=== PATIENT | female | born 1940 | race Caucasian/White ===

== ENCOUNTER 2024-10-14 11:33 | Inpatient (IN) | payer MEDICARE, SELFPAY ==
--- OUTSIDE RECORDS SUMMARY | 2024-10-09 23:01 | XMS_ITS | Encounter Summary ---
Author Organization [facility] ([place], [place], [place], [place]) Address [address] [place] [address] Care Team Providers Care Dynamometer Tuner Name Role Phone Hermes Clark MD Primary Care Provider [phone] Karlo Curtis MD Primary Care Provider [phone] Reason for Visit * Auth/Cert (Routine) Specialty Diagnoses / Procedures Referred By Contac t Referred To Contact Diagnoses GIB (gastrointestinal bleeding) Gastrointestinal bleeding GI BLEED [address] [place] [address] Phone: tel: fax: [address] [place] [address] Phone: tel: fax: Referral ID Status Reason Start Date Expiration Date Visits Re quested Visits Authorized [id number] 1 1 Encounter Details Date Type Department Care Team (Late st Contact Info) Description 10/09/2024 11:01 PM EDT - 10/12/2024 2:25 PM EDT Hospital Encounter [address] [place] [address] Enoc Olivia MD [address] [facility] [address] [place] [address] Kayden Quintero PA-C [address] [facility] [address] [place], [place] [id number] Tanner Srinivasan DO [address] [address] Aneudy Ospina, DO [address] [address] Discharge Disposition: Home or Self Care Social History Tobacco Use Types Packs/Day Years Used Date Smoking Tobacco: Never Assessed Food Insecurity Answer Date Recorded Food run out past 12 months Not on file 12/16 Food did not last past 12 months Not on file 01/08/2024 Employment Answer Date Recorded Help finding and keeping a job Not on file 0 01/08/2024 Family and Community Support Answer Kody e Recorded Help with Day to Day Activities Not on file 01/08/2024 Feeling Lonely or Isolated Not on file 01/07 Educational Attainment Answer Date Awais rded Speak language other than Niuean at home Not on file 01/08/2024 Want help with school or training Not on file 01/08/2024 Substance Use Answer Date Recorded Used prescription meds for non-medical reasons N ot on file 01/08/2024 Used illegal drugs past 12 months Not on file 01/08/2024 Comments Unknown Sex and Gender Information Value Date Recorded Sex Assigned at Not on file Legal Sex Female 5:40 PM CDT Gender Identity Not on file Sexual Orientation Not on file documented as of this encounter Last Filed Vital Signs Vital Sign Reading Time Taken Comments Blood Pressure 138/66 10/12/2024 10:20 AM EDT Pulse 79 10/12/2024 10:20 AM EDT Temperature 36.4 C (97.5 F) 10/12/2024 10:15 AM EDT Respiratory Rate 18 10/12/2024 3:50 AM EDT Oxygen Saturation 97% 10/12/2024 10:15 AM EDT Inhaled Oxygen Concentration - - Weight - - Height - - Body Mass Index - - documented in this encounter Discharge Summaries * Tanner Hernandezdiqi, - 10/12/2024 10:56 AM EDT [facility] Discharge Summary Patient Name: Ana Maria Lowery : 1940 Date of Admission: 10/09/2024 Date of Discharge: 10/12/2024 Primary Care Physician: Karlo Curtis MD Hospital Course Internet Systems Administrator(s): GI Discharge Diagnosis: #Acute GI bleeding: #Hematemesis #Hypertension: #Hyponatremia: #Dementia: #RA Reason for Hospitalization: GIB (gastrointestinal bleeding) [K92.2];Gastrointestinal bleeding [K92.2] Hospital Course Ana Maria Lowery is a 84 y.o. female with a history of A-fib, rheumatoid arthritis, hypertension, hyperlipidemia, dementia, and rheumatic fever who presents to [facility] in [place], [place] for further evaluation and management of vomiting and hematemesis. She was started on IV PPI BID. CT head without contrast was obtained showing no acute intracranial hemorrhage or territorial infarction. CT abdomen/pelvis without contrast showed patient motion and streak artificial artifact limitsevaluation. Small hiatal hernia noted. Atelectasis and tiny bilateral pulmonary nodules measuring no more than 5 mm. She was evaluated by GI and started on IV PPI BID. She had monitoring of her H&H and it remained stable with no further bleeding after arriving to the hospital. Will plan to d/c home today with PO PPI BID per GI recs. PCP follow up list: Hospital follow up visit: Day of Discharge Vital Signs: Temp: [97.3 ??F (36.3 ??C)-98.1 ??F (36.7 ??C)] 97.5 ??F (36.4 ??C) Pulse: [72-82] 79 Resp: [17-18] 18 BP: (95-149)/(42-66) 138/66 SpO2 for the past 72 hrs (Last 3 readings): SpO2 10/12/24 1015 97 % 10/12/24 0350 96 % 10/11/24 2310 95 % There is no height or weight on file to calculate BMI. Focused Physical Exam: Patient seen and evaluated on day of discharge Physical exam: Gen: Elderly female resting comfortably, NAD HEENT: Normocephalic, atraumatic, EOMI, very hard of hearing CVS: RRR, no edema Lung: CTA b/l, no rales, rhonchi, wheezes Abd: Soft non-distended Skin: No rashes Discharge Details Allergies:Not on File Medications on Discharge: Your medication list START taking these medications Instructions Comments Quantity Refills pantoprazole 40 MG tablet Commonly known as: PROTONIX Take 1 tablet (40 mg total) by mouth 2 (two) times daily before meals for 60 days Then take 1 tab oral daily.. Please fill Protonix daily Rx in 2 months. Patient needs to start with Protonix 40 mg BID x 2 months then Protonix 40 mg daily. 120 tablet 0 CONTINUE taking these medications Instructions Comments Quantity Refills benzonatate 100 MG capsule Commonly known as: TESSALON Take 1 capsule (100 mg total) by mouth every 8 (eight) hours as needed for cough. 0 losartan 25 MG tablet Commonly known as: COZAAR Take 1 tablet (25 mg total) by mouth daily. 0 metoprolol succinate 25 MG 24 hr tablet Commonly known as: TOPROL-XL Take 1 tablet (25 mg total) by mouth daily. 0 QUEtiapine 25 MG tablet Commonly known as: SEROquel Take 1 tablet (25 mg total) by mouth nightly. 0 Where to Get Your Medications These medications were sent to [facility] [address] [place] [address] pantoprazole 40 MG tablet Discharge condition: Improved and stable Discharge Disposition: Home Discharge Instructions: Please take your medications as prescribed. Please follow up with your PCP in 3-5 days. Please ensure you follow with all subspecialties as discussed on the day of discharge. Discharge Diet: Cardiac Discharge Activity: As tolerated Discharge Follow Up Appointments: Contact information for follow-up [address] [place] [address] [facility] Next Steps: Call in 3 day(s) Instructions: As needed Please call by 10/15/2024, or 72 hours AFTER discharge date if a home health nurse has not reached out to confirm a home visit. Time Spent on Discharge: I spent 15 minutes in [id number] time with the patient and nursing staffconcerning the discharge process. We discussed the admitting diagnoses and the hospital course. We discussed identified improvement and the patient's desire to be discharged. We reviewed inpatient studies and imaging. The patient voiced understanding on the importance of follow-up with his primary care provider and specialist(s). The patient plans to be compliant with the medication regimen prescribed and follow up appointments. Patient understands that they can return to the emergency department with any sudden changes or concerns. Electronically signed by: Tanner Srinivasan DO 10/12/2024, 10:56 AM [facility] documented in this encounter Discharge Instructions * Attachments The following attachments cannot be sent through Care Everywhere. * Gastrointestinal Bleeding [id number] (Niuean) documented in this encounter Medications at Time of Discharge benzonatate (TESSALON) 100 MG capsule Take 1 capsule (100 mg total) by mouth every 8 (eight) hours as needed for cough. losartan (COZAAR) 25 MG tablet Take 1 tablet (25 mg total) by mouth daily. metoprolol succinate (TOPROL-XL) 25 MG 24 hr tablet Take 1 tablet (25 mg total) by mouth daily. pantoprazole (PROTONIX) 40 MG tablet Take 1 tablet (40 mg total) by mouth 2 (two) times daily before meals for 60 days Then take 1 tab oral daily.. 120 tablet 10/12/2024 12/11/2024 QUEtiapine (SEROquel) 25 MG tablet Take 1 tablet (25 mg total) by mouth nightly. documented as of this encounter Progress Notes * PAUL Sin - 10/12/2024 1:45 PM EDTSummary: WEEKEND CM - Final DC Summary Care Coordination Final Discharge Plan Patient will discharge home w/daughter. Home health arranged by previous child support case officer. Weekend CM sent DCS to [facility] via [facility] fax. [facility] Final Discharge Plan PCP referral provided? (P) No Community Referral Discussed with patient: (P) No Patient Appealing Discharge: (P) No Does the patient have ability to fill and recive their discharge medications? (P) Yes Patient returning to prior living situation: (P) Yes Support Systems: (P) Family members, Children Discharge Disposition: (P) Home Services Arranged for Discharge: Home Health Contact information for follow-up [facility] [address] [place] [address] [facility] Next Steps: Call in 3 day(s) Instructions: As needed Please call by 10/15/2024, or 72 hours AFTER discharge date if a home health nurse has not reached out to confirm a home visit. Transporation Provider: (P) Family/Children Transporation Contact Name: (P) Ernestine Jefferson Transportation Provider Phone: (X) [phone] Date of plating and point assembly supervisor: (P) 10/12/24 Time of plating and point assembly supervisor: - 10/12/24 1344 Final Discharge Plan PCP referral provided? No Community Referral Discussed with Patient? No Patient appealing discharge? No Does the patient have the ability to fill and receive their discharge medications? Yes Patient returning to prior living situation? Yes Support Systems Family members;Children Discharge Disposition Home Agency Type Home Health Home Health Name and Number [facility], Transportation Provider Family/Children Transportation Contact Name Ernestine Jefferson Transportation Provider Date of plating and point assembly supervisor 10/12/24 PAUL Sin * PAUL Sin - 10/12/2024 1:42 PM EDTSummary: WEEKEND CM - Home with Family - Home Health [facility] Discharge Plan Progress Note Weekend CM sent Discharge Summary via [facility] to [facility]. Home Health Agency will follow up with patient and/or family. PAUL Sin * Tanner Srinivasan DO - 10/11/2024 9:13 AM EDT [facility] Progress Note Patient: Ana Maria Lowery Subjective Chief Complaint / Reason for Follow-Up Ana Maria Lowery is a 84 y.o. female on hospital day 2. The principal reason for today's follow up visit is GIB (gastrointestinal bleeding). Interval History Patient seen and evaluated this morning No acute events overnight Hemodynamics and labs for past 24 hours reviewed No further episodes of bleeding overnight Review of Systems denies Objective Vitals: Temp: [97.5 ??F (36.4 ??C)-99 ??F (37.2 ??C)] 97.5 ??F (36.4 ??C) Pulse: [78-91] 85 Resp: [16] 16 BP: (93-152)/(40-75) 112/74 Intake/Output: No intake or output data in the 24 hours ending 10/11/24 0913 Physical exam: Gen: Elderly female resting comfortably, NAD HEENT: Normocephalic, atraumatic, EOMI, very hard of hearing CVS: RRR, no edema Lung: CTA b/l, no rales, rhonchi, wheezes Abd: Soft non-distended Skin: No rashes Medications: Scheduled Meds: metoprolol tartrate 25 mg oral BID 25 mg at 10/11/24 0858 pantoprazole 40 mg intravenous BID 40 mg at 10/10/242041 QUEtiapine 50 mg oral BID 50 mg at 10/11/24 0858 valsartan 40 mg oral Daily Continuous Infusions: Current Facility-Administered Medications Medication Dose Route Frequency Provider Last Rate Last Admin acetaminophen (TYLENOL) tablet 1,000 mg 1,000 mg oral Q6H PRN Kayden Quintero PA-C bisacodyL (DULCOLAX) EC tablet 10 mg 10 mg oral Daily PRN Kayden Quintero PA-C Or bisacodyL (DULCOLAX) suppository 10 mg 10 mg rectal Daily PRN Kayden Quintero PA-C hydrALAZINE (APRESOLINE) injection 10 mg 10 mg intravenous Q6H PRN Kayden Quintero PA-C HYDROcodone-acetaminophen (NORCO) 5-325 mg per tablet 1 tablet 1 tablet oral Q6H PRN Kayden Quintero PA-C magnesium sulfate IVPB 2 g in sterile water 50 mL (premix) 2 g intravenous Daily PRN Kayden Quintero PA-C magnesium sulfate IVPB 2 g in sterile water 50 mL (premix) 2 g intravenous BID PRN Kayden Quintero PA-C melatonin tablet 3 mg 3 mg oral Every Night PRN Kayden Quintero PA-C metoprolol tartrate (LOPRESSOR) tablet 25 mg 25 mg oral BID Kayden Quintero PA-C 25 mg at 10/11/24 0858 morphine injection 2 mg 2 mg intravenous Q6H PRN Kayden Quintero PA-C naloxone (NARCAN) injection 0.2 mg 0.2 mg intravenous Q2 Min PRN Kayden Quintero PA-C ondansetron (ZOFRAN-ODT) disintegrating tablet 4 mg 4 mg oral Q8H PRN Kayden Quintero PA-C Or ondansetron (ZOFRAN) injection 4 mg 4 mg intravenous Q8H PRN Kayden Quintero PA-C pantoprazole (PROTONIX) injection 40 mg 40 mg intravenous BID Aneudy Ospina DO 40 mg at 10/10/242041 polyethylene glycol (GLYCOLAX) packet 17 g 17 g oral Daily PRN Kayden Quintero PA-C potassium chloride (KLOR-CON) ER tablet 40 mEq 40 mEq oral 4x Daily PRN Kayden Quintero PA-C potassium chloride IVPB 10 mEq in 100 mL sterile water (premix) 10 mEq intravenous Q1H PRN Kayden Quintero PA-C QUEtiapine (SEROquel) tablet 50 mg 50 mg oral BID Kayden Quintero PA-C 50 mg at 10/11/24 0858 sodium chloride flush 10 mL 10 mL intravenous PRN Kayden Quintero PA-C valsartan (DIOVAN) tablet 40 mg 40 mg oral Daily Kayden Quintero PA-C Radiology: Assessment and Plan Primary Diagnosis: GI bleed Secondary Diagnosis: Principal Problem: GIB (gastrointestinal bleeding) Active Problems: Gastrointestinal bleeding #Acute GI bleeding: #Hematemesis - Patient had 1 episode of coffee-ground emesis prior to presentation - Continue IV PPI twice daily - Continue IV zofran as needed - Labs personally reviewed: Hgb down to 11.8 - D/c IVF - Continue CLD - Repeat AM CBC ordered #Dementia - Delirium precautions: blinds open and lights on during day, sleep aids at night PRN in order to maintain circadian rhythm, frequent re-orientation, encourage family at bedside, limit sedating and anticholinergic medications #Hypertension: -Continue home valsartan #Hyponatremia: - Stop IVF - Check AM BMP Diet: Orders Placed This Encounter Procedures Clear Liquid diet DVT ppx: SCD Code Status: Full Code Discharge Planning: Barriers to discharge: Pending medical improvement Expected (tentative) discharge in 1-2 days Expected discharge disposition (home, SNF/Rehab, etc): TBD Signed: Tanner Srinivasan DO [facility] Hospitalist * Jessica Falcon RN - 10/10/2024 3:56 PM EDTSummary: Discharge Planning 10/10/24 1554 Home Environment Type of Residence Private residence Living Arrangements Children Support Systems Children Accessibilty Issues None Patient returning to prior living situation? Yes Affect Behavior Appropriate Prior/Regular Transportation Family Needs Assistance with Transportation No ADL Assessment Current Sensory Deficits None Current Home Care Services Other (Comment) (Day Care) Assistive Devices Walker;Other (Comment) (Shower chair) Transition Needs Home or Post Acute Services In home services Type of Home Care Services Home Health Agency (Comment);Physical Therapy Does the patient have the ability to fill and receive their discharge medications? Yes Discharge Plan Discussed The discharge plan was discussed with patient or patient treasury representative. Discharge Plan Outcome Patient/family treasury representative agrees with the discharge plan Discharge Barriers None Type of Assistive Devices Needed for Discharge None Patient Discharge Goal Home;Home Health Care Pt has readmission risk score of 9 %. This CM met with the Pt at bedside introduced self and role, however Pt was A&Ox2. CM then called Daughter Ernestine [phone]. The Pt lives with her Daughterin a house. Pt at baseline needs assistance with showering and washing her hair. Pt uses a RW for Mobility. During the day the pt attends a Daycare. DC plan is home w/ family. PT/OT recs services, Daughter in agreement, referral sent to [facility]. Per Daughter [facility] has serviced the pt at home in the past. CM was pendingthe orders to be signed by Dr. Srinivasan. Daughter will be able to transport her home. CM to follow. * Tanner Srinivasan, DO - 10/10/2024 12:43 PM EDT [facility] Progress Note Patient: Ana Maria Lowery Subjective Chief Complaint / Reason for Follow-Up Ana Maria Lowery is a 84 y.o. female on hospital day 1. The principal reason for today's follow up visit is GIB (gastrointestinal bleeding). Interval History Patient seen and evaluated this morning No acute events overnight Hemodynamics and labs for past 24 hours reviewed No further episodes of bleeding Hemodynamically stable Review of Systems denies Objective Vitals: Temp: [97.3 ??F (36.3 ??C)] 97.3 ??F (36.3 ??C) Pulse: [104] 104 Resp: [18] 18 BP: (158)/(82) 158/82 Intake/Output: Intake/Output Summary (Last 24 hours) at 10/10/2024 1243 Last data filed at 10/10/2024 0300 Gross per 24 hour Intake -- Output 1200 ml Net -1200 ml Physical exam: Gen: Elderly female resting comfortably, NAD HEENT: Normocephalic, atraumatic, EOMI, very hard of hearing CVS: RRR, no edema Lung: CTA b/l, no rales, rhonchi, wheezes Abd: Soft non-distended Skin: No rashes Medications: Scheduled Meds: metoprolol tartrate 25 mg oral BID pantoprazole 40 mg intravenous BID 40 mg at 10/10/24 1152 QUEtiapine 50 mg oral BID valsartan 40 mg oral Daily Continuous Infusions: Current Facility-Administered Medications Medication Dose Route Frequency Provider Last Rate Last Admin acetaminophen (TYLENOL) tablet 1,000 mg 1,000 mg oral Q6H PRN Kayden Quintero PA-C bisacodyL (DULCOLAX) EC tablet 10 mg 10 mg oral Daily PRN Kayden Quintero PA-C Or bisacodyL (DULCOLAX) suppository 10 mg 10 mg rectal Daily PRN Kayden Quintero PA-C hydrALAZINE (APRESOLINE) injection 10 mg 10 mg intravenous Q6H PRN Kayden Quintero PA-C HYDROcodone-acetaminophen (NORCO) 5-325 mg per tablet 1 tablet 1 tablet oral Q6H PRN Kayden Quintero PA-C magnesium sulfate IVPB 2 g in sterile water 50 mL (premix) 2 g intravenous Daily PRN Kayden Quintero PA-C magnesium sulfate IVPB 2 g in sterile water 50 mL (premix) 2 g intravenous BID PRN Kayden Quintero PA-C melatonin tablet 3 mg 3 mg oral Every Night PRN Kayden Quintero PA-C metoprolol tartrate (LOPRESSOR) tablet 25 mg 25 mg oral BID Kayden Quintero PA-C morphine injection 2 mg 2 mg intravenous Q6H PRN Kayden Quintero PA-C naloxone (NARCAN) injection 0.2 mg 0.2 mg intravenous Q2 Min PRN Kayden Quintero PA-C ondansetron (ZOFRAN-ODT) disintegrating tablet 4 mg 4 mg oral Q8H PRN Kayden Quintero PA-C Or ondansetron (ZOFRAN) injection 4 mg 4 mg intravenous Q8H PRN Kayden Quintero PA-C pantoprazole (PROTONIX) injection 40 mg 40 mg intravenous BID Aneudy Ospina DO 40 mg at 10/10/24 1152 polyethylene glycol (GLYCOLAX) packet 17 g 17 g oral Daily PRN Kayden Quintero PA-C potassium chloride (KLOR-CON) ER tablet 40 mEq 40 mEq oral 4x Daily PRN Kayden Quintero PA-C potassium chloride IVPB 10 mEq in 100 mL sterile water (premix) 10 mEq intravenous Q1H PRN Kayden Quintero PA-C QUEtiapine (SEROquel) tablet 50 mg 50 mg oral BID Kayden Quintero PA-C sodium chloride 0.9 % infusion 125 mL/hr intravenous Continuous Kayden Quintero PA-C 125 mL/hr at 10/10/24 0300 125 mL/hr at 10/10/24 0300 sodium chloride flush 10 mL 10 mL intravenous PRN Kayden Quintero PA-C valsartan (DIOVAN) tablet 40 mg 40 mg oral Daily Kayden Quintero PA-C Radiology: Assessment and Plan Primary Diagnosis: GI bleed Secondary Diagnosis: Principal Problem: GIB (gastrointestinal bleeding) Active Problems: Gastrointestinal bleeding #Acute GI bleeding: #Hematemesis - Patient had 1 episode of coffee-ground emesis prior to presentation -Continue IV PPI twice daily -Labs personally reviewed: Lactic acid 1.2, hemoglobin 13.4 -GI following: Plan of care discussed with Mihaela, after discussion with family, will opt for conservative therapy and monitoring of H&H given lack of symptoms at this time - Start clear liquid diet - AM CBC ordered #Dementia - Delirium precautions: blinds open and lights on during day, sleep aids at night PRN in order to maintain circadian rhythm, frequent re-orientation, encourage family at bedside, limit sedating and anticholinergic medications #Hypertension: -Continue home valsartan #Hyponatremia: -Sodium 133 - Decrease to NS at 30 cc/h Diet: Orders Placed This Encounter Procedures Clear Liquid diet DVT ppx: SCD Code Status: Full Code Discharge Planning: Barriers to discharge: Pending medical improvement Expected (tentative) discharge in 1-2 days Expected discharge disposition (home, SNF/Rehab, etc): TBD Signed: Tanner Srinivasan DO [facility] Hospitalist * EVA Griggs/Vinayak - 10/10/2024 10:39 AM EDT Images from the original note were not included. Inpatient Occupational Therapy Initial Evaluation Patient Name: Ana Maria Lowery Date of : 1940 Date of Evaluation: 10/10/24 Start Time: 955 Stop Time: 1038 Session Duration: 43 minutes Total time: 53 minutes spent, including 10 minutes for nursing collaboration, thorough chart and systems review, and clinical reasoning. This patient is a 84 y.o. female admitted on 10/09/2024 with GIB (gastrointestinal bleeding) [K92.2] Gastrointestinal bleeding [K92.2]. No past medical history on file. No past surgical history on file. General Visit type: Initial Evaluation Approved by: Nurse Cha Patient disposition upon entry: Patient verified by name, Patient verified by date of , Supinein bed Co-treated by: PT Precautions Weightbearing status: No restrictions Precautions: Fall risk Isolation precautions: Standard Subjective Subjective: Pt agreeable Patient's stated goal: Return home Pain No-patient has no complaints of pain Cognition Cognition: Arousal/alertness: Appropriate response to stimuli Orientation level: Oriented to situation, Oriented to person, Disoriented to time, oriented to cityand type of building Following commands: Follows one step commands with increased time Follows one step commands with repetition Vision/Hearing History Visual/Hearing History: Current Hearing: Hard of hearing in both ears Home Living Lives with: Adult children Receives help from: Family Type of home: House Home layout: One level, Steps to enter Bathroom layout: Walk in shower Home equipment available: hospital bed, shower chair, walker, rolling Functional Mobility PLOF: Patient reports being modified independent with all functional mobility with the use of Rolling walker Activities of Daily Living PLOF: Patient reports requiring assistance with dressing, bathing, cleaning and preparing food prior to onset. Does the patient have a recent history of falls?: Yes; patient has had 0 fall(s) in the past 6 months, but reports she has 3 falls outside of that window Objective Range of Motion Assessment Normal: Patient is able to use bilateral upper extremities for reaching/grasping/holding objects inall planes, including above shoulder level Except LUE scaption to 90 degrees B/l hands present with zig zag deformity Strength Assessment Fair: Patient is able to use arms to pull, push, and hold minimal resistance at elbow and wrist, but shows increased weakness at shoulders and is unable to take resistance Coordination/Sensation Coordination: The patient's gross motor coordination is intact. The patient's fine motor coordination is intact. Bed Mobility Supine to sit: Moderate assistance, 2 person assist Transfers Sit to stand:Minimal assistance, 2 person assist, Gait belt used, Rolling walker used Stand to sit:Minimal assistance, 2 person assist, Gait belt used, Rolling walker used Functional mobility:Minimal assistance, 2 person assist, Gait belt used, Rolling walker used ADLs Feeding:Independent Grooming:Standby Assist, Seated in chair Bathing:Moderate Assistance Upper body dressing:Independent Lower body dressing:Moderate Assistance Toileting:Moderate Assistance Outcome Measures [facility] Daily Living Functional Assessment How much help from another person does the patient currently need: Putting on and taking off regular lower body clothing? 2 Bathing, including washing, rinsing, and drying? 2 Toileting, including using toilet, bedpan or urinal? 2 Putting on and taking off regular upper body clothing? 4 Taking care of personal grooming such as brushing teeth? 3 Eating meals? 4 1=Total/Unable (Total assist/Dependent) 2=A lot (Maximal/Moderate assist) 3=A little (Minimal/Contact guard/Supervision/Setup) 4=None (Modified independent/Independent) The patient's [facility] raw score is 17. The patient currently has 50.11% functional impairment. Clinicians are most likely to recommend inpatient/SNF/snf care for patients with scores between 6-17, home health for scores between 18-22, and routine discharge for scores above 22. Balance Static sitting balance:Good: Patient able to maintain balance without handheld support; limited postural sway Dynamic sitting balance:Good: Patient accepts moderate challenge; able to maintain balance while picking object off the floor Static standing balance:Fair: Patient able to maintain balance with handheld support, may require occasional minimal assistance Dynamic standing balance:Poor: Patient unable to accept challenge or move without loss of balance Activity Tolerance Patient tolerated activity/intervention well with no complaints or adverse events. Treatment Upon entering room, pt was supine in bed. Pt was able to transfer to seated at EOB with mod A x2. From EOB, pt was able to stand and pivot to bedside chair with min A x2. Pt then demonstrated she hasthe ROM and dexterity to complete self care tasks (brush hair) from a seated position independently. Pt was able to stand a second time to marcia briefluis miguel. Pt was able to maintain standing balance with CGA for ~1 min whilst this took place. Pt returned to bedside chair where therapy session concluded. Assessment Assessment Prior to admission, patient was independent with ADLs, was independent with functional mobility using assistive devices, required assistance with ADLs , required assistance with home management tasks. Currently the patient presents with decreased balance , decreased safety awareness , difficulty with ADLs, fall risk, impaired cognition, impaired endurance, impaired functional mobility, impaired IADLs, impaired strength . These deficits currently impact the patient's ability to perform ADLs and functional mobility, putting them at an increased risk for increased falls, decreased quality of life, further functional decline, further decreased strength, increased caregiver burden. The patient has good rehab potential and would benefit from OT services to address the aforementioned functional deficits in order to return to prior level of function. 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 Plan Recommendations Discharge recommendations: Discharge recommendations pending progression of acute hospital stay secondary to the patient's medical status DME recommendations: Unable to make adaptive/DME recommendations at this time. Treatment Plan: Continue OT POC, Adaptive equipment training, ADL training, Functional mobility/transfer training, IADL training, Safety training, Strengthening OT Frequency/Duration: 3x/week for 14 days Goals Toileting: toileting , manipulation of clothing, perineal care with modified independence. Bed mobility: sit to supine, supine to sit with standby assist. Functional transfers: stand pivot transfer, ambulatory transfer with standby assist. Target Date: 10/24/2024 Goals were discussed with patient Education Patient educated on safety, role of occupational therapy, patient's plan of care, ADLs, functional mobility, adaptive equipment and following, they were able to return demonstration. Patient Disposition Upon Leaving Patient disposition upon leaving: Sitting in bedside chair, All needs met and within reach, Call light/pull cord in reach, Chair alarm applied If this patient discharges prior to next therapy session, this note serves as the patient's discharge summary. Electronically signed by EVA Griggs/Vinayak - 10/10/2024 - 12:53 PM EDT OT Evaluation Completed * Yvette Fernandez, PT - 10/10/2024 10:00 AM EDT Images from the original note were not included. Inpatient Physical Therapy Initial Evaluation Patient Name: Ana Maria Lowery Date of : 1940 Date of Evaluation: 10/10/24 In Time 1000 Out Time 1039 Session Duration 39 minutes Time spent for nursing collaboration, chart and systems review, and clinical reasoning. 8 minutes Total Time 47 minutes Pt is a 84 y.o. female admitted on 10/09/2024 with GIB (gastrointestinal bleeding) [K92.2] Gastrointestinal bleeding [K92.2]. No past medical history on file. No past surgical history on file. General Visit type: Initial Evaluation Approved by: Nurse Cha Patient Disposition Upon Entry: Supine in bed, Call Light/Pull Cord in reach, All needs met and within reach, Nursing aware/notified, HOB >30 degrees, Side rails up Patient Verified By: Name and Date of Co-treated by: OT Precautions Weight-Bearing Status: No Restrictions Precautions: Fall risk , [place] Isolation Precautions: Standard Lines, tubes, drains, airway: peripheral IV, telemetry Subjective Subjective: Patient agreeable to physical therapy evaluation and treatment. Patient goal: Return home. Pain No - Patient not reporting pain at this time Cognition Overall cognitive status: Impaired Arousal/Alertness: Appropriate response to stimuli Orientation Level: Oriented to situation, Oriented to person, Disoriented to place, Disoriented to time Following commands: Able to follow commands appropriately with verbal cueing Home Living Lives with: Daughter Home Type: House Home Layout: One level Stairs to enter: 4 step(s), handrail on right ascending Stairs inside home: none Home Equipment: Rolling walker, Hospital bed, Shower chair Functional Mobility PLOF: Patient reports being modified independent with all functional mobility with the use of Rolling walker Activities of Daily Living PLOF: Patient reports requiring assistance with bathing/dressing prior to onset. Fall History: No, patient denies any falls over the last 6 months. Objective Basic Strength Assessment Bilateral Lower Extremity Strength: LLE RLE Hip Flexion 3+/5 3+/5 Knee Flexion 4-/5 4-/5 Knee Extension 4-/5 4-/5 Ankle Dorsiflexion 4-/5 4-/5 Ankle Plantar Flexion 4-/5 4-/5 Range of Motion Assessment WFL LLE WFL RLE Sensation Sensation is intact and equal bilaterally. Coordination Tapping (foot): LLE (4) Normal performance, RLE (4) Normal performance Functional Mobility Bed Mobility Supine to Sit: moderate assistance, 2-person assist, HOB elevated, use of bed features Transfers Sit to Stand: minimal assistance, 2-person assist, gait belt used, rolling walker used Stand to Sit: minimal assistance, 2-person assist, gait belt used, rolling walker used Stand Pivot: minimal assistance, 2-person assist, gait belt used, rolling walker used Gait Unable to assess due to deconditioning, fatigue, and weakness Stair Management Unable to assess due to deconditioning, fatigue, and weakness Wheelchair Mobility Unable to assess due to deconditioning, fatigue, and weakness Outcome Measures AM-PAC Basic Mobility Inpatient Short Form How much difficulty does the patient currently have: Turning over in bed (including adjusting bedclothes, sheets, and blankets)? (1) Total/Unable (not able to do the activity or can only perform the activity using assistive devices or requires assistance from another person, including supervision or cueing for safety) Sitting down on and standing up from a chair with arms (e.g., wheelchair, bedside commode, etc.)? (1) Total/Unable (not able to do the activity or can only perform the activity using assistive devices or requires assistance from another person, including supervision or cueing for safety) Moving from lying on back to sitting on side of bed? (1) Total/Unable (not able to do the activity or can only perform the activity using assistive devices or requires assistance from another person,including supervision or cueing for safety) How much help from another person does the patient currently need: Moving to and from a bed to a chair (including a wheelchair)? (2) A lot (Maximal/Moderate assist) Need to walk in hospital room? (1) Total/Unable (Total assist/dependent) Climbing 3-5 steps with a railing? (1) Total/Unable (Total assist/dependent) Score Raw score=7 t-scale score=26.42 Standard error=4.33 CMS 0-100%=92.36% MDC=4.72 A raw score of >= 16 is significantly associated with increased odds of discharge to home in addition to consideration made for the patient's cognition and social determinants of health. Balance Static/dynamic sitting and static/dynamic standing balance grades Balance Grade Sitting Static Good - patient able to maintain balance without handhold support, limited postural sway Sitting Dynamic Good - patient accepts moderate challenge; able to maintain balance while picking object off floor Standing Static Fair - patient able to maintain balance with handhold support; may require occasional minimal assistance Standing Dynamic Poor - patient unable to accept challenge or move without loss of balance Activity Tolerance Patient limited with activity/intervention due to fatigue, deconditioning, weakness, and cognitive impairment Treatment Bed mobility training for supine>sit with mod A x 2 for assistance at trunk and BLE off of bed; cues provided for technique/sequencing. Transfer training sit<>stand and stand-pivot with rolling walker and min A x 2 for balance, safety, and cues to facilitate safe technique/hand placement. Patient stood for management of brief and placement of chair alarm with fair static stand balance. Pt was positioned in chair with LE elevated and alarm at end of session. Assessment At baseline, patient was independent with ADLs using adaptive equipment, required assistance with ADLs . Patient presenting with decreased activity tolerance, generalized weakness with functional activities, impaired dynamic balance with ambulation, and fatigue with physical exertion. Because of this, patient would have difficulty with independently performing toileting, bed mobility, transferring, ambulating on level surfaces, ambulating household distances, and negotiating stairs. These functional limitations put the patient at an increased risk for loss of independence with functional mobility and activities of daily living, falling, caregiver burden, skin breakdown, complications due toimmobilization, deconditioning, and decreased quality of life. AM-PAC score indicates need for inpatient rehab; patient could discharge to inpatient rehab or home with 24 hour care and continued therapy and use of rolling walker for safe mobility. Patient would benefit from skilled physical therapyservices during length of stay for strengthening, balance training to decrease risk of falling, endurance training to improve activity tolerance, stair training, gait training, transfer training, progression of mobility, and assistive device training. Problems: Decreased core stability, Decreased functional mobility, Decreased gait tolerance, Decreased strength, Decreased activity tolerance, Impaired standing balance, Impaired dynamic balance, Gait impairment Rehab potential: Good for stated goals Plan Treatment Plan: Therapeutic Exercise, Therapeutic Activity, Gait Training, Transfer Training, Balance Training, Stair Training, Strengthening, Home Exercise Program, Patient/Family/Caregiver Education, DME Recommendations PT Frequency/Duration: 5x/week for 14 days Recommendations Discharge recommendations: Discharge home/prior living situation. Patient would benefit from continued therapy services., Patient would benefit from 1-2 hours of multidisciplinary therapy per day upon discharge from acute care setting to assist with returning to prior level of functioning. DME recommendations: Patient would benefit from the use of a Rolling walker upon discharge. Per thepatient, the patient does have access to the recommended DME/adaptive equipment. Goals [id number]: By the target date, patient will perform [id number] with supervision, utilizing bed railing, to improve independence with bed mobility. [id number]: By the target date, patient will perform sit to stand with supervision and rolling walker to improve independence with functional mobility and decrease risk of falling. Transfer: By the target date, patient will perform stand-pivot transfer to a bedside commode, recliner chair, or wheelchair with supervision and utilizing rolling walker, demonstrating ability to safely transfer while in hospital setting to improve independence with functional mobility and decreaserisk of falling. Gait: Patient will ambulate 50' with supervision and utilizing rolling walker in order to improve balance with ambulation and decrease risk of falling Stairs: By the target date, patient will negotiate 4 step(s), with a step-to pattern, utilizing right railing and minimal assistance, to demonstrate ability to safely negotiate stairs at home. Target Date: 10/24/2024 Goals were discussed with patient Education Patient educated on safety, use of call button, role of physical therapy, plan of care, transfers, bed mobility, adaptive equipment, proper positioning and balance required for functional mobility tasks, need for assistance, and risk for falls and following, they were able to verbalize understanding. No further questions or concerns stated. Interdisciplinary Communication Following treatment, therapist communicated with nursing and child support case officer by completing communication whiteboard in room and recommendation for home health PT . Patient Disposition Upon Leaving Patient in bedside chair, Call Light/Pull Cord in reach, All needs met and within reach, Nursing aware/notified, Feet elevated, Chair Alarm applied If this patient discharges prior to next therapy session, this note serves as the patient's discharge summary. Electronically signed by Yvette Fernandez PT - 10/10/24 - 1:28 PM EDT PT Evaluation Completed documented in this encounter H&P Notes * Kayden Quintero PA-C - 10/09/2024 11:49 PM EDT [facility] Patient Name: Ana Maria Lowery : 1940 Date: 10/10/2024 PCP: Hermes Clark MD Date of Admission: 10/09/2024 Chief Complaint: hematemesis History of Present Illness Ana Maria Lowery is a 84 y.o. female with a history of A-fib, rheumatoid arthritis, hypertension, hyperlipidemia, dementia, and rheumatic fever who presents to [facility] in [place], [place] for further evaluation and management of vomiting. Patient presented from outlying facility brought in from daughter. Patient lives with daughter started states that she was fine she went to adult daycare and then patient got home and was found to be vomiting coffee- ground emesis in the bathroom. Patient has A-fib and artificial heart valve but is no longer on blood thinners. Patient home meds include losartan, metoprolol, Seroquel, benzonatate. Vital signs in the ER stable, afebrile, 94% saturation on room air. Apparently patient sees lost and found clerk here at [facility] and daughter was acceptable for patient to be sent here. Patient is weak per daughter, slightly confused from baseline. Patient denies any nausea/vomiting since onset of symptoms beginning earlier today. Patient is not currently on anticoagulation. ER findings and show white count 11.7, sodium 132, chloride 95, glucose 111, BUN 19, creatinine 1.1. Hemoglobin 13.8. Lactic acid initial 3.1. Coag studies within normal limits. Troponin negative. Lipase 80. UA was obtained and was negative with no nitrites or leukoesterase or bacteria. CT head without contrast was obtained showing no acute intracranial hemorrhage or territorial infarction. CT abdomen/pelvis without contrast showed patient motion and streak artificial artifact limits evaluation. Small hiatal hernia noted. Atelectasis and tiny bilateral pulmonary nodules measuring no more than 5 mm. No acute findings. EKG shows atrial fibrillation with a rate of 75. Patient received famotidine IV 20 mg, normal saline bolus, Protonix 40 mg IV in the ER. Past Medical History: No past medical history on file. Past Surgical History: No past surgical history on file. Social History: Family History: No family history on file. Documented Allergies: Not on File Documented [employer] Medications: No medications prior to admission. Review of Systems A 14 point review of systems was obtained and is negative unless otherwise stated in the HPI. Available past medical, social and family history reviewed. Objective Vitals: Intake/Output: No intake or output data in the 24 hours ending 10/10/24 0054 Physical Exam Vitals reviewed. Constitutional: Appearance: Normal appearance. HENT: Head: Normocephalic and atraumatic. Eyes: Extraocular Movements: Extraocular movements intact. Conjunctiva/sclera: Conjunctivae normal. Pupils: Pupils are equal, round, and reactive to light. Cardiovascular: Rate and Rhythm: Normal rate. Rhythm irregular. Pulmonary: Breath sounds: Normal breath sounds. Abdominal: General: Bowel sounds are normal. Musculoskeletal: Cervical back: Normal range of motion. Neurological: Mental Status: She is alert. She is disoriented. Psychiatric: Mood and Affect: Mood normal. Behavior: Behavior normal. Thought Content: Thought content normal. Recent Labs: No results found for this visit on 10/09/24 (from the past 24 hours). Microbiology Results (last 7 days) No results found for the last 168 hours. Radiology: Radiology Results (last 3 days) No results found for the last 72 hours. All Documented Medications: Scheduled Meds: QUEtiapine 50 mg oral BID valsartan 40 mg oral Daily Continuous Infusions: Current Facility-Administered Medications Medication Dose Route Frequency Provider Last Rate Last Admin acetaminophen (TYLENOL) tablet 1,000 mg 1,000 mg oral Q6H PRN Kayden Quintero PA-C bisacodyL (DULCOLAX) EC tablet 10 mg 10 mg oral Daily PRN Kayden Quintero PA-C Or bisacodyL (DULCOLAX) suppository 10 mg 10 mg rectal Daily PRN Kayden Quintero PA-C hydrALAZINE (APRESOLINE) injection 10 mg 10 mg intravenous Q6H PRN Kayden Quintero PA-C HYDROcodone-acetaminophen (NORCO) 5-325 mg per tablet 1 tablet 1 tablet oral Q6H PRN Kayden Quintero PA-C magnesium sulfate IVPB 2 g in sterile water 50 mL (premix) 2 g intravenous Daily PRN Kayden Quintero PA-C magnesium sulfate IVPB 2 g in sterile water 50 mL (premix) 2 g intravenous BID PRN Kayden Quintero PA-C melatonin tablet 3 mg 3 mg oral Every Night PRN Kayden Quintero PA-C morphine injection 2 mg 2 mg intravenous Q6H PRN Kayden Quintero PA-C naloxone (NARCAN) injection 0.2 mg 0.2 mg intravenous Q2 Min PRN Kayden Quintero PA-C ondansetron (ZOFRAN-ODT) disintegrating tablet 4 mg 4 mg oral Q8H PRN Kayden Quintero PA-C Or ondansetron (ZOFRAN) injection 4 mg 4 mg intravenous Q8H PRN Kayden Quintero PA-C polyethylene glycol (GLYCOLAX) packet 17 g 17 g oral Daily PRN Kayden Quintero PA-C potassium chloride (KLOR-CON) ER tablet 40 mEq 40 mEq oral 4x Daily PRN Kayden Quintero PA-C potassium chloride IVPB 10 mEq in 100 mL sterile water (premix) 10 mEq intravenous Q1H PRN Kayden Quintero PA-C QUEtiapine (SEROquel) tablet 50 mg 50 mg oral BID Kayden Quintero PA-C sodium chloride flush 10 mL 10 mL intravenous PRN Kayden Quintero PA-C valsartan (DIOVAN) tablet 40 mg 40 mg oral Daily Kayden Quintero PA-C Assessment and Plan #Hematemesis #GI bleed #Nausea and vomiting #Atrial fibrillation, not on anticoagulation -Per daughter, coffee-ground emesis 1 episode in bathroom. -CT abdomen/pelvis without contrast showed no acute findings, small had a wall hernia. - EKG shows A-fib with a rate of 75. - Patient received Pepcid IV 20 mg, normal saline bolus, Protonix 40 mg IV in the ER. - Consult GI, appreciate assistance - Continue rate control with metoprolol - Nausea meds as needed - Trend H/H for acute blood loss. #Leukocytosis #Dementia #Altered mental status from baseline - CT head without contrast showed no acute intracranial hemorrhage or territorial infarction. - UA negative - Will obtain chest x-ray - Monitor for worsening signs and symptoms - Seroquel 50 mg twice daily as prescribed at home. - PT/OT eval - Case management consult ordered. #Hyponatremia - Sodium 132 - IV fluids with sodium chloride - Monitor electrolytes and replace as needed. #Hypertension - Continue valsartan 40 mg - IV hydralazine as needed for SBP greater than 160/100. General orders as follows: -As needed antihypertensives with parenteral hydralazine 10 mg every 6 hrs for BP> 160/100. -As needed antiemetic with parenteral Zofran 4 mg every 8hrs for nausea. -Oral acetaminophen 650 mg every 6hrs for mild pain, [place] 5 mg every 6hrs for moderate/severe pain. -Parenteral morphine 2 mg every 6hrs for severe pain. -Laboratory work and pertinent imaging results independently reviewed as noted in HPI. -Continue to monitor electrolytes with AM metabolic panel and replete as appropriate. -Monitor WBC count to assess for developing / worsening infection and hemoglobin with AM CBC. -Intermittent BP and pulse oximetry monitoring per unit parameters. -Continue appropriate home medications for chronic problems as ordered below. -After reviewing this patient's presentation, labs, imaging, and medical record and discussion withsupervising physician, we have to decided to admit them. They will require inpatient admission requiring >48hrs for work up and stabilization of their condition. - High complexity of medical decision. -Evaluated 10/09/2024, 12:02 AM I, Kayden Quintero, have personally reviewed pertinent laboratory, EKG, and imaging results, as wellas documentation in the patient's EMR and discussed with supervising physician as necessary. Laboratory and imaging orders per the above plan have been reviewed and addressed, please see orders below. Home medications have been reviewed and restarted if appropriate. Patient's case, assessment, and plan have been discussed on this date with ED provider. Glycemic control: Goal BS between 110-180 Nutrition: Orders Placed This Encounter Procedures NPO Except: Sips with meds GI prophylaxis: Protonix VTE prophylaxis: SCDs AM orders including labs/radiology/procedures placed. Code Status: Current Code Status Full code Disposition: Admit Prognosis: TBD Signed: Kayden Quintero PA-C 10/09/2024, 12:02 AM Voice carpet layer technology (ARDACO) is used for dictation of this note and sound-alike words might be erroneously placed despite reviewing the note for accuracy. Errors in dictation mayreflect use of voice recognition software and not all errors in carpet layer may have been detected prior to signing. Active Orders Lab Magnesium Frequency: PRN Number of Occurrences: Until Specified Order Comments: If Mg less than or equal to 1.7 mg/dL previous day Potassium Frequency: PRN Number of Occurrences: Until Specified Order Comments: If Potassium Level Less than 3.5 mmol/L. Draw 1 hour after replacement and in the AM Diet NPO Except: Sips with meds Frequency: Effective Now Number of Occurrences: Until Specified Nursing Ambulate TID Frequency: Until Discontinued Number of Occurrences: Until Specified Apply sequential compression device Frequency: Until Discontinued Number of Occurrences: Until Specified Continuous Pulse Oximetry Frequency: Until Discontinued Number of Occurrences: Until Specified Intake and Output Frequency: Q Shift Number of Occurrences: Until Specified Notify provider of change in patient condition Frequency: Until Discontinued Number of Occurrences: Until Specified Notify provider per standard parameters Frequency: Until Discontinued Number of Occurrences: Until Specified Telemetry monitoring for Other Indication Frequency: Until Discontinued Number of Occurrences: 48 Hours Vital Signs Frequency: Q4H Number of Occurrences: Until Specified Code Status Full code Frequency: Continuous Number of Occurrences: Until Specified Respiratory Care Oxygen Therapy -Nasal Cannula Frequency: Continuous Number of Occurrences: Until Specified ECG Electrocardiogram, 12 Lead Frequency: Once Number of Occurrences: 1 Occurrences IV Insert Peripheral IV Linked Order: And Frequency: Once Number of Occurrences: 1 Occurrences Saline Lock IV Linked Order: And Frequency: Once Number of Occurrences: 1 Occurrences Medications acetaminophen (TYLENOL) tablet 1,000 mg Frequency: Q6H PRN Dose: 1,000 mg Route: oral bisacodyL (DULCOLAX) EC tablet 10 mg Linked Order: Or Frequency: Daily PRN Dose: 10 mg Route: oral bisacodyL (DULCOLAX) suppository 10 mg Linked Order: Or Frequency: Daily PRN Dose: 10 mg Route: rectal hydrALAZINE (APRESOLINE) injection 10 mg Frequency: Q6H PRN Dose: 10 mg Route: intravenous HYDROcodone-acetaminophen (NORCO) 5-325 mg per tablet 1 tablet Frequency: Q6H PRN Dose: 1 tablet Route: oral magnesium sulfate IVPB 2 g in sterile water 50 mL (premix) Frequency: Daily PRN Dose: 2 g Route: intravenous magnesium sulfate IVPB 2 g in sterile water 50 mL (premix) Frequency: BID PRN Dose: 2 g Route: intravenous melatonin tablet 3 mg Frequency: Every Night PRN Dose: 3 mg Route: oral morphine injection 2 mg Frequency: Q6H PRN Dose: 2 mg Route: intravenous naloxone (NARCAN) injection 0.2 mg Frequency: Q2 Min PRN Dose: 0.2 mg Route: intravenous ondansetron (ZOFRAN) injection 4 mg Linked Order: Or Frequency: Q8H PRN Dose: 4 mg Route: intravenous ondansetron (ZOFRAN-ODT) disintegrating tablet 4 mg Linked Order: Or Frequency: Q8H PRN Dose: 4 mg Route: oral polyethylene glycol (GLYCOLAX) packet 17 g Frequency: Daily PRN Dose: 17 g Route: oral potassium chloride (KLOR-CON) ER tablet 40 mEq Frequency: 4x Daily PRN Dose: 40 mEq Route: oral potassium chloride IVPB 10 mEq in 100 mL sterile water (premix) Frequency: Q1H PRN Dose: 10 mEq Route: intravenous QUEtiapine (SEROquel) tablet 50 mg Frequency: BID Dose: 50 mg Route: oral sodium chloride flush 10 mL Linked Order: And Frequency: PRN Dose: 10 mL Route: intravenous valsartan (DIOVAN) tablet 40 mg Frequency: Daily Dose: 40 mg Route: oral Cosigned by Aneudy Ospina DO at 10/10/2024 4:32 AM EDT Associated attestation - Aneudy Ospina DO - 10/10/2024 3:32 AM CDT Patient admitted with hematemesis for GI evaluation for EGD. Patient on IV PPI twice daily. Patientalso having some acute metabolic encephalopathy from baseline dementia. Patient with mild hyponatremia placed on IV fluids. Agree with rest plan as documented. Aneudy Ospina D.O. 10/10/2024 4:32 documented in this encounter Consult Notes * Mihaela Nix PA-C - 10/10/2024 9:54 AM EDTAssociated Order(s): Inpatient consult to Gastroenterology INPATIENT GASTROENTEROLOGY CONSULT NOTE Inpatient consult to Gastroenterology Consult performed by: Mihaela Nix PA-C Consult ordered by: Kayden Quintero PA-C Reason for consult: UGIB History of Present Illness: Ana Maria Lowery is a 84 y.o. female we were asked to see for UGIB. Baseline dementia, lives with daughter but attends adult daycare as well. Reports of recent vomiting with coffee ground emesis, AMS. Presented to [facility]. Hx of A.fib but not on bloodthinners anymore. Hgb stable and normal at 13. CT AP with no acute process. Infectious w/u with CT head, CXR and UA negative. Transferred here for GI evaluation. Recent use of Prednisone. Aspirin occasionally, no additional nsaids. No hx of EGD. NO melena or brbpr. Recent diarrhea. Past Medical History She has no past medical history on file. Past Surgical History She has no past surgical history on file. Family History: Her family history is not on file. Social History: Social History Socioeconomic History Marital status: Social Drivers of Health Financial Resource Strain: Medium Risk (01/18/2024) Received from [facility] Overall Financial Resource Strain (CARDIA) Difficulty of Paying Living Expenses: Somewhat hard Food Insecurity: No Food Insecurity (07/04/2024) Received from [facility] Hunger Vital Sign Worried About Running Out of Food in the Last Year: Never true Ran Out of Food in the Last Year: Never true Transportation Needs: No Transportation Needs (07/04/2024) Received from [facility] PRAPARE - Transportation Lack of Transportation (Medical): No Lack of Transportation (Non-Medical): No Physical Activity: Inactive (01/18/2024) Received from [facility] Exercise Vital Sign Days of Exercise per Week: 0 days Minutes of Exercise per Session: 0 min Family and Community Support Intimate Partner Violence: Not At Risk (07/04/2024) Received from [facility] Humiliation, Afraid, Rape, and Kick questionnaire Fear of Current or Ex-Partner: No Emotionally Abused: No Physically Abused: No Sexually Abused: No Housing Stability: Unknown (07/04/2024) Received from [facility] Housing Stability Vital Sign Unable to Pay for Housing in the Last Year: No Homeless in the Last Year: No Allergies: Patient has no allergy information on record. Inpatient Medications: Current Facility-Administered Medications: acetaminophen (TYLENOL) tablet 1,000 mg, 1,000 mg, oral, Q6H PRN, Kayden Quintero PA-C bisacodyL (DULCOLAX) EC tablet 10 mg, 10 mg, oral, Daily PRN OR bisacodyL (DULCOLAX) suppository 10 mg, 10 mg, rectal, Daily PRN, Kayden Quintero PA-C hydrALAZINE (APRESOLINE) injection 10 mg, 10 mg, intravenous, Q6H PRN, Kayden Quintero PA-C HYDROcodone-acetaminophen (NORCO) 5-325 mg per tablet 1 tablet, 1 tablet, oral, Q6H PRN, Kayden Quintero PA-C magnesium sulfate IVPB 2 g in sterile water 50 mL (premix), 2 g, intravenous, Daily PRN, Kayden Quintero PA-C magnesium sulfate IVPB 2 g in sterile water 50 mL (premix), 2 g, intravenous, BID PRN, Kayden Quintero PA-C melatonin tablet 3 mg, 3 mg, oral, Every Night PRN, Kayden Quintero PA-C metoprolol tartrate (LOPRESSOR) tablet 25 mg, 25 mg, oral, BID, Kayden Quintero PA-C morphine injection 2 mg, 2 mg, intravenous, Q6H PRN, Kayden Quintero PA-C naloxone (NARCAN) injection 0.2 mg, 0.2 mg, intravenous, Q2 Min PRN, Kayden Quintero PA-C ondansetron (ZOFRAN-ODT) disintegrating tablet 4 mg, 4 mg, oral, Q8H PRN OR ondansetron (ZOFRAN) injection 4 mg, 4 mg, intravenous, Q8H PRN, Kayden Quintero PA-C pantoprazole (PROTONIX) injection 40 mg, 40 mg, intravenous, BID, Aneudy Ospina DO polyethylene glycol (GLYCOLAX) packet 17 g, 17 g, oral, Daily PRN, Kayden Quintero PA-C potassium chloride (KLOR-CON) ER tablet 40 mEq, 40 mEq, oral, 4x Daily PRN, Kayden Quintero PA-C potassium chloride IVPB 10 mEq in 100 mL sterile water (premix), 10 mEq, intravenous, Q1H PRN, Kayden Quintero PA-C QUEtiapine (SEROquel) tablet 50 mg, 50 mg, oral, BID, Kayden Qiuntero PA-C sodium chloride 0.9 % infusion, 125 mL/hr, intravenous, Continuous, Kayden Quintero PA-C, Last Rate: 125 mL/hr at 10/10/24 0300, 125 mL/hr at 10/10/24 0300 Insert Peripheral IV, , , Once AND Saline Lock IV, , , Once AND sodium chloride flush 10 mL, 10 mL, intravenous, PRN, Kayden Quintero PA-C valsartan (DIOVAN) tablet 40 mg, 40 mg, oral, Daily, Kayden Quintero PA-C Home Medications: Medications Prior to Admission Medication Sig Dispense Refill Last Dose/Taking benzonatate (TESSALON) 100 MG capsule Take 1 capsule (100 mg total) by mouth every 8 (eight) hours as needed for cough. losartan (COZAAR) 25 MG tablet Take 1 tablet (25 mg total) by mouth daily. metoprolol succinate (TOPROL-XL) 25 MG 24 hr tablet Take 1 tablet (25 mg total) by mouth daily. QUEtiapine (SEROquel) 25 MG tablet Take 1 tablet (25 mg total) by mouth nightly. ROS: Review of Systems Unable to perform ROS: Dementia Vitals Blood pressure (!) 158/82, pulse 104, temperature 97.3 ??F (36.3 ??C), resp. rate 18, SpO2 98%. Physical Exam Constitutional: General: She is not in acute distress. Appearance: She is not toxic-appearing. Comments: Working with PT, in bedside chair. No family present HENT: Head: Normocephalic and atraumatic. Mouth/Throat: Mouth: Mucous membranes are moist. Eyes: Extraocular Movements: Extraocular movements intact. Conjunctiva/sclera: Conjunctivae normal. Pupils: Pupils are equal, round, and reactive to light. Cardiovascular: Rate and Rhythm: Normal rate and regular rhythm. Pulmonary: Effort: Pulmonary effort is normal. Breath sounds: Normal breath sounds. Comments: Room air Abdominal: General: Bowel sounds are normal. There is no distension. Palpations: Abdomen is soft. Tenderness: There is no abdominal tenderness. Musculoskeletal: General: No swelling or deformity. Cervical back: Normal range of motion and neck supple. Skin: General: Skin is warm and dry. Neurological: General: No focal deficit present. Mental Status: She is alert. She is disoriented. Psychiatric: Mood and Affect: Mood normal. Behavior: Behavior normal. Relevant Results: Results for orders placed or performed during the hospital encounter of 10/09/24 (from the past 24 hours) CBC with automated diff Status: Abnormal Collection Time: 10/10/24 6:55 AM Result Value Ref Range WBC 13.1 (H) 4.0 - 10.0 K/??L RBC 4.35 3.93 - 5.22 M/??L Hemoglobin 13.4 11.2 - 15.7 GM/DL Hematocrit 40.3 34.1 - 44.9 % MCV 93 79 - 95 fL MCH 30.8 25.6 - 32.2 pg MCHC 33.3 32.2 - 35.5 GM/DL RDW 12.2 11.7 - 14.4 % Platelets 350 140 - 375 K/CU MM MPV 9.0 (L) 9.4 - 12.3 fL % Neutros 78 (H) 34 - 71 % % Lymphs 16 (L) 19 - 52 % % Monos 6 5 - 13 % % Eos 0 (L) 1 - 6 % % Baso 1 0 - 1 % NRBC Absolute <0.01 0 - 0.012 K/ul # Neutros 10.17 (H) 1.56 - 6.13 K/??L # Lymphs 2.06 1.18 - 3.74 K/??L # Monos 0.72 0.24 - 0.86 K/??L # Eos <0.03 (L) 0.04 - 0.36 K/ L # Baso 0.08 0.01 - 0.08 K/??L Immature Granulocytes-Relative 0.30 0.01 - 0.43 % # IG 0.04 (H) 0.00 - 0.03 K/uL Comprehensive metabolic panel Status: Abnormal Collection Time: 10/10/24 6:55 AM Result Value Ref Range Sodium 133 (L) 136 - 145 meq/L Potassium 3.5 3.4 - 5.1 meq/L Chloride 103 98 - 112 meq/L CO2 18 (L) 22 - 29 meq/L Calcium 8.7 8.4 - 10.2 mg/dL Glucose 91 82 - 115 mg/dL BUN 10.9 9.8 - 20.1 mg/dL Creatinine 0.78 0.57 - 1.11 mg/dL BUN/Creatinine 14 8 - 20 eGFR (mL/min/1.73m2) 75 >=60 mL/min/1.73m2 Albumin 3.1 (L) 3.5 - 5.0 g/dL Alkaline Phosphatase 55 40 - 150 U/L ALT <7 <=34 U/L AST 24 11 - 34 U/L Total Bilirubin 0.7 0.2 - 1.2 mg/dL Protein, Total 7.5 6.4 - 8.3 g/dL Globulin 4.4 (H) 2.5 - 4.1 g/dL Anion Gap 16 (H) 4 - 12 A/G Ratio 0.7 0.7 - 1.9 Osmolality Calc 265.3 mOsm/kg C-Reactive Protein Status: Abnormal Collection Time: 10/10/24 6:55 AM Result Value Ref Range CRP 28.4 (H) 0.0 - 5.0 mg/L Lactic acid (SJ) Status: Abnormal Collection Time: 10/10/24 6:55 AM Result Value Ref Range Lactic Acid Level (mmol/L) 2.6 (H) 0.5 - 2.2 mmol/L Magnesium Status: Normal Collection Time: 10/10/24 6:55 AM Result Value Ref Range Magnesium 1.8 1.6 - 2.6 mg/dL Electrocardiogram, 12 Lead Status: None (In process) Collection Time: 10/10/24 9:14 AM Result Value Ref Range VENTRICULAR RATE EKG/MIN 98 BPM ATRIAL RATE (MCT) 98 BPM DE Interval 202 ms QRS-INTERVAL (MSEC) 82 ms QT Interval 352 ms QTC Interval 449 ms P [place] 89 degrees R AXIS (MCT) 35 degrees T Wave [place] 70 degrees [place] Diagnosis Sinus rhythm with premature atrial complexes Septal infarct , age undetermined T wave abnormality, consider inferior ischemia Abnormal ECG No previous ECGs available Radiology Results (last 3 days) Procedure Component Value Units Date/Time XR chest AP portable [[id number]] Collected: 10/10/24853 Order Status: Completed Updated: 10/10/24900 Narrative: PORTABLE CHEST 10/10/2024 1:12 AM HISTORY: Leukocytosis COMPARISON: None. FINDINGS: The heart is proper size. The mediastinum is unremarkable. Diffuse interstitial changes are probably chronic. The lungs are otherwise clear. There is no pneumothorax. The osseous structures are unremarkable. The patient is status post median sternotomy. Impression: No acute cardiopulmonary process. Continued follow-up is recommended. Images reviewed, interpreted, and dictated by Dr. Nyla Brady. Transcribed by Lori Munoz(R). Assessment & Plan Principal Problem: GIB (gastrointestinal bleeding) Active Problems: Gastrointestinal bleeding Assessment: 84 year old with dementia with AMS, some recent N/V/non-bloody diarrhea. Reports of coffee ground emesis while in ER. Hgb is normal and remains stable with no further episodes. Possible gastroenteritis with subclinical GIB related to gastritis, esophagitis. Occasional aspirin but no additional nsaids or use of blood thinners. Daughter reports some recent prednisone use. No hx of GIB. Long discussion with daughter via telephone regarding proceeding with EGD, risks vs benefits or monitoring with her age, dementia and stable H/H. She has opted to medically manage for now and monitor. Recommendations: Clear liquids. Advance diet as tolerated if no further bleeding PPI IV BID for now. Switch to PO at discharge x 8 weeks then daily Monitor hgb/stools. Blood transfusion as needed to maintain hgb >7 IVFs until adequate PO intake restored GI PCR ordered if any further diarrhea Avoid NSAIDs Supportive FDC tomorrow if no further bleeding and tolerating diet GI Consult above was discussed with Dr. Curtis. Electronically signed by Mihaela Nix PA-C 10/10/2024 at 9:55 AM Cosigned by Karlo Curtis MD at 10/11/2024 10:56 AM EDT documented in this encounter Miscellaneous Notes * Plan of Care - Nicole Jackson RN - 10/12/2024 5:46 AM EDT Problem: Knowledge Deficit Goal: Patient/family/caregiver demonstrates understanding of disease process, treatment plan, medications, and discharge instructions Description: Complete learning assessment and assess knowledge base. Outcome: Progressing Problem: Potential for Falls Goal: Patient will remain free of falls Description: Assess and monitor vitals signs, neurological status including level of consciousness and orientation. Reassess fall risk per hospital policy.Ensure arm band on, uncluttered walking paths in room, adequate room lighting, call light and overbed table within reach, bed in low position, wheels locked, side rails up per policy, and non-skid footwear provided. Outcome: Progressing Problem: Compromised Skin Integrity Goal: LTG - Patient will be free from infection Outcome: Progressing Goal: LTG - Patient will maintain/improve skin integrity through proper skin care techniques Outcome: Progressing Goal: LTG - Patient will demonstrate appropriate pressure relief techniques Outcome: Progressing Goal: LTG - Patient will demonstrate appropriate skin care techniques Outcome: Progressing Goal: LTG - Patient will be free from infection Outcome: Progressing Goal: STG - Patient demonstrates skin care/treatment/dressing change Outcome: Progressing Goal: STG - Patient will maintain good skin integrity Outcome: Progressing Goal: STG - Patient exhibits signs of wound healing. Outcome: Progressing Goal: STG - Patient demonstrates pressure reduction techniques Outcome: Progressing Goal: STG - Patient demonstrates preventative skin care measures Outcome: Progressing * Plan of Care - Mihaela Nix PA-C - 10/11/2024 10:19 AM EDT Chart checked and discussed with Dr. Srinivasan. Hgb 11 from 13 but no further bleeding, likely dilutional. GI PCR not collected. Plan to keep her one additional day for monitoring. No plans for EGD. Continue previous recommendations. Cosigned by Karlo Curtis MD at 10/11/2024 10:57 AM EDT * Plan of Care - Nicole Jackson RN - 10/11/2024 6:37 AM EDT Problem: Knowledge Deficit Goal: Patient/family/caregiver demonstrates understanding of disease process, treatment plan, medications, and discharge instructions Description: Complete learning assessment and assess knowledge base. Outcome: Progressing Problem: Potential for Falls Goal: Patient will remain free of falls Description: Assess and monitor vitals signs, neurological status including level of consciousness and orientation. Reassess fall risk per hospital policy.Ensure arm band on, uncluttered walking paths in room, adequate room lighting, call light and overbed table within reach, bed in low position, wheels locked, side rails up per policy, and non-skid footwear provided. Outcome: Progressing documented in this encounter Plan of Treatment Scheduled Orders Name Type Priority Associated Diagnoses Order Schedule Gastrointestinal PCR Panel (stool) Microbiology Routine Once for 1 Occurrences starting 10/10/2024 until 10/10/2024 documented as of this encounter Procedures Procedure Name Priority Date/Time Associated Diagnosis Comments CBC W/ AUTO DIFF Routine 10/12/2024 6:25 AM EDT BASIC METABOLIC PANEL Routine 10/12/2024 6:25 AM EDT CBC W/ AUTO DIFF Routine 10/11/2024 5:53 AM EDT LACTIC ACID (SJ - BKR) Routine 10:58 AM EDT FS_MODEL_IP_ECG 12-LEAD Routine 10/10/2024 9:14 AM EDT LACTIC ACID (SJ - BKR) Routine 6:55 AM EDT CBC W/ AUTO DIFF Routine 10/10/2024 6:55 AM EDT C-REACTIVE PROTEIN Routine 10/10/2024 6: 55 AM EDT MAGNESIUM Routine 10/10/2024 6:55 AM EDT COMPREHENSIVE METABOLIC PANEL Routine 10/10/2024 6:55 AM EDT XR CHEST AP PORTABLE ISIAH 10/10/2024 1:16 AM EDT documented in this encounter Results * (ABNORMAL) CBC with automated diff (10/12/2024 6:25 AM EDT) WBC 8.5 4.0 - 10.0 K/ L 10/12/2024 7:[address] [facility] RBC 3.97 3.93 - 5.22 M/ L 10/12/2024 7:[address] [facility] Hemoglobin 12.1 11.2 - 15.7 GM/DL 10/12/2024 7:[address] [facility] Hematocrit 35.0 34.1 - 44.9 % 10/12/2024 7:[address] [facility] MCV 88 79 - 95 fL 10/12/2024 7:[address] [facility] MCH 30.5 25.6 - 32.2 pg 10/12/2024 7:[address] [facility] MCHC 34.6 32.2 - 35.5 GM/DL 10/12/2024 7:[address] [facility] RDW 12.3 11.7 - 14.4 % 10/12/2024 7:[address] [facility] Platelets 381(H) 140 - 375 K/CU MM 10/12/2024 7:[address] [facility] MPV 9.3(L) 9.4 - 12.3 fL 10/12/2024 7:[address] [facility] % Neutros 58 34 - 71 % 10/12/2024 7:[address] [facility] % Lymphs 32 19 - 52 % 10/12/2024 7:[address] [facility] % Monos 9 5 - 13 % 10/12/2024 7:[address] [facility] % Eos 1 1 - 6 % 10/12/2024 7:[address] [facility] % Baso 1 0 - 1 % 10/12/2024 7:[address] [facility] NRBC Absolute <0.01 0 - 0.012 K/ul 10/12/2024 7:[address] [facility] # Neutros 4.86 1.56 - 6.13 K/ L 10/12/2024 7:[address] [facility] # Lymphs 2.69 1.18 - 3.74 K/ L 10/12/2024 7:[address] [facility] # Monos 0.73 0.24 - 0.86 K/ L 10/12/2024 7:[address] [facility] # Eos 0.08 0.04 - 0.36 K/ L 10/12/2024 7:[address] [facility] # Baso 0.06 0.01 - 0.08 K/ L 10/12/2024 7:[address] [facility] Immature Granulocytes-Re lative 0.40 0.01 - 0.43 % 10/12/2024 7:[address] [facility] # IG 0.03 0.00 - 0.03 K/uL 10/12/2024 7:[address] [facility] Blood Venipuncture / Unknown 10/12/2024 6:25 AM EDT 10/12/2024 7:[address] [facility] - 10/12/2024 7:16 AM EDT When CBC w/ Auto Diff is ordered the lab will add a Manual Differential as a quality check at no additional charge if: Lymphocytes greater than seventy five percent with normal or increased WBC Monocytes greater than Fifteen percent Basophil greater than four percent Bands >10% or several immature myeloids are seen on scan Blast? Flag noted Atypical Lymph flag noted us Ismaeel Craig DO LAB BLOOD ORDERABLES Final Re sult [facility] [address] [phone] * (ABNORMAL) Basic Metabolic Panel (10/12/2024 6:25 AM EDT) Sodium 135(L) 136 - 145 meq/L 10/12/2024 7:[address] [facility] Potassium 3.1(L) 3.4 - 5.1 meq/L 10/12/2024 7:[address] [facility] CO2 18(L) 22 - 29 meq/L 10/12/2024 7:[address] [facility] Chloride 107 98 - 112 meq/L 10/12/2024 7:[address] [facility] Glucose 92 82 - 115 mg/dL 10/12/2024 7:[address] [facility] BUN 8.0(L) 9.8 - 20.1 mg/dL 10/12/2024 7:[address] [facility] Creatinine 0.74 0.57 - 1.11 mg/dL 10/12/2024 7:[address] [facility] BUN/Creatinine 11 8 - 20 10/12/2024 7:[address] [facility] Calcium 8.3(L) 8.4 - 10.2 mg/dL 10/12/2024 7:[address] [facility] Anion Gap 13(H) 4 - 12 10/12/2024 7:[address] [facility] eGFR (mL/min/1.73m2) 80 >=60 mL/min/1.7 3m2 10/12/2024 7:[address] [facility] Osmolality Calc 268.1 mOsm/kg 7:[address] [facility] Blood Venipuncture / Unknown 10/12/2024 6:25 AM EDT 10/12/2024 7:12 AM EDT us Ismaeel Craig DO LAB BLOOD ORDERABLES Final Re sult [facility] [address] [phone] * (ABNORMAL) CBC with automated diff (10/11/2024 5:53 AM EDT) WBC 9.9 4.0 - 10.0 K/ L 10/11/2024 6:[address] [facility] RBC 3.80(L) 3.93 - 5.22 M/ L 10/11/2024 6:[address] [facility] Hemoglobin 11.8 11.2 - 15.7 GM/DL 10/11/2024 6:[address] [facility] Hematocrit 34.1 34.1 - 44.9 % 10/11/2024 6:[address] [facility] MCV 90 79 - 95 fL 10/11/2024 6:[address] [facility] MCH 31.1 25.6 - 32.2 pg 10/11/2024 6:[address] [facility] MCHC 34.6 32.2 - 35.5 GM/DL 10/11/2024 6:[address] [facility] RDW 12.3 11.7 - 14.4 % 10/11/2024 6:[address] [facility] Platelets 344 140 - 375 K/CU MM 10/11/2024 6:[address] [facility] MPV 9.4 9.4 - 12.3 fL 10/11/2024 6:[address] [facility] % Neutros 57 34 - 71 % 10/11/2024 6:[address] [facility] % Lymphs 33 19 - 52 % 10/11/2024 6:[address] [facility] % Monos 8 5 - 13 % 10/11/2024 6:[address] [facility] % Eos 1 1 - 6 % 10/11/2024 6:[address] [facility] % Baso 1 0 - 1 % 10/11/2024 6:[address] [facility] NRBC Absolute <0.01 0 - 0.012 K/ul 10/11/2024 6:[address] [facility] # Neutros 5.61 1.56 - 6.13 K/ L 10/11/2024 6:[address] [facility] # Lymphs 3.29 1.18 - 3.74 K/ L 10/11/2024 6:[address] [facility] # Monos 0.81 0.24 - 0.86 K/ L 10/11/2024 6:[address] [facility] # Eos 0.10 0.04 - 0.36 K/ L 10/11/2024 6:[address] [facility] # Baso 0.09(H) 0.01 - 0.08 K/ L 10/11/2024 6:[address] [facility] Immature Granulocytes-Re lative 0.20 0.01 - 0.43 % 10/11/2024 6:[address] [facility] # IG <0.03 0.00 - 0.03 K/uL 10/11/2024 6:[address] [facility] Blood Venipuncture / Unknown 10/11/2024 5:53 AM EDT 10/11/2024 6:[address] [facility] - 10/11/2024 6:26 AM EDT When CBC w/ Auto Diff is ordered the lab will add a Manual Differential as a quality check at no additional charge if: Lymphocytes greater than seventy five percent with normal or increased WBC Monocytes greater than Fifteen percent Basophil greater than four percent Bands >10% or several immature myeloids are seen on scan Blast? Flag noted Atypical Lymph flag noted us [employer] Craig DO LAB BLOOD ORDERABLES Final Re sult [facility] [address] [phone] * Lactic Acid (10/10/2024 10:58 AM EDT) Lactic Acid Level (mmol/L) 1.2 0.5 - 2.2 mmol/L 10/10/2024 11:[address] [facility] Blood Venipuncture / Unknown 10/10/2024 10:58 AM EDT 10/10/2024 11:[address] [facility] - 10/10/2024 11:32 AM EDT Specimen slightly hemolyzed us [employer] Craig DO LAB BLOOD ORDERABLES Final Re sult [facility] [address] [phone] * Electrocardiogram, 12 Lead (10/10/2024 9:14 AM EDT) VENTRICULAR RATE EKG/MIN 98 BPM GE MUSE ATRIAL RATE (MCT) 98 BPM GE MUSE DE Interval 202 ms GE MUSE QRS-INTERVAL (MSEC) 82 ms GE MUSE QT Interval 352 ms GE MUSE QTC Interval 449 ms GE MUSE P [place] 89 degrees GE MUSE R AXIS (MCT) 35 degrees GE MUSE T Wave [place] 70 degrees GE MUSE [place] Diagnosis Sinus rhythm with premature atrial complexes Septal infarct , age undetermined T wave abnormality, consider lateral ischemia Abnormal ECG No previous ECGs available Confirmed by Max French ([id number]) on 10/11/2024 7:36:53 PM GE MUSE 10/10/2024 9:14 AM EDT 10/11/2024 7:36 PM EDT Kayden Quintero PA-C ECG ORDERABLES Final Result Performing Organization Address City/[facility]/ZIP Co de Phone Number GE MUSE * Magnesium (10/10/2024 6:55 AM EDT) Magnesium 1.8 1.6 - 2.6 mg/dL 10/10/2024 7:[address] [facility] Blood Venipuncture / Unknown 10/10/2024 6:55 AM EDT 10/10/2024 7:02 AM EDT Kayden Quintero PA-C LAB BLOOD ORDERABLES Final R esult [facility] [address] [phone] * (ABNORMAL) Lactic acid (SJ) (10/10/2024 6:55 AM EDT) Lactic Acid Level (mmol/L) 2.6(H) 0.5 - 2.2 mmol/L 10/10/2024 7:[address] [facility] Blood Venipuncture / Unknown 10/10/2024 6:55 AM EDT 10/10/2024 7:02 AM EDT Kayden Quintero PA-C LAB BLOOD ORDERABLES Final R esult Performing Organization Address City/[facility] Co de Phone Number [facility] [address] [phone] * (ABNORMAL) C-Reactive Protein (10/10/2024 6:55 AM EDT) Pathologist [facility] CRP 28.4(H) 0.0 - 5.0 mg/L 10/10/2024 7:[address] [facility] Blood Venipuncture / Unknown 10/10/2024 6:55 AM EDT 10/10/2024 7:02 AM EDT Kayden ONTIVEROS-Mandy LAB BLOOD ORDERABLES Final R esult Performing Organization Address [facility] de Phone Number [facility] [address] [phone] * (ABNORMAL) Comprehensive metabolic panel (10/10/2024 6:55 AM EDT) Pathologist [facility] Sodium 133(L) 136 - 145 meq/L 10/10/2024 7:[address] [facility] Potassium 3.5 3.4 - 5.1 meq/L 10/10/2024 7:[address] [facility] Chloride 103 98 - 112 meq/L 10/10/2024 7:[address] [facility] CO2 18(L) 22 - 29 meq/L 10/10/2024 7:[address] [facility] Calcium 8.7 8.4 - 10.2 mg/dL 10/10/2024 7:[address] [facility] Glucose 91 82 - 115 mg/dL 10/10/2024 7:[address] [facility] BUN 10.9 9.8 - 20.1 mg/dL 10/10/2024 7:[address] [facility] Creatinine 0.78 0.57 - 1.11 mg/dL 10/10/2024 7:42 AM [facility] BUN/Creatinine 14 8 - 20 10/10/2024 7:42 AM [facility] eGFR (mL/min/1.73m2) 75 >=60 mL/min/1. 73m2 10/10/2024 7:42 AM [facility] Albumin 3.1(L) 3.5 - 5.0 g/dL 10/10/2024 7:42 AM [facility] Alkaline Phosphatase 55 40 - 150 U/L 10/10/2024 7:42 AM [facility] ALT <7 <=34 U/L 10/10/2024 7:42 AM [facility] Comment: ALT2 reagent used for testing does not contain P5P supplementation and therefore may miss ALT elevations in patients with B6 deficiency. This population may be as high as 10% in the [place], with risk factors including malabsorption, drug interactions, and alcoholic hepatitis. AST 24 11 - 34 U/L 10/10/2024 7:42 AM [facility] Comment: AST2 reagent used for testing does not contain P5P supplementation and therefore may miss AST elevations in patients with B6 deficiency. This population may be as high as 10% in the [place], with risk factors including malabsorption, drug interactions, and alcoholic hepatitis. Total Bilirubin 0.7 0.2 - 1.2 mg/dL 10/10/2024 7:42 AM [facility] Protein, Total 7.5 6.4 - 8.3 g/dL 10/10/2024 7:42 AM [facility] Globulin 4.4(H) 2.5 - 4.1 g/dL 10/10/2024 7:42 AM [facility] Anion Gap 16(H) 4 - 12 10/10/2024 7:42 AM [facility] A/G Ratio 0.7 0.7 - 1.9 10/10/2024 7:42 AM [facility] Osmolality Calc 265.3 mOsm/kg 7:42 AM [facility] Blood Venipuncture / Unknown 10/10/2024 6:55 AM EDT 10/10/2024 7:02 AM EDT us Kayden Quintero PA-C LAB BLOOD ORDERABLES Final R esult [facility] [address] [phone] * (ABNORMAL) CBC with automated diff (10/10/2024 6:55 AM EDT) WBC 13.1(H) 4.0 - 10.0 K/ L 10/10/2024 7:[address] [facility] RBC 4.35 3.93 - 5.22 M/ L 10/10/2024 7:[address] [facility] Hemoglobin 13.4 11.2 - 15.7 GM/DL 10/10/2024 7:[address] [facility] Hematocrit 40.3 34.1 - 44.9 % 10/10/2024 7:[address] [facility] MCV 93 79 - 95 fL 10/10/2024 7:[address] [facility] MCH 30.8 25.6 - 32.2 pg 10/10/2024 7:[address] [facility] MCHC 33.3 32.2 - 35.5 GM/DL 10/10/2024 7:[address] [facility] RDW 12.2 11.7 - 14.4 % 10/10/2024 7:[address] [facility] Platelets 350 140 - 375 K/CU MM 10/10/2024 7:[address] [facility] MPV 9.0(L) 9.4 - 12.3 fL 10/10/2024 7:[address] [facility] % Neutros 78(H) 34 - 71 % 10/10/2024 7:[address] [facility] % Lymphs 16(L) 19 - 52 % 10/10/2024 7:[address] [facility] % Monos 6 5 - 13 % 10/10/2024 7:[address] [facility] % Eos 0(L) 1 - 6 % 10/10/2024 7:[address] [facility] % Baso 1 0 - 1 % 10/10/2024 7:[address] [facility] NRBC Absolute <0.01 0 - 0.012 K/ul 10/10/2024 7:[address] [facility] # Neutros 10.17(H) 1.56 - 6.13 K/ L 10/10/2024 7:[address] [facility] # Lymphs 2.06 1.18 - 3.74 K/ L 10/10/2024 7:[address] [facility] # Monos 0.72 0.24 - 0.86 K/ L 10/10/2024 7:[address] [facility] # Eos <0.03(L) 0.04 - 0.36 K/ L 10/10/2024 7:[address] [facility] # Baso 0.08 0.01 - 0.08 K/ L 10/10/2024 7:[address] [facility] Immature Granulocytes-Re lative 0.30 0.01 - 0.43 % 10/10/2024 7:[address] [facility] # IG 0.04(H) 0.00 - 0.03 K/uL 10/10/2024 7:[address] [facility] Blood Venipuncture / Unknown 10/10/2024 6:55 AM EDT 10/10/2024 7:[address] [facility] - 10/10/2024 7:06 AM EDT When CBC w/ Auto Diff is ordered the lab will add a Manual Differential as a quality check at no additional charge if: Lymphocytes greater than seventy five percent with normal or increased WBC Monocytes greater than Fifteen percent Basophil greater than four percent Bands >10% or several immature myeloids are seen on scan Blast? Flag noted Atypical Lymph flag noted us Kayden Quintero PA-C LAB BLOOD ORDERABLES Final R esult [facility] [address] [phone] * XR chest AP portable (10/10/2024 1:16 AM EDT) Anatomical Region Laterality Modality Chest X-Ray 10/10/2024 8:54 AM EDT Impressions 10/10/2024 8:59 AM EDT No acute cardiopulmonary process. Continued follow-up is recommended. Images reviewed, interpreted, and dictated by Dr. Nyla Brady. Transcribed by Lori Munoz(R). Narrative 10/10/2024 8:59 AM EDT PORTABLE CHEST 10/10/2024 1:12 AM HISTORY: Leukocytosis COMPARISON: None. FINDINGS: The heart is proper size. The mediastinum is unremarkable. Diffuse interstitial changes are probably chronic. The lungs are otherwise clear. There is no pneumothorax. The osseous structures are unremarkable. The patient is status post median sternotomy. Procedure Note Ranjan Brayd MD - 10/10/2024 PORTABLE CHEST 10/10/2024 1:12 AM HISTORY: Leukocytosis COMPARISON: None. FINDINGS: The heart is proper size. The mediastinum is unremarkable. Diffuse interstitial changes are probably chronic. The lungs are otherwise clear. There is no pneumothorax. The osseous structures are unremarkable. The patient is status post median sternotomy. IMPRESSION: No acute cardiopulmonary process. Continued follow-up is recommended. Images reviewed, interpreted, and dictated by Dr. Nyla Brady. Transcribed by Lori Munoz(R). Kayden [facility] ORDER NAOMI Final Result documented in this encounter Visit Diagnoses Diagnosis GIB (gastrointestinal bleeding)- Primary Unspecified, hemorrhage of gastrointestinal tract Gastrointestinal bleeding Unspecified, hemorrhage of gastrointestinal tract documented in this encounter Admitting Diagnoses Diagnosis GIB (gastrointestinal bleeding) Unspecified, hemorrhage of gastrointestinal tract Gastrointestinal bleeding Unspecified, hemorrhage of gastrointestinal tract documented in this encounter Administered Medications Inactive Administered Medications - up to 3 most recent administrations Medication Order MAR Action Action Date Dose Rate Site acetaminophen (TYLENOL) tablet 1,000 mg 1,000 mg Every 6 hours PRN, oral, mild pain (1-3), headache, fever greater than or equal to 38C, Starting on Ivanna 10/09/24 at 2331, 1st line analgesic bisacodyL (DULCOLAX) EC tablet 10 mg 10 mg Daily as needed, oral, constipation, Starting on Ivanna 10/09/24 at 2331, 1st line for treatment of constipation - give scheduled if no bowel movement in past 24 hours. See suppository order and give rectally if not able to take PO. bisacodyL (DULCOLAX) suppository 10 mg 10 mg Daily as needed, rectal, constipation, Starting on Ivanna 10/09/24 at 2331, 1st line for treatment of constipation - give scheduled if no bowel movement in past 24 hours. Give suppository rectally if unable to take PO. hydrALAZINE (APRESOLINE) injection 10 mg 10 mg Every 6 hours PRN, intravenous, hypertension (sbp greater than 160), Starting on Ivanna 10/09/24 at 2331, Hold if SBP < 100 mmHg, DBP < 50 mmHg, or patient is on pressor. Look-alike/Sound-alike medication HYDROcodone-acetaminophen (NORCO) 5-325 mg per tablet 1 tablet 1 tablet Every 6 hours PRN, oral, moderate pain (4-6), Starting on Ivanna 10/09/24 at 233, 1st line analgesic Given 10/12/2024 11:04 AM EDT 1 tablet magnesium sulfate IVPB 2 g in sterile water 50 mL (premix) at 25 mL/hr, Administer over 120 Minutes, intravenous, Daily as needed, for magnesium level 1.3 to 1.7 mg/dL, Starting on Ivanna 10/09/24 at 233, If magnesium is replaced per protocol order, recheck 1 hour after replacement and the next morning. magnesium sulfate IVPB 2 g in sterile water 50 mL (premix) at 25 mL/hr, Administer over 120 Minutes, intravenous, 2 times daily PRN, for magnesium level less than 1.3 mg/dL, Starting on Ivanna 10/09/24 at 233, Total dose of 4 g for each low magnesium result. If magnesium is replaced per protocol order, recheck 1 hour after replacement and the next morning. melatonin tablet 3 mg 3 mg Every Night PRN, oral, insomnia, Starting on [facility] 10/09/24 at 2331 Given 10/11/2024 8:33 PM EDT 3 mg metoprolol tartrate (LOPRESSOR) tablet 25 mg 25 mg 2 times daily, oral, First dose on Sun10/10/24 at 0900, Hold for systolic BP < 90 mmHg or for HR < 50 BPM Given 10/12/2024 11:05 AM EDT 25 mg Given 10/11/2024 8:33 PM EDT 25 mg Given 10/11/2024 8:58 AM EDT 25 mg morphine injection 2 mg 2 mg Every 6 hours PRN, intravenous, severe pain (7-10), Starting on Ivanna 10/09/24 at 2331, 3rd line analgesic. Give only if inadequate response (less than 50% reduction in pain score) 60 minutes after administration of 2nd line agent. May give in addition to 1st + 2nd line analgesics (+ adjuvants if ordered) naloxone (NARCAN) injection 0.2 mg 0.2 mg Every 2 min PRN, intravenous, opioid reversal, respiratory depression,, Starting on [place] 10/09/24 at 2331, Give for respiratory rate less than 10 breaths/min or if patient is difficult to arouse. Max dose = 10mg. Call provider. ondansetron (ZOFRAN) injection 4 mg 4 mg Every 8 hours PRN, intravenous, nausea, vomiting, Starting on [facility] 10/09/24 at 2331, Give IV if patient is unable to take orally. 1st line If inadequate response within 60 minutes, proceed to next-line agent for same PRN reason or contact provider if no further options ordered. For IV push, give over 2 - 5 minutes. ondansetron (ZOFRAN-ODT) disintegrating tablet 4 mg 4 mg Every 8 hours PRN, oral, nausea, vomiting, Starting on Ivanna 10/09/24 at 2331, 1st line. If inadequate response within 60 minutes, proceed to next-line agent for same PRN reason or contact provider if no further options ordered. pantoprazole (PROTONIX) injection 40 mg 40 mg 2 times daily, intravenous, First dose on Sun10/10/24 at 0900, * DILUTE IN 10 ML NS AND GIVE IV SLOWLY OVER 3 MINUTES * Given 10/12/2024 11:04 AM EDT 40 mg Given 10/11/2024 8:34 PM EDT 40 mg Given 10/10/2024 8:42 PM EDT 40 mg polyethylene glycol (GLYCOLAX) packet 17 g 17 g Daily as needed, oral, constipation, Starting on [facility] 10/09/24 at 2331, Bowel Regimen - for prevention of constipation. potassium bicarbonate (EFFER-K) disintegrating tablet 40 mEq 40 mEq Once, oral, On Sun10/10/24 at 1330, For 1 dose, Do NOT crush or chew the effervescent tablet. Preparation: Dissolve 1 effervescent tablet in 3-4 ounces of cold water or juice and drink slowly. If giving through tube feeding, please flush feeding tube before and after this medication administration. Given 10/10/2024 6:31 PM EDT 40 mEq potassium chloride (KLOR-CON) ER tablet 40 mEq 40 mEq 4 times daily PRN, oral, for potassium less than or EQUAL to 3.4 mmol/L, Starting on Ivanna 10/09/24 at 2331, Do not crush KCl tablets. If potassium is replaced per protocol order, recheck potassium 2 hour after replacement and the next morning. potassium chloride IVPB 10 mEq in 100 mL sterile water (premix) 10 mEq Every hour PRN, intravenous, Administer over 60 Minutes, for potassium less than or equal to 3.4 mmol/L, Starting on Ivanna 10/09/24 at 2331, Total Dose 40 mEq, use only if unable to administer PO. Max Rate 10mEq/hr. If potassium is replaced per protocol order, recheck 1 hour after replacement and the next morning. QUEtiapine (SEROquel) tablet 50 mg 50 mg 2 times daily, oral, First dose on Sun10/10/24 at 0100 Given 10/12/2024 11:05 AM EDT 50 mg Given 10/11/2024 8:34 PM EDT 50 mg Given 10/11/2024 8:58 AM EDT 50 mg sodium chloride 0.9 % infusion 30 mL/hr Continuous, intravenous, Starting on Sun10/10/24 at 0130 Rate/Dose Change 10/10/2024 1:52 PM EDT 30 mL/hr 30 mL/hr New Bag 10/10/2024 3:00 AM EDT 125 mL/hr 125 mL/hr sodium chloride 0.9% (NS) bolus 1,000 mL Once, intravenous, Administer over 60 Minutes, On Sun10/10/24 at 0130, For 1 dose New Bag 10/10/2024 1:40 AM EDT 1,000 mLs 1000 mL/hr sodium chloride flush 10 mL 10 mL As needed, intravenous, line care, Starting on Ivanna 10/09/24 at 2331, Every 8 hours and PRN to flush valsartan (DIOVAN) tablet 40 mg 40 mg Daily, oral, First dose on Sun10/10/24 at 0900, Therapeutic Interchange for Angiotensin Receptor Blockers. Given 10/12/2024 11:06 AM EDT 40 mg documented in this encounter Active and Recently Administered Medications Times are shown in EDT. Scheduled Medication Order 10/10/2024 10/11/2024 10/12/2024 metoprolol tartrate (LOPRESSOR) tablet 25 mg 25 mg 2 times daily, oral, First dose on Sun10/10/24 at 0900, Hold for systolic BP < 90 mmHg or for HR < 50 BPM 1231 (Not Given - Provider: Starla Dumont RN - Reason: Order parameters not met)2041 (Given - Provider: Nicole Jackson RN) 0858 (Given - Provider: Starla Dumont RN)2032 (Given - Provider: Nicole Jackson RN) 1105 (Given - Provider: Starla Dumont RN) pantoprazole (PROTONIX) injection 40 mg 40 mg 2 times daily, intravenous, First dose on Sun10/10/24 at 0900, * DILUTE IN 10 ML NS AND GIVE IV SLOWLY OVER 3 MINUTES * 1152 (Given - Provider: Starla Dumont RN)2041 (Given - Provider: Nicole Jackson RN) 1018 (Not Given - Provider: Starla Dumont RN - Reason: Pending IV Access)2033 (Given - Provider: Nicole Jackson RN) 1104 (Given - Provider: Starla Dumont, TONY) potassium bicarbonate (EFFER-K) disintegrating tablet 40 mEq (COMPLETED) 40 mEq Once, oral, On Sun10/10/24 at 1330, For 1 dose, Do NOT crush or chew the effervescent tablet. Preparation: Dissolve 1 effervescent tablet in 3-4 ounces of cold water or juice and drink slowly. If giving through tube feeding, please flush feeding tube before and after this medication administration. 183 (Given - Provider: Starla Dumont RN) QUEtiapine (SEROquel) tablet 50 mg 50 mg 2 times daily, oral, First dose on Sun10/10/24 at 0100 0622 (Not Given - Provider: Nicole Jackson RN - Reason: Patient/family refused)1739 (Not Given - Provider: Starla Dumont RN - Reason: Patient/family refused)2042 (Given - Provider: Nicole Jackson RN) 0858 (Given - Provider: Starla Dumont RN)203 (Given - Provider: Nicole Jackson RN) 1105 (Given - Provider: Starla Dumont RN) sodium chloride 0.9% (NS) bolus (COMPLETED) 1,000 mL Once, intravenous, Administer over 60 Minutes, On Sun10/10/24 at 0130, For 1 dose 0140 (New Bag - Provider: Nicloe Jackson RN) valsartan (DIOVAN) tablet 40 mg 40 mg Daily, oral, First dose on Sun10/10/24 at 0900, Therapeutic Interchange for Angiotensin Receptor Blockers. 1232 (Not Given - Provider: Starla Dumont RN - Reason: Order parameters not met) 1200 (Not Given - Provider: Starla Dumont RN - Reason: Patient/family refused) 1106 (Given - Provider: Starla Dumont RN) Continuous Medication Order 10/10/2024 10/11/2024 10/12/2024 sodium chloride 0.9 % infusion (CANCELED) 30 mL/hr Continuous, intravenous, Starting on Sun10/10/24 at 0130 0300 (New Bag - Provider: Nicole Jackson RN)1352 (Rate/Dose Change - Provider: Starla Dumont RN) PRN Medication Order 10/10/2024 10/11/2024 10/12/2024 acetaminophen (TYLENOL) tablet 1,000 mg 1,000 mg Every 6 hours PRN, oral, mild pain (1-3), headache, fever greater than or equal to 38C, Starting on Ivanna 10/09/24 at 2331, 1st line analgesic bisacodyL (DULCOLAX) EC tablet 10 mg(Linked Group 1) 10 mg Daily as needed, oral, constipation, Starting on Ivanna 10/09/24 at 2331, 1st line for treatment of constipation - give scheduled if no bowel movement in past 24 hours. See suppository order and give rectally if not able to take PO. bisacodyL (DULCOLAX) suppository 10 mg(Linked Group 1) 10 mg Daily as needed, rectal, constipation, Starting on Ivanna 10/09/24 at 2331, 1st line for treatment of constipation - give scheduled if no bowel movement in past 24 hours. Give suppository rectally if unable to take PO. hydrALAZINE (APRESOLINE) injection 10 mg 10 mg Every 6 hours PRN, intravenous, hypertension (sbp greater than 160), Starting on Ivanna 10/09/24 at 2330, Hold if SBP < 100 mmHg, DBP < 50 mmHg, or patient is on pressor. Look-alike/Sound-alike medication HYDROcodone-acetaminophen (NORCO) 5-325 mg per tablet 1 tablet 1 tablet Every 6 hours PRN, oral, moderate pain (4-6), Starting on Ivanna 10/09/24 at 2330, 1st line analgesic 1104 (Given - Provid er: Starla Dumont RN) magnesium sulfate IVPB 2 g in sterile water 50 mL (premix) at 25 mL/hr, Administer over 120 Minutes, intravenous, Daily as needed, for magnesium level 1.3 to 1.7 mg/dL, Starting on Ivanna 10/09/24 at 2330, If magnesium is replaced per protocol order, recheck 1 hour after replacement and the next morning. magnesium sulfate IVPB 2 g in sterile water 50 mL (premix) at 25 mL/hr, Administer over 120 Minutes, intravenous, 2 times daily PRN, for magnesium level less than 1.3 mg/dL, Starting on Ivanna 10/09/24 at 2330, Total dose of 4 g for each low magnesium result. If magnesium is replaced per protocol order, recheck 1 hour after replacement and the next morning. melatonin tablet 3 mg 3 mg Every Night PRN, oral, insomnia, Starting on Ivanna 10/09/24 at 2330 2032 (Given - Provider: Nicole Jackson RN) morphine injection 2 mg 2 mg Every 6 hours PRN, intravenous, severe pain (7-10), Starting on Ivanna 10/09/24 at 2331, 3rd line analgesic. Give only if inadequate response (less than 50% reduction in pain score) 60 minutes after administration of 2nd line agent. May give in addition to 1st + 2nd line analgesics (+ adjuvants if ordered) naloxone (NARCAN) injection 0.2 mg 0.2 mg Every 2 min PRN, intravenous, opioid reversal, respiratory depression,, Starting on Ivanna 10/09/24 at 2331, Give for respiratory rate less than 10 breaths/min or if patient is difficult to arouse. Max dose = 10mg. Call provider. ondansetron (ZOFRAN) injection 4 mg(Linked Group 2) 4 mg Every 8 hours PRN, intravenous, nausea, vomiting, Starting on Ivanna 10/09/24 at 2331, Give IV if patient is unable to take orally. 1st line If inadequate response within 60 minutes, proceed to next-line agent for same PRN reason or contact provider if no further options ordered. For IV push, give over 2 - 5 minutes. ondansetron (ZOFRAN-ODT) disintegrating tablet 4 mg(Linked Group 2) 4 mg Every 8 hours PRN, oral, nausea, vomiting, Starting on Ivanna 10/09/24 at 2331, 1st line. If inadequate response within 60 minutes, proceed to next-line agent for same PRN reason or contact provider if no further options ordered. polyethylene glycol (GLYCOLAX) packet 17 g 17 g Daily as needed, oral, constipation, Starting on Ivanna 10/09/24 at 2331, Bowel Regimen - for prevention of constipation. potassium chloride (KLOR-CON) ER tablet 40 mEq 40 mEq 4 times daily PRN, oral, for potassium less than or EQUAL to 3.4 mmol/L, Starting on Ivanna 10/09/24 at 2331, Do not crush KCl tablets. If potassium is replaced per protocol order, recheck potassium 2 hour after replacement and the next morning. potassium chloride IVPB 10 mEq in 100 mL sterile water (premix) 10 mEq Every hour PRN, intravenous, Administer over 60 Minutes, for potassium less than or equal to 3.4 mmol/L, Starting on Ivanna 10/09/24 at 2331, Total Dose 40 mEq, use only if unable to administer PO. Max Rate 10mEq/hr. If potassium is replaced per protocol order, recheck 1 hour after replacement and the next morning. sodium chloride flush 10 mL(Linked Group 3) 10 mL As needed, intravenous, line care, Starting on Ivanna 10/09/24 at 2331, Every 8 hours and PRN to flush Linked Groups Order Group 1: bisacodyL (DULCOLAX) EC tablet 10 mgJump to med 10 mg Daily as needed, oral, constipation, Starting on Ivanna 10/09/24 at 2331, 1st line for treatment of constipation - give scheduled if no bowel movement in past 24 hours. See suppository order and give rectally if not able to take PO. Or bisacodyL (DULCOLAX) suppository 10 mgJump to med 10 mg Daily as needed, rectal, constipation, Starting on Ivanna 10/09/24 at 2331, 1st line for treatment of constipation - give scheduled if no bowel movement in past 24 hours. Give suppository rectally if unable to take PO. Group 2: ondansetron (ZOFRAN-ODT) disintegrating tablet 4 mgJump to med 4 mg Every 8 hours PRN, oral, nausea, vomiting, Starting on Ivanna 10/09/24 at 2331, 1st line. If inadequate response within 60 minutes, proceed to next-line agent for same PRN reason or contact provider if no further options ordered. Or ondansetron (ZOFRAN) injection 4 mgJump to med 4 mg Every 8 hours PRN, intravenous, nausea, vomiting, Starting on Ivanna 10/09/24 at 2331, Give IV if patient is unable to take orally. 1st line If inadequate response within 60 minutes, proceed to next-line agent for same PRN reason or contact provider if no further options ordered. For IV push, give over 2 - 5 minutes. 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
--- OUTSIDE RECORDS SUMMARY | 2024-10-09 23:01 | XMS_ITS | Encounter Summary ---
Author Organization [employer] ([place], [place], [place], [place]) Address [address] [place] [address] Care Team Providers Care Jig And Fixture Builder Name Role Phone Hermes Clark MD Primary Care Provider [phone] Karlo Curtis MD Primary Care Provider [phone] Reason for Visit * Auth/Cert (Routine) Specialty Diagnoses / Procedures Referred By Contac t Referred To Contact Diagnoses GIB (gastrointestinal bleeding) Gastrointestinal bleeding GI BLEED [address] [place] [address] Phone: tel: fax: [address] [place] [address] Phone: tel: fax: Referral ID Status Reason Start Date Expiration Date Visits Re quested Visits Authorized [id number] 1 1 Encounter Details Date Type Department Care Team (Late st Contact Info) Description 10/09/2024 11:01 PM EDT - 10/12/2024 2:25 PM EDT Hospital Encounter [address] [place] [address] Enoc Olivia MD 14[address] [facility] [address] [place] [address] Kayden Quintero PA-C 14[address] [facility] [address] [place], [place] [id number] Tanner Srinivasan DO [address] [address] Aneudy Ospina, DO [address] [address] Discharge Disposition: Home or Self Care Social [...] Date Awais rded Speak language other than Icelandic at home Not on file 01/08/2024 Want [...] Care Physician: Karlo Curtis MD Hospital Course 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 female with a history of A-fib, rheumatoid arthritis, hypertension, hyperlipidemia, dementia, and rheumatic fever who presents to [facility] in [place], [place] for further evaluation and management of [...] Your Medications These medications were sent to [facility] [address] [place] [address] pantoprazole 40 MG tablet Discharge condition: Improved and stable Discharge Disposition: Home Discharge Instructions: Please take your medications as prescribed. Please follow up with your PCP in 3-5 days. Please ensure you follow with all subspecialties as discussed on the day of discharge. Discharge Diet: Cardiac Discharge Activity: As tolerated Discharge Follow Up Appointments: Contact information for follow-up [address] [place] [address] [facility] Next Steps: Call in 3 day(s) Instructions: As needed Please call by 10/15/2024, or 72 hours AFTER discharge date if a home health nurse has not reached out to confirm a home visit. Time Spent on Discharge: I spent 15 minutes in [id number] time with the patient and nursing staffconcerning [...] sent through Care Everywhere. * Gastrointestinal Bleeding Icav-tn-Prnu (Icelandic) documented in this encounter Medications at Time [...] home w/daughter. Home health arranged by previous patient case coordinator. Weekend CM sent DCS to [facility] via [facility] fax. [facility] Final Discharge Plan PCP referral provided? (P) No Community Referral Discussed with patient: (P) No Patient Appealing Discharge: (P) No Does the patient have ability to fill and recive their discharge medications? (P) Yes Patient returning to prior living situation: (P) Yes Support Systems: (P) Family members, Children Discharge Disposition: (P) Home Services Arranged for Discharge: Home Health Contact information for follow-up [facility] [address] [place] [address] [facility] Next Steps: Call in 3 day(s) Instructions: As needed Please call by 10/15/2024, or 72 hours AFTER discharge date if a home health nurse has not reached out to confirm a home visit. Transporation Provider: (P) Family/Children Transporation Contact Name: (P) Ernestine Jefferson Transportation Provider Phone: ) [phone] Date of aerosol supervisor: (P) 10/12/24 Time of aerosol supervisor: - 10/12/24 1344 Final Discharge Plan PCP referral provided? No Community Referral Discussed with Patient? No Patient appealing discharge? No Does the patient have the ability to fill and receive their discharge medications? Yes Patient returning to prior living situation? Yes Support Systems Family members;Children Discharge Disposition Home Agency Type Home Health Home Health Name and Number [facility], Transportation Provider Family/Children Transportation Contact Name Ernestine Jefferson Transportation Provider Date of aerosol supervisor 10/12/24 PAUL Sin * PAUL Sin - 10/12/2024 1:42 PM EDTSummary: WEEKEND CM - Home with Family - Home Health [facility] Discharge Plan Progress Note Weekend CM sent Discharge Summary via [facility] to [facility]. Home Health Agency will follow up with [...] SNF/Rehab, etc): TBD Signed: Tanner Srinivasan DO [facility] Hospitalist * Jessica Falcon RN - [...] plan was discussed with patient or patient open claims representative. Discharge Plan Outcome Patient/family open claims representative agrees with the discharge plan Discharge Barriers None Type of Assistive Devices Needed for Discharge None Patient Discharge Goal Home;Home Health Care Pt has readmission risk score of 9 %. This CM met with the Pt at bedside introduced self and role, however Pt was A&Ox2. CM then called Daughter Ernestine [phone]. The Pt lives with her Daughterin a house. Pt at baseline needs assistance with showering and washing her hair. Pt uses a RW for Mobility. During the day the pt attends a Daycare. DC plan is home w/ family. PT/OT recs services, Daughter in agreement, referral sent to [facility]. Per Daughter [facility] has serviced the pt at home in [...] SNF/Rehab, etc): TBD Signed: Tanner Srinivasan DO [facility] Hospitalist * EVA Griggs/Vinayak - 10/10/2024 [...] body dressing:Moderate Assistance Toileting:Moderate Assistance Outcome Measures [facility] Daily Living Functional Assessment How much [...] (Minimal/Contact guard/Supervision/Setup) 4=None (Modified independent/Independent) The patient's [facility] raw score is 17. The patient currently has 50.11% functional impairment. Clinicians are most likely to recommend inpatient/SNF/intermediate care for patients with scores between 6-17, [...] will likely be appropriate for inpatient rehab/SNF/ roasterman care post hospitalization. Plan Recommendations Discharge recommendations: [...] Status: No Restrictions Precautions: Fall risk , YAVAPAI-APACHE Isolation Precautions: Standard Lines, tubes, drains, airway: [...] access to the recommended DME/adaptive equipment. Goals Gojekp-[id number]-czm: By the target date, patient will perform waebtx-[id number] with supervision, utilizing bed railing, to improve independence with bed mobility. Lak-jv-[id number]: By the target date, patient will perform [...] Following treatment, therapist communicated with nursing and patient case coordinator by completing communication whiteboard in room and [...] dementia, and rheumatic fever who presents to [facility] in [place], [place] for further evaluation and management of [...] saturation on room air. Apparently patient sees hogshead hooper here at [facility] and daughter was acceptable for patient to [...] file. 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 Review [...] 650 mg every 6hrs for mild pain, [place] 5 mg every 6hrs for moderate/severe pain. [...] Kayden Quintero PA-C 10/09/2024, 12:02 AM Voice babbitter technology ([employer] is used for dictation of this note and sound-alike words might be erroneously placed despite reviewing the note for accuracy. Errors in dictation mayreflect use of voice recognition software and not all errors in babbitter may have been detected prior to signing. [...] with coffee ground emesis, AMS. Presented to [facility]. Hx of A.fib but not on bloodthinners [...] Resource Strain: Medium Risk (01/18/2024) Received from [facility] Overall Financial Resource Strain (CARDIA) Difficulty of Paying Living Expenses: Somewhat hard Food Insecurity: No Food Insecurity (07/04/2024) Received from [facility] Hunger Vital Sign Worried About Running Out of Food in the Last Year: Never true Ran Out of Food in the Last Year: Never true Transportation Needs: No Transportation Needs (07/04/2024) Received from [facility] PRAPARE - Transportation Lack of Transportation (Medical): No Lack of Transportation (Non-Medical): No Physical Activity: Inactive (01/18/2024) Received from [facility] Exercise Vital Sign Days of Exercise per Week: 0 days Minutes of Exercise per Session: 0 min Family and Community Support Intimate Partner Violence: Not At Risk (07/04/2024) Received from [facility] Humiliation, Afraid, Rape, and Kick questionnaire Fear of Current or Ex-Partner: No Emotionally Abused: No Physically Abused: No Sexually Abused: No Housing Stability: Unknown (07/04/2024) Received from [facility] Housing Stability Vital Sign Unable to Pay [...] 50 mg, 50 mg, oral, BID, Kayden Quintero PA-C sodium chloride 0.9 % infusion, 125 [...] 98 BPM ATRIAL RATE (MCT) 98 BPM WV Interval 202 ms QRS-INTERVAL (MSEC) 82 ms QT Interval 352 ms QTC Interval 449 ms P Dyess 89 degrees R AXIS (MCT) 35 degrees T Wave Dyess 70 degrees Wagner Diagnosis Sinus rhythm with premature atrial complexes Septal infarct , age undetermined T wave abnormality, consider inferior ischemia Abnormal ECG No previous ECGs available Radiology Results (last 3 days) Procedure Component Value Units Date/Time XR chest AP portable [[id number]] Collected: 10/10/24853 Order Status: Completed Updated: 10/10/24900 [...] if any further diarrhea Avoid NSAIDs Supportive group home tomorrow if no further bleeding and tolerating [...] 10.0 K/ L 10/12/2024 7:16 AM EDT [facility] RBC 3.97 3.93 - 5.22 M/ L 10/12/2024 7:16 AM EDT [facility] Hemoglobin 12.1 11.2 - 15.7 GM/DL 10/12/2024 7:16 AM EDT [facility] Hematocrit 35.0 34.1 - 44.9 % 10/12/2024 7:16 AM EDT [facility] MCV 88 79 - 95 fL 10/12/2024 7:16 AM EDT [facility] MCH 30.5 25.6 - 32.2 pg 10/12/2024 7:16 AM EDT [facility] MCHC 34.6 32.2 - 35.5 GM/DL 10/12/2024 7:16 AM EDT [facility] RDW 12.3 11.7 - 14.4 % 10/12/2024 7:16 AM EDT [facility] Platelets 381(H) 140 - 375 K/CU MM 10/12/2024 7:16 AM EDT [facility] MPV 9.3(L) 9.4 - 12.3 fL 10/12/2024 7:16 AM EDT [facility] % Neutros 58 34 - 71 % 10/12/2024 7:16 AM EDT [facility] % Lymphs 32 19 - 52 % 10/12/2024 7:16 AM EDT [facility] % Monos 9 5 - 13 % 10/12/2024 7:16 AM EDT [facility] % Eos 1 1 - 6 % 10/12/2024 7:16 AM EDT [facility] % Baso 1 0 - 1 % 10/12/2024 7:16 AM EDT [facility] NRBC Absolute <0.01 0 - 0.012 K/ul 10/12/2024 7:16 AM EDT [facility] # Neutros 4.86 1.56 - 6.13 K/ L 10/12/2024 7:16 AM EDT [facility] # Lymphs 2.69 1.18 - 3.74 K/ L 10/12/2024 7:16 AM EDT [facility] # Monos 0.73 0.24 - 0.86 K/ L 10/12/2024 7:16 AM EDT [facility] # Eos 0.08 0.04 - 0.36 K/ L 10/12/2024 7:16 AM EDT [facility] # Baso 0.06 0.01 - 0.08 K/ L 10/12/2024 7:16 AM EDT [facility] Immature Granulocytes-Re lative 0.40 0.01 - 0.43 % 10/12/2024 7:16 AM EDT [facility] # IG 0.03 0.00 - 0.03 K/uL 10/12/2024 7:16 AM EDT [facility] Blood Venipuncture / Unknown 10/12/2024 6:25 AM EDT 10/12/2024 7:12 AM EDT Narrative [facility] - 10/12/2024 7:16 AM EDT When [...] DO LAB BLOOD ORDERABLES Final Re sult [facility] [address] [phone] * (ABNORMAL) Basic Metabolic Panel (10/12/2024 6:25 AM EDT) Sodium 135(L) 136 - 145 meq/L 10/12/2024 7:51 AM EDT [facility] Potassium 3.1(L) 3.4 - 5.1 meq/L 10/12/2024 7:51 AM EDT [facility] CO2 18(L) 22 - 29 meq/L 10/12/2024 7:51 AM EDT [facility] Chloride 107 98 - 112 meq/L 10/12/2024 7:51 AM EDT [facility] Glucose 92 82 - 115 mg/dL 10/12/2024 7:51 AM EDT [facility] BUN 8.0(L) 9.8 - 20.1 mg/dL 10/12/2024 7:51 AM EDT [facility] Creatinine 0.74 0.57 - 1.11 mg/dL 10/12/2024 7:51 AM EDT [facility] BUN/Creatinine 11 8 - 20 10/12/2024 7:51 AM EDT [facility] Calcium 8.3(L) 8.4 - 10.2 mg/dL 10/12/2024 7:51 AM EDT [facility] Anion Gap 13(H) 4 - 12 10/12/2024 7:51 AM EDT [facility] eGFR (mL/min/1.73m2) 80 >=60 mL/min/1.7 3m2 10/12/2024 7:51 AM EDT [facility] Osmolality Calc 268.1 mOsm/kg 7:51 AM EDT [facility] Blood Venipuncture / Unknown 10/12/2024 6:25 AM EDT 10/12/2024 7:12 AM EDT us Ismaeel Craig DO LAB BLOOD ORDERABLES Final Re sult [facility] [address] [phone] * (ABNORMAL) CBC with automated diff (10/11/2024 5:53 AM EDT) WBC 9.9 4.0 - 10.0 K/ L 10/11/2024 6:26 AM EDT [facility] RBC 3.80(L) 3.93 - 5.22 M/ L 10/11/2024 6:26 AM EDT [facility] Hemoglobin 11.8 11.2 - 15.7 GM/DL 10/11/2024 6:26 AM EDT [facility] Hematocrit 34.1 34.1 - 44.9 % 10/11/2024 6:26 AM EDT [facility] MCV 90 79 - 95 fL 10/11/2024 6:26 AM EDT [facility] MCH 31.1 25.6 - 32.2 pg 10/11/2024 6:26 AM EDT [facility] MCHC 34.6 32.2 - 35.5 GM/DL 10/11/2024 6:26 AM EDT [facility] RDW 12.3 11.7 - 14.4 % 10/11/2024 6:26 AM EDT [facility] Platelets 344 140 - 375 K/CU MM 10/11/2024 6:26 AM EDT [facility] MPV 9.4 9.4 - 12.3 fL 10/11/2024 6:26 AM EDT [facility] % Neutros 57 34 - 71 % 10/11/2024 6:26 AM EDT [facility] % Lymphs 33 19 - 52 % 10/11/2024 6:26 AM EDT [facility] % Monos 8 5 - 13 % 10/11/2024 6:26 AM EDT [facility] % Eos 1 1 - 6 % 10/11/2024 6:26 AM EDT [facility] % Baso 1 0 - 1 % 10/11/2024 6:26 AM EDT [facility] NRBC Absolute <0.01 0 - 0.012 K/ul 10/11/2024 6:26 AM EDT [facility] # Neutros 5.61 1.56 - 6.13 K/ L 10/11/2024 6:26 AM EDT [facility] # Lymphs 3.29 1.18 - 3.74 K/ L 10/11/2024 6:26 AM EDT [facility] # Monos 0.81 0.24 - 0.86 K/ L 10/11/2024 6:26 AM EDT [facility] # Eos 0.10 0.04 - 0.36 K/ L 10/11/2024 6:26 AM EDT [facility] # Baso 0.09(H) 0.01 - 0.08 K/ L 10/11/2024 6:26 AM EDT [facility] Immature Granulocytes-Re lative 0.20 0.01 - 0.43 % 10/11/2024 6:26 AM EDT [facility] # IG <0.03 0.00 - 0.03 K/uL 10/11/2024 6:26 AM EDT [facility] Blood Venipuncture / Unknown 10/11/2024 5:53 AM EDT 10/11/2024 6:22 AM EDT Narrative [facility] - 10/11/2024 6:26 AM EDT When [...] Flag noted Atypical Lymph flag noted us IsSanovationeel Craig DO LAB BLOOD ORDERABLES Final Re sult [facility] [address] [phone] * Lactic Acid (10/10/2024 10:58 AM EDT) Lactic Acid Level (mmol/L) 1.2 0.5 - 2.2 mmol/L 10/10/2024 11:32 AM EDT [facility] Blood Venipuncture / Unknown 10/10/2024 10:58 AM EDT 10/10/2024 11:05 AM EDT Narrative [facility] - 10/10/2024 11:32 AM EDT Specimen slightly hemolyzed us IsSanovationeel Craig DO LAB BLOOD ORDERABLES Final Re sult [facility] [address] [phone] * Electrocardiogram, 12 Lead (10/10/2024 9:14 AM EDT) VENTRICULAR RATE EKG/MIN 98 BPM GE MUSE ATRIAL RATE (MCT) 98 BPM GE MUSE WV Interval 202 ms GE MUSE QRS-INTERVAL (MSEC) 82 ms GE MUSE QT Interval 352 ms GE MUSE QTC Interval 449 ms GE MUSE P Dyess 89 degrees GE MUSE R AXIS (MCT) 35 degrees GE MUSE T Wave Dyess 70 degrees GE MUSE Wagner Diagnosis Sinus rhythm with premature atrial complexes Septal infarct , age undetermined T wave abnormality, consider lateral ischemia Abnormal ECG No previous ECGs available Confirmed by Max French ([id number]) on 10/11/2024 7:36:53 PM GE MUSE 10/10/2024 9:14 AM EDT 10/11/2024 7:36 PM EDT Kayden Quintero PA-C ECG ORDERABLES Final Result Performing Organization Address City/[facility]/ZIP Co de Phone Number GE MUSE * Magnesium (10/10/2024 6:55 AM EDT) Magnesium 1.8 1.6 - 2.6 mg/dL 10/10/2024 7:37 AM EDT [facility] Blood Venipuncture / Unknown 10/10/2024 6:55 AM EDT 10/10/2024 7:02 AM EDT Kayden Quintero PA-C LAB BLOOD ORDERABLES Final R esult [facility] [address] [phone] * (ABNORMAL) Lactic acid (SJ) (10/10/2024 6:55 AM EDT) Lactic Acid Level (mmol/L) 2.6(H) 0.5 - 2.2 mmol/L 10/10/2024 7:35 AM EDT [facility] Blood Venipuncture / Unknown 10/10/2024 6:55 AM EDT 10/10/2024 7:02 AM EDT Kayden Quintero PA-C LAB BLOOD ORDERABLES Final R esult Performing Organization Address City/[facility] Co de Phone Number [facility] [address] [phone] * (ABNORMAL) C-Reactive Protein (10/10/2024 6:55 AM EDT) Pathologist [facility] CRP 28.4(H) 0.0 - 5.0 mg/L 10/10/2024 7:37 AM EDT [facility] Blood Venipuncture / Unknown 10/10/2024 6:55 AM EDT 10/10/2024 7:02 AM EDT Kayden ONTIVEROS-Mandy LAB BLOOD ORDERABLES Final R esult Performing Organization Address [facility] de Phone Number [facility] [address] [phone] * (ABNORMAL) Comprehensive metabolic panel (10/10/2024 6:55 AM EDT) Pathologist [facility] Sodium 133(L) 136 - 145 meq/L 10/10/2024 7:42 AM EDT [facility] Potassium 3.5 3.4 - 5.1 meq/L 10/10/2024 7:42 AM EDT [facility] Chloride 103 98 - 112 meq/L 10/10/2024 7:42 AM EDT [facility] CO2 18(L) 22 - 29 meq/L 10/10/2024 7:42 AM EDT [facility] Calcium 8.7 8.4 - 10.2 mg/dL 10/10/2024 7:42 AM EDT [facility] Glucose 91 82 - 115 mg/dL 10/10/2024 7:42 AM EDT [facility] BUN 10.9 9.8 - 20.1 mg/dL 10/10/2024 7:42 AM EDT [facility] Creatinine 0.78 0.57 - 1.11 mg/dL 10/10/2024 7:42 AM [facility] BUN/Creatinine 14 8 - 20 10/10/2024 7:42 AM [facility] eGFR (mL/min/1.73m2) 75 >=60 mL/min/1. 73m2 10/10/2024 7:42 AM [facility] Albumin 3.1(L) 3.5 - 5.0 g/dL 10/10/2024 7:42 AM [facility] Alkaline Phosphatase 55 40 - 150 U/L 10/10/2024 7:42 AM [facility] ALT <7 <=34 U/L 10/10/2024 7:42 AM [facility] Comment: ALT2 reagent used for testing does not contain P5P supplementation and therefore may miss ALT elevations in patients with B6 deficiency. This population may be as high as 10% in the [place], with risk factors including malabsorption, drug interactions, and alcoholic hepatitis. AST 24 11 - 34 U/L 10/10/2024 7:42 AM [facility] Comment: AST2 reagent used for testing does not contain P5P supplementation and therefore may miss AST elevations in patients with B6 deficiency. This population may be as high as 10% in the [place], with risk factors including malabsorption, drug interactions, and alcoholic hepatitis. Total Bilirubin 0.7 0.2 - 1.2 mg/dL 10/10/2024 7:42 AM [facility] Protein, Total 7.5 6.4 - 8.3 g/dL 10/10/2024 7:42 AM [facility] Globulin 4.4(H) 2.5 - 4.1 g/dL 10/10/2024 7:42 AM [facility] Anion Gap 16(H) 4 - 12 10/10/2024 7:42 AM [facility] A/G Ratio 0.7 0.7 - 1.9 10/10/2024 7:42 AM [facility] Osmolality Calc 265.3 mOsm/kg 7:42 AM [facility] Blood Venipuncture / Unknown 10/10/2024 6:55 AM EDT 10/10/2024 7:02 AM EDT us Kayden Quintero PA-C LAB BLOOD ORDERABLES Final R esult [facility] [address] [phone] * (ABNORMAL) CBC with automated diff (10/10/2024 6:55 AM EDT) WBC 13.1(H) 4.0 - 10.0 K/ L 10/10/2024 7:06 AM EDT [facility] RBC 4.35 3.93 - 5.22 M/ L 10/10/2024 7:06 AM EDT [facility] Hemoglobin 13.4 11.2 - 15.7 GM/DL 10/10/2024 7:06 AM EDT [facility] Hematocrit 40.3 34.1 - 44.9 % 10/10/2024 7:06 AM EDT [facility] MCV 93 79 - 95 fL 10/10/2024 7:06 AM EDT [facility] MCH 30.8 25.6 - 32.2 pg 10/10/2024 7:06 AM EDT [facility] MCHC 33.3 32.2 - 35.5 GM/DL 10/10/2024 7:06 AM EDT [facility] RDW 12.2 11.7 - 14.4 % 10/10/2024 7:06 AM EDT [facility] Platelets 350 140 - 375 K/CU MM 10/10/2024 7:06 AM EDT [facility] MPV 9.0(L) 9.4 - 12.3 fL 10/10/2024 7:06 AM EDT [facility] % Neutros 78(H) 34 - 71 % 10/10/2024 7:06 AM EDT [facility] % Lymphs 16(L) 19 - 52 % 10/10/2024 7:06 AM EDT [facility] % Monos 6 5 - 13 % 10/10/2024 7:06 AM EDT [facility] % Eos 0(L) 1 - 6 % 10/10/2024 7:06 AM EDT [facility] % Baso 1 0 - 1 % 10/10/2024 7:06 AM EDT [facility] NRBC Absolute <0.01 0 - 0.012 K/ul 10/10/2024 7:06 AM EDT [facility] # Neutros 10.17(H) 1.56 - 6.13 K/ L 10/10/2024 7:06 AM EDT [facility] # Lymphs 2.06 1.18 - 3.74 K/ L 10/10/2024 7:06 AM EDT [facility] # Monos 0.72 0.24 - 0.86 K/ L 10/10/2024 7:06 AM EDT [facility] # Eos <0.03(L) 0.04 - 0.36 K/ L 10/10/2024 7:06 AM EDT [facility] # Baso 0.08 0.01 - 0.08 K/ L 10/10/2024 7:06 AM EDT [facility] Immature Granulocytes-Re lative 0.30 0.01 - 0.43 % 10/10/2024 7:06 AM EDT [facility] # IG 0.04(H) 0.00 - 0.03 K/uL 10/10/2024 7:06 AM EDT [facility] Blood Venipuncture / Unknown 10/10/2024 6:55 AM EDT 10/10/2024 7:02 AM EDT Narrative [facility] - 10/10/2024 7:06 AM EDT When [...] PA-C LAB BLOOD ORDERABLES Final R esult [facility] [address] [phone] * XR chest AP portable (10/10/2024 1:16 [...] status post median sternotomy. Procedure Note Ranjan Brady MD - 10/10/2024 PORTABLE CHEST 10/10/2024 1:12 [...] Every Night PRN, oral, insomnia, Starting on [facility] 10/09/24 at 2331 Given 10/11/2024 8:33 [...] 1 dose 0140 (New Bag - Provider: Nicole Jackson RN) valsartan (DIOVAN) tablet 40 mg [...] flush documented in this encounter Care Teams Jig And Fixture Builder Relationship Specialty Start Date End Date Hermes Clark MD [address] [place] [address] DR RAINA SHAIKH [id number] PCP - General General Internal Medicine 10/09/2409/15 Karlo Curtis MD [address] [place] [address] PCP - General Gastroenterology 10/10/24 documented as of this encounter
[2024-10-14] VITALS (9 sets, daily range): BP systolic 132–183; BP diastolic 61–95; PULSE 68–89; RESP 15–27; TEMP 36.8–37.7; O2SAT 93–95; BMI 26.7; BMI 25.2
--- NOTE | 2024-10-14 11:43 | PC.NURSE ---
calling for medical records.
--- NOTE | 2024-10-14 11:51 | PC.NURSE ---
called [facility] for medical records to be faxed over
--- NOTE | 2024-10-14 11:57 | XR_ITS ---
FINAL REPORT CLINICAL HISTORY: Shortness of breath COMPARISON: 10/10/2024 FINDINGS: The heart size is at the upper limits of normal. Multiple median sternotomy wires are present. There are mild chronic changes at the lung bases. There is no focal infiltrate or edema. There are no pleural effusions. There is no pneumothorax. 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 There is no acute osseous abnormality. IMPRESSION: Chronic changes at the lung bases without acute cardiopulmonary process Reviewed, Interpreted and Dictated by Sy Narvaez MD Transcribed by Elvia Varela Authenticated and [facility]
--- NOTE | 2024-10-14 12:02 | HMH.EDGENADL ---
Discharge Plan Disposition Patient Disposition: Admitted Referrals Follow up/Referrals: Hermes Clark [Primary Care Provider, Medical] - See instructions Clinical Impressions Clinical Impression: Generalized weakness, Inability to walk, Hematuria Print Language Print Language: Swedish Discharge ED Provider: Caitlyn Garcia General Adult HPI General Chief complaint: Weakness Stated complaint: Pain all over; Can't sit Up; Time Seen by Provider: 10/14/24 11:38 History of Present Illness HPI narrative: 84-year-old female brought in today by her daughter for generalized weakness. States this began within the last few weeks but worsened in the middle of last week at which point she had a few episodes of nausea and vomiting and some questionable coffee-ground emesis went to [facility] emergency department. From there she was transferred to [facility] because they thought that she needed an endoscopy. However her blood counts remained stable she had no ongoing melena or hematemesis they decided that the risk of the sedation was greater than the benefit from the procedure. Daughter states they did a lot of tests and could not find any definitive abnormalities. We are attempting to get those records and do not have them in front of us at the moment. The patient herself states that she feels awful. When asked to describe that she does not localize any pain but does state that she has diffuse bodyaches. When asked if this feels similar to the flu she said yes something like that. Apparently she was complaining of neck pain to her daughter but denies that to me at the moment. She also denies head neck chest abdomen pelvis or any other focal discomfort. No cough no urinary symptoms well. She does have a history of urinary tract infections. Related Data Allergies Allergy/AdvReac Type Severity Reaction Status Date / Time No Known Allergies Allergy Verified 10/14/24 12:26 [facility] Disclaimer: The information contained in this section may have been updated after the patient was seen, as this information can be updated by other users. Social History Smoking Status: Never smoker alcohol intake: never current occupational status: other Travel in the last 8 weeks?: None ROS Obtained: Yes All systems reviewed & no additional complaints except as documented Physical Exam General General appearance: alert, in no apparent distress and other (Feels very warm to the touch) Neck Neck exam: Absent meningismus Chest Chest inspection: Present normal inspection and symmetric chest wall rise Respiratory Respiratory exam: Present normal lung sounds bilaterally; Absent respiratory distress Cardiovascular Cardiovascular exam: Present regular rate Abdominal Exam Abdominal exam: Present soft; Absent distention or tenderness Neurological Exam Neurological exam: Present alert and oriented X3 Medical Decision Making Medical Records Screening: Per USPSTF and CDC recommendations, given the prevalence of disease in our region, it is our hospital?s policy to screen for HIV and viral Hepatitis for all patients aged 18 and over and those with ongoing risk factors. Antoine Inquiry Pt receiving controlled substance: No Vital Signs: 10/14/24 11:41 10/14/24 12:00 10/14/24 12:02 Temperature 99.9 F H Temperature Source Oral Pulse Rate 85 Pulse Rate [Right Radial] 84 Respiratory Rate 16 18 Blood Pressure 168/75 H 166/77 H Blood Pressure [Right Arm] 168/72 H Blood Pressure Mean [Right Arm] 104 Blood Pressure Source [Right Arm] Automatic Cuff Blood Pressure Position [Right Arm] Sitting 02 Sat by Pulse Oximetry 94 L 94 L Oxygen Delivery Method Room Air 10/14/24 12:30 10/14/24 13:01 Temperature Temperature Source Pulse Rate 87 Pulse Rate [Right Radial] Respiratory Rate 20 15 Blood Pressure 165/88 H 183/80 H Blood Pressure [Right Arm] Blood Pressure Mean [Right Arm] Blood Pressure Source [Right Arm] Blood Pressure Position [Right Arm] 02 Sat by Pulse Oximetry 94 L Oxygen Delivery Method Lab Data Lab results reviewed: Yes I reviewed the patient's lab results. Lab Results 10/14/24 12:01: VBG pH 7.41, VBG pCO2 34.3 L, VBG pO2 59.4 H, VBG HCO3 21.2 L, VBG Total CO2 22.3 L, VBG O2 Saturation 90.8 H, VBG Base Excess -3.4 L, VBG Lactic Acid 2.7 H 10/14/24 12:10: WBC 16.4 H, RBC 4.09 L, Hgb 12.6, Hct 36.5 L, MCV 89.2, MCH 30.8, MCHC 34.5, RDW 12.7, Plt Count 439 H, MPV 9.2, Neut % (Auto) 77.1, Lymph % (Auto) 15.4, [place] % (Auto) 6.2, Eos % (Auto) 0.1, Baso % (Auto) 0.7, Neut # (Auto) 12.6 H, Lymph # (Auto) 2.5, [place] # (Auto) 1.0, Eos # (Auto) 0.0, Baso # (Auto) 0.1, Sodium 134 L, Potassium 4.1, Chloride 100, Carbon Dioxide 20 L, Anion Gap 18.1 H, BUN 7, Creatinine 0.70, Estimated Creat Clear 47, Estimated GFR 80, Est GFR ( Amer) 96, Glucose 104 H, Calcium 8.9, Phosphorus 2.8, Magnesium 1.7, Total Bilirubin 1.8 H, AST 34, ALT 15, Alkaline Phosphatase 58, Total Creatine Kinase 88, Troponin I 0.03, Total Protein 7.1, Albumin 3.7, Globulin 3.4 H, Albumin/Globulin Ratio 1.1, TSH 0.95 10/14/24 12:35: Urine Color Yellow, Urine Appearance Clear, Urine pH 6.0, Ur Specific Fluker 1.015, Urine Protein Trace, Urine Glucose (UA) Negative, Urine Ketones Negative, Urine Blood 2+ A, Urine Nitrate Negative, Urine Bilirubin Negative, Urine Urobilinogen 2.0, Ur Leukocyte Esterase Negative, Urine RBC 10-20, Urine WBC None, Ur Squamous Epith Cells Occasional, Urine Bacteria Trace 10/14/24 13:07: Lactate 2.1 10/14/24 12:10 10/14/24 12:10 Orders (Tests/Meds): ED MEDICATIONS Generic Name Dose Route Start Last Admin Trade Name Freq PRN Reason Stop Dose Admin Ceftriaxone Sodium 2 gm/ 100 mls @ 200 mls/hr 10/14/24 13:41 Sodium Chloride IV 10/14/24 14:10 ONCE ONE Miscellaneous 1 each 10/14/24 13:45 Vancomycin Consult Request NOTAPPLIC 11/13/24 13:44 CONSULT PH[facility]Y [facility] Discontinued Medications Generic Name Dose Route Start Last Admin Trade Name Freq PRN Reason Stop Dose Admin Sodium Chloride 500 mls @ 999 mls/hr 10/14/24 11:57 10/14/24 12:29 Sod Chlor 0.9% 1000ml Bag IV 10/14/24 12:27 999 mls/hr .Q31M ONE Administration ORDERS Category Date Time Status CXR --portable [XR chest portable] Stat Exams 10/14/24 11:57 Completed CBC w/Auto Diff [Complete Blood Count Auto Diff] Stat Lab 10/14/24 12:10 Completed CK [Creatine Kinase] Stat Lab 10/14/24 12:10 Completed CMP [Comprehensive Metabolic Panel] Stat Lab 10/14/24 12:10 Completed Lactic Acid Stat Lab 10/14/24 13:07 Completed Magnesium Stat Lab 10/14/24 12:10 Completed Phosphorous Stat Lab 10/14/24 12:10 Completed Rapid PCR Covid and Flu A/B Stat Lab 10/14/24 12:08 Received TSH [Thyroid Stimulating Hormone] Stat Lab 10/14/24 12:10 Completed Trop I [Troponin I] Stat Lab 10/14/24 12:10 Completed Troponin I Q3H Lab 10/14/24 15:00 Ordered Troponin I Q3H Lab 10/14/24 18:00 Ordered UA [Urinalysis and Microscopic] Stat Lab 10/14/24 12:35 Completed Blood Culture Stat Micro 10/14/24 12:20 Received Venous Blood Gas Stat RT 10/14/24 12:01 Completed Medical Decision Narrative: 84-year-old with above history and physical. She feels very warm to the touch and has a temperature of 99.9 I suspect that she is potentially septic. Will get a straight cath urinalysis and chest x-ray in addition to COVID flu PCR panel and basic blood work and blood cultures. No focal symptoms at the moment. We are also attempting to get her records from [facility] recently. I do agree with the fact that she had a normal H&H and no ongoing bleeding that endoscopy likely would have been very low yield. I was able to get the patient's record from [facility] she did have a CT scan of her abdomen pelvis without any obvious kidney stone and also they scanned her head. They admitted her therefore concern for possible coffee-ground emesis kept there for a few days H&H were stable they decided not to intervene and that she was stable. Patient only got weaker. Today her workup is essentially unremarkable aside from worsening leukocytosis with a white blood cell count of 16 this is rising and comparison with what she was at with [facility]. Additionally she was mildly tachypneic and borderline febrile. She also states that she has flulike symptoms. Differential still includes viral symptoms bacteremia her urinalysis had hematuria red blood cells bacteria but no obvious leuks or nitrites white this is a possible urinary tract infection but not definitive. Still worried about possible bacteremia as well given her symptoms. Overall her generalized weakness and inability to walk also warrants admission as she is at high risk for significant decompensation at home. I discussed this with the patient and her daughter and they are agreeable to this Rocephin and vancomycin have been initiated. Patient will be admitted for further IV fluids Rocephin etc. I was not aggressive with fluid resuscitation as her serial perfusion assessments and exams were normal. Therefore 30 cc/kg bolus of fluid was not given. Critical Care Critical Care Time Critical Care Time: Yes Attestation: On , the high probability of a clinically significant, sudden or life threatening deterioration of the following system(s) required my full and direct attention, intervention and personal management. The time I documented below is in addition to time spent performing reported procedures but includes the following listed in this critical care notation. Total Time Total Critical Care Time: 35
--- NOTE | 2024-10-14 12:13 | PC.NURSE ---
Sara Sanders RN and myself attempted to obtain blood for labs. Both sticks were successful, but unable to obtain enough blood to fill tubes. MD notified of this. What labs could be collected were labeled and sent to lab.
[2024-10-14 12:14] LABS: Coronavirus 19, PCR Not Detected (NotDetected); Influenza A, PCR Not Detected (NotDetected); Influenza B, PCR Not Detected (NotDetected)
[2024-10-14 12:18] LABS: Hematocrit 36.5 % (37.0-47.0); Hemoglobin 12.6 g/dL (12.2-16.2); Immature Granulocytes % 0.5 %; Mean Corpuscular HGB Conc 34.5 g/dL (31.8-35.4); Mean Corpuscular Hemoglobin 30.8 pg (27.0-31.2); Mean Corpuscular Volume 89.2 fl (81-99); Nucleated Red Blood Cells % 0 %; Platelet Count 439 K/mm3 (142-424); Red Blood Count 4.09 M/mm3 (4.20-5.40); Red Cell Distribution Width-SD 41.2 fL; White Blood Count 16.4 K/mm3 (4.8-10.8)
[2024-10-14] MEDS: 0.9 % SODIUM CHLORIDE 1000ML 500 ML 999 ML IV (12:29)
--- OUTSIDE RECORDS SUMMARY | 2024-10-14 12:33 | XMS_ITS | Referral Summary ---
Author Organization [employer] ([place], [place], [place], [place]) Address [address] [place] [address] Care Team Providers Care Industrial Health [employer] Safety Professor Name Role Phone Karlo Curtis MD Primary Care Provider [phone] Encounters Date Type Department Care Team Description 10/09/2024 11:01 PM EDT - 10/12/2024 2:25 PM EDT Hospital Encounter [facility] [address] [place] [address] Enoc Olivia MD Elliott, Jayden, PA-C Tanner Srinivasan, Aneudy Landers, Discharge Disposition: Home or Self Care from Last 3 Months Medications benzonatate (TESSALON) 100 MG capsule Take 1 capsule (100 mg total) by mouth every 8 (eight) hours as needed for cough. Active losartan (COZAAR) 25 MG tablet Take 1 tablet (25 mg total) by mouth daily. Active QUEtiapine (SEROquel) 25 MG tablet Take 1 tablet (25 mg total) by mouth nightly. Active metoprolol succinate (TOPROL-XL) 25 MG 24 hr tablet Take 1 tablet (25 mg total) by mouth daily. Active pantoprazole (PROTONIX) 40 MG tablet Take 1 tablet (40 mg total) by mouth 2 (two) times daily before meals for 60 days Then take 1 tab oral daily.. 120 tablet 5 12/12/19 25 Active pantoprazole (PROTONIX) 40 MG tablet Take 1 tablet (40 mg total) by mouth Daily (0600) for 30 days. 30 tablet 5 10/13/19 25 Discontinued Active Problems Problem Noted Date Diagnosed Date GIB (gastrointestinal bleeding) 10/09/2024 Gastrointestinal bleeding 10/09/2024 Social History Tobacco Use Types Packs/Day Years [...] Date Awais rded Speak language other than Albanian at home Not on file 01/08/2024 Want [...] on file Sexual Orientation Not on file Last Filed Vital Signs Vital Sign Reading Time Taken Comments Blood Pressure 138/66 10/12/2024 10:20 AM EDT Pulse 79 10/12/2024 10:20 AM EDT Temperature 36.4 C (97.5 F) 10/12/2024 10:15 AM EDT Respiratory Rate 18 10/12/2024 3:50 AM EDT Oxygen Saturation 97% 10/12/2024 10:15 AM EDT Inhaled Oxygen Concentration - - Weight - - Height - - Body Mass Index - - Plan of Treatment Not on file Procedures Procedure Name Priority Date/Time Associated Diagnosis Comments CBC W/ AUTO DIFF Routine 10/12/2024 6:25 AM EDT BASIC METABOLIC PANEL Routine 10/12/2024 6:25 AM EDT CBC W/ AUTO DIFF Routine 10/11/2024 5:53 AM EDT LACTIC ACID (SJ - BKR) Routine 10:58 AM EDT FS_MODEL_IP_ECG 12-LEAD Routine 10/10/2024 9:14 AM EDT MAGNESIUM Routine 10/10/2024 6:55 AM EDT LACTIC ACID (SJ - BKR) Routine 6:55 AM EDT C-REACTIVE PROTEIN Routine 10/10/2024 6: 55 AM EDT COMPREHENSIVE METABOLIC PANEL Routine 10/10/2024 6:55 AM EDT CBC W/ AUTO DIFF Routine 10/10/2024 6:55 AM EDT XR CHEST AP PORTABLE ISIAH 10/10/2024 1:16 AM EDT from Last 3 Months Results * (ABNORMAL) CBC with automated diff (10/12/2024 6:25 AM EDT) Only the most recent of3 resultswithin the time period is included. WBC 8.5 4.0 - 10.0 K/ L 10/12/2024 7:16 AM EDT [facility] RBC 3.97 3.93 - 5.22 M/ L 10/12/2024 7:16 AM EDT [facility] Hemoglobin 12.1 11.2 - 15.7 GM/DL 10/12/2024 7:16 AM EDT [facility] Hematocrit 35.0 34.1 - 44.9 % 10/12/2024 7:16 AM EDT [facility] MCV 88 79 - 95 fL 10/12/2024 7:16 AM EDT [facility] MCH 30.5 25.6 - 32.2 pg 10/12/2024 7:16 AM EDT [facility] MCHC 34.6 32.2 - 35.5 GM/DL 10/12/2024 7:16 AM EDT [facility] RDW 12.3 11.7 - 14.4 % 10/12/2024 7:16 AM EDT [facility] Platelets 381(H) 140 - 375 K/CU MM 10/12/2024 7:16 AM EDT [facility] MPV 9.3(L) 9.4 - 12.3 fL 10/12/2024 7:16 AM EDT [facility] % Neutros 58 34 - 71 % 10/12/2024 7:16 AM EDT [facility] % Lymphs 32 19 - 52 % 10/12/2024 7:16 AM EDT [facility] % Monos 9 5 - 13 % 10/12/2024 7:16 AM EDT [facility] % Eos 1 1 - 6 % 10/12/2024 7:16 AM EDT [facility] % Baso 1 0 - 1 % 10/12/2024 7:16 AM EDT [facility] NRBC Absolute <0.01 0 - 0.012 K/ul 10/12/2024 7:16 AM EDT [facility] # Neutros 4.86 1.56 - 6.13 K/ L 10/12/2024 7:16 AM EDT [facility] # Lymphs 2.69 1.18 - 3.74 K/ L 10/12/2024 7:16 AM EDT [facility] # Monos 0.73 0.24 - 0.86 K/ L 10/12/2024 7:16 AM EDT [facility] # Eos 0.08 0.04 - 0.36 K/ L 10/12/2024 7:16 AM EDT [facility] # Baso 0.06 0.01 - 0.08 K/ L 10/12/2024 7:16 AM EDT [facility] Immature Granulocytes-Re lative 0.40 0.01 - 0.43 % 10/12/2024 7:16 AM EDT [facility] # IG 0.03 0.00 - 0.03 K/uL 10/12/2024 7:16 AM EDT [facility] Blood Venipuncture / Unknown 10/12/2024 6:25 AM EDT 10/12/2024 7:12 AM EDT [facility] - 10/12/2024 7:16 AM EDT When [...] DO LAB BLOOD ORDERABLES Final Re sult [facility] [address] [phone] * (ABNORMAL) Basic Metabolic Panel (10/12/2024 6:25 AM EDT) Sodium 135(L) 136 - 145 meq/L 10/12/2024 7:51 AM EDT [facility] Potassium 3.1(L) 3.4 - 5.1 meq/L 10/12/2024 7:51 AM EDT [facility] CO2 18(L) 22 - 29 meq/L 10/12/2024 7:51 AM EDT [facility] Chloride 107 98 - 112 meq/L 10/12/2024 7:51 AM EDT [facility] Glucose 92 82 - 115 mg/dL 10/12/2024 7:51 AM EDT [facility] BUN 8.0(L) 9.8 - 20.1 mg/dL 10/12/2024 7:51 AM EDT [facility] Creatinine 0.74 0.57 - 1.11 mg/dL 10/12/2024 7:51 AM EDT [facility] BUN/Creatinine 11 8 - 20 10/12/2024 7:51 AM EDT [facility] Calcium 8.3(L) 8.4 - 10.2 mg/dL 10/12/2024 7:51 AM EDT [facility] Anion Gap 13(H) 4 - 12 10/12/2024 7:51 AM EDT [facility] eGFR (mL/min/1.73m2) 80 >=60 mL/min/1.7 3m2 10/12/2024 7:51 AM EDT [facility] Osmolality Calc 268.1 mOsm/kg 7:51 AM EDT [facility] Blood Venipuncture / Unknown 10/12/2024 6:25 AM EDT 10/12/2024 7:12 AM EDT Ismaee Craig DO LAB BLOOD ORDERABLES Final Re sult Performing Organization Address [facility] Phone Number [facility] [address] [phone] * Lactic Acid (10/10/2024 10:58 AM EDT) Only the most recent of2 resultswithin the time period is included. Lactic Acid Level (mmol/L) 1.2 0.5 - 2.2 mmol/L 10/10/2024 11:32 AM EDT [facility] Blood Venipuncture / Unknown 10/10/2024 10:58 AM EDT 10/10/2024 11:05 AM EDT Narrative [facility] - 10/10/2024 11:32 AM EDT Specimen slightly hemolyzed [employer] Incl Craig DO LAB BLOOD ORDERABLES Final Re sult Performing Organization Address [facility] Phone Number [facility] [address] [phone] * Electrocardiogram, 12 Lead (10/10/2024 9:14 AM EDT) VENTRICULAR RATE EKG/MIN 98 BPM GE MUSE ATRIAL RATE (MCT) 98 BPM GE MUSE PA Interval 202 ms GE MUSE QRS-INTERVAL (MSEC) 82 ms GE MUSE QT Interval 352 ms GE MUSE QTC Interval 449 ms GE MUSE P [place] 89 degrees GE MUSE R AXIS (MCT) 35 degrees GE MUSE T Wave [place] 70 degrees GE MUSE [place] Diagnosis Sinus rhythm with premature atrial complexes Septal infarct , age undetermined T wave abnormality, consider lateral ischemia Abnormal ECG No previous ECGs available Confirmed by Max French ([id number]) on 10/11/2024 7:36:53 PM GE MUSE 10/10/2024 9:14 AM EDT 10/11/2024 7:36 PM EDT Kayden Quintero PA-C ECG ORDERABLES Final Result Performing Organization Address City/[facility] Co de Phone Number GE MUSE * (ABNORMAL) C-Reactive Protein (10/10/2024 6:55 AM EDT) CRP 28.4(H) 0.0 - 5.0 mg/L 10/10/2024 7:37 AM EDT [facility] Blood Venipuncture / Unknown 10/10/2024 6:55 AM EDT 10/10/2024 7:02 AM EDT Kayden Quintero PA-C LAB BLOOD ORDERABLES Final R esult Performing Organization Address [facility] Co de Phone Number [facility] [address] [phone] * Magnesium (10/10/2024 6:55 AM EDT) [facility] Magnesium 1.8 1.6 - 2.6 mg/dL 10/10/2024 7:37 AM EDT [facility] Blood Venipuncture / Unknown 10/10/2024 6:55 AM EDT 10/10/2024 7:02 AM EDT Kayden Quintero PA-C LAB BLOOD ORDERABLES Final R esult Performing Organization Address [facility] Co de Phone Number [facility] [address] [phone] * (ABNORMAL) Comprehensive metabolic panel (10/10/2024 6:55 AM EDT) Sodium 133(L) 136 - 145 meq/L 10/10/2024 7:42 AM EDT [facility] Potassium 3.5 3.4 - 5.1 meq/L 10/10/2024 7:42 AM [facility] Chloride 103 98 - 112 meq/L 10/10/2024 7:42 AM [facility] CO2 18(L) 22 - 29 meq/L 10/10/2024 7:42 AM [facility] Calcium 8.7 8.4 - 10.2 mg/dL 10/10/2024 7:42 AM [facility] Glucose 91 82 - 115 mg/dL 10/10/2024 7:42 AM [facility] BUN 10.9 9.8 - 20.1 mg/dL 10/10/2024 7:42 AM [facility] Creatinine 0.78 0.57 - 1.11 mg/dL 10/10/2024 7:42 AM [facility] BUN/Creatinine 14 8 - 20 10/10/2024 7:42 AM [facility] eGFR (mL/min/1.73m2) 75 >=60 mL/min/1. 73m2 10/10/2024 7:42 AM [facility] Albumin 3.1(L) 3.5 - 5.0 g/dL 10/10/2024 7:42 AM [facility] Alkaline Phosphatase 55 40 - 150 U/L 10/10/2024 7:42 AM [facility] ALT <7 <=34 U/L 10/10/2024 7:42 AM [facility] Comment: ALT2 reagent used for testing does not contain P5P supplementation and therefore may miss ALT elevations in patients with B6 deficiency. This population may be as high as 10% in the [place], with risk factors including malabsorption, drug interactions, and alcoholic hepatitis. AST 24 11 - 34 U/L 10/10/2024 7:42 AM [facility] Comment: AST2 reagent used for testing does not contain P5P supplementation and therefore may miss AST elevations in patients with B6 deficiency. This population may be as high as 10% in the [place], with risk factors including malabsorption, drug interactions, and alcoholic hepatitis. Total Bilirubin 0.7 0.2 - 1.2 mg/dL 10/10/2024 7:42 AM [facility] Protein, Total 7.5 6.4 - 8.3 g/dL 10/10/2024 7:42 AM EDT [facility] Globulin 4.4(H) 2.5 - 4.1 g/dL 10/10/2024 7:42 AM EDT [facility] Anion Gap 16(H) 4 - 12 10/10/2024 7:42 AM EDT [facility] A/G Ratio 0.7 0.7 - 1.9 10/10/2024 7:42 AM EDT [facility] Osmolality Calc 265.3 mOsm/kg 7:42 AM EDT [facility] Blood Venipuncture / Unknown 10/10/2024 6:55 AM EDT 10/10/2024 7:02 AM EDT Kayden Quintero PA-C LAB BLOOD ORDERABLES Final R esult Performing Organization Address City/State/[facility] Co de Phone Number [facility] [address] [phone] * XR chest AP portable (10/10/2024 1:16 [...] Nyla Brady. Transcribed by Lori Munoz(R). Kayden Quintero PA-C IMG DIAGNOSTIC IMAGING ORDER NAOMI Final Result from Last 3 Months Insurance MEDICARE PART A B [id number] CLAIMS Advance Directives For more information, please contact: [phone] * Full Code (Latest Code Status on File) Date Activated Date Inactivated Comments 10/09/2024 10:32 PM 10/12/2024 4:59 PM Care Teams [employer] Professor Relationship Specialty Start Date End Date Karlo Curtis MD [address] [place] [address] PCP - General Gastroenterology 10/10/24
--- OUTSIDE RECORDS SUMMARY | 2024-10-14 12:33 | XMS_ITS | Clinical Summary ---
Author Organization [employer] ([place], [place], [place], [place]) Address [address] [place] [address] Care Team Providers Care Therapist Name Role Phone Karlo Curtis MD Primary Care Provider [phone] Medications benzonatate (TESSALON) 100 MG capsule Take [...] GIB (gastrointestinal bleeding) 10/09/2024 Gastrointestinal bleeding 10/09/2024 Encounters Date Type Department Care Team Description 10/09/2024 11:01 PM EDT - 10/12/2024 2:25 PM EDT Hospital Encounter [facility] [address] [place] [address] Enoc Olivia MD Elliott, Jayden, PA-C Siddiqi, Ismaeel, DO Brammell, Aneudy, Discharge Disposition: Home or Self Care from Last 3 Months Social History Tobacco Use Types Packs/Day Years [...] Date Awais rded Speak language other than Sami at home Not on file 01/08/2024 Want [...] Mass Index - - Plan of Treatment Health Maintenance Due Date Last Done Comments DXA SCAN 1940 Depression Screening (12+) 1952 Tobacco Cessation Counseling and Screening (12+) 1952 DTAP/TDAP/TD VACCINES (1 - Tdap) 1959 Shingles Vaccine (Zoster) (1 of 2) 1990 Medicare Initial AWV [id number] 05/18/2006 Respiratory Syncytial Virus (RSV) Adult or (1 - 1-dose 75+ series) 2015 Pneumococcal 50+ years (2 of 2 - PPSV23) 03/25/2019 03/25/2018 COVID-19 VACCINE ( season) 2023 Falls Risk Screening 04/16/2024 Influenza Vaccine (Season Ended) 2024 02/17/2020, 01/03/2018, 02/05/2017 Procedures Procedure Name Priority Date/Time Associated Diagnosis [...] 10.0 K/ L 10/12/2024 7:16 AM EDT [facility] RBC 3.97 3.93 - 5.22 M/ L 10/12/2024 7:16 AM EDT [facility] Hemoglobin 12.1 11.2 - 15.7 GM/DL 10/12/2024 7:16 AM EDT [facility] Hematocrit 35.0 34.1 - 44.9 % 10/12/2024 7:16 AM EDT [facility] MCV 88 79 - 95 fL 10/12/2024 7:16 AM EDT [facility] MCH 30.5 25.6 - 32.2 pg 10/12/2024 7:16 AM EDT [facility] MCHC 34.6 32.2 - 35.5 GM/DL 10/12/2024 7:16 AM EDT [facility] RDW 12.3 11.7 - 14.4 % 10/12/2024 7:16 AM EDT [facility] Platelets 381(H) 140 - 375 K/CU MM 10/12/2024 7:16 AM EDT [facility] MPV 9.3(L) 9.4 - 12.3 fL 10/12/2024 7:16 AM EDT [facility] % Neutros 58 34 - 71 % 10/12/2024 7:16 AM EDT [facility] % Lymphs 32 19 - 52 % 10/12/2024 7:16 AM EDT [facility] % Monos 9 5 - 13 % 10/12/2024 7:16 AM EDT [facility] % Eos 1 1 - 6 % 10/12/2024 7:16 AM EDT [facility] % Baso 1 0 - 1 % 10/12/2024 7:16 AM EDT [facility] NRBC Absolute <0.01 0 - 0.012 K/ul 10/12/2024 7:16 AM EDT [facility] # Neutros 4.86 1.56 - 6.13 K/ L 10/12/2024 7:16 AM EDT [facility] # Lymphs 2.69 1.18 - 3.74 K/ L 10/12/2024 7:16 AM EDT [facility] # Monos 0.73 0.24 - 0.86 K/ L 10/12/2024 7:16 AM EDT [facility] # Eos 0.08 0.04 - 0.36 K/ L 10/12/2024 7:16 AM EDT [facility] # Baso 0.06 0.01 - 0.08 K/ L 10/12/2024 7:16 AM EDT [facility] Immature Granulocytes-Re lative 0.40 0.01 - 0.43 % 10/12/2024 7:16 AM EDT [facility] # IG 0.03 0.00 - 0.03 K/uL 10/12/2024 7:16 AM EDT [facility] Blood Venipuncture / Unknown 10/12/2024 6:25 AM EDT 10/12/2024 7:12 AM EDT Narrative [facility] - 10/12/2024 7:16 AM EDT When [...] Blast? Flag noted Atypical Lymph flag noted Isramesh Beattyqi DO LAB BLOOD ORDERABLES Final Re sult [facility] [address] [phone] * (ABNORMAL) Basic Metabolic Panel (10/12/2024 6:25 AM EDT) Sodium 135(L) 136 - 145 meq/L 10/12/2024 7:51 AM EDT [facility] Potassium 3.1(L) 3.4 - 5.1 meq/L 10/12/2024 7:51 AM EDT [facility] CO2 18(L) 22 - 29 meq/L 10/12/2024 7:51 AM EDT [facility] Chloride 107 98 - 112 meq/L 10/12/2024 7:51 AM EDT [facility] Glucose 92 82 - 115 mg/dL 10/12/2024 7:51 AM EDT [facility] BUN 8.0(L) 9.8 - 20.1 mg/dL 10/12/2024 7:51 AM EDT [facility] Creatinine 0.74 0.57 - 1.11 mg/dL 10/12/2024 7:51 AM EDT [facility] BUN/Creatinine 11 8 - 20 10/12/2024 7:51 AM EDT [facility] Calcium 8.3(L) 8.4 - 10.2 mg/dL 10/12/2024 7:51 AM EDT [facility] Anion Gap 13(H) 4 - 12 10/12/2024 7:51 AM EDT [facility] eGFR (mL/min/1.73m2) 80 >=60 mL/min/1.7 3m2 10/12/2024 7:51 AM EDT [facility] Osmolality Calc 268.1 mOsm/kg 7:51 AM EDT [facility] Blood Venipuncture / Unknown 10/12/2024 6:25 AM EDT 10/12/2024 7:12 AM EDT us Is24 Quan DO LAB BLOOD ORDERABLES Final Re sult [facility] [address] [phone] * Lactic Acid (10/10/2024 10:58 AM EDT) Only the most recent of2 resultswithin the time period is included. Lactic Acid Level (mmol/L) 1.2 0.5 - 2.2 mmol/L 10/10/2024 11:32 AM EDT [facility] Blood Venipuncture / Unknown 10/10/2024 10:58 AM EDT 10/10/2024 11:05 AM EDT Narrative [facility] - 10/10/2024 11:32 AM EDT Specimen slightly hemolyzed us Ismaeel Craig DO LAB BLOOD ORDERABLES Final Re sult [facility] [address] [phone] * Electrocardiogram, 12 Lead (10/10/2024 9:14 AM EDT) VENTRICULAR RATE EKG/MIN 98 BPM GE MUSE ATRIAL RATE (MCT) 98 BPM GE MUSE CO Interval 202 ms GE MUSE QRS-INTERVAL (MSEC) 82 ms GE MUSE QT Interval 352 ms GE MUSE QTC Interval 449 ms GE MUSE P [place] 89 degrees GE MUSE R AXIS (MCT) 35 degrees GE MUSE T Wave [place] 70 degrees GE MUSE [place] Diagnosis Sinus rhythm with premature atrial complexes Septal infarct , age undetermined T wave abnormality, consider lateral ischemia Abnormal ECG No previous ECGs available Confirmed by Max French ([id number]) on 10/11/2024 7:36:53 PM GE MUSE 10/10/2024 9:14 AM EDT 10/11/2024 7:36 PM EDT Kayden Quintero PA-C ECG ORDERABLES Final Result Performing Organization Address [facility]/ZIP Co de Phone Number GE MUSE * (ABNORMAL) C-Reactive Protein (10/10/2024 6:55 AM EDT) [facility] CRP 28.4(H) 0.0 - 5.0 mg/L 10/10/2024 7:37 AM EDT [facility] Blood Venipuncture / Unknown 10/10/2024 6:55 AM EDT 10/10/2024 7:02 AM EDT Kayden Quintero PA-C LAB BLOOD ORDERABLES Final R esult [facility] [address] [place] [address], [facility] [phone] * Magnesium (10/10/2024 6:55 AM EDT) Pathologist [facility] [place] Magnesium 1.8 1.6 - 2.6 mg/dL 10/10/2024 7:37 AM EDT [facility] Blood Venipuncture / Unknown 10/10/2024 6:55 AM EDT 10/10/2024 7:02 AM EDT Kayden Quintero PA-C LAB BLOOD ORDERABLES Final R esult [facility] [address] [phone] * (ABNORMAL) Comprehensive metabolic panel (10/10/2024 6:55 AM EDT) Sodium 133(L) 136 - 145 meq/L 10/10/2024 7:42 AM EDT [facility] Potassium 3.5 3.4 - 5.1 meq/L 10/10/2024 7:42 AM EDT [facility] Chloride 103 98 - 112 meq/L 10/10/2024 7:42 AM EDT [facility] CO2 18(L) 22 - 29 meq/L 10/10/2024 7:42 AM EDT [facility] Calcium 8.7 8.4 - 10.2 mg/dL 10/10/2024 7:42 AM EDT [facility] Glucose 91 82 - 115 mg/dL 10/10/2024 7:42 AM EDT [facility] BUN 10.9 9.8 - 20.1 mg/dL 10/10/2024 7:42 AM EDT [facility] Creatinine 0.78 0.57 - 1.11 mg/dL 10/10/2024 7:42 AM EDT [facility] BUN/Creatinine 14 8 - 20 10/10/2024 7:42 AM EDT [facility] eGFR (mL/min/1.73m2) 75 >=60 mL/min/1. 73m2 10/10/2024 7:42 AM EDT [facility] Albumin 3.1(L) 3.5 - 5.0 g/dL 10/10/2024 7:42 AM EDT [facility] Alkaline Phosphatase 55 40 - 150 U/L 10/10/2024 7:42 AM EDT [facility] ALT <7 <=34 U/L 10/10/2024 7:42 AM EDT [facility] Comment: ALT2 reagent used for testing does not contain P5P supplementation and therefore may miss ALT elevations in patients with B6 deficiency. This population may be as high as 10% in the [place], with risk factors including malabsorption, drug interactions, and alcoholic hepatitis. AST 24 11 - 34 U/L 10/10/2024 7:42 AM EDT [facility] Comment: AST2 reagent used for testing does not contain P5P supplementation and therefore may miss AST elevations in patients with B6 deficiency. This population may be as high as 10% in the [place], with risk factors including malabsorption, drug interactions, and alcoholic hepatitis. Total Bilirubin 0.7 0.2 - 1.2 mg/dL 10/10/2024 7:42 AM EDT [facility] Protein, Total 7.5 6.4 - 8.3 g/dL 10/10/2024 7:42 AM EDT [facility] Globulin 4.4(H) 2.5 - 4.1 g/dL 10/10/2024 7:42 AM EDT [facility] Anion Gap 16(H) 4 - 12 10/10/2024 7:42 AM EDT [facility] A/G Ratio 0.7 0.7 - 1.9 10/10/2024 7:42 AM EDT [facility] Osmolality Calc 265.3 mOsm/kg 7:42 AM EDT [facility] Blood Venipuncture / Unknown 10/10/2024 6:55 AM EDT 10/10/2024 7:02 AM EDT us Kayden Quintero PA-C LAB BLOOD ORDERABLES Final R esult [facility] [address] [phone] * XR chest AP portable (10/10/2024 1:16 AM EDT) Anatomical Region Laterality Modality Chest X-Ray 10/10/2024 8:54 AM EDT Impressions 10/10/2024 8:59 AM EDT No acute cardiopulmonary process. Continued follow-up is recommended. Images reviewed, interpreted, and dictated by Dr. Nyla Brady. Transcribed by Lori Munoz(Shanae). Narrative 10/10/2024 8:59 AM EDT PORTABLE CHEST [...] by Dr. Nyla Brady. Transcribed by Lori Munoz(Shanae). Kayden Quintero PA-C [facility] ORDER NAOMI Final Result from Last 3 Months Insurance MEDICARE [place] [address] [address] HEALTH CLAIMS Advance Directives For more information, please contact: [phone] * Full Code (Latest Code Status on File) Date Activated Date Inactivated Comments 10/09/2024 10:32 PM 10/12/2024 4:59 PM Care Teams Therapist Relationship Specialty Start Date End Date Karlo Curtis MD [address] [facility] [address] PCP - General Gastroenterology 10/10/24
--- OUTSIDE RECORDS SUMMARY | 2024-10-14 12:33 | XMS_ITS | Clinical Summary ---
Author Organization [facility] Address [address] [place] [address] Care Team Providers Care Event Specialist Product Demonstrator Name Role Phone Pcp, No Primary Care Provider Hermes Sawant MD Unavailable [phone] Allergies No known active allergies Medications aspirin 81 MG EC tablet Take 1 tablet (81 mg) by mouth 1 (one) time each day. Active losartan (Cozaar) 25 MG tablet Take 1 tablet (25 mg) by mouth 1 (one) time each day. Active melatonin 3 MG tablet Take 1 tablet (3 mg) by mouth every night. Active metoprolol succinate XL (Toprol-XL) 25 MG 24 hr tablet Take 1 tablet (25 mg) by mouth 1 (one) time each day. Do not crush or chew. Active pantoprazole (Protonix) 40 MG EC tablet Take 1 tablet (40 mg) by mouth 1 (one) time each day before breakfast. Do not crush, chew, or split. Active traZODone (Desyrel) 50 MG tablet Take 0.5 tablets (25 mg) by mouth at night if needed for sleep. Active certolizumab Pegol (Cimzia) 2 X 200 MG kit injection Inject 400 mg under the skin 4 (four) times a week. Active denosumab (Prolia) 60 MG/ML injection Inject 1 mL (60 mg) under the skin every 6 (six) months. Active cholecalcifero l (Vitamin D-3) 50 MCG (2000 UT) capsule Take 1 capsule (2,000 Units) by mouth 1 (one) time each day. Active acetaminophen (Tylenol) 325 MG tablet Take 2 tablets (650 mg) by mouth every 6 (six) hours. Under [place] law, monthly prescriptions (30 days) can be refilled at 25 days and three-month prescriptions (90 days) at 80 days. Please contact the insurance company with questions if refills are denied. 100 tablet 4 Active oxyCODONE (Roxicodone) 5 MG immediate release tablet Take 1 tablet (5 mg) by mouth every 6 (six) hours if needed for severe pain for up to 8 doses. 8 tablet 4 Active losartan (Cozaar) 25 MG tablet Take 1 tablet by mouth daily. Active metoprolol succinate XL (Toprol-XL) 25 MG 24 hr tablet Take 1 tablet by mouth daily. Active ketoconazole (NIZOral) 2 % shampoo Apply 1 Application topically 2 (two) times a week. As Directed Active nystatin (Mycostatin) cream Apply 1 Application topically 2 (two) times a day. Active triamcinolone (Kenalog) 0.1 % ointment Apply 1 Application topically 2 (two) times a day. To Left Ankle Active moxifloxacin (Vigamox) 0.5 % ophthalmic solution Administer 1 drop into both eyes 3 (three) times a day. Active ASPIRIN 81 MG chewable tablet Chew 1 tablet every morning. 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 01/10/2024 Overview (01/10/2024): Incidental finding Thoracic spine Fall 01/09/2024 Overview (01/09/2024): Inciting traumatic event Fall from standing Admit to SGT 2 Tertiary due 01/09 Closed fracture of left side of mandible 024 Overview (01/12/2024): S/p fall CHEL: No acute surgical intervention, HOB elevated to 30 to help with edema, soft diet, non op management No Augmentin due to facility protocol for non op management of mandible fractures Avulsed tooth 01/09/2024 Overview (01/10/2024): CHEL: Peridex QID, recommend Dentistry consult Dentistry: Composite build up done on fractured tooth, full mouth extraction when stable, primary team to reach out once she is stable so that she can be seen in clinic Lip laceration 01/09/2024 Overview (01/12/2024): S/p fall Repaired in ED by plastics (absorbable) Peridex TID after meals Closed fracture of right side of mandible 2023 Overview (01/12/2024): S/p fall on 12/17 Seen at outside hospital and recommended soft diet CHEL Nonop management, no chew diet for 6 weeks (02/18), HOB >30 to help with edema Social History Tobacco Use Types Packs/Day Years Used Date Smoking Tobacco: Never Assessed Humiliation, Afraid, Rape, and Kick questionnair e Answer Date Recorded Within the last year, have y ou been afraid of your partner or ex-partner? No 07/04/2024 Within the last year, have y ou been humiliated or emotionally abused in other ways by your partner or ex-partner? No Within the last year, have y ou been kicked, hit, slapped, or otherwise physically hurt by your partner or ex-partner? No 07/04/2024 Within the last year, have y ou been raped or forced to have any kind of sexual activity by your partner or ex-partner? No 07/04/2024 Overall Financial Resource Strain (CARDIA) Answe r Date Recorded How hard is it for you to pa y for the very basics like food, housing, medical care, and heating? Somewhat hard 01/18/2024 Exercise Vital Sign Answer Date Recorde d On average, how many days pe r week do you engage in moderate to strenuous exercise (like a brisk walk)? 0 days 01/18/2024 On average, how many minutes do you engage in exercise at this level? 0 min 01/18/2024 Hunger Vital Sign Answer Date Recorded Within the past 12 months, y ou worried that your food would run out before you got the money to buy more. Never true 07/05/19 25 Within the past 12 months, t he food you bought just didn't last and you didn't have money to get more. Never true 07/04/2024 PRAPARE - Transportation Answer Date Re corded In the past 12 months, has l ack of transportation kept you from medical appointments or from getting medications? No 06/15 In the past 12 months, has l ack of transportation kept you from meetings, work, or from getting things needed for daily living? No 07/04/2024 Housing Stability Vital Sign Answer Kody e Recorded In the last 12 months, was t here a time when you were not able to pay the mortgage or rent on time? No 01/18/2024 In the last 12 months, how many places have you lived? 2 01/18/2024 In the last 12 months, was t here a time when you did not have a steady place to sleep or slept in a mcc (including now)? No 01/18/2024 Housing Stability Vital Sign Answer Kody e Recorded In the last 12 months, was t here a time when you were not able to pay the mortgage or rent on time? No 07/04/2024 Number of Times Moved in the Last Year Not on fi le 07/04/2024 At any time in the past 12 m [facility], were you homeless or living in a mcc (including now)? No 07/04/2024 Utilities Answer Date Recorded In the past 12 months has th e electric, gas, oil, or water company threatened to shut off services in your home? No 07/04/2024 Comments Unknown Sex and Gender Information Value Date Recorded Sex Assigned at Not on file Legal Sex Female 6:36 PM EDT Gender Identity Not on file Sexual Orientation Not on file Last Filed Vital Signs Vital Sign Reading Time Taken Comments Blood Pressure 128/74 07/10/2024 11:21 AM EDT Pulse 81 07/10/2024 11:21 AM EDT Temperature 36.4 C (97.6 F) 07/10/2024 11:21 AM EDT Respiratory Rate 16 07/10/2024 4:29 AM EDT Oxygen Saturation 92% 07/10/2024 11: 21 AM EDT Inhaled Oxygen Concentration - - Weight 65.8 kg (145 lb 1 oz) 07/03/2024 6:11 PM EDT Height 162.6 cm (5' 4.02 ) 07/03/2024 6 :11 PM EDT per chart marked for merge Body Mass Index 24.89 07/03/2024 6:11 PM EDT Plan of Treatment Health Maintenance Due Date Last Done Comments [facility]-Bone Density Scan 1940 [facility]-Depression Screening 1940 [facility]-Infant/Child/Adol SDOH Screenings 1940 [id number] Vaccine (#1) 1945 [facility]-DTaP,Tdap,and Td Vaccines (1 - Tdap) 1959 [facility]-Zoster Vaccines (1 of 2) 1959 [facility]-RSV Vaccine: 60+ Years or (1 - 1-dose 75+ series) 2015 [facility]-Pneumococcal Vaccine: 50+ Years (2 of 2 - PPSV23) 03/25/2019 03/25/2018 [facility]-Medicare Annual Wellness (AWV) 03/27/2024 03/27/2023, 03/22/2022 [facility]-Influenza Vaccine (Season Ended) 2024 02/17/2020, 01/03/2018, 02/05/2017 [facility]- SDOH Screenings 01/04/2025 [facility]-Adult SDOH Screenings 01/04/2025 07/04/2024 HPV Vaccines Aged Out No longer eligi ble based on patient's age to complete this topic [facility]-HIB Vaccines Aged Out No longer e ligible based on patient's age to complete this topic [facility]-Hepatitis A Vaccines Aged Out No longer eligible based on patient's age to complete this topic [facility]-IPV Vaccines Aged Out No longer e ligible based on patient's age to complete this topic [facility]-Rotavirus Vaccines Aged Out No lo nger eligible based on patient's age to complete this topic Additional Health Concerns Infection Onset Date 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 Yes Care Teams Event Specialist Product Demonstrator Relationship Specialty Start Date End Date Pcp, No [address] [place] [address] PCP - General Family Medicine 07/03/24 Hermes Clark MD [address] [place] [address] [place] [address] 07/03/24
[2024-10-14 12:36] LABS: Albumin Level 3.7 g/dl (3.5-5.0); Chloride 100 mmol/L (98-107); Potassium 4.1 mmoL/L (3.5-5.1)
[2024-10-14 12:39] LABS: Alanine Aminotransferase 15 U/L (12-78); Albumin/Globulin Ratio 1.1 (1.1-1.8); Alkaline Phosphatase 58 U/L (38-126); Aspartate Amino Transferase 34 U/L (14-36); Bilirubin,Total 1.8 mg/dl (0.2-1.3); Blood Urea Nitrogen 7 mg/dl (7-17); Calcium 8.9 mg/dl (8.4-10.2); Carbon Dioxide 20 mmol/L (22.0-30.0); Creatine Kinase 88 U/L (30-135); Creatinine Clearance Estimated 47 mL/min (50-200); Creatinine,Serum 0.70 mg/dl (0.52-1.04); Estimated Glomerular Filt Rate 80 ml/min (>60); GFR (African American) 96 ML/MIN (>60); Globulin 3.4 g/dL (1.3-3.2); Glucose 104 mg/dl (74-100); Total Protein,Serum 7.1 g/dl (6.3-8.2)
[2024-10-14 12:40] LABS: Magnesium 1.7 mg/dl (1.6-2.3); Phosphorous 2.8 mg/dl (2.5-4.5)
[2024-10-14 12:47] LABS: Microscopic, Urine URINE MICROSCOPIC (MICROSCOPIC)
[2024-10-14 12:50] LABS: Color,Urine YELLOW (Yellow); Glucose,Urine (UA) Negative (Negative); Ketones,Urine Negative (Negative); Leukocyte Esterase,Urine Negative (Negative); PH,Urine 6.0 (5.0-8.5); Protein,Urine TRACE (Negative); Specific Gravity, Urine 1.015 (1.005-1.030); Urobilinogen,Urine 2.0 EU/dl (0.2)
[2024-10-14 12:52] LABS: Troponin I 0.03 ng/ml (0.00-0.034)
--- NOTE | 2024-10-14 12:56 | PC.NURSE ---
Called lab to see if they could come straight stick patient and they said they would be down here in just a few minutes.
[2024-10-14 13:02] LABS: Bilirubin,Urine Negative (Negative)
[2024-10-14 13:03] LABS: Anion Gap 18.1 mEq/L (5-15); Sodium 134 mmol/L (136-145)
[2024-10-14 13:05] LABS: Bacteria,Urine Trace /lpf; Squamous Epithelial Cell,Urine Occasional #/hpf (0-5)
[2024-10-14 13:10] LABS: Thyroid Stimulating Hormone 0.95 uIU/mL (0.465-4.68)
[2024-10-14 13:16] LABS: VBG HCO3 21.2 mmol/L (23-30); VBG PCO2 34.3 mmol/L (35-51); VBG PH 7.41 mmol/L (7.31-7.41); VBG PO2 59.4 mmol/L (28-40)
[2024-10-14 13:17] LABS: Lactate Venous 2.7 mmol/L (0.4-2.0)
--- NOTE | 2024-10-14 14:16 | PC.NURSE ---
Report called to [facility] for room 205
[2024-10-14 14:23] LABS: NT Pro Brain Natriuretic Pep. 4790 pg/mL (0-450)
--- NOTE | 2024-10-14 14:33 | CA_ITS ---
APPROVED REPORT EXAM: Comprehensive 2D, Doppler, and color-flow Echocardiogram Strategic Planning Manager: Izabela Cary CRT Ht: 5 ft 4 in Wt: 156lbs BSA: 1.76 BP: 180/80 mmHg Indications: WEAKNESS. 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 No records locally, sent for records from [facility]. Pt flat on back unable to roll, very tender to touch. 2D Dimensions LA Volume 81.70 mL LA Volume Index 46.42 mL/m2 (M/F) 16-34 M-Mode Dimensions RVDd 2.43 cm (0.9-2.6) LA Diam 4.67 cm (1.9-4.0) LVDd 3.58 cm (3.5-5.7) LVDs 1.87 cm (3.5-5.7) IVSd 1.44 cm (0.6-1.1) PWd 1.02 cm (0.6-1.1) EF (Teich) 80.10% FS 47.80% EDV (Teich) 53.70 mL TAPSE 1.05 (<1.7) ESV (Teich) 10.70 mL LV Diastology MED A' 7.50 cm/s LAT A' 5.70 cm/s Aortic Valve AO Peak GR. 13.70 mmHg Mitral Valve MV PHT 58.0 ms Pulmonary Valve PV Peak Velocity 243.0 (50-150 cm/s) Tricuspid Valve TR P. Velocity 526.00 cm/s RAP Estimate 10.00 mmHg RVSP 120.70 mmHg Left Ventricle The left ventricle is normal size. The left ventricular systolic function is normal. The left ventricular ejection fraction is within the normal range. There is increased LV wall thickness. There is normal LV segmental wall motion. Diastolic function is indeterminate. LVEF is 65%. Right Ventricle Right ventricle is mildly dilated. The right ventricular systolic function is normal. Atria Left atrium is moderately dilated. Right atrium is moderately dilated. There is no Doppler evidence of interatrial shunt. Aortic Valve s/p bioprosthetic AVR. There is no aortic valvular stenosis. Trace aortic regurgitation. Mitral Valve s/p bioprosthetic MVR. No evidence of mitral valve stenosis. Mild mitral regurgitation. Tricuspid Valve Possible s/p bioprosthetic TVR. Mild tricuspid regurgitation. RVSP is 40-45 mmHg. Pulmonic Valve The pulmonary valve is normal in structure. Mild pulmonic regurgitation. Great Vessels The aortic root is normal in size. IVC is normal in size and collapses >50% with inspiration. Pericardium There is no pericardial effusion. Other Information Study Quality: Fair Conclusion Normal biventricular systolic function. Mild RV dilation. Biatrial dilation. s/p bioprosthetic AVR. Acceptable AV gradients. No significant AI. s/p bioprosthetic MVR. Acceptable MV gradients. Mild MR. Possible s/p bioprosthetic TVR. Mild TR. Elevated RVSP 40-45 mmHg. Electronically signed by : Radha Carlson MD 10/15/2024 00:12:53
--- NOTE | 2024-10-14 14:45 | PC.NURSE ---
Pt arrived to floor @ 0321
--- NOTE | 2024-10-14 15:34 | P.HP_ITS ---
<Statement entered by Felipe Payan MD - 10/14/24 18:46> Rounded on patient after nurse practitioner. Personally examined and interviewed patient. Agree with exam findings and care plan as documented. History of Present Illness *Admission Date: 10/14/24 *Reason for visit:: Generalized weakness, CHF exacerbation *History of present illness: Ms. Lowery is a 84-year-old female who presented to the emergency department today with complaints of generalized weakness, generalized pain, and low-grade fever. She has a history of Valve replacement x 3, cholecystectomy, and bilateral hip replacement. Patient is not a great historian, daughter is at bedside. She has never been to this hospital before. Her daughter states she recently took her to [facility] after a couple episodes of suspected bloody emesis. She was then transferred to [facility] in [place] where she spent a few days and per daughter had an extensive workup and was originally planned to have a upper endoscopy, but was later decided to hold off due to patient's age and comorbidities. Patient's labs were stable during admission at [place] and she was discharged on 10/12. Patient's daughter brought her in today when she was unable to get up and ambulate as she normally does. She states patient was complaining of pain and was acting very lethargic. [facility] Disclaimer: The information contained in this section may have been updated after the patient was seen, as this information can be updated by other users. Social History (Updated 10/14/24 @ 13:44 by Caitlyn Garcia MD) Smoking Status: Never smoker alcohol intake: never current occupational status: other Travel in the last 8 weeks?: None Have you lived/traveled outside US in past 30 days?: No Contact w/someone who lives/traveled outside US past 30 days?: No Exposure to someone with infectious disease in past 14 days?: No Do you have a fever (greater than 100.4 F or 38 C)?: No Have you tested positive for COVID-19?: No Exposed to someone with COVID-19 in past 14 days?: No Do you have a sore throat?: No Do you have a cough?: No Do you have any weakness?: Yes Do you have any diarrhea?: No Are you experiencing any unusual bleeding?: No Do you have any muscle aches/pain?: Yes Do you have any abdominal pain?: No Are you experiencing loss of taste or smell?: No Other Medical History Have you received the Flu Vaccine for this season: No Have you received the Pneumonia Vaccine: No Review of Systems Review of Systems Review of systems:: pertinent systems reviewed and negative unless documented below Constitutional Constitutional: Reports lethargy and Reports weakness Eyes Eyes: Reports dry eyes *Neurologic Neurologic: Reports weakness Meds Home Medications and Allergies Home Medications ?Medication ?Instructions ?Recorded ?Confirmed ?Type benzonatate 100 mg capsule 100 mg PO NEEDED PRN Cou gh 10/14/24 10/14/24 History losartan 25 mg tablet 25 mg PO DAILY 10/14/2405/10 History metoprolol succinate 25 mg 25 mg PO DAILY 10/14/2405/10 History tablet,extended release 24 hr pantoprazole 40 mg tablet,delayed 40 mg PO DAILY 10/1410/14/24 History release quetiapine 50 mg tablet 50 mg PO HS 10/14/24 5 History New Prescriptions to Start Prescriptions: Allergies Allergy/AdvReac Type Severity Reaction Status Date / Time No Known Allergies Allergy Verified 10/14/24 12:26 Exam Data for Last 24 hours Vital signs and Labs for Last 24 Hours: Temp Pulse Resp BP Pulse Ox O2 Del Method 99.2 F 89 24 164/75 H 94 L Room Air 10/14/24 14:45 10/14/24 14:45 10/14/24 14:45 10/14/24 14:45 10/14/24 14:45 10/14/24 14:45 Laboratory Results - last 24 hr 10/14/24 12:01: VBG pH 7.41, VBG pCO2 34.3 L, VBG pO2 59.4 H, VBG HCO3 21.2 L, VBG Total CO2 22.3 L, VBG O2 Saturation 90.8 H, VBG Base Excess -3.4 L, VBG Lactic Acid 2.7 H 10/14/24 12:08: SARS-CoV-2 (PCR) Not detected, Influenza A Untype (PCR) Not detected, Influenza Type B (PCR) Not detected 10/14/24 12:10: WBC 16.4 H, RBC 4.09 L, Hgb 12.6, Hct 36.5 L, MCV 89.2, MCH 30.8, MCHC 34.5, RDW 12.7, Plt Count 439 H, MPV 9.2, Neut % (Auto) 77.1, Lymph % (Auto) 15.4, [place] % (Auto) 6.2, Eos % (Auto) 0.1, Baso % (Auto) 0.7, Neut # (Auto) 12.6 H, Lymph # (Auto) 2.5, [place] # (Auto) 1.0, Eos # (Auto) 0.0, Baso # (Auto) 0.1, Sodium 134 L, Potassium 4.1, Chloride 100, Carbon Dioxide 20 L, Anion Gap 18.1 H, BUN 7, Creatinine 0.70, Estimated Creat Clear 47, Estimated GFR 80, Est GFR ( Amer) 96, Glucose 104 H, Calcium 8.9, Phosphorus 2.8, Magnesium 1.7, Total Bilirubin 1.8 H, AST 34, ALT 15, Alkaline Phosphatase 58, Total Creatine Kinase 88, Troponin I 0.03, NT-Pro-B Natriuret Pep 4790 H, Total Protein 7.1, Albumin 3.7, Globulin 3.4 H, Albumin/Globulin Ratio 1.1, TSH 0.95 10/14/24 12:35: Urine Color Yellow, Urine Appearance Clear, Urine pH 6.0, Ur Specific [place] 1.015, Urine Protein Trace, Urine Glucose (UA) Negative, Urine Ketones Negative, Urine Blood 2+ A, Urine Nitrate Negative, Urine Bilirubin Negative, Urine Urobilinogen 2.0, Ur Leukocyte Esterase Negative, Urine RBC 10- 20, Urine WBC None, Ur Squamous Epith Cells Occasional, Urine Bacteria Trace 10/14/24 13:07: Lactate 2.1 I & O for Last 24 hours: Intake & Output 10/11/24 10/12/24 10/13/24 10/14/24 23:59 23:59 23:59 23:59 Weight 66.763 kg Constitutional Constitutional: no acute distress and cooperative *Routine HEENT Exam Head: Present normocephalic Eye: Present EOMI and PERRL ENT: Present mucous membranes moist *Routine Neck Exam Neck: Present supple and full ROM *Routine Respiratory Exam Respiratory: Present CTA bilaterally, normal respiratory effort and symmetric chest movement *Routine Cardiovascular Exam Cardiovascular: Present murmur and irregularly irregular *Routine Abdominal Exam Abdominal: Present soft and normoactive bowel sounds; Absent tenderness or distended *Routine Rectal Exam Rectal:: deferred *Routine Genitalia Exam Genitalia:: deferred *Routine Extremities Exam Extremities: Present pulses intact and normal capillary refill; Absent edema *Routine Skin Exam Skin: Present intact and dry *Routine Neurological Exam Neurological: Present oriented X3 Assessment and Plan *Assessment and plan (1) CHF exacerbation: Status: Acute Category: Medical Code(s): I50.9 - Heart failure, unspecified (2) Generalized weakness: Status: Acute Category: Medical Code(s): R53.1 - Weakness (3) SIRS (systemic inflammatory response syndrome): Status: Acute Category: Medical Code(s): R65.10 - Systemic inflammatory response syndrome (SIRS) of non-infectious origin without acute organ dysfunction (4) Leukocytosis: Status: Acute Category: Medical Code(s): D72.829 - Elevated white blood cell count, unspecified (5) Hematuria: Status: Acute Category: Medical Code(s): R31.9 - Hematuria, unspecified (6) Hypertension: Status: Acute Category: Medical Code(s): I10 - Essential (primary) hypertension (7) Sleep disorder: Status: Acute Category: Medical Code(s): G47.9 - Sleep disorder, unspecified (8) GERD (gastroesophageal reflux disease): Status: Acute Category: Medical Code(s): K21.9 - Gastro-esophageal reflux disease without esophagitis Plan Ms. Lowery is a 84-year-old female who was admitted from the emergency department after complaints of generalized weakness, generalized pain, and fever. She was found to have a elevated white count of 16.[address] Garcia, discussed the case with me and I decided to admit the patient for further workup and monitoring. #CHF exacerbation #Generalized weakness #SIRS #Leukocytosis ?Patient does not have notable edema, but does have some shortness of breath. Chest x-ray personally interpreted by myself shows no cardiopulmonary processes, or pleural effusions noted. ?Echo ordered for further eval of patient ejection fraction. ?Patient proBNP found to be 4790. Will start Bumex 1 mg twice daily for diuresis. ?Blood cultures pending. ?Patient found to have a leukocytosis of 16.4. Other labs unremarkable. ?Patient initially found to be febrile at 99.9, patient currently 99.2. Patient also slightly tachypneic respirations 26. ?Patient's daughter states that she ambulates in the house with a walker without problems. PT OT nam ordered for patient functional decline. #Hematuria ?Patient was found to have 2+ blood in her urine in the ED. Patient had a recent CT of her abdomen and pelvis at [place] per the ER physician, did not show any hydronephrosis, stones, infection. #Hypertension #GERD #Sleep disorder ?Continue losartan 25 mg daily, metoprolol 25 mg daily, pantoprazole 40 mg daily, quetiapine 50 mg at bedtime CODE STATUS to be discussed with family Cardiac diet PT NICO browning Lovenox VTE
[2024-10-14 16:15] LABS: Hepatitis C Ab Qual. W/ RFX NEGATIVE (Negative)
[2024-10-14] MEDS: BUMETANIDE 1MG/4ML VIAL 1 MG IV (16:29)
[2024-10-14] MEDS: VANCOMYCIN/WATER FOR INJ (PEG) 1.5 GM/300 ML PIGGYBACK IV (16:29)
[2024-10-14] MEDS: MORPHINE 2MG/ML SYRINGE 2 MG IV (16:29)
[2024-10-14] MEDS: ACETAMINOPHEN 325MG TAB 650 MG PO (16:30)
[2024-10-14 16:51] LABS: Adenovirus,PCR Not Detected (NotDetected); Chlamydophila Pneumoniae, PCR Not Detected (NotDetected); Coronavirus 19, PCR Not Detected (NotDetected); Coronovirus HKU1,PCR Not Detected (NotDetected); Influenza A, PCR Not Detected (NotDetected); Influenza AH1, 2009 Not Detected (NotDetected); Influenza AH1, PCR Not Detected (NotDetected); Influenza AH3,PCR Not Detected (NotDetected); Influenza B, PCR Not Detected (NotDetected); Mycoplasma Pneumoniae, PCR Not Detected (NotDetected); Parainfluenza 1, PCR Not Detected (NotDetected); Parainfluenza 2, PCR Not Detected (NotDetected); Parainfluenza 3, PCR Not Detected (NotDetected); Parainfluenza 4, PCR Not Detected (NotDetected)
[2024-10-14 17:16] LABS: Troponin I 0.03 ng/ml (0.00-0.034)
[2024-10-14 17:17] LABS: Reflex Lactic Add Lactic Reflex
--- NOTE | 2024-10-14 17:34 | PC.NURSE ---
PT IS ALERT TO NAME AND BIRTHDAY BUT IS OTHERWISE CONFUSED WHICH IS HER BASELINE. DAUGHTER AT BEDSIDE WHO HELPED WITH ADMISSION. PATIENT IS C/O NECK PAIN. TREATED PER MAR-EFFECTIVENESS NOTED. ECHO COMPLETED AT BEDSIDE. PUREWICK IN PLACE FOR GOOD OUTPUT MEASUREMENT. BED SAFETY IN PLACE. PT HAS HAD NO OTHER NEEDS OR C/O NOTED AT THIS TIME. VSS.
[2024-10-14 18:01] LABS: Lactic Acid Follow Up (RFLX 1) 1.0 mmol/L (0.7-2.1)
[2024-10-14] MEDS: MAGNESIUM SULFATE IN WATER 2 GM/50 ML PIGGYBACK IV ×2 (18:46→20:05)
[2024-10-14] MEDS: QUETIAPINE 25MG TABLET 50 MG PO (20:05)
[2024-10-14 20:13] LABS: Troponin I 0.04 ng/ml (0.00-0.034)
[2024-10-15 03:56] VITALS: BP 113/62; PULSE 60; RESP 14; TEMP 36.8; O2SAT 96; BMI 26.0
--- NOTE | 2024-10-15 04:19 | PC.NURSE ---
Pt is A&O to self. Pt is on RA. Pt has remained weak appearing this shift. No significant changes. No further concerns voiced at this time. Pt resting in bed w/ call light in reach. POC ongoing.
[2024-10-15 06:41] LABS: Hematocrit 34.2 % (37.0-47.0); Hemoglobin 11.9 g/dL (12.2-16.2); Immature Granulocytes % 0.5 %; Mean Corpuscular HGB Conc 34.8 g/dL (31.8-35.4); Mean Corpuscular Hemoglobin 30.9 pg (27.0-31.2); Mean Corpuscular Volume 88.8 fl (81-99); Nucleated Red Blood Cells % 0 %; Platelet Count 411 K/mm3 (142-424); Red Blood Count 3.85 M/mm3 (4.20-5.40); Red Cell Distribution Width-SD 41.5 fL; White Blood Count 11.1 K/mm3 (4.8-10.8)
[2024-10-15 07:45] LABS: Alanine Aminotransferase 10 U/L (12-78); Albumin Level 3.0 g/dl (3.5-5.0); Albumin/Globulin Ratio 1.0 (1.1-1.8); Alkaline Phosphatase 66 U/L (38-126); Anion Gap 13.9 mEq/L (5-15); Aspartate Amino Transferase 15 U/L (14-36); Bilirubin,Total 0.9 mg/dl (0.2-1.3); Blood Urea Nitrogen 10 mg/dl (7-17); Calcium 7.9 mg/dl (8.4-10.2); Carbon Dioxide 23 mmol/L (22.0-30.0); Chloride 98 mmol/L (98-107); Cholesterol 167 mg/dl (140-200); Creatinine Clearance Estimated 46 mL/min (50-200); Creatinine,Serum 0.80 mg/dl (0.52-1.04); Estimated Glomerular Filt Rate 68 ml/min (>60); GFR (African American) 83 ML/MIN (>60); Globulin 2.9 g/dL (1.3-3.2); Glucose 71 mg/dl (74-100); HDL Cholesterol 27 mg/dl (40-60); Magnesium 2.5 mg/dl (1.6-2.3); Sodium 132 mmol/L (136-145); Total Protein,Serum 5.9 g/dl (6.3-8.2); Triglycerides 107 mg/dl (30-150)
[2024-10-15 07:49] LABS: Potassium 2.9 mmoL/L (3.5-5.1)
[2024-10-15 08:00] VITALS: BP 140/71; PULSE 75; RESP 18; TEMP 36.7; O2SAT 96
--- NOTE | 2024-10-15 08:00 | HMH.PHAINT1 ---
Pharmacy Intervention Comments: HOME MEDICATION LIST VERIFIED USING LIST FROM OUTPATIENT PHARMACY AND DAUGHTER'S RECOLLECTION
[2024-10-15] MEDS: METOPROLOL SUCCINATE XL 25MG TABLET 25 MG PO (08:27)
[2024-10-15] MEDS: IRBESARTAN 75MG TABLET 37.5 MG PO (08:27)
[2024-10-15] MEDS: PANTOPRAZOLE 40MG TABLET 40 MG PO (08:27)
[2024-10-15] MEDS: BUMETANIDE 1MG/4ML VIAL 1 MG IV ×2 (08:27→11:47)
--- NOTE | 2024-10-15 09:38 | HMH.OTEV ---
OT Inpatient Evaluation Rehab OT IP Evaluation Start: 10/14/24 15:08 Freq: ONCE Status: Active Protocol: Document 10/15/24 09:33 [facility] (Rec: 10/15/24 09:37 [facility] [id number]) Rehab OT IP Assessment Subjective History Pt oriented x 2 on arrival. Pt agreeable to engage in therapy evaluation. Pt admitted on10/14/24 due to weakness and CHF exacerbation History and physical: Ms. Lowery is a 84-year-old female who presented to the emergency department today with complaints of generalized weakness, generalized pain, and low-grade fever. She has a history of Valve replacement x 3, cholecystectomy, and bilateral hip replacement. Patient is not a great historian, daughter is at bedside. She has never been to this hospital before. Her daughter states she recently took her to [facility] after a couple episodes of suspected bloody emesis. She was then transferred to [facility] in [place] where she spent a few days and per daughter had an extensive workup and was originally planned to have a upper endoscopy, but was later decided to hold off due to patient's age and comorbidities. Patient's labs were stable during admission at [place] and she was discharged on 10/12. Patient's daughter brought her in today when she was unable to get up and ambulate as she normally does. She states patient was complaining of pain and was acting very lethargic. Subjective Pt reports prior to being in the hospital she lived with her daughter. Pt claims normally she is independent with dressing, bathing, and feeding. She also claims she was still completing functional transfers using rolling walker. Pt is dependent upon daughter to complete all IADLs. Her daughter still works. While daughter is at work, pt goes to adult day program at [facility]. Pt also has 3 steps to enter home. Objective Patient Orientation Person,Birthday Right Upper Min Limitation <25% Extremity Gross ROM Left Upper Extremity Min Limitation <25% Gross ROM Shoulder ROM Muscle Weakness Limitations Elbow ROM Muscle Weakness Limitations Wrist Limitations of Muscle Weakness Range of Motion Bed Mobility bed mobility-scooting,bed mobility - supine/sit Assist Level Moderate x 1 (50% assist) Transfer Training Sit/Stand/Step Transfer Assist Level Contact Guard/Hand Hold Lower Body Dressing Maximum Assistance Ability Performing Toilet Maximum Assistance Hygiene Ability Rehab OT IP prob,goals,plan Problems Date of Evaluation: 10/15/24 OT IP Problems Bed Mobility,Transfers,Balance,Self care,Safety Rehab Potential Rehab Potential Good Equipment Needs Assistive Devices Rolling / Wheeled Walker Plan OT intervention Plan Bed Mobility,Transfers,Balance,Self care,Safety, Therapeutic Exercise OT Plan Frequency Daily Duration LOS Discharge Goals Bed Mobility Ability Assistance x1 Sit to Stand Chair Supervision/Stand by,Contact Guard/Hand Hold Transfer Ability Chair Transfer Supervision/Stand by,Contact Guard/Hand Hold Ability Chair Transfer Sit to/from Ambulatory Technique Chair Transfer Rolling Walker Assistive Devices Feeding Ability Assist with Tray Set Up Lower Body Dressing Moderate Assistance Ability Upper Body Dressing Minimal Assistance Ability Performing Toilet Moderate Assistance Hygiene Ability Overall Commode/ Standby Assistance,Contact Guard Toilet Transfer Ability Commode/Toilet Sit to/from Ambulatory Transfer Technique Decrease in Yes Endurance Discharge Plan OT Discharge Plan Pt will continue to be seen for OT services while at [facility]. Pt would benefit most from short term rehab at SNF following discharge. If family/patient is reluctant, pt could return home with daughter, but would require 24/ assistance and OT evaluation. Continued skilled therapy is important in order for patient to improve strength, safety, endurance, ADL independence, and functional transfers to reach PLOF. Eval Complexity Eval Charge Codes 99399 - Moderate Complexity PHYSICIAN CERTIFICATION: I certify the specified therapy services for Ana Maria Lowery are required, authorized, and reviewed every 30 days.
[2024-10-15] MEDS: POTASSIUM CHLORIDE 20MEQ TAB 40 MEQ PO ×3 (09:39→16:11)
[2024-10-15] MEDS: ACETAMINOPHEN 325MG TAB 650 MG PO (10:23)
--- NOTE | 2024-10-15 11:22 | HMH.PTEV ---
Physical Therapy Evaluation Rehab PT IP Evaluation Start: 10/14/24 13:51 Freq: ONCE Status: Active Protocol: Document 10/15/24 11:17 [facility] (Rec: 10/15/24 11:22 [facility] [id number]) Subjective/History History History Per H&P: Ms. Lowery is a 84-year-old female who presented to the emergency department today with complaints of generalized weakness, generalized pain, and low-grade fever. She has a history of Valve replacement x 3, cholecystectomy, and bilateral hip replacement. Patient is not a great historian, daughter is at bedside. She has never been to this hospital before. Her daughter states she recently took her to [facility] after a couple episodes of suspected bloody emesis. She was then transferred to [facility] in [place] where she spent a few days and per daughter had an extensive workup and was originally planned to have a upper endoscopy, but was later decided to hold off due to patient's age and comorbidities. Patient's labs were stable during admission at [place] and she was discharged on 10/12. Patient's daughter brought her in today when she was unable to get up and ambulate as she normally does. She states patient was complaining of pain and was acting very lethargic. Subjective Subjective PLOF: Using a RW for modified IND ambulation. Not driving. HOME: Lives with her daughter in a single-story home with 3 RICCARDO with HRs. Available assistance: Daughter works but sends pt to adult daycare at [facility]. New diagnosis of No cancer in past 12 months? [facility] How much help from another person do you currently need... Turning from your A lot back to your side while in a flat bed without using bedrails? Moving from lying on A lot back to sitting on the side of a flat bed without using bedrails? Moving to and from a A little bed to a chair ( including a wheelchair)? Standing up from a A little chair using your arms? (e.g., wheelchair, bedside chair) Walking in hospital A lot room? Climbing 3-5 steps A lot with a railing? Mobility Score 14 Mobility Level [facility] Mobility 4 Move to chair/commode Mobility Calculator Rehab PT IP Eval Objective Appearance Patient Behavior Appropriate,Cooperative Patient Orientation Person,Birthday Difficulty following none instructions Speech Pattern Soft-Spoken Ambulation Patient Able to No Ambulate Balance Ability to Arise Able, uses arms to help Sitting Balance Steady, safe Standing Balance Unsteady Transfers Bed Transfer Ability Moderate x 2 (50% assist) Sit to Stand Bed Minimal x 1 (25% assist) Transfer Ability Sit to Stand Chair Minimal x 1 (25% assist) Transfer Ability Rehab PT IP prob,goals,plan Problems Date of Evaluation: 10/15/24 PT IP Problems Bed Mobility,Transfers,Gait,Balance,Self care,Safety Rehab Potential Rehab Potential Good Plan PT Intervention Plan Bed Mobility,Transfers,Gait,Balance,Self care,Safety, Therapeutic Exercise Other Intervention 1-2 times Plan PT Plan Frequency Daily Duration LOS Discharge Goals Bed Transfer Ability Minimal x 1 (25% assist) Sit to Stand Chair Contact Guard/Hand Hold Transfer Ability Ambulation Assistive Rolling Walker Device Ambulation Distance 10 (feet) Discharge Plan PT Discharge Plan Initial physical therapy evaluation performed. Patient presents below baseline at this time in functional mobility, transfers, and strength. Pt not safe to return home at this time d/t current level of functional mobility. PT recommending short-term rehabilitation stay upon d/c from [facility]. Pt would benefit from skilled PT while at [facility] to prevent further functional decline and maximize safety with mobility. Eval Complexity Eval Charge Codes 91095 - Moderate Complexity PHYSICIAN CERTIFICATION: I certify the specified therapy services for Ana Maria Lowery are required, authorized, and reviewed every 30 days.
--- NOTE | 2024-10-15 11:44 | SW/DCPLANNER ---
Addendum entered by Ella Clark 10/16/24 08:55: I have updated Allyson francois/ Preeti Andrews that patient will discharge today SNF level of care. Addendum entered by Ella Clark 10/15/24 12:43: Per Allyson francois/ Preeti Andrews she can accept this patient SNF level of care. Original Note: I spoke w/ patient's daughter (Ernestine) regarding plans once patient is medically stable for discharge. PT/OT evaluated patient and recommended SNF level of care. Patient/family are agreeable to placement and prefer [facility]. CM did verify w/ [facility] that recent admission at their hospital 10/09-10/12 was inpatient and patient will have qualifying stay. Patient information has been faxed to Allyson francois/ Preeti Andrews and I will continue to follow up. Per MD patient could be ready for discharge tomorrow.
--- NOTE | 2024-10-15 12:39 | ECG_ITS ---
APPROVED REPORT Exam: Resting ECG HR:79 bpm ECG Measurements Heart Rate 79 AXES QRSd 98 QRS 43 QT 402 T 65 QTc 436 Conclusion ATRIAL FIBRILLATION ABNORMAL RHYTHM ECG UNCONFIRMED REPORT Electronically signed by : Jesus Ramirez MD 10/17/2024 08:14:26
--- NOTE | 2024-10-15 13:23 | EXP.ACUTE.PN ---
Subjective *Date: 10/15/24 *Time: 13:31 Interval history: Patient sitting up in bed, drinking coffee, well-appearing. She states she feels much better today. Denies pain. She does state that she worked with physical therapy and feels that she did well. Potassium is low, replacing per electrolyte protocol. Continuing to diurese. Medical Exam Vital signs and Labs for Last 24 Hours: Vital Signs Temp Pulse Pulse Resp BP BP Pulse Ox 10/15/24 13:00 10/15/24 09:00 10/15/24 08:00 96 10/15/24 08:00 98.1 F 75 18 140/71 96 10/15/24 06:48 10/15/24 05:00 10/15/24 03:56 98.3 F 60 14 113/62 96 10/15/24 03:00 10/15/24 01:00 10/14/24 23:00 10/14/24 21:00 10/14/24 20:00 10/14/24 20:00 98.2 F 70 20 132/61 95 10/14/24 18:49 10/14/24 17:00 10/14/24 16:55 10/14/24 15:00 10/14/24 14:45 99.2 F 89 24 164/75 H 94 L 10/14/24 14:33 98.7 F 88 20 177/95 H 10/14/24 13:30 68 27 H 174/79 H 93 L O2 Del Method 10/15/24 13:00 Room Air 10/15/24 09:00 Room Air 10/15/24 08:00 Room Air 10/15/24 08:00 Room Air 10/15/24 06:48 Room Air 10/15/24 05:00 Room Air 10/15/24 03:56 Room Air 10/15/24 03:00 Room Air 10/15/24 01:00 Room Air 10/14/24 23:00 Room Air 10/14/24 21:00 Room Air 10/14/24 20:00 Room Air 10/14/24 20:00 10/14/24 18:49 Room Air 10/14/24 17:00 Room Air 10/14/24 16:55 Room Air 10/14/24 15:00 Room Air 10/14/24 14:45 Room Air 10/14/24 14:33 07/01/25 13:30 Intake and Output 10/14/24 10/15/24 10/15/24 23:59 07:59 15:59 Intake Total 50 / 150 100 / 640 540 / 640 Output Total 1200 / 1200 300 / 300 Balance -1150 / -1050 100 / 340 240 / 340 Intake: Intake, Oral Amount 50 / 50 540 / 540 Intake, Total IV Amount 100 / 100 Magnesium Sulfate in Water 2 gm 100 / 100 In 50 ml @ 50 mls/hr IV Q1H [facility] Rx#:[id number] Output: Output, Urine Amount 1200 / 1200 300 / 300 Other: Number of Unmeasured Voids 0 0 Weight 69.264 kg Patient Weight 10/15/24 23:59 Weight 69.264 kg Laboratory Results - last 24 hr 10/14/24 12:08: SARS-CoV-2 (PCR) Not detected, Influenza A Untype (PCR) Not detected, Influenza Type B (PCR) Not detected 10/14/24 12:10: NT-Pro-B Natriuret Pep 4790 H, HCV Ab RHEA w/Rflx PCR Qn Negative, HIV Ag/Ab Combo Qual Negative 10/14/24 13:07: Lactate 2.1 10/14/24 16:35: Chlamy pneumoniae PCR Not detected, Adenovirus (PCR) Not detected, B. pertussis DNA (PCR) Not detected, Coronavirus OC43 (PCR) Not detected, Coronavirus HKU1 (PCR) Not detected, Coronavirus 229E (PCR) Not detected, SARS-CoV-2 (PCR) Not detected, Coronavirus NL63 (PCR) Not detected, Human Metapneumovir PCR Not detected, Influenza A (H1) PCR Not detected, Influ A (H1N1/09) PCR Not detected, Influenza A (H3) PCR Not detected, Influenza Type A (PCR) Not detected, Influenza Type B (PCR) Not detected, M. pneumoniae (PCR) Not detected, Parainfluenza 1 (PCR) Not detected, Parainfluenza 2 (PCR) Not detected, Parainfluenza 3 (PCR) Not detected, Parainfluenza 4 (PCR) Not detected, RSV (PCR) Not detected, Entero/Rhino (PCR) Not detected 10/14/24 16:43: Troponin I 0.03 10/14/24 17:43: Lactate 1.0 10/14/24 19:44: Troponin I 0.04 H 10/15/24 06:03: WBC 11.1 H D, RBC 3.85 L, Hgb 11.9 L, Hct 34.2 L, MCV 88.8, MCH 30.9, MCHC 34.8, RDW 12.9, Plt Count 411, MPV 9.2, Neut % (Auto) 66.1, Lymph % (Auto) 20.9, [place] % (Auto) 10.1 H, Eos % (Auto) 1.4, Baso % (Auto) 1.0, Neut # (Auto) 7.3, Lymph # (Auto) 2.3, [place] # (Auto) 1.1 H, Eos # (Auto) 0.2, Baso # (Auto) 0.1, Sodium 132 L, Potassium 2.9 L* D, Chloride 98, Carbon Dioxide 23, Anion Gap 13.9, BUN 10 D, Creatinine 0.80, Estimated Creat Clear 46, Estimated GFR 68, Est GFR ( Amer) 83, Glucose 71 L D, Calcium 7.9 L, Magnesium 2.5 H D, Total Bilirubin 0.9, AST 15 D, ALT 10 L D, Alkaline Phosphatase 66, Total Protein 5.9 L, Albumin 3.0 L D, Globulin 2.9, Albumin/Globulin Ratio 1.0 L, Triglycerides 107, Cholesterol 167, LDL Cholesterol Direct 106.19, VLDL Cholesterol 21, HDL Cholesterol 27 L, Cholesterol/HDL Ratio 6.2 H I & O for Labs for Last 24 Hours: Intake & Output 10/12/24 10/13/24 10/14/24 10/15/24 23:59 23:59 23:59 23:59 Intake Total 50 / 150 640 / 640 Output Total 1200 / 1200 300 / 300 Balance -1150 / -1050 340 / 340 Weight 66.763 kg 69.264 kg Microbiology Reports for the Last 24 Hours: Microbiology 10/14/24 12:17 Blood Blood Culture - Preliminary NO GROWTH AFTER 24 HOURS 10/14/24 12:20 Blood Blood Culture - Preliminary NO GROWTH AFTER 24 HOURS Constitutional: Present no acute distress Head: Present atraumatic Eyes: Present as per HPI ENT: Present normal exam Neck: Present normal inspection and full ROM Respiratory: Present CTA bilaterally, able to speak in complete sentences and symmetric chest movement Cardiac: Present Regular Rate Comment:: Irregular rhythm GI: Present soft and normal bowel sounds; Absent distention or tenderness Rectal (female): Present deferred (female): Present deferred Extremities: Present normal inspection and full ROM Skin: Present intact and dry Neuro: Present alert, awake and oriented x 3 Assessment and Plan *Assessment and plan (1) CHF exacerbation: Status: Acute Category: Medical Code(s): I50.9 - Heart failure, unspecified (2) Generalized weakness: Status: Acute Category: Medical Code(s): R53.1 - Weakness (3) SIRS (systemic inflammatory response syndrome): Status: Acute Category: Medical Code(s): R65.10 - Systemic inflammatory response syndrome (SIRS) of non-infectious origin without acute organ dysfunction (4) Leukocytosis: Status: Acute Category: Medical Code(s): D72.829 - Elevated white blood cell count, unspecified (5) Hematuria: Status: Acute Category: Medical Code(s): R31.9 - Hematuria, unspecified (6) Hypertension: Status: Acute Category: Medical Code(s): I10 - Essential (primary) hypertension (7) Sleep disorder: Status: Acute Category: Medical Code(s): G47.9 - Sleep disorder, unspecified (8) GERD (gastroesophageal reflux disease): Status: Acute Category: Medical Code(s): K21.9 - Gastro-esophageal reflux disease without esophagitis (9) Hypokalemia: Status: Acute Category: Medical Code(s): E87.6 - Hypokalemia Plan Ms. Lowery is a 84-year-old female who was admitted from the emergency department after complaints of generalized weakness, generalized pain, and fever. She was found to have a elevated white count of 16.[address] Garcia, discussed the case with me and I decided to admit the patient for further workup and monitoring. Records from [facility] were obtained where she spent 10/09 to 10/12 as an inpatient at their facility. Minimal intervention was performed, lab work seems stable at discharge. #CHF exacerbation #Generalized weakness #SIRS #Leukocytosis ? Patient does not have edema, shortness of breath, no pleural effusions noted on chest x-ray. ?Echo shows patient has preserved EF of 65%. ?Patient proBNP found to be 4790. Continuing Bumex 2 mg twice daily for diuresis. ?Blood cultures currently no growth after 24 hours. ?Patient found to have a leukocytosis of 16.4 on admission, white count down today to 11.1. ? Patient afebrile today temperature 98.1, respiratory weight 75, O2 saturation 96% on room air. Patient denies respiratory distress or shortness of breath. ?PT NICO browning recommended placement, discussed this with patient and daughter. They would like her to go to [facility]. patient already attends [facility] adult daycare during the day. #Hypokalemia ?Patient's potassium this morning was 2.9, replaced per electrolyte protocol. Continuing to monitor. ?CBC, CMP ordered for the a.m. #Hematuria ?Patient was found to have 2+ blood in her urine in the ED. Patient had a recent CT of her abdomen and pelvis at [facility] per the ER physician, did not show any hydronephrosis, stones, infection. #Hypertension #GERD #Sleep disorder ?Continue losartan 25 mg daily, metoprolol 25 mg daily, pantoprazole 40 mg daily, quetiapine 50 mg at bedtime CODE STATUS to be discussed with family Cardiac diet PT NICO browning Lovenox VTE
--- OUTSIDE RECORDS SUMMARY | 2024-10-15 14:02 | XMS_ITS | Clinical Summary ---
Author Organization [facility] ([place], [place], [place], [place]) Address [address] [place] [address] Care Team Providers Care Inserting Operator Name Role Phone Karlo Curtis MD Primary Care Provider [phone] Medications benzonatate (TESSALON) 100 MG capsule Take [...] - 10/12/2024 2:25 PM EDT Hospital Encounter [facility] [address] [place] [address] Enoc Olivia MD Elliott, Jayden, [...] Date Awais rded Speak language other than Hungarian at home Not on file 01/08/2024 Want [...] 2023 Falls Risk Screening 04/16/2024 Influenza Vaccine (#1) 2024 0, 01/03/2018, 02/05/2017 Procedures Procedure Name Priority Date/Time [...] 10.0 K/ L 10/12/2024 7:16 AM EDT [facility] RBC 3.97 3.93 - 5.22 M/ L 10/12/2024 7:16 AM EDT [facility] Hemoglobin 12.1 11.2 - 15.7 GM/DL 10/12/2024 7:16 AM EDT [facility] Hematocrit 35.0 34.1 - 44.9 % 10/12/2024 7:16 AM EDT [facility] MCV 88 79 - 95 fL 10/12/2024 7:16 AM EDT [facility] MCH 30.5 25.6 - 32.2 pg 10/12/2024 7:16 AM EDT [facility] MCHC 34.6 32.2 - 35.5 GM/DL 10/12/2024 7:16 AM EDT [facility] RDW 12.3 11.7 - 14.4 % 10/12/2024 7:16 AM EDT [facility] Platelets 381(H) 140 - 375 K/CU MM 10/12/2024 7:16 AM EDT [facility] MPV 9.3(L) 9.4 - 12.3 fL 10/12/2024 7:16 AM EDT [facility] % Neutros 58 34 - 71 % 10/12/2024 7:16 AM EDT [facility] % Lymphs 32 19 - 52 % 10/12/2024 7:16 AM EDT [facility] % Monos 9 5 - 13 % 10/12/2024 7:16 AM EDT [facility] % Eos 1 1 - 6 % 10/12/2024 7:16 AM EDT [facility] % Baso 1 0 - 1 % 10/12/2024 7:16 AM EDT [facility] NRBC Absolute <0.01 0 - 0.012 K/ul 10/12/2024 7:16 AM EDT [facility] # Neutros 4.86 1.56 - 6.13 K/ L 10/12/2024 7:16 AM EDT [facility] # Lymphs 2.69 1.18 - 3.74 K/ L 10/12/2024 7:16 AM EDT [facility] # Monos 0.73 0.24 - 0.86 K/ L 10/12/2024 7:16 AM EDT [facility] # Eos 0.08 0.04 - 0.36 K/ L 10/12/2024 7:16 AM EDT [facility] # Baso 0.06 0.01 - 0.08 K/ L 10/12/2024 7:16 AM EDT [facility] Immature Granulocytes-Re lative 0.40 0.01 - 0.43 % 10/12/2024 7:16 AM EDT [facility] # IG 0.03 0.00 - 0.03 K/uL 10/12/2024 7:16 AM EDT [facility] Blood Venipuncture / Unknown 10/12/2024 6:25 AM EDT 10/12/2024 7:12 AM EDT Narrative [facility] - 10/12/2024 7:16 AM EDT When [...] Blast? Flag noted Atypical Lymph flag noted Isvaeejinny Beattyqi DO LAB BLOOD ORDERABLES Final Re sult [facility] [address] [phone] * (ABNORMAL) Basic Metabolic Panel (10/12/2024 6:25 AM EDT) Sodium 135(L) 136 - 145 meq/L 10/12/2024 7:51 AM EDT [facility] Potassium 3.1(L) 3.4 - 5.1 meq/L 10/12/2024 7:51 AM EDT [facility] CO2 18(L) 22 - 29 meq/L 10/12/2024 7:51 AM EDT [facility] Chloride 107 98 - 112 meq/L 10/12/2024 7:51 AM EDT [facility] Glucose 92 82 - 115 mg/dL 10/12/2024 7:51 AM EDT [facility] BUN 8.0(L) 9.8 - 20.1 mg/dL 10/12/2024 7:51 AM EDT [facility] Creatinine 0.74 0.57 - 1.11 mg/dL 10/12/2024 7:51 AM EDT [facility] BUN/Creatinine 11 8 - 20 10/12/2024 7:51 AM EDT [facility] Calcium 8.3(L) 8.4 - 10.2 mg/dL 10/12/2024 7:51 AM EDT [facility] Anion Gap 13(H) 4 - 12 10/12/2024 7:51 AM EDT [facility] eGFR (mL/min/1.73m2) 80 >=60 mL/min/1.7 3m2 10/12/2024 7:51 AM EDT [facility] Osmolality Calc 268.1 mOsm/kg 7:51 AM EDT [facility] Blood Venipuncture / Unknown 10/12/2024 6:25 AM EDT 10/12/2024 7:12 AM EDT us IsMember Desk DO LAB BLOOD ORDERABLES Final Re sult [facility] [address] [phone] * Lactic Acid (10/10/2024 10:58 AM EDT) Only the most recent of2 resultswithin the time period is included. Lactic Acid Level (mmol/L) 1.2 0.5 - 2.2 mmol/L 10/10/2024 11:32 AM EDT [facility] Blood Venipuncture / Unknown 10/10/2024 10:58 AM EDT 10/10/2024 11:05 AM EDT Narrative [facility] - 10/10/2024 11:32 AM EDT Specimen slightly hemolyzed us Ismaeel Craig DO LAB BLOOD ORDERABLES Final Re sult [facility] [address] [phone] * Electrocardiogram, 12 Lead (10/10/2024 9:14 AM EDT) VENTRICULAR RATE EKG/MIN 98 BPM GE MUSE ATRIAL RATE (MCT) 98 BPM GE MUSE ME Interval 202 ms GE MUSE QRS-INTERVAL (MSEC) 82 ms GE MUSE QT Interval 352 ms GE MUSE QTC Interval 449 ms GE MUSE P Howell 89 degrees GE MUSE R AXIS (MCT) 35 degrees GE MUSE T Wave Howell 70 degrees GE MUSE Reva Diagnosis Sinus rhythm with premature atrial complexes Septal infarct , age undetermined T wave abnormality, consider lateral ischemia Abnormal ECG No previous ECGs available Confirmed by Max French ([id number]) on 10/11/2024 7:36:53 PM GE MUSE 10/10/2024 9:14 AM EDT 10/11/2024 7:36 PM EDT Kayden Quintero PA-C ECG ORDERABLES Final Result Performing Organization Address [facility]/ZIP Co de Phone Number GE MUSE * (ABNORMAL) C-Reactive Protein (10/10/2024 6:55 AM EDT) Pathologist [facility] CRP 28.4(H) 0.0 - 5.0 mg/L 10/10/2024 7:37 AM EDT [facility] Blood Venipuncture / Unknown 10/10/2024 6:55 AM EDT 10/10/2024 7:02 AM EDT Kayden Quintero PA-C LAB BLOOD ORDERABLES Final R esult [facility] [address] [phone] * Magnesium (10/10/2024 6:55 AM EDT) Magnesium 1.8 1.6 - 2.6 mg/dL 10/10/2024 7:37 AM EDT [facility] Blood Venipuncture / Unknown 10/10/2024 6:55 AM EDT 10/10/2024 7:02 AM EDT us Kayden Quintero PA-C LAB BLOOD ORDERABLES Final R esult [facility] [address] [phone] * (ABNORMAL) Comprehensive metabolic panel (10/10/2024 6:55 AM EDT) Sodium 133(L) 136 - 145 meq/L 10/10/2024 7:42 AM EDT [facility] Potassium 3.5 3.4 - 5.1 meq/L 10/10/2024 7:42 AM EDT [facility] Chloride 103 98 - 112 meq/L 10/10/2024 7:42 AM EDT [facility] CO2 18(L) 22 - 29 meq/L 10/10/2024 7:42 AM EDT [facility] Calcium 8.7 8.4 - 10.2 mg/dL 10/10/2024 7:42 AM EDT [facility] Glucose 91 82 - 115 mg/dL 10/10/2024 7:42 AM EDT [facility] BUN 10.9 9.8 - 20.1 mg/dL 10/10/2024 7:42 AM EDT [facility] Creatinine 0.78 0.57 - 1.11 mg/dL 10/10/2024 7:42 AM EDT [facility] BUN/Creatinine 14 8 - 20 10/10/2024 7:42 AM EDT [facility] eGFR (mL/min/1.73m2) 75 >=60 mL/min/1. 73m2 10/10/2024 7:42 AM EDT [facility] Albumin 3.1(L) 3.5 - 5.0 g/dL 10/10/2024 7:42 AM EDT [facility] Alkaline Phosphatase 55 40 - 150 U/L 10/10/2024 7:42 AM EDT [facility] ALT <7 <=34 U/L 10/10/2024 7:42 AM EDT [facility] Comment: ALT2 reagent used for testing does not contain P5P supplementation and therefore may miss ALT elevations in patients with B6 deficiency. This population may be as high as 10% in the [place], with risk factors including malabsorption, drug interactions, and alcoholic hepatitis. AST 24 11 - 34 U/L 10/10/2024 7:42 AM EDT [facility] Comment: AST2 reagent used for testing does not contain P5P supplementation and therefore may miss AST elevations in patients with B6 deficiency. This population may be as high as 10% in the [place], with risk factors including malabsorption, drug interactions, and alcoholic hepatitis. Total Bilirubin 0.7 0.2 - 1.2 mg/dL 10/10/2024 7:42 AM EDT [facility] Protein, Total 7.5 6.4 - 8.3 g/dL 10/10/2024 7:42 AM EDT [facility] Globulin 4.4(H) 2.5 - 4.1 g/dL 10/10/2024 7:42 AM EDT [facility] Anion Gap 16(H) 4 - 12 10/10/2024 7:42 AM EDT [facility] A/G Ratio 0.7 0.7 - 1.9 10/10/2024 7:42 AM EDT [facility] Osmolality Calc 265.3 mOsm/kg 7:42 AM EDT [facility] Blood Venipuncture / Unknown 10/10/2024 6:55 AM EDT 10/10/2024 7:02 AM EDT us Kayden Quintero PA-C LAB BLOOD ORDERABLES Final R esult [facility] [address] [phone] * XR chest AP portable (10/10/2024 1:16 [...] 3 Months Insurance MEDICARE [place] [address] [address] [address] HEALTH CLAIMS Advance Directives For more information, please contact: [phone] * Full Code (Latest Code Status on File) Date Activated Date Inactivated Comments 10/09/2024 10:32 PM 10/12/2024 4:59 PM Care Teams Inserting Operator Relationship Specialty Start Date End Date Karlo Curtis MD [address] [place] [address] PCP - General Gastroenterology 10/10/24
--- OUTSIDE RECORDS SUMMARY | 2024-10-15 14:02 | XMS_ITS | Referral Summary ---
Author Organization [employer] ([place], [place], [place], [place]) Address [address] [address] Care Team Providers Care Machine Farmworker Name Role Phone Karlo Curtis MD Primary Care Provider [phone] Encounters Date Type Department Care Team Description 10/09/2024 11:01 PM EDT - 10/12/2024 2:25 PM EDT Hospital Encounter [facility] [address] [place] [address] Enoc Olivia MD Elliott, Jayden, [...] 10.0 K/ L 10/12/2024 7:16 AM EDT [facility] RBC 3.97 3.93 - 5.22 M/ L 10/12/2024 7:16 AM EDT [facility] Hemoglobin 12.1 11.2 - 15.7 GM/DL 10/12/2024 7:16 AM EDT [facility] Hematocrit 35.0 34.1 - 44.9 % 10/12/2024 7:16 AM EDT [facility] MCV 88 79 - 95 fL 10/12/2024 7:16 AM EDT [facility] MCH 30.5 25.6 - 32.2 pg 10/12/2024 7:16 AM EDT [facility] MCHC 34.6 32.2 - 35.5 GM/DL 10/12/2024 7:16 AM EDT [facility] RDW 12.3 11.7 - 14.4 % 10/12/2024 7:16 AM EDT [facility] Platelets 381(H) 140 - 375 K/CU MM 10/12/2024 7:16 AM EDT [facility] MPV 9.3(L) 9.4 - 12.3 fL 10/12/2024 7:16 AM EDT [facility] % Neutros 58 34 - 71 % 10/12/2024 7:16 AM EDT [facility] % Lymphs 32 19 - 52 % 10/12/2024 7:16 AM EDT [facility] % Monos 9 5 - 13 % 10/12/2024 7:16 AM EDT [facility] % Eos 1 1 - 6 % 10/12/2024 7:16 AM EDT [facility] % Baso 1 0 - 1 % 10/12/2024 7:16 AM EDT [facility] NRBC Absolute <0.01 0 - 0.012 K/ul 10/12/2024 7:16 AM EDT [facility] # Neutros 4.86 1.56 - 6.13 K/ L 10/12/2024 7:16 AM EDT [facility] # Lymphs 2.69 1.18 - 3.74 K/ L 10/12/2024 7:16 AM EDT [facility] # Monos 0.73 0.24 - 0.86 K/ L 10/12/2024 7:16 AM EDT [facility] # Eos 0.08 0.04 - 0.36 K/ L 10/12/2024 7:16 AM EDT [facility] # Baso 0.06 0.01 - 0.08 K/ L 10/12/2024 7:16 AM EDT [facility] Immature Granulocytes-Re lative 0.40 0.01 - 0.43 % 10/12/2024 7:16 AM EDT [facility] # IG 0.03 0.00 - 0.03 K/uL 10/12/2024 7:16 AM EDT [facility] Blood Venipuncture / Unknown 10/12/2024 6:25 AM EDT 10/12/2024 7:12 AM EDT [facility] - 10/12/2024 7:16 AM EDT [...] DO LAB BLOOD ORDERABLES Final Re sult [facility] [address] [phone] * (ABNORMAL) Basic Metabolic Panel (10/12/2024 6:25 AM EDT) Sodium 135(L) 136 - 145 meq/L 10/12/2024 7:51 AM EDT [facility] Potassium 3.1(L) 3.4 - 5.1 meq/L 10/12/2024 7:51 AM EDT [facility] CO2 18(L) 22 - 29 meq/L 10/12/2024 7:51 AM EDT [facility] Chloride 107 98 - 112 meq/L 10/12/2024 7:51 AM EDT [facility] Glucose 92 82 - 115 mg/dL 10/12/2024 7:51 AM EDT [facility] BUN 8.0(L) 9.8 - 20.1 mg/dL 10/12/2024 7:51 AM EDT [facility] Creatinine 0.74 0.57 - 1.11 mg/dL 10/12/2024 7:51 AM EDT [facility] BUN/Creatinine 11 8 - 20 10/12/2024 7:51 AM EDT [facility] Calcium 8.3(L) 8.4 - 10.2 mg/dL 10/12/2024 7:51 AM EDT [facility] Anion Gap 13(H) 4 - 12 10/12/2024 7:51 AM EDT [facility] eGFR (mL/min/1.73m2) 80 >=60 mL/min/1.7 3m2 10/12/2024 7:51 AM EDT [facility] Osmolality Calc 268.1 mOsm/kg 7:51 AM EDT [facility] Blood Venipuncture / Unknown 10/12/2024 6:25 AM EDT 10/12/2024 7:12 AM EDT Ismaee Craig DO LAB BLOOD ORDERABLES Final Re sult Performing Organization Address [facility] Phone Number [facility] [address] [phone] * Lactic Acid (10/10/2024 10:58 AM EDT) Only the most recent of2 resultswithin the time period is included. Lactic Acid Level (mmol/L) 1.2 0.5 - 2.2 mmol/L 10/10/2024 11:32 AM EDT [facility] Blood Venipuncture / Unknown 10/10/2024 10:58 AM EDT 10/10/2024 11:05 AM EDT Narrative [facility] - 10/10/2024 11:32 AM EDT Specimen slightly hemolyzed IsOligomerixl Craig DO LAB BLOOD ORDERABLES Final Re sult Performing Organization Address [facility] Phone Number [facility] [address] [phone] * Electrocardiogram, 12 Lead (10/10/2024 9:14 AM EDT) VENTRICULAR RATE EKG/MIN 98 BPM GE MUSE ATRIAL RATE (MCT) 98 BPM GE MUSE SD Interval 202 ms GE MUSE QRS-INTERVAL (MSEC) 82 ms GE MUSE QT Interval 352 ms GE MUSE QTC Interval 449 ms GE MUSE P [place] 89 degrees GE MUSE R AXIS (MCT) 35 degrees GE MUSE T Wave [place] 70 degrees GE MUSE [place] Diagnosis Sinus rhythm with premature atrial complexes Septal infarct , age undetermined T wave abnormality, consider lateral ischemia Abnormal ECG No previous ECGs available Confirmed by Max French ([id number]) on 10/11/2024 7:36:53 PM GE MUSE 10/10/2024 9:14 AM EDT 10/11/2024 7:36 PM EDT Kayden Quintero PA-C ECG ORDERABLES Final Result Performing Organization Address City/[facility] Co de Phone Number GE MUSE * (ABNORMAL) C-Reactive Protein (10/10/2024 6:55 AM EDT) CRP 28.4(H) 0.0 - 5.0 mg/L 10/10/2024 7:37 AM EDT [facility] Blood Venipuncture / Unknown 10/10/2024 6:55 AM EDT 10/10/2024 7:02 AM EDT Kayden Quintero PA-C LAB BLOOD ORDERABLES Final R esult Performing Organization Address [facility] Co de Phone Number [facility] [address] [phone] * Magnesium (10/10/2024 6:55 AM EDT) [facility] Magnesium 1.8 1.6 - 2.6 mg/dL 10/10/2024 7:37 AM EDT [facility] Blood Venipuncture / Unknown 10/10/2024 6:55 AM EDT 10/10/2024 7:02 AM EDT Kayden Quintero PA-C LAB BLOOD ORDERABLES Final R esult Performing Organization Address [facility] Co de Phone Number [facility] [address] [phone] * (ABNORMAL) Comprehensive metabolic panel (10/10/2024 6:55 AM EDT) Sodium 133(L) 136 - 145 meq/L 10/10/2024 7:42 AM EDT [facility] Potassium 3.5 3.4 - 5.1 meq/L 10/10/2024 7:42 AM [facility] Chloride 103 98 - 112 meq/L 10/10/2024 7:42 AM [facility] CO2 18(L) 22 - 29 meq/L 10/10/2024 7:42 AM [facility] Calcium 8.7 8.4 - 10.2 mg/dL 10/10/2024 7:42 AM [facility] Glucose 91 82 - 115 mg/dL 10/10/2024 7:42 AM [facility] BUN 10.9 9.8 - 20.1 mg/dL 10/10/2024 7:42 AM [facility] Creatinine 0.78 0.57 - 1.11 mg/dL 10/10/2024 7:42 AM [facility] BUN/Creatinine 14 8 - 20 10/10/2024 7:42 AM [facility] eGFR (mL/min/1.73m2) 75 >=60 mL/min/1. 73m2 10/10/2024 7:42 AM [facility] Albumin 3.1(L) 3.5 - 5.0 g/dL 10/10/2024 7:42 AM [facility] Alkaline Phosphatase 55 40 - 150 U/L 10/10/2024 7:42 AM [facility] ALT <7 <=34 U/L 10/10/2024 7:42 AM [facility] Comment: ALT2 reagent used for testing does not contain P5P supplementation and therefore may miss ALT elevations in patients with B6 deficiency. This population may be as high as 10% in the [place], with risk factors including malabsorption, drug interactions, and alcoholic hepatitis. AST 24 11 - 34 U/L 10/10/2024 7:42 AM [facility] Comment: AST2 reagent used for testing does not contain P5P supplementation and therefore may miss AST elevations in patients with B6 deficiency. This population may be as high as 10% in the [place], with risk factors including malabsorption, drug interactions, and alcoholic hepatitis. Total Bilirubin 0.7 0.2 - 1.2 mg/dL 10/10/2024 7:42 AM [facility] Protein, Total 7.5 6.4 - 8.3 g/dL 10/10/2024 7:42 AM EDT [facility] Globulin 4.4(H) 2.5 - 4.1 g/dL 10/10/2024 7:42 AM EDT [facility] Anion Gap 16(H) 4 - 12 10/10/2024 7:42 AM EDT [facility] A/G Ratio 0.7 0.7 - 1.9 10/10/2024 7:42 AM EDT [facility] Osmolality Calc 265.3 mOsm/kg 7:42 AM EDT [facility] Blood Venipuncture / Unknown 10/10/2024 6:55 AM EDT 10/10/2024 7:02 AM EDT Kayden Quintero PA-C LAB BLOOD ORDERABLES Final R esult Performing Organization Address City/State/[facility] Co de Phone Number [facility] [address] [phone] * XR chest AP portable (10/10/2024 1:16 [...] 3 Months Insurance MEDICARE PART A B [id number] CLAIMS Advance Directives For more information, please contact: [phone] * Full Code (Latest Code Status on File) Date Activated Date Inactivated Comments 10/09/2024 10:32 PM 10/12/2024 4:59 PM 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
--- OUTSIDE RECORDS SUMMARY | 2024-10-15 14:03 | XMS_ITS | Clinical Summary ---
Author Organization [facility] Address [address] [place] [address] Care Team Providers Care Computer Network And Systems Engineer Name Role Phone Pcp, No Primary Care Provider Hermes Sawant MD Unavailable [phone] Allergies No known active allergies Medications [...] by mouth every 6 (six) hours. Under [place] law, monthly prescriptions (30 days) can be [...] place to sleep or slept in a group home (including now)? No 01/18/2024 Housing Stability Vital Sign Answer Kody e Recorded In the last 12 months, was t here a time when you were not able to pay the mortgage or rent on time? No 07/04/2024 Number of Times Moved in the Last Year Not on fi le 07/04/2024 At any time in the past 12 m [facility], were you homeless or living in a group home (including now)? No 07/04/2024 Utilities Answer Date [...] [facility]-Depression Screening 1940 [facility]-Infant/Child/Adol SDOH Screenings 1940 DEG-DNLNP-54 Vaccine (#1) 1945 [facility]-DTaP,Tdap,and Td Vaccines (1 - Tdap) 1959 [facility]-Zoster Vaccines (1 of 2) 1959 [facility]-RSV Vaccine: 60+ Years or (1 - 1-dose 75+ series) 2015 [facility]-Pneumococcal Vaccine: 50+ Years (2 of 2 - PPSV23) 03/25/2019 03/25/2018 [facility]-Medicare Annual Wellness (AWV) 03/27/2024 03/27/2023, 03/22/2022 [facility]-Influenza Vaccine (#1) 12/15/202402/16, 01/03/2018, 02/05/2017 [facility]- SDOH Screenings 01/04/2025 [facility]-Adult [...] Last Indicated MRSA 07/04/2024 07/04/2024 Insurance MEDICARE [facility] Advance Directives * Full Code (Latest Code Status on File) Date Activated Date Inactivated Comments 01/09/2024 5:29 AM 01/14/2024 4:21 PM Question Answer Comments Patient has decision-making capacity? Yes Care Teams Computer Network And Systems Engineer Relationship Specialty Start Date End Date Pcp, No [address] [place] [address] PCP - General Family Medicine 07/03/24 Hermes Clark MD [address] [place] [address] [place] [address] 07/03/24
[2024-10-15 16:00] VITALS: BP 142/70; PULSE 70; RESP 18; TEMP 36.9; O2SAT 95
[2024-10-15] MEDS: BUMETANIDE 1MG/4ML VIAL 2 MG IV (16:12)
--- NOTE | 2024-10-15 17:21 | PC.NURSE ---
pt has been alert to self, place, and situation. she gets confused when asked the year or date. pt has gotten oral potassium and will have labs drawn again in the morning. dosage of bumex has increased to draw more fluid off. care management is working on placement for her. Call light within reach.
[2024-10-15 20:00] VITALS: BP 139/71; PULSE 77; RESP 18; TEMP 36.8; O2SAT 97
[2024-10-15] MEDS: QUETIAPINE 25MG TABLET 50 MG PO (20:22)
[2024-10-16 04:00] VITALS: BP 121/67; PULSE 76; RESP 16; TEMP 37.2; O2SAT 97; BMI 25.4
--- NOTE | 2024-10-16 05:11 | PC.NURSE ---
v/s, alert to self baseline, RA. No acute events to report. Plan of care ongoing.
[2024-10-16 06:37] LABS: Hematocrit 36.9 % (37.0-47.0); Hemoglobin 12.7 g/dL (12.2-16.2); Immature Granulocytes % 0.6 %; Mean Corpuscular HGB Conc 34.4 g/dL (31.8-35.4); Mean Corpuscular Hemoglobin 30.5 pg (27.0-31.2); Mean Corpuscular Volume 88.7 fl (81-99); Nucleated Red Blood Cells % 0 %; Platelet Count 483 K/mm3 (142-424); Red Blood Count 4.16 M/mm3 (4.20-5.40); Red Cell Distribution Width-SD 41.8 fL; White Blood Count 10.1 K/mm3 (4.8-10.8)
[2024-10-16 06:59] LABS: Alanine Aminotransferase 10 U/L (12-78); Albumin Level 3.7 g/dl (3.5-5.0); Albumin/Globulin Ratio 1.1 (1.1-1.8); Alkaline Phosphatase 66 U/L (38-126); Anion Gap 14.6 mEq/L (5-15); Aspartate Amino Transferase 18 U/L (14-36); Bilirubin,Total 0.6 mg/dl (0.2-1.3); Blood Urea Nitrogen 14 mg/dl (7-17); Calcium 9.0 mg/dl (8.4-10.2); Carbon Dioxide 23 mmol/L (22.0-30.0); Chloride 98 mmol/L (98-107); Creatinine Clearance Estimated 45 mL/min (50-200); Creatinine,Serum 0.90 mg/dl (0.52-1.04); Estimated Glomerular Filt Rate 60 ml/min (>60); GFR (African American) 72 ML/MIN (>60); Globulin 3.4 g/dL (1.3-3.2); Glucose 97 mg/dl (74-100); Potassium 3.6 mmoL/L (3.5-5.1); Sodium 132 mmol/L (136-145); Total Protein,Serum 7.1 g/dl (6.3-8.2)
[2024-10-16 08:00] VITALS: BP 97/47; PULSE 78; RESP 16; TEMP 36.8; O2SAT 97
[2024-10-16 08:20] VITALS: O2SAT 97
[2024-10-16] MEDS: PANTOPRAZOLE 40MG TABLET 40 MG PO (09:22)
[2024-10-16] MEDS: METOPROLOL SUCCINATE XL 25MG TABLET 25 MG PO (09:22)
[2024-10-16] MEDS: IRBESARTAN 75MG TABLET 37.5 MG PO (09:22)
[2024-10-16] MEDS: BUMETANIDE 1MG/4ML VIAL 2 MG IV (09:23)
--- NOTE | 2024-10-16 10:10 | P.DS_ITS ---
<Statement entered by Felipe Payan MD - 10/16/24 15:51> Rounded on patient after nurse practitioner. Personally examined and interviewed patient. Agree with exam findings and care plan as documented. General Admission date:: 10/14/24 Discharge date: 10/16/24 HPI HPI HPI: Ms. Lowery is a 84-year-old female who presented to the emergency department today with complaints of generalized weakness, generalized pain, and low-grade fever. She has a history of Valve replacement x 3, cholecystectomy, and bilateral hip replacement. Patient is not a great historian, daughter is at bedside. She has never been to this hospital before. Her daughter states she recently took her to [facility] after a couple episodes of suspected bloody emesis. She was then transferred to [facility] in [place] where she spent a few days and per daughter had an extensive workup and was originally planned to have a upper endoscopy, but was later decided to hold off due to patient's age and comorbidities. Patient's labs were stable during admission at [facility] and she was discharged on 10/12. Patient's daughter brought her in today when she was unable to get up and ambulate as she normally does. She states patient was complaining of pain and was acting very lethargic. Hospital Course Hospital Course Hospital Course: Ms. Lowery is a 84-year-old female who was admitted from the emergency department after complaints of generalized weakness, generalized pain, and fever. She was found to have a elevated white count of 16.[address] Garcia, discussed the case with me and I decided to admit the patient for further workup and monitoring. Records from [facility] were obtained where she spent 10/09 to 10/12 as an inpatient at their facility. Minimal intervention was performed, lab work seems stable at discharge. #CHF exacerbation #Generalized weakness #SIRS, resolved #Leukocytosis, resolved ? Patient does not have edema, shortness of breath, no pleural effusions noted on chest x-ray. ?Echo shows patient has preserved EF of 65%. ?Patient proBNP found to be 4790. Continuing Bumex 2 mg twice daily for diuresis. Patient to be discharged home on Bumex 2 mg p.o. daily. ?Blood cultures preliminary show no growth after 24 hours. Will continue to monitor. ?Patient found to have a leukocytosis of 16.4 on admission, white count down today to 10.1. ?Patient evaluated by PT, she is presently below baseline of functionality, mobility, transfers, strength. Recommendations for at this time to be placed in a skilled PT facility to prevent further decline and maximize safety with mobility. Patient currently attends adult day at [facility], patient and family would like to go to rehab at [facility]. #Hypokalemia, resolved ?Patient potassium initially dropped to 2.9, currently 3.6. Will be discharged on potassium replacement. #Hypertension #GERD #Sleep disorder ?Continue losartan 25 mg daily, metoprolol 25 mg daily, pantoprazole 40 mg daily, quetiapine 50 mg at bedtime Total time spent on discharge 33 minutes in counseling, documentation, chart review, and direct care with patient. Exam Data for Last 24 hours Vital signs and Labs for Last 24 Hours: Temp Pulse Resp BP Pulse Ox O2 Del Method 98.2 F 78 16 97/47 L 97 Room Air 10/16/24 08:00 10/16/24 08:00 10/16/24 08:00 10/16/24 08:00 10/16/24 08:00 10/16/24 08:00 Laboratory Results - last 24 hr 10/16/24 05:53: WBC 10.1, RBC 4.16 L, Hgb 12.7, Hct 36.9 L, MCV 88.7, MCH 30.5, MCHC 34.4, RDW 12.9, Plt Count 483 H, MPV 9.3, Neut % (Auto) 52.4, Lymph % (Auto) 33.1, [place]royo % (Auto) 11.2 H, Eos % (Auto) 1.6, Baso % (Auto) 1.1, Neut # (Auto) 5.3, Lymph # (Auto) 3.3, [place] # (Auto) 1.1 H, Eos # (Auto) 0.2, Baso # (Auto) 0.1, Sodium 132 L, Potassium 3.6 D, Chloride 98, Carbon Dioxide 23, Anion Gap 14.6, BUN 14 D, Creatinine 0.90, Estimated Creat Clear 45, Estimated GFR 60, Est GFR ( Amer) 72, Glucose 97 D, Calcium 9.0, Total Bilirubin 0.6, AST 18, ALT 10 L, Alkaline Phosphatase 66, Total Protein 7.1, Albumin 3.7 D, Globulin 3.4 H, Albumin/Globulin Ratio 1.1 I & O for Last 24 hours: Intake & Output 10/13/24 10/14/24 10/15/24 10/16/24 23:59 23:59 23:59 23:59 Intake Total 50 / 150 880 / 1000 240 / 240 Output Total 1200 / 1200 775 / 775 225 / 225 Balance -1150 / -1050 105 / 225 15 / Weight 66.763 kg 69.264 kg 67.495 kg Microbiology Reports for the Last 24 Hours: Microbiology 10/14/24 12:17 Blood Blood Culture - Preliminary NO GROWTH AFTER 24 HOURS 10/14/24 12:20 Blood Blood Culture - Preliminary NO GROWTH AFTER 24 HOURS Results Data Completed and Pending Labs on day of discharge: Labs from last 24 hours 10/16/24 05:53 WBC 10.1 RBC 4.16 L Hgb 12.7 Hct 36.9 L MCV 88.7 MCH 30.5 MCHC 34.4 RDW 12.9 Plt Count 483 H MPV 9.3 Neut % (Auto) 52.4 Lymph % (Auto) 33.1 [place] % (Auto) 11.2 H Eos % (Auto) 1.6 Baso % (Auto) 1.1 Neut # (Auto) 5.3 Lymph # (Auto) 3.3 [place] # (Auto) 1.1 H Eos # (Auto) 0.2 Baso # (Auto) 0.1 Sodium 132 L Potassium 3.6 D Chloride 98 Carbon Dioxide 23 Anion Gap 14.6 BUN 14 D Creatinine 0.90 Estimated Creat Clear 45 Estimated GFR 60 Est GFR ( Amer) 72 Glucose 97 D Calcium 9.0 Total Bilirubin 0.6 AST 18 ALT 10 L Alkaline Phosphatase 66 Total Protein 7.1 Albumin 3.7 D Globulin 3.4 H Albumin/Globulin Ratio 1.1 Preliminary micro results at discharge 10/14/24 12:17 Blood Culture - Preliminary Blood NO GROWTH AFTER 24 HOURS 10/14/24 12:20 Blood Culture - Preliminary Blood NO GROWTH AFTER 24 HOURS DS: Diagnosis Discharge Diagnosis (1) CHF exacerbation: Status: Acute Code(s): I50.9 - Heart failure, unspecified (2) Generalized weakness: Status: Acute Code(s): R53.1 - Weakness (3) SIRS (systemic inflammatory response syndrome): Status: Acute Code(s): R65.10 - Systemic inflammatory response syndrome (SIRS) of non-infectious origin without acute organ dysfunction (4) Leukocytosis: Status: Acute Code(s): D72.829 - Elevated white blood cell count, unspecified (5) Hematuria: Status: Acute Code(s): R31.9 - Hematuria, unspecified (6) Hypertension: Status: Acute Code(s): I10 - Essential (primary) hypertension (7) Sleep disorder: Status: Acute Code(s): G47.9 - Sleep disorder, unspecified (8) GERD (gastroesophageal reflux disease): Status: Acute Code(s): K21.9 - Gastro-esophageal reflux disease without esophagitis (9) Hypokalemia: Status: Acute Code(s): E87.6 - Hypokalemia Meds Home Medications and Allergies Home Medications ?Medication ?Instructions ?Recorded ?Confirmed ?Type losartan 25 mg tablet 25 mg PO HS 10/14/24 5 History metoprolol succinate 25 mg 25 mg PO HS 10/14/24 History tablet,extended release 24 hr pantoprazole 40 mg tablet,delayed 40 mg PO HS 10/14/24 10/15/24 History release quetiapine 50 mg tablet 50 mg PO HS 10/14/24 5 History bumetanide 2 mg tablet 2 mg PO DAILY #30 tabs 10/16 Rx potassium chloride 20 mEq 20 meq PO DAILY #30 tabs 07/08 Rx tablet,extended release(part/cryst) (Klor-Con M) New Prescriptions to Start Prescriptions: deonmetanide Tami Goldsmith potassium chloride [Klor-Con M20] Tami Goldsmith Allergies Allergy/AdvReac Type Severity Reaction Status Date / Time No Known Allergies Allergy Verified 10/14/24 12:26 Discharge Plan Disposition Patient Disposition: [facility] Condition: Fair Discharge Order Discharge Orders: Discharge Order (Routine); Ordered 10/16/24 Ordered By: Tami Goldsmith Follow up Plan Follow up with: Hermes Clark [Primary Care Provider, Medical] - Enter time for follow up Prescriptions/Medication Reconciliation: New bumetanide 2 mg tablet 2 mg PO DAILY Qty: 30 0RF potassium chloride [Klor-Con M20] 20 mEq tablet,ER particles/crystals 20 meq PO DAILY Qty: 30 0RF Continued pantoprazole 40 mg tablet,delayed release (DR/EC) 40 mg PO HS losartan 25 mg tablet 25 mg PO HS Patient Comments: TAKE 1 TABLET BY MOUTH ONCE DAILY metoprolol succinate 25 mg tablet extended release 24 hr 25 mg PO HS Patient Comments: TAKE 1 TABLET BY MOUTH ONCE DAILY quetiapine 50 mg tablet 50 mg PO HS Patient Comments: TAKE 1 TABLET BY MOUTH ONCE DAILY AT NIGHT Problem Reconciliation Problems Reviewed?: Yes Patient Discharge Instructions ACTIVITY: Continue current activity DIET: continue same diet Patient Instructions: DI for Fatigue, DI for Hematuria, Stop Light Heart Failure Print Language: Tunisian Providers Primary Care Provider: Hermes Clark Admit Provider: Felipe Payan Attending Provider: Felipe Payan
== END 2024-10-16 13:10 | DRG 291 ==
LOC: ER 13:42 → 2ND 14:06
PROVIDERS: Admitting Provider Internal Medicine Adolescent Medicine; Emergency Provider Student in an Organized Health Care Education/Training Program; PCP Internal Medicine; Visit Provider Internal Medicine Adolescent Medicine
DX: I11.0 Hypertensive heart disease with heart failure (principal); I50.33 Acute on chronic diastolic (congestive) heart failure; R65.10 Systemic inflammatory response syndrome (SIRS) of non-infectious origin without acute organ dysfunction; R53.1 Weakness; R31.9 Hematuria, unspecified; G47.9 Sleep disorder, unspecified; K21.9 Gastro-esophageal reflux disease without esophagitis; E87.6 Hypokalemia; Z95.2 Presence of prosthetic heart valve; Z87.440 Personal history of urinary (tract) infections; Z79.899 Other long term (current) drug therapy
CPT/HCPCS: 36415; 71045; 80053; 80061; 80074; 81001; 82550; 82803; 83605; 83735; 83880; 84100; 84443; 84484; 85025; 87040; 87389; 87633; 87636; 93005; 93306; 97162; 97166; 97530; J0696; J1650; J1939; J2270; J3372; J3475; J7030

== ENCOUNTER 2025-01-02 15:19 | Inpatient (IN) | payer MEDICARE, SELFPAY ==
--- OUTSIDE RECORDS SUMMARY | 2025-01-01 15:30 | XMS_ITS | Encounter Summary ---
[facility] Address [address] [place] [id number] Care Team Providers Care Route Sales Person Name Role Phone Allyson Arrington APRN Primary Care Provider [phone] Reason for Referral * Consultation (Routine) - Authorized - Pending Scheduling Specialty Diagnoses / Procedures Referred By Kyaw santiago Referred To Contact Podiatry Diagnoses Bilateral foot pain Nail fungus Acquired deformity of right toe Procedures ID OFFICE/OUTPATIENT NEW MODERATE MDM 45 MINUTES Allyson Arrington APRN [address] [place] [address] Phone: tel: fax: Elvia Feliciano, BEE [address] [place] [address] [place] [phone] Phone: tel: fax: Referral ID Status Reason Start Date Expiration Date Visits Requested Visits Authorized [id number] Authorized - Pending Scheduling Specialty Services Required 01/01/2025 04/02/2026 1 1 Reason for Visit * Reason Comments feet pain Encounter Details Date Type Department Care Team (Late st Contact Info) Description 01/01/2025 3:30 PM EDT Office Visit [facility] [address] [place] [phone] Allyson Arrington APRN [address] [place], [place] [id number] Bilateral foot pain (Primary Dx); Nail fungus; Acquired deformity of right toe; Weakness; Rheumatoid arthritis of multiple sites without rheumatoid factor; Primary hypertension Social History Tobacco Use Types Packs/Day Years Used Date Smoking Tobacco: Never Smokeless Tobacco: Never Alcohol Use Standard Drinks/Week Comments Never 0 (1 standard drink = 0.6 oz pur e alcohol) PHQ-2 Answer Date Recorded Retired PHQ-9: Brief Depression Severity Measure Score 0 03/27/2023 Abuse Screen Answer Date Recorded Feels Unsafe at Home or Work/School no 12/22/2023 Feels Threatened by Someone no 10/2023 Does Anyone Try to Keep You From Having Contact with Others or Doing Things Outside Your Home? no 12/22/2023 Physical Signs of Abuse Present no 12/22/2023 PHQ-2 Answer Date Recorded Patient Health Questionnaire-2 Score 0 05/22/2024 Comments No Sex and Gender Information Value Date Recorded Sex Assigned at Not on file Legal Sex Female 11:26 AM EDT Gender Identity Not on file Sexual Orientation Not on file documented as of this encounter Last Filed Vital Signs Vital Sign Reading Time Taken Comments Blood Pressure 120/70 01/01/2025 3:26 PM EDT Pulse 103 01/01/2025 3:26 PM EDT Temperature 36.3 C (97.3 F) 01/01/2025 3:26 PM EDT Respiratory Rate 16 01/01/2025 3:26 PM EDT Oxygen Saturation 96% 01/01/2025 3:26 PM EDT Inhaled Oxygen Concentration - - Weight 65.3 kg (144 lb) 01/01/2025 3:26 PM EDT Height 162.6 cm (5' 4 ) 01/01/2025 3:26 PM EDT Body Mass Index 24.72 01/01/2025 3:26 PM EDT documented in this encounter Progress Notes * Allyson Arrington APRN - 01/01/2025 4:44 PM EDTAssociated Problem(s): Hypertension Blood pressure well-controlled in office today, 120/70. Patient continues to utilize losartan 25 mgdaily and metoprolol XL 25 mg * Allyson Arrington APRN - 01/01/2025 3:30 PM EDT Images from the original note were not included. Office Note Name: Ana Maria Lowery : 1940 Chief Complaint feet pain Subjective History of Present Illness The patient presents for evaluation of foot pain, toenail issues, and arthritis. She experiences constant foot pain, which intensifies during walking and subsides when she is in bed. The adult daycare has suggested the use of a wheelchair for her mobility. She continues to wake up at night to use the bathroom. There is soreness on the bottom of her left foot, but no heel pain. S he always wears socks and avoids walking barefoot. She has not taken ibuprofen for her pain and hasbeen applying lotion to her legs due to scaliness. She dislikes cold surfaces. The second toe on her right foot is painful, with the toenail appearing ready to detach. There is also a foul odor from her feet. She takes showers twice a week. This morning, she was found in an unusual position in bed, with a pillow under her neck and her feet hanging off the bed, but did not report any neck pain. Her daughter has been trimming her fingernails. She has not received injections for her arthritis recently and reports joint pain. Additionally, she has been experiencing weakness and confusion, with a couple of episodes this week. She has been using adult diapers. PAST MEDICAL HISTORY: - Arthritis - Plantar fasciitis MEDICATIONS CURRENT MEDS: Seroquel Objective Past Medical History: Diagnosis Date Acute hepatitis 06/19/2018 Age-related osteoporosis without current pathological fracture Chronically dry eyes Corneal ulceration, right eye Gallstones Hyperkalemia Hyperkalemia historically, past discontinuation of lisinopril secondary to this. 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 Jaiden Devine of [facility]. Remicade now discontinued. Patient now taking Cimzia (40 mg per 2 mL; 2 mL subcu every 4 weekly) plus methotrexate 2.5 mg tab (4 tablets once weekly and (along with folic acid 1 mg daily, as of02/17/2020 Syncope and collapse Toxic liver disease with hepatic necrosis Zoster without complications Past Surgical History: Procedure Laterality Date AORTIC VALVE REPAIR/REPLACEMENT Status post aortic valve replacement 1998, Dr. Fall. TOTAL HIP ARTHROPLASTY Status post right hip replacement secondary to arthritis. History reviewed. No pertinent family history. Vital Signs BP 120/70 (BP Location: Left arm, Patient Position: Sitting, Cuff Size: Adult) Pulse 103 Temp 97.3 ??F (36.3 ??C) (Temporal) Resp 16 Ht 162.6 cm (64 ) Wt 65.3 kg (144 lb) SpO2 96% BMI 24.72 kg/m?? Estimated body mass index is 24.72 kg/m?? as calculated from the following: Height as of this encounter: 162.6 cm (64 ). Weight as of this encounter: 65.3 kg (144 lb). Facility age limit for growth %micah is 20 years. Physical Exam Vitals reviewed. Constitutional: Appearance: Normal appearance. HENT: Right Ear: Tympanic membrane, ear canal and external ear normal. Left Ear: Tympanic membrane, ear canal and external ear normal. Nose: Nose normal. Mouth/Throat: Mouth: Mucous membranes are moist. Pharynx: Oropharynx is clear. Eyes: Conjunctiva/sclera: Conjunctivae normal. Cardiovascular: Rate and Rhythm: Normal rate and regular rhythm. Pulses: Dorsalis pedis pulses are 1+ on the right side and 1+ on the left side. Posterior tibial pulses are 1+ on the right side and 1+ on the left side. Heart sounds: Normal heart sounds. Pulmonary: Breath sounds: Normal breath sounds. Abdominal: General: Bowel sounds are normal. Palpations: Abdomen is soft. Musculoskeletal: Cervical back: Neck supple. Right foot: Deformity present. Left foot: Bunion present. Feet: Right foot: Protective Sensation: 6 sites tested. 6 sites sensed. Skin integrity: Dry skin present. Toenail Condition: Right toenails are abnormally thick. Fungal disease present. Left foot: Protective Sensation: 6 sites tested. 6 sites sensed. Skin integrity: Dry skin present. Toenail Condition: Left toenails are abnormally thick. Fungal disease present. Skin: General: Skin is warm and dry. Neurological: Mental Status: She is alert. POCT Results (if applicable): Results for orders placed or performed in visit on 01/01/25 POC Urinalysis Dipstick Collection Time: 01/01/25 4:01 PM Specimen: Urine Result Value Ref Range Color [place] (A) Yellow, Straw, Dark Yellow, Lina Clarity, UA Cloudy (A) Clear Glucose, UA Negative Negative mg/dL Bilirubin Negative Negative Ketones, UA Negative Negative Specific Tensed 1.020 1.005 - 1.030 Blood, UA Negative Negative pH, Urine 6.0 5.0 - 8.0 Protein, POC Negative Negative mg/dL Urobilinogen, UA 0.2 E.U./dL Normal, 0.2 E.U./dL Leukocytes Negative Negative Nitrite, UA Negative Negative Assessment and Plan Diagnoses and all orders for this visit: 1. Bilateral foot pain (Primary) - Ambulatory Referral to Podiatry 2. Nail fungus - Ambulatory Referral to Podiatry 3. Acquired deformity of right toe - Ambulatory Referral to Podiatry 4. Weakness - POC Urinalysis Dipstick 5. Rheumatoid arthritis of multiple sites without rheumatoid factor 6. Primary hypertension Assessment & Plan: Blood pressure well-controlled in office today, 120/70. Patient continues to utilize losartan 25 mgdaily and metoprolol XL 25 mg Assessment & Plan 1. Plantar fasciitis. Symptoms suggest a diagnosis of plantar fasciitis. Advised to avoid walking barefoot, even at home,and to wear Crocs or house shoes. A regimen of rolling a frozen water bottle under the arch of the foot for 15 minutes, several times a day, was recommended. A referral to Dr. Elvia Oquendo, a home care consultant, will be made for further evaluation and management. 2. Toenail issues. The second toe's toenail is about to fall off. A referral to Dr. Elvia Oquendo, a home care consultant, will be made for nail maintenance and potential treatment options. 3. Arthritis. She has not been receiving her arthritis injections and is experiencing significant joint pain. Patient previously followed by rheumatology but has been lost to follow-up with decreased mobility. A prescription for a wheelchair will be provided to help manage mobility and reduce pain. 4. Confusion and weakness A urine test will be ordered to rule out UTI as a cause of her weakness and confusion. BMI is within normal parameters. No other follow-up for BMI required. Follow Up No follow-ups on file. Patient or patient outbound call center representative verbalized consent for the use of Ambient Listening during the visit with Allyson Arrington APRN for chart documentation. 01/01/2025 16:45 EDT Allyson Arrington APRN documented in this encounter Plan of Treatment Scheduled Referrals Name Type Priority Associated Diagnoses Order Schedule Ambulatory Referral to Podiatry Outpatient Referral Routine Bilateral foot pain Nail fungus Acquired deformity of right toe Ordered: 01/01/2025 documented as of this encounter Procedures Procedure Name Priority Date/Time Associated Diagnosis Comments POCT URINALYSIS DIPSTICK, MANUAL Routine 01/01/2025 4:01 PM EDT Weakness documented in this encounter Results * (ABNORMAL) POC Urinalysis Dipstick (01/01/2025 4:01 PM EDT) Color [place](A) Yellow, Straw, Dark Yellow, Lina [facility] Clarity, UA Cloudy(A) Clear [facility] Glucose, UA Negative Negative mg/dL [facility] Bilirubin Negative Negative [facility] Ketones, UA Negative Negative [facility] Specific Tensed 1.020 1.005 - 1.030 [facility] Blood, UA Negative Negative [facility] pH, Urine 6.0 5.0 - 8.0 [facility] Protein, POC Negative Negative mg/dL [facility] Urobilinogen, UA 0.2 E.U./dL Normal, 0.2 E.U./dL [facility] Leukocytes Negative Negative [facility] Nitrite, UA Negative Negative [facility] Urine 01/01/2025 4:01 PM EDT Allyson Arrington APRN POINT OF CARE TEST ORDERABL ES Final Result [facility]
[address] [place] [address], documented in this encounter Visit Diagnoses Diagnosis Bilateral foot pain- Primary Nail fungus Acquired deformity of right toe Weakness Other malaise and fatigue Rheumatoid arthritis of multiple sites without rheumatoid factor Primary hypertension Unspecified essential hypertension documented in this encounter Care Teams Route Sales Person Relationship Specialty Start Date End Date Allyson Arrington, HANDYMAN [address] [place] [phone] PCP - General Family Medicine 07/18/22 documented as of this encounter
[2025-01-02] VITALS (13 sets, daily range): BP systolic 137–186; BP diastolic 65–102; PULSE 83–96; RESP 14–19; TEMP 36.6; O2SAT 91–98; BMI 24.0
--- NOTE | 2025-01-02 15:43 | XR_ITS ---
FINAL REPORT CLINICAL HISTORY: short of breath COMPARISON: None FINDINGS: CHEST 1 VIEW No acute pulmonary opacity is present. There is no evidence of effusion or pneumothorax. There is evidence of prior median sternotomy, presumably from CABG. Otherwise, mediastinum is unremarkable. Heart size is normal. IMPRESSION: Unremarkable chest, status post CABG. Reviewed, Interpreted and Dictated by John Damon MD Transcribed by Annaeblla Pereira Authenticated and . [facility]
--- NOTE | 2025-01-02 15:43 | CT_ITS ---
FINAL REPORT TECHNIQUE: Axial imaging of the head was obtained without contrast. This study was performed with techniques to keep radiation doses as low as reasonably achievable, (ALARA). Individualized dose reduction techniques using automated exposure control or adjustment of mA and/or kV according to the patient's size were employed. CLINICAL HISTORY: Altered mental status COMPARISON: None FINDINGS: Advanced atrophy and chronic ischemic white matter changes are noted. There is a chronic lacunar infarct within the right basal ganglia. No cortical edema is present. There is no mass or hemorrhage. Ventricles are normal. Bone windows show no skull fracture or obvious obstructive lesion. IMPRESSION: 1. No acute intracranial abnormality or obvious mass. 2. Atrophy and chronic ischemic white matter changes as above. 3. Chronic lacunar infarct within the right basal ganglia. Reviewed, Interpreted and Dictated by John Damon MD Transcribed by Annabella Pereira Authenticated and . [facility]
--- OUTSIDE RECORDS SUMMARY | 2025-01-02 15:57 | XMS_ITS | Clinical Summary ---
Author Organization [facility] yste Address [address] [place] [address] Care Team Providers Care Brake Lining Maker Name Role Phone Allyson Arrington HOPE Primary Care Provider [phone] Allergies No known active allergies Medications erythromycin (ROMYCIN) 5 MG/GM ophthalmic ointmentIndication s:Acute bacterial conjunctivitis of both eyes APPLY TO BOTH EYES EVERY NIGHT FOR 10 DAYS 4 g 10/14/19 23 Active aspirin 81 MG EC tablet Take 1 tablet by mouth Daily. Active denosumab (Prolia) 60 MG/ML solution prefilled syringe syringe Inject under the skin into the appropriate area as directed 1 (One) Time. Active amLODIPine (NORVASC) 10 MG tablet Take 1 tablet by mouth Daily. Active fluorometholone (FML) 0.1 % ophthalmic suspension Administer 1 drop to the right eye Daily. Active acetaminophen (TYLENOL) 325 MG tablet Take 2 tablets by mouth Every 6 (Six) Hours As Needed for Mild Pain. Active melatonin 1 MG tablet Take 1 tablet by mouth Every Night. 3 at night Active pantoprazole (PROTONIX) 20 MG EC tablet Take 1 tablet by mouth Daily. Active triamcinolone (KENALOG) 0.1 % ointmentIndication s:Flexural eczema Apply to left ankle twice daily 30 g 1 05/22/19 25 Active ketoconazole (NIZORAL) 2 % shampooIndications :Flexural eczema APPLY SHAMPOO TOPICALLY TO APPROPRIATE AREA TWICE WEEKLY DIRECTED 120 mL 05/26/19 25 Active guaiFENesin (Mucinex) 600 MG 12 hr tabletIndications: Bronchitis Take 2 tablets by mouth 2 (Two) Times a Day. 14 tablet 06/24/19 25 Active moxifloxacin (VIGAMOX) 0.5 % ophthalmic solutionIndication s:Dry eye syndrome of both eyes Administer 0.05 mL to both eyes 3 (Three) Times a Day. 3 mL 2 06/24/19 25 Active losartan (COZAAR) 25 MG tablet Take 1 tablet by mouth once daily 90 tablet 1 07/24/19 25 Active metoprolol succinate XL (TOPROL-XL) 25 MG 24 hr tablet Take 1 tablet by mouth once daily 90 tablet 08/22/19 25 Active QUEtiapine (SEROquel) 50 MG tablet TAKE 1 TABLET BY MOUTH ONCE DAILY AT NIGHT 30 tablet 10/31/19 25 Active Certolizumab Pegol (Cimzia Prefilled) 2 X 200 MG/ML Prefilled Syringe Kit Inject under the skin into the appropriate area as directed. Discontin ued(*Ther apy completed ) oxyCODONE (ROXICODONE) 5 MG immediate release tablet Take 1 tablet by mouth Every 4 (Four) Hours As Needed for Moderate Pain. Discontin ued(*Ther apy completed ) nystatin (MYCOSTATIN) 391031 UNIT/GM creamIndications:Y east dermatitis Apply 1 Application topically to the appropriate area as directed 2 (Two) Times a Day. 30 g 1 05/22/19 025 Discontin ued(*Ther apy completed ) azithromycin (Zithromax Z-Joe) 250 MG tabletIndications: Bronchitis Take 2 tablets by mouth on day 1, then 1 tablet daily on days 2-5 6 tablet 08/14/19 025 Discontin ued(*Ther apy completed ) cefdinir (OMNICEF) 300 MG capsuleIndications :Bronchitis Take 1 capsule by mouth 2 (Two) Times a Day. 20 capsule 08/14/19 25 025 Discontin ued(*Ther apy completed ) predniSONE (DELTASONE) 20 MG tabletIndications: Bronchitis TAKE 2 TABLETS BY MOUTH ONCE DAILY FOR 7 DAYS 14 tablet 09/03/19 25 025 Discontin ued(*Ther apy completed ) benzonatate (TESSALON) 100 MG capsuleIndications :Bronchitis Take 1 capsule by mouth three times daily as needed for cough 20 capsule 09/23/19 25 025 Discontin ued(*Ther apy completed ) Active Problems Problem Noted Date Diagnosed Date Nail fungus 01/01/2025 Bilateral foot pain 01/01/2025 Acquired deformity of right toe 01/01/2025 Weakness 01/01/2025 Bronchitis 06/23/2024 Assessment & Plan (08/16/2024 8:35 PM EDT): Patient has been experiencing cough and chest congestion for the last 2-3 days. PE findings include scattered rhochi bilaterally, continues to have good air movement. Patient is immunocompromised due to Cimzia injections for her rheumatoid arthritis. Due to concern for secondary bacterial pathogen with treat with both cefdinir and zpack. She is also being given prednisone and tessalon perles. If symptoms fail to improve over the next three days will send for xray. Assessment & Plan (06/26/2024 12:42 PM EDT): Patient presents with complaints of cough and chest congestion that started yesterday. Patient testing negative for flu and COVID in office today. She has noted to have some diffuse rhonchi in the left upper lung field but with continued adequate air movement on physical exam in office today. Patient is immunocompromise due to Cimzia injections for her rheumatoid arthritis, from concern for secondary bacterial pathogen will treat with azithromycin Z-Joe. Patient will also be given Dosepak and Tessalon Perles for bronchial inflammation. I am also going to send her for chest x-ray to rule out definitive volume overload and assess for infiltrates. Patient due for Cimzia injection later this week, advised to hold off due to treating current illness. Will advise if no improved Yeast dermatitis 05/22/2024 Assessment & Plan (05/22/2024 6:57 PM EST): Patient physical exam noted consistency with a yeast dermatitis and bilateral groin folds. Patient advised to keep clean and dry, avoid over wearing saturated incontinence briefs. Prescribing nystatin cream to be applied twice daily. If no improvement S/P aortic valve replacement 05/07/2024 Assessment & Plan (05/07/2024 12:24 PM EST): dr tabor/ Cardiology dr cas olivia History of hepatitis 05/07/2024 Assessment & Plan (05/07/2024 12:24 PM EST): started suddenly 06/19/2018. +hepatitis A, but negative IgM hepatitis A Dr. Familia Vance. History of 2019. Resolved without recurrence. Recent LFTs normal. She had gall stones removed according to the patient. This resolved her prior abdominal pain Chronic kidney disease 05/07/2024 Assessment & Plan (05/07/2024 12:24 PM EST): -Avoids NSAIDs Marginal corneal ulcer, right eye 05/07/2024 Assessment & Plan (05/07/2024 12:24 PM EST): Karime Leblanc/ Dr. Johnson ophthalmology [facility] Leblanc & Deana Treatment Medrol Dosepak 09/27/22 per ophthalmology. -No erythema or redness eyes today Following with ophthalmology Dr. Karime Leblanc Ophthalmology records reviewed. Case discussed with ophthalmology Dr. Alex Johnson reports patient has severe dry eyes, but he does not think this eye finding is rheumatoid arthritis related or caused by her biologic medication Cimzia. -Continue close monitoring with ophthalmology S/P bilateral hip replacements 05/07/2024 Assessment & Plan (05/07/2024 12:24 PM EST): Immunosuppression due to drug therapy 05/07/2024 Assessment & Plan (05/07/2024 12:24 PM EST): Orders: CBC Auto Differential; Future Comprehensive Metabolic Panel; Future C-reactive Protein; Future Sedimentation Rate; Future Vitamin D,25-Hydroxy; Future Hepatitis Panel, Acute; Future QuantiFERON-TB Gold Plus; Future Rheumatoid Factor; Future Cyclic Citrul Peptide Antibody, IgG / IgA; Future High risk medication use 05/07/2024 Assessment & Plan (05/07/2024 12:24 PM EST): Cimzia Hepatitis panel and QTB ordered 05/07/2024 Cimzia well tolerated and effective. No signs of toxicity We discussed biologic agents at length. Risks and alternatives were discussed at length and the option of no treatment was also given. We discussed risks including but not limited to infections which can be unusual, severe, and deadly. When possible, these agents should be stopped immediately if infections occur. Unusual infection such as TB and fungal infections can occur. There may be an increased risk of lymphoma with these agents. Other risks can include a multiple sclerosis-like illness and worsening of heart failure. Infusion or injection reactions which can be deadly have been reported. Studies on have not been done so should be avoided while on these agents. Reactivation of a deadly brain virus and hepatitis viruses have been reported. Worsening of COPD has been seen with orencia. Elevated lipids, elevation in liver functions, and dangerous changes in blood counts have been seen with certain agents. Regular monitoring will be required Orders: CBC Auto Differential; Future Comprehensive Metabolic Panel; Future C-reactive Protein; Future Sedimentation Rate; Future Vitamin D,25-Hydroxy; Future Hepatitis Panel, Acute; Future QuantiFERON-TB Gold Plus; Future Rheumatoid Factor; Future Cyclic Citrul Peptide Antibody, IgG / IgA; Future Acute cystitis with hematuria 02/12/2024 Assessment & Plan (02/12/2024 1:45 PM EDT): Patient testing positive for nitrates, leukocytes and blood in her urine today. Will treat empirically with Macrobid as directed. Advised increase water consumption as well as benefits of tart cranberry juice. Also discussed proper hygiene, wiping front to back and avoiding bowel incontinence. Primary insomnia 02/07/2024 Assessment & Plan (02/12/2024 1:44 PM EDT): Patient's insomnia has worsened since her most recent hospital rehabilitation stay. We have utilizing melatonin and trazodone both without any noted benefit. Her daughter states that she constantly is up walking around all hours of the night which is exhausting both she and her mother. Will trial low-dose Seroquel Eczema 02/07/2024 Assessment & Plan (02/12/2024 1:43 PM EDT): Patient with postauricular rash that appears to be characteristic of both eczema and yeast. Will provide dual therapy with ketoconazole shampoo as well as topical triamcinolone. Patient's daughter advised to try to keep the area dry and cool. 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 (trouble starting IVs) Intolerant duloxetine. Avoids NSAIDs with renal insufficiency. Rheumatoid arthritis in remission on Cimzia in office once monthly injection Swollen joint count 0. Tender joint count 0. Good prognosis She stopped methotrexate late October 2021 when she had relatively mild COVID infection. No worsening of rheumatoid arthritis off methotrexate Continue Cimzia injection q 4 weeks for RA. Well tolerated and effective She gets Cimzia shots at [facility]. New order will be sent to [facility] No known side effects. Labs ordered as below for monitoring every 16 weeks. Labs reviewed and are stable Return to clinic 4 months Her daughter accompanies her today throughout the visit and discussion Orders: CBC Auto Differential; Future Comprehensive Metabolic Panel; Future C-reactive Protein; Future Sedimentation Rate; Future Vitamin D,25-Hydroxy; Future Hepatitis Panel, Acute; Future QuantiFERON-TB Gold Plus; Future Rheumatoid Factor; Future Cyclic Citrul Peptide Antibody, IgG / IgA; Future Paroxysmal atrial fibrillation 01/22/2024 Assessment & Plan (01/22/2024 12:44 PM EDT): New diagnosis during hospitalization at after suffering two falls at home. She is currently rate controlled with daily metoprolol XL 50mg. No feelings of dizziness, chest pain, syncope or palpitation per patient Multiple mandibular fracture sites, closed, with routine healing, subsequent encounter 01/22/2024 Assessment & Plan (01/22/2024 12:46 PM EDT): Patient suffering fracture of right mandible during a fall on 12/22/23, followed by fracture of left mandible during mechanical fall on 09/24/24. Neither requiring surgical intervention Flexural eczema 07/13/2023 Assessment & Plan (05/22/2024 6:56 PM EST): Patient physical exam findings noted to have eczema type rash on left lower extremity, predominantly on the dorsal aspect of the left foot and ankle. Treat with triamcinolone ointment as directed. Advised use of emollient such as Aquaphor as well. 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 Will treat with triamcinolone ointment as directed Confusion 07/13/2023 Assessment & Plan (09/24/2023 9:22 AM EDT): Patient was last seen in our office approximately 10 weeks ago accompanied by her daughter with complaints of confusion and odd behavior. Patient had been hiding her wallet and purse, talking about people being out to get her and seeing cars in the driveway that are not there. Urinalysis was obtained and confirmed UTI. She was treated successfully with antibiotic regimen with improvement in symptoms. Unfortunately, today she returns with same symptom onset. Daughter does make note that several years ago they were told she had appeared to be having early signs of dementia. Patient perfectly oriented to person, place and time in office today. -Recheck urinalysis today. May require neurology follow-up if urine workup benign. Assessment & Plan (07/17/2023 7:11 PM EDT): Onset approximately 1 to 2 weeks ago. 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 Will obtain urinalysis for possible UTI. If urinalysis negative and symptoms continue will need to pursue diagnostic imaging of the brain. No other concerning neurologic symptoms are present. Gastroesophageal reflux disease without esophagi tis 03/27/2023 Assessment & Plan (03/27/2023 5:22 PM EST): Patient notes increased incidence of reflux and heartburn. She cannot really identify any pattern as to certain foods that trigger it but notes it happens on empty stomach or when drinking water as well. She utilizes [id number] antacids with decent benefit. Will initiate omeprazole 40 mg once daily and reevaluate Acute bacterial conjunctivitis of both eyes 08/15 Assessment & Plan (09/08/2022 9:49 AM EDT): She was initially evaluated by me 09/05 with complaints of red eyes. Her symptoms had developed 1 week prior to being seen. Been using [id number] drops but was unable to identify what they were. Reported mild changes in vision, blurriness, crusting with significant matting upon awakening in the morning and light sensitivity. He has been under the care of and has been ophthalmology in May at which time she was also treated for bilateral eye infections and diagnosed with dry eye syndrome. She was scheduled to return for follow-up after her conjunctivitis healed but to keep that appointment. On the after reviewing ophthalmology notes she was given erythromycin ointment to utilize at bedtime for 10 days. Returns today with ongoing morning blurriness that improves when she uses her dry eyedrops. Redness does seem to be improving and now without crusting. She tells me she has been utilizing her ointment at night, but utilizes drops in the morning to improve her vision. -Seems that her AM drops are washing out the erythromycin decreasing efficacy. -Restart ten day course of erythromycin today -Avoid drops until erythromycin completed. -She has appointment with ophthalmology 09/27 Assessment & Plan (09/05/2022 12:25 PM EDT): Last week she has experienced worsening eye redness, matting, crusting and light sensitivity. She was treated for bilateral conjunctivitis by ophthalmology 3 months ago. She was given erythromycin ointment with good benefit. Her daughter was concerned they had treated her with additional medications, but those other medicines were for her new diagnosis of dry eye syndrome. -We will treat with erythromycin ointment as directed -Discussed importance of keeping hands away from the face as well as stringent and frequent handwashing -Advised to keep follow-up with director of retail marketing in 2 weeks Dry eye syndrome of both eyes 09/05/2022 Assessment & Plan (06/26/2024 12:40 PM EDT): Patient followed by [facility] for dry eyes with consistent use of moxifloxacin and fluorometholone as well as erythromycin Assessment & Plan (02/12/2024 1:42 PM EDT): Patient followed by [facility] for dry eyes with consistent use of moxifloxacin and fluorometholone as well as erythromycin ointment in the past. She has not recently been using these medications, will reorder moxifloxacin Assessment & Plan (01/22/2024 12:49 PM EDT): Patient followed by ophthalmology at [facility] Assessment & Plan (09/24/2023 9:22 AM EDT): Patient being followed by ophthalmology, [facility] Assessment & Plan (07/17/2023 7:11 PM EDT): Patient being followed by ophthalmology, [facility] Assessment & Plan (03/27/2023 5:22 PM EST): [facility] Encounter for annual wellnes s visit (AWV) in Medicare patient 03/22/2022 Assessment & Plan (03/27/2023 5:24 PM EST): Patient presents today for annual wellness visit, given her age she declines any further preventive screening including mammography or DEXA scan eating. Manual breast exam performed in office today and satisfactory. She continues to be followed regularly by ophthalmology. Her daughter states that she has chronic bilateral eye infections that continue to be treated with Romycin ophthalmic ointment, Eysuvis suspension drops as well as fluorometholone ophthalmic suspension and moxifloxacin drops. Patient continues to find good benefit from Cimzia subcutaneous provided through [facility]. She has no new complaints or concerns today Hypokalemia due to excessive gastrointestinal loss of potassium 11/30/2021 Assessment & Plan (11/30/2021 12:40 PM EDT): Potassium was 3.1 on recheck before discharge from the hospital, I will recheck a BMP today to ensure this is stabilized after resolution of gastroenteritis symptoms. Replace as appropriate. Hyponatremia 11/30/2021 Assessment & Plan (11/30/2021 12:40 PM EDT): Sodium was 124 on initial evaluation in the ER, recheck the following morning had improved 134. I would like to recheck with BMP today with management per results. Viral enteritis 11/30/2021 Assessment & Plan (11/30/2021 12:42 PM EDT): Onset of typical symptoms on 11/20/2021 resulting in ER evaluation at [facility]. Kept overnight but never fully admitted, at which point she clinically improved after hydration, and symptomatic treatment. Discharged home with improving symptoms for a few days, and she feels back to her baseline. Urinating well. I will check a BMP in context of her electrolytes as noted otherwise in assessment plan, otherwise she should be appropriate to any of her other medicines. Age related osteoporosis 11/29/2021 Assessment & Plan (05/07/2024 12:24 PM EST): -- off fosamax; previous tx for year -DEXA ACL 03/[id number]/[id number] -4.5 right forearm (stable finding compared to previous), normal bone density lumbar spine -DEXA 10/28/2020 ACL-stable severe osteoporosis right forearm prolia start September 2018 [facility] (now [facility]) Prolia is well tolerated without known side effect. Prolia last received 02/07/2024 at [facility]. Continue this every 6 months. Schedule next Prolia due 07/07/2024 -Update bone density scan due after 03/30/2025 Continue calcium vitamin-D and weight-bearing exercises. Risk benefits of prolia discussed in detail including but not limited to osteonecrosis jaw, atypical femoral fracture, bone , kidney failure, hypocalcemia. Patient has no reported jaw pain, tooth pain, or recent or upcoming dental work Orders: CBC Auto Differential; Future Comprehensive Metabolic Panel; Future C-reactive Protein; Future Sedimentation Rate; Future Vitamin D,25-Hydroxy; Future Hepatitis Panel, Acute; Future QuantiFERON-TB Gold Plus; Future Rheumatoid Factor; Future Cyclic Citrul Peptide Antibody, IgG / IgA; Future Assessment & Plan (03/22/2022 12:25 PM EST): Also managed by Dr. Devine. Currently on prolia 60mg subcutaneous every six months Assessment & Plan (11/30/2021 12:39 PM EDT): As managed by Dr. Jaiden Devine with [facility] [place], who also manages her rheumatoid arthritis. She is on Prolia 60 mg subcu every [address] Devine and calcium plus D replacement. Hyperlipidemia 11/29/2021 Assessment & Plan (01/22/2024 12:49 PM EDT): Patient has been prescribed pravastatin for a number of years, however during our last visit four months ago her daughter felt that she was being non compliant with most of her medications. Now back on the medication consistently. Assessment & Plan (09/24/2023 9:22 AM EDT): She has been on pravastatin in the past but is no longer taking by her decision. Assessment & Plan (03/22/2022 12:25 PM EST): She has been on pravastatin in the past but is no longer taking by her decision. We will recheck lipid panel today and determine appropriateness of restarting statin medication. Continue health diet and activity level Assessment & Plan (11/30/2021 12:39 PM EDT): Devious recommendations are pravastatin 40 mg daily which she has not been taking. She prefers to hold off on this medicine, she can recheck blood work at her follow-up visit, determine the appropriateness of this medication further. Continue healthy diet and activity level. Hypertension 11/29/2021 Assessment & Plan (01/01/2025 4:44 PM EDT): Blood pressure well-controlled in office today, 120/70. Patient continues to utilize losartan 25 mg daily and metoprolol XL 25 mg Assessment & Plan (01/22/2024 12:48 PM EDT): Patient BP borderline in office today, likely due to discomfort from recent fall. BP 138/80. During hospitalization noted to be 120s/60s-70 range. Assessment & Plan (09/24/2023 9:23 AM EDT): Pressure well-controlled, 122/70, however her daughter feels as though she is no longer taking her prescribed metoprolol XL 50 mg daily Assessment & Plan (07/17/2023 7:12 PM EDT): Hypertension is well controlled on current medications. She does not check BP at home but reports it is always good every month when she goes to rheumatology. Continue 1. Amlodipine 10mg daily 2. Metoprolol 50ng daily. Assessment & Plan (03/27/2023 5:22 PM EST): Hypertension is well controlled on current medications. She does not check BP at home but reports it is always good every month when she goes to rheumatology. Continue 1. Amlodipine 10mg daily 2. Metoprolol 50ng daily. Assessment & Plan (03/22/2022 12:24 PM EST): Hypertension is well controlled on current medications. She does not check BP at home but reports it is always good every month when she goes to rheumatology. Continue 1. Amlodipine 10mg daily 2. Metoprolol 50ng daily Assessment & Plan (11/30/2021 12:40 PM EDT): Regimen of amlodipine and metoprolol with good stability. As she is feeling better with recent gastroenteritis, and hydration seems to be good, we can continue these medications unchanged. Monitor blood pressure regularly. 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 Assessment & Plan (05/07/2024 12:24 PM EST): -Prior injections stable -Avoid NSAIDs with renal insufficiency -Intolerant duloxetine Assessment & Plan (03/27/2023 5:21 PM EST): Like osteo arthritis predominantly of the hips and knees, requiring right hip replacement in the past. Patient avoids bisphosphonates due to potential risk of osteonecrosis and femoral fractures. Management per [facility]. Assessment & Plan (11/30/2021 12:41 PM EDT): Involving hips and knees chronically, status post right hip replacement. Patient avoids bisphosphonates due to potential risk of osteonecrosis and femoral fractures. Management per [facility]. Osteopenia 11/29/2021 Seronegative rheumatoid arthritis 11/06/2016 Overview (09/05/2022): Seropositive rheumatoid arthritis, follows with Dr. Jaiden Devine of the [facility]. Remicade now discontinued. Patient now taking Cimzia (40 mg per 2 mL; 2 mL subcu every 4 weekly) plus methotrexate 2.5 mg tab (4 tablets once weekly and (along with folic acid 1 mg daily, as of 02/17/2020 Assessment & Plan (01/22/2024 12:43 PM EDT): Patient follows with Dr. Devine at [facility]. She has received excellent benefit from Cimzia subcu injections every 4 weeks Assessment & Plan (09/24/2023 9:23 AM EDT): Patient follows with Dr. Devine at [facility]. She has received excellent benefit from Cimzia subcu injections every 4 weeks Assessment & Plan (07/17/2023 7:11 PM EDT): Patient follows with Dr. Devine at [facility]. She has received excellent benefit from Cimzia subcu injections every 4 weeks, however her daughter tells me today that there is an issue with the arthritis Center and cost of the injections. She has utilized methotrexate in the past. Assessment & Plan (03/27/2023 5:21 PM EST): Patient follows with Dr. Devine at [facility]. She has received excellent benefit from Cimzia subcu injections every 4 weeks, however her daughter tells me today that there is an issue with the arthritis Center and cost of the injections. She has utilized methotrexate in the past. Assessment & Plan (03/22/2022 12:23 PM EST): Follows with Dr. Devine at [facility] .Currently receiving Cimzia subcutaneous ever four weeks. No longer on methotrexate. Assessment & Plan (11/30/2021 12:42 PM EDT): Seropositive rheumatoid arthritis, follows with Dr. Jaiden Devine of the [facility]. Remicade deviously discontinued. Patient now taking Cimzia (40 mg per 2 mL; 2 mL subcu every 4 weekly) plus methotrexate 2.5 mg tab (4 tablets once weekly and (along with folic acid 1 mg daily. Encounters Date Type Department Care Team Description 01/01/2025 3:30 PM EDT Office Visit [facility] [address] [place] [address] RAINA MIREELS [phone] Allyson Arrington, BANQUET WAITER/WAITRESS Bilateral foot pain (Primary Dx); Nail fungus; Acquired deformity of right toe; Weakness; Rheumatoid arthritis of multiple sites without rheumatoid factor; Primary hypertension 01/01/2025 Travel 10/30/2024 Refill [facility] [address] [place] [address] RAINA MIRELES [phone] Allyson Arrington, BANQUET WAITER/WAITRESS from Last 3 Months Immunizations Immunization Administration Dates Next Due Fluzone High-Dose 65+YRS 02/17/2020,01/03/2018,1 Influenza, Unspecified 02/17/2020 Pneumococcal Conjugate 13-Valent (PCV13) 018 Social History Tobacco Use Types Packs/Day Years Used Date Smoking Tobacco: Never Smokeless Tobacco: Never Tobacco Cessation:Counseling Given: Not Answered Alcohol Use Standard Drinks/Week Comments Never 0 [...] Mass Index 24.72 01/01/2025 3:26 PM EDT Plan of Treatment Health Maintenance Due Date Last Done Comments Pneumococcal Vaccine 50+ (2 of 2 - PPSV23) 05/20/2018 03/25/2018 LIPID PANEL 03/22/2023 03/22/2022, 06/14, 03/27/2018, Additional history exists ANNUAL WELLNESS VISIT 03/27/2024 03/27/2023 , 03/22/2022, 03/22/2022 INFLUENZA VACCINE 11/14/2024 02/17/2020, , 02/17/2020, Additional history exists COVID-19 Vaccine (#1) 05/20/2025 Postpo renate from 1945 (Patient Refused) ZOSTER VACCINE (1 of 2) 05/21/2025 Post poned from 1959 (Patient Refused) RSV Vaccine - Adults (1 - 1-dose 75+ series) 05/22/2025 Postponed from 2015 (Patient Refused) TDAP/TD VACCINES (1 - Tdap) 05/22/2025 Postponed from 1959 (Patient Refused) DXA SCAN 02/02/2026 02/03/2024, 03/16, 10/28/2020, Additional history exists Procedures Procedure Name Priority Date/Time Associated Diagnosis Comments POCT URINALYSIS DIPSTICK, MANUAL Routine 01/01/2025 4:01 PM EDT Weakness SCANNED - LABS 10/14/2024 SCANNED - LABS 10/14/2024 SCANNED - LABS 10/14/2024 SCANNED - LABS 10/14/2024 SCANNED - LABS 10/14/2024 SCANNED - IMAGING 10/14/2024 SCANNED - DEXA Routine 02/03/2024 11:04 AM EDT LIPID PANEL Routine 03/22/2022 9:39 AM EST Mixed hyperlipidemia from Last 3 Months or Most Recently Relevant to Health Maintenance Results * (ABNORMAL) POC Urinalysis Dipstick (01/01/2025 4:01 PM EDT) Color [place](A) Yellow, Straw, Dark Yellow, Lina [facility] Clarity, UA Cloudy(A) Clear [facility] Glucose, UA Negative Negative mg/dL [facility] Bilirubin Negative Negative [facility] Ketones, UA Negative Negative [facility] Specific [place] 1.020 1.005 - 1.030 [facility] Blood, UA Negative Negative [facility] pH, Urine 6.0 5.0 - 8.0 [facility] Protein, POC Negative Negative mg/dL [facility] Urobilinogen, UA 0.2 E.U./dL Normal, 0.2 E.U./dL [facility] Leukocytes Negative Negative [facility] Nitrite, UA Negative Negative [facility] Urine 01/01/2025 4:01 PM EDT us Allyson Arrington BANQUET WAITER/WAITRESS POINT OF CARE TEST ORDERABL ES Final Result [facility]
[address] [place] [address], [place] [phone] * IMAGING SCANNED (10/14/2024) Anatomical Region Laterality Modality Radiographic Yasmin ging Hermes Clark MD IMG DIAGNOSTIC IMAGING ORDERAB LES Final Result * LABS SCANNED (10/14/2024) Only the most recent of5 resultswithin the time period is included. Hermes Clark MD LAB BLOOD ORDERABLES Final Res ult * DEXA Scan (02/03/2024 11:04 AM EDT) Anatomical Region Laterality Modality Other Historical Provider CHART REVIEW TABS Donna l Result * (ABNORMAL) Lipid Panel (03/22/2022 9:39 AM EST) Total Cholesterol 246(H) 100 - 199 mg/dL [facility] Triglycerides 170(H) 0 - 149 mg/dL [facility] HDL Cholesterol 48 >39 mg/dL [facility] VLDL Cholesterol Fer 31 5 - 40 mg/dL [facility] LDL Chol Calc (NIH) 167(H) 0 - 99 mg/dL [facility] Blood Structure of left hand / Unknown 03/22/2022 9:39 AM EST 03/23/2022 Comment:Blood Release to pat asad Ga [facility] - 03/23/2022 9:07 AM EST Performed at: 01 - [facility] [address] [id number] Flavor Tank Tender: Francesco Pena PhD, Phone: [phone] Allyson Arrington APRN LAB BLOOD ORDERABLES Final Result [facility] ([facility]) [address] [place] [address], [place] [phone] [facility] [address] [place] [address], [place] [phone] from Last 3 Months or Most Recently Relevant to Health Maintenance Insurance MEDICARE A & [place] [address] [address] [employer] Care Teams Brake Lining Maker Relationship Specialty Start Date End Date Allyson Arrington APRN [address] [place] [address] PCP - General Family Medicine 07/18/22
--- OUTSIDE RECORDS SUMMARY | 2025-01-02 15:57 | XMS_ITS | Clinical Summary ---
Author Organization [facility] Address [address] [place] [address] Care Team Providers Care History Department Chair Name Role Phone Pcp, No Primary Care Provider Hermes Sawant MD Unavailable [phone] Allergies No known active allergies Medications [...] place to sleep or slept in a [place] facility (including now)? No 01/18/2024 Housing Stability Vital Sign Answer Kody e Recorded In the last 12 months, was t here a time when you were not able to pay the mortgage or rent on time? No 07/04/2024 Number of Times Moved in the Last Year Not on fi le 07/04/2024 At any time in the past 12 m [facility], were you homeless or living in a [place] facility (including now)? No 07/04/2024 Utilities Answer Date [...] [facility]-Bone Density Scan 1940 [facility]-Depression Screening 1940 [facility]-/Child/Adol SDOH Screenings 1940 [facility]-GNVMV-54 Vaccine (#1) 1945 [facility]-DTaP,Tdap,and Td Vaccines (1 - Tdap) 1959 [facility]-Zoster Vaccines (1 of 2) 1959 [facility]-RSV Vaccine: 60+ Years or (1 - 1-dose 75+ series) 2015 [facility]-Pneumococcal Vaccine: 50+ Years (2 of 2 - PCV20 or PCV21) 03/25/2019 03/25/2018 [facility]-Medicare Annual Wellness (AWV) 03/27/2024 [...] Last Indicated MRSA 07/04/2024 07/04/2024 Insurance MEDICARE [facility] Advance Directives * Full Code (Latest Code Status on File) Date Activated Date Inactivated Comments 01/09/2024 5:29 AM 01/14/2024 4:21 PM Question Answer Comments Patient has decision-making capacity? Yes Care Teams History Department Chair Relationship Specialty Start Date End Date Pcp, No [address] [place] [address] PCP - General Family Medicine 07/03/24 Hermes Clark MD [address] [place] [address] [place] [address] 07/03/24
--- OUTSIDE RECORDS SUMMARY | 2025-01-02 15:57 | XMS_ITS | Encounter Summary ---
Author Organization [facility] Address [address] [place] [address] Care Team Providers Care Manager Unit Name Role Phone Allyson Arrington VICE PRESIDENT OF CONTRACTS Primary Care Provider [phone] Encounter Details Date Type Department Care Team (Latest Contact Info) Description 01/01/2025 Travel Social History Tobacco Use Types Packs/Day Years [...] on file documented as of this encounter Plan of Treatment Not on file documented as of this encounter Visit Diagnoses Not on filedocumented in this encounter Care Teams Manager Unit Relationship Specialty Start Date End Date Allyson Arrington APRN [address] [place] [id number] PCP - General Family Medicine 07/18/22 documented as of this encounter
--- NOTE | 2025-01-02 16:03 | ECG_ITS ---
APPROVED REPORT Exam: Resting ECG HR:82 bpm ECG Measurements Heart Rate 82 AXES OH 199 P 87 QRSd 86 QRS 62 QT 361 T 20 QTc 400 Conclusion SINUS RHYTHM WITH OCCASIONAL SUPRAVENTRICULAR PREMATURE COMPLEXES BORDERLINE ECG UNCONFIRMED REPORT NSR. No ST elevation or depression Electronically signed by : MIRELLA SANCHEZ, 01/03/2025 15:47:04
[2025-01-02] MEDS: 0.9 % SODIUM CHLORIDE 1000ML 1,000 ML 999 ML IV (16:09)
[2025-01-02 16:10] LABS: Coronavirus 19, PCR Not Detected (NotDetected); Influenza A, PCR Not Detected (NotDetected); Influenza B, PCR Not Detected (NotDetected)
[2025-01-02 16:40] LABS: Hematocrit 37.1 % (37.0-47.0); Hemoglobin 12.3 g/dL (12.2-16.2); Immature Granulocytes % 0.3 %; Mean Corpuscular HGB Conc 33.2 g/dL (31.8-35.4); Mean Corpuscular Hemoglobin 29.6 pg (27.0-31.2); Mean Corpuscular Volume 89.4 fl (81-99); Nucleated Red Blood Cells % 0 %; Platelet Count 378 K/mm3 (142-424); Red Blood Count 4.15 M/mm3 (4.20-5.40); Red Cell Distribution Width-SD 50.3 fL; White Blood Count 10.5 K/mm3 (4.8-10.8)
[2025-01-02 16:50] LABS: Albumin Level 4.5 g/dl (3.5-5.0)
[2025-01-02 16:51] LABS: Chloride 98 mmol/L (98-107); Potassium 4.6 mmoL/L (3.5-5.1); Sodium 135 mmol/L (136-145)
[2025-01-02 16:53] LABS: Alanine Aminotransferase 20 U/L (12-78); Aspartate Amino Transferase 34 U/L (14-36); Blood Urea Nitrogen 21 mg/dl (7-17); Creatinine Clearance Estimated 42 mL/min (50-200); Creatinine,Serum 0.90 mg/dl (0.52-1.04); Estimated Glomerular Filt Rate 60 ml/min (>60); GFR (African American) 72 ML/MIN (>60)
[2025-01-02 16:54] LABS: Albumin/Globulin Ratio 1.1 (1.1-1.8); Alkaline Phosphatase 59 U/L (38-126); Anion Gap 19.6 mEq/L (5-15); Bilirubin,Total 0.8 mg/dl (0.2-1.3); Calcium 9.9 mg/dl (8.4-10.2); Carbon Dioxide 22 mmol/L (22.0-30.0); Creatine Kinase 29 U/L (30-135); Globulin 4.1 g/dL (1.3-3.2); Glucose 99 mg/dl (74-100); Lipase 276 U/L (23-300); Magnesium 1.7 mg/dl (1.6-2.3); Total Protein,Serum 8.6 g/dl (6.3-8.2)
[2025-01-02 17:10] LABS: Troponin I < 0.01 ng/ml (0.00-0.034)
--- NOTE | 2025-01-02 17:17 | ED_ITS ---
<Statement entered by Rafael Villarreal MD - 01/03/25 03:04> I was consulted by the ELSI, and we discussed the complexity of the problems being addressed. I approve the treatment and management plan for this patient's care in the emergency department, thus performing a substantive portion of the medical decision making. I personally evaluated the patient after her workup demonstrated no acute findings to explain her sudden weakness. She has full strength and range of motion in both lower extremities with no sensory deficits while lying down but is still unable to ambulate. Discussed with daughter who is concerned about her rapid decline. She states that she is also in an adult daycare and they have noticed that she is no longer able to walk using a walker and appears weak. Given her rapid functional decline Attestation, and the fact that patient's daughter does not have a wheelchair at home for her, it is felt that she will require admission for continued workup of her functional decline as well as likely PT/OT evaluation. They were agreeable with this plan and she was subsequently admitted for further management. Rafael Villarreal MD Discharge Plan Disposition Patient Disposition: Admitted Clinical Impressions Clinical Impression: Declining functional status, Inability to walk Discharge ED Provider: Rafael Villarreal General Adult HPI General Chief complaint: Weakness Stated complaint: weakness, incontinence, lethargy Time Seen by Provider: 01/02/25 15:32 Mode of Arrival: Wheelchair Source of Information: Patient and Relative Description of Symptoms (Recalled from ER Triage Doc. by RN): Patient presents to ED with daughter whom reports patient has been weak, incontinent of bladder, and having bilateral foot pain/numbness x1 week. States patient was tested for a UTI yesterday which was negative, states she was told she was possibly dehydrated. Daughter states patient is slightly more confused than usual. History of Present Illness HPI narrative: 84-year-old female presents to the ED today with her daughter who reports that patient has been weak. She was using her walker on Sunday and now she is using a wheelchair. She states that she has not been using the bathroom like she usually does. She complains of soreness all over. She saw Dr. Clark yesterday and he tested her urine and it was negative. Dr. Clark is going to refer her to podiatry for her foot pain. Patient to me complains of fatigue. Patient has no fevers, chills, nausea or vomiting. Daughter is just concerned about her new weakness. Related Data Home Medications ?Medication ?Instructions ?Recorded ?Confirmed losartan 25 mg tablet 25 mg PO HS 10/14/24 5 metoprolol succinate 25 mg 25 mg PO HS 10/14/24 tablet,extended release 24 hr pantoprazole 40 mg tablet,delayed 40 mg PO HS 10/14/24 10/15/24 release quetiapine 50 mg tablet 50 mg PO HS 10/14/24 5 Previous Rx's ?Medication ?Instructions ?Recorded bumetanide 2 mg tablet 2 mg PO DAILY #30 tabs 10/16 potassium chloride 20 mEq 20 meq PO DAILY #30 tabs 07/08 tablet,extended release(part/cryst) (Klor-Con M) Allergies Allergy/AdvReac Type Severity Reaction Status Date / Time No Known Allergies Allergy Verified 10/14/24 12:26 [facility] Disclaimer: The information contained in this section may have been updated after the patient was seen, as this information can be updated by other users. Medical History (Updated 01/02/25 @ 19:56 by Becky Raymundo (ED), FACTORY ENGINEER) Hypokalemia Leukocytosis Social History Smoking Status: Never smoker alcohol intake: never current occupational status: other Travel in the last 8 weeks?: None Have you lived/traveled outside US in past 30 days?: No Contact w/someone who lives/traveled outside US past 30 days?: No Exposure to someone with infectious disease in past 14 days?: No Do you have a fever (greater than 100.4 F or 38 C)?: No Have you tested positive for COVID-19?: No Exposed to someone with COVID-19 in past 14 days?: No Do you have a sore throat?: No Do you have a cough?: No Do you have any weakness?: No Do you have any diarrhea?: No Are you experiencing any unusual bleeding?: No Do you have any muscle aches/pain?: No Do you have any abdominal pain?: No Are you experiencing loss of taste or smell?: No Other Medical History Have you received the Flu Vaccine for this season: No Have you received the Pneumonia Vaccine: No ROS Obtained: Yes Systems reviewed as appropriate & no additional complaints except as documented Constitutional Constitutional: Reports as per HPI Physical Exam General General appearance: alert Head Head exam: normocephalic Eye Eye exam: Present PERRL and EOMI ENT ENT exam: Present normal oropharynx and mucous membranes moist Neck Neck exam: Present full ROM and trachea midline Respiratory Respiratory exam: Present normal lung sounds bilaterally Cardiovascular Cardiovascular exam: Present regular rate, normal rhythm, normal heart sounds, +S1 and +S2 Abdominal Exam Abdominal exam: Present soft and normal bowel sounds Extremities Exam Extremities exam: Present normal inspection, full ROM and normal capillary refill Neurological Exam Neurological exam: Present alert and oriented X3 Skin Skin exam: Present warm and dry Medical Decision Making Medical Records Screening: Per USPSTF and CDC recommendations, given the prevalence of disease in our region, it is our hospital?s policy to screen for HIV and viral Hepatitis for all patients aged 18 and over and those with ongoing risk factors. Antoine Inquiry Pt receiving controlled substance: No Antoine was queried for this patient: No Vital Signs: 01/02/25 15:31 01/02/25 16:00 01/02/25 16:24 Temperature 98 F Temperature Source Oral Pulse Rate 83 Pulse Rate [Left] 88 Respiratory Rate 19 Blood Pressure 186/89 H Blood Pressure [Right Arm] 166/100 H Blood Pressure Mean 121 Blood Pressure Mean [Right Arm] 122 Blood Pressure Source Blood Pressure Source [Right Arm] Automatic Cuff Blood Pressure Position 02 Sat by Pulse Oximetry 98 96 97 Oxygen Delivery Method Room Air Room Air 01/02/25 16:30 01/02/25 17:00 01/02/25 17:30 Temperature Temperature Source Pulse Rate 85 Pulse Rate [Left] Respiratory Rate Blood Pressure 170/83 H 174/80 H 154/76 H Blood Pressure [Right Arm] Blood Pressure Mean 112 111 102 Blood Pressure Mean [Right Arm] Blood Pressure Source Blood Pressure Source [Right Arm] Blood Pressure Position 02 Sat by Pulse Oximetry 97 Oxygen Delivery Method 01/02/25 18:00 01/02/25 19:16 01/02/25 19:30 Temperature Temperature Source Pulse Rate 90 90 Pulse Rate [Left] Respiratory Rate Blood Pressure 159/76 H 158/86 H 148/78 H Blood Pressure [Right Arm] Blood Pressure Mean 103 Blood Pressure Mean [Right Arm] Blood Pressure Source Blood Pressure Source [Right Arm] Blood Pressure Position 02 Sat by Pulse Oximetry 97 96 Oxygen Delivery Method 01/02/25 20:05 Temperature 98 F Temperature Source Oral Pulse Rate 93 H Pulse Rate [Left] Respiratory Rate 15 Blood Pressure 145/82 H Blood Pressure [Right Arm] Blood Pressure Mean Blood Pressure Mean [Right Arm] Blood Pressure Source Automatic Cuff Blood Pressure Source [Right Arm] Blood Pressure Position Supine 02 Sat by Pulse Oximetry Oxygen Delivery Method Room Air Lab Data Lab Results 01/02/25 16:06: SARS-CoV-2 (PCR) Not detected, Influenza A Untype (PCR) Not detected, Influenza Type B (PCR) Not detected 01/02/25 16:18: WBC 10.5, RBC 4.15 L, Hgb 12.3, Hct 37.1, MCV 89.4, MCH 29.6, MCHC 33.2, RDW 15.2, Plt Count 378, MPV 10.0, Neut % (Auto) 48.8, Lymph % (Auto) 32.5, [place] % (Auto) 8.7, Eos % (Auto) 9.4, Baso % (Auto) 0.3, Neut # (Auto) 5.1, Lymph # (Auto) 3.4, [place] # (Auto) 0.9, Eos # (Auto) 1.0 H, Baso # (Auto) 0.0, S odium 135 L, Potassium 4.6, Chloride 98, Carbon Dioxide 22, Anion Gap 19.6 H, B UN 21 H, Creatinine 0.90, Estimated Creat Clear 42, Estimated GFR 60, Est GFR ( Amer) 72, Glucose 99, Calcium 9.9, Magnesium 1.7, Total Bilirubin 0.8, AST 34, ALT 20, Alkaline Phosphatase 59, Total Creatine Kinase 29 L, Troponin I < 0.01, Total Protein 8.6 H, Albumin 4.5, Globulin 4.1 H, Albumin/Globulin Ratio 1.1, Lipase 276 01/02/25 18:00: Urine Color Yellow, Urine Appearance Clear, Urine pH 6.0, Ur Specific [place] 1.015, Urine Protein Negative, Urine Glucose (UA) Negative, Urine Ketones Negative, Urine Blood Trace-i, Urine Nitrate Negative, Urine Bilirubin Negative, Urine Urobilinogen 0.2, Ur Leukocyte Esterase Trace, Urine RBC 5-10, Urine WBC 10-20, Ur Squamous Epith Cells 20-50, Urine Bacteria 2+, Urine Mucus 1+ 01/02/25 16:18 01/02/25 16:18 Orders (Tests/Meds): ED MEDICATIONS Generic Name Dose Route Start Last Admin Trade Name Freq PRN Reason Stop Dose Admin Acetaminophen 650 mg 01/02/25 20:23 Acetaminophen 325mg Tab PO 02/01/25 20:22 Q4HP PRN Fever or Mild Pain (1-3) Heparin Sodium (Porcine) 5,000 unit 01/02/25 21:00 Heparin Sodium 5,000 Unit/Ml Vial SUBCUT 02/01/25 20:59 TID EITAN Ondansetron HCl 4 mg 01/02/25 20:23 Ondansetron 4mg/2ml Vial IV 02/01/25 20:22 Q8HP PRN Nausea Discontinued Medications Generic Name Dose Route Start Last Admin Trade Name Freq PRN Reason Stop Dose Admin Sodium Chloride 1,000 mls @ 999 mls/hr 01/02/25 15:43 01/02/25 17:15 Sod Chlor 0.9% 1000ml Bag IV 01/02/25 16:43 Infused .Q1H1M ONE Infusion ORDERS Category Date Time Status CT head/brain wo con Stat Cat Scan 01/02/25 15:43 Completed Chest XR -- portable [XR chest portable] Stat Exams 01/02/25 15:43 Completed CBC [Complete Blood Count Auto Diff] Stat Lab 01/02/25 16:18 Completed Comprehensive Metabolic Panel Stat Lab 01/02/25 16:18 Completed Creatine Kinase Stat Lab 01/02/25 16:18 Completed Lipase Stat Lab 01/02/25 16:18 Completed Magnesium Stat Lab 01/02/25 16:18 Completed Rapid PCR Covid and Flu A/B Stat Lab 01/02/25 16:06 Completed Trop I [Troponin I] Stat Lab 01/02/25 16:18 Completed Troponin I Q3H Lab 01/02/25 21:45 Ordered Urinalysis and Microscopic Stat Lab 01/02/25 18:00 Completed Urine Culture Stat Micro 01/02/25 18:00 Received Medical Decision Narrative: patient is a 84-year-old female presenting to the emergency department for evaluation of weakness, incontinence and functional decline. Patient is hemodynamically stable and nontoxic-appearing upon arrival, afebrile. Differential diagnosis includes UTI, sepsis, among others. Workup will be conducted with hematologic labs, specific imaging. Initial inventions include crystalloid bolus. Initial workup reviewed by me hematologic labs are remarkable for normal white count. Blood work was nonactionable. CT scan showed chronic changes. I spoke with Dr Villarreal about patient's care. He also saw patient and evaluated her. Patient has no neurological signs or symptoms. Also spoke to Dr. Almeida about admission. Patient will be admitted to the hospital. Critical Care Critical Care Time Critical Care Time: No
[2025-01-02 18:08] LABS: Microscopic, Urine URINE MICROSCOPIC (MICROSCOPIC)
[2025-01-02 18:11] LABS: Bilirubin,Urine Negative (Negative); Color,Urine YELLOW (Yellow); Glucose,Urine (UA) Negative (Negative); Ketones,Urine Negative (Negative); Leukocyte Esterase,Urine TRACE (Negative); PH,Urine 6.0 (5.0-8.5); Protein,Urine Negative (Negative); Specific Gravity, Urine 1.015 (1.005-1.030); Urobilinogen,Urine 0.2 EU/dl (0.2)
[2025-01-02 18:41] LABS: Bacteria,Urine 2+ /lpf; Mucus,Urine 1+ /lpf; Squamous Epithelial Cell,Urine 20-50 #/hpf (0-5)
--- NOTE | 2025-01-02 20:08 | PC.NURSE ---
attempted to call report no answer when transfered to RN, will try again after I assess new pt
[2025-01-02] MEDS: HEPARIN SODIUM 5,000 UNIT/ML VIAL 5000 UNIT SUBCUT (20:43)
[2025-01-02] MEDS: BUMETANIDE 1 MG TABLET 2 MG PO (22:10)
[2025-01-02] MEDS: IRBESARTAN 75MG TABLET 75 MG PO (22:10)
[2025-01-02 22:23] LABS: Troponin I 0.07 ng/ml (0.00-0.034)
--- NOTE | 2025-01-02 22:30 | PC.NURSE ---
Addendum entered by Juana Degroot RN 01/03/25 05:55: Patient was observed to be awake throughout the majority of the night. Bed alarm on. Call light within reach. Addendum entered by Juana Degroot RN 01/03/25 03:00: Patient has had >1 L of urinary output thus far this shift since Bumex administration. Patient continues to verbalize having the urge to urinate. She has been reoriented multiple times about the mechanism of the female purewick; patient verbalizes an understanding after reorientation from nursing staff and will proceed to urinate. Urine appearance is transparent and bright yellow in color. Patient is exhibiting calm and collected behavior. Addendum entered by Juana Degroot RN 01/03/25 00:15: A female purewick was placed at this time due to the patient's vocalized frequent urges to urinate (Bumex was previously administered at 22:10 per JUN). After reassurance and an explanation about the significance of the urinary device was given, the patient verbalized an understanding and consented to allowing nursing staff to apply the device. Transfers to the bedside commode were attempted a couple times this shift (patient did void while on the bedside commode), but due to her unsteadiness, apparent weakness, and the requirement of max assistance by staff, a female purewick was applied in consideration of her safety and impaired mobility at this time. Original Note: Admission assessments were completed to the best of my ability this shift, for the patient's mental status is presently altered. Patient is alert and oriented to self; she is able to recite her birthday ( 40 ). However, she is very disoriented to place, time, and situation. She stated that she does not know where she is at and expressed difficulty recalling past events as well. Patient expresses minimal conversational behavior and was initially anxious upon arrival to the floor. No family members are present. Currently, her behavior is more calm, and she is resting in bed without any apparent distress. Patient was given a chicken salad sandwich and tolerated consumption of the item very well; no difficulties with chewing or swallowing was noted. Assistance was provided as needed. Further medical history conditions and surgical histories were unable to be obtained due to the patient's altered mental status. Patient was reoriented by nursing staff, but it is unclear whether the patient understands due to current impaired cognitive state. Reassurance and comfort provided. She is not combative but has expressed refusal to some aspects of her care such as female purewick placement and assessing undergarments for soiling of feces/urine. Home medication reconciliation was completed using the external medication history. Patient is unable to recall what medications she takes.
--- NOTE | 2025-01-02 23:55 | EXP.HP ---
History of Present Illness *Admission Date: 01/02/25 *Reason for visit:: Generalized weakness *History of present illness: Patient is a 84-year-old female who lives at home with past medical history of hypertension who presents to the hospital due to generalized weakness. According to the patient's family patient has been having difficulty walking, normally patient is able to walk but lately she has not been able to walk and is noted to have generalized weakness. Patient otherwise denied chills chest pain shortness of breath nausea vomiting diarrhea constipation dysuria. [facility] Disclaimer: The information contained in this section may have been updated after the patient was seen, as this information can be updated by other users. Medical History (Updated 01/03/25 @ 04:15 by Srinivasan Almeida MD) Hypokalemia Leukocytosis Social History (Updated 01/02/25 @ 22:32 by Juana Degroot RN) Smoking Status: Never smoker alcohol intake: never current occupational status: other Travel in the last 8 weeks?: None Have you lived/traveled outside US in past 30 days?: No Contact w/someone who lives/traveled outside US past 30 days?: No Exposure to someone with infectious disease in past 14 days?: No Do you have a fever (greater than 100.4 F or 38 C)?: No Have you tested positive for COVID-19?: No Exposed to someone with COVID-19 in past 14 days?: No Do you have a sore throat?: No Do you have a cough?: No Do you have any weakness?: No Do you have any diarrhea?: No Are you experiencing any unusual bleeding?: No Do you have any muscle aches/pain?: No Do you have any abdominal pain?: No Are you experiencing loss of taste or smell?: No Other Medical History Have you received the Flu Vaccine for this season: No (patient is unable to recall; altered mental status) Have you received the Pneumonia Vaccine: No (patient is unable to recall; altered mental status) Review of Systems Review of Systems Review of systems:: pertinent systems reviewed and negative unless documented below Meds Home Medications and Allergies Home Medications ?Medication ?Instructions ?Recorded ?Confirmed ?Type losartan 25 mg tablet 25 mg PO 10/14/24 01/03/25 History metoprolol succinate 25 mg 25 mg PO 10/14/24 01/03/25 History tablet,extended release 24 hr quetiapine 50 mg tablet 50 mg PO HS 10/14/24 01/03/25 History bumetanide 2 mg tablet 2 mg PO DAILY #30 tabs 10/16/24 01/03/25 Rx potassium chloride 20 mEq 20 meq PO DAILY #30 tabs 10/16/24 01/03/25 Rx tablet,extended release(part/cryst) (Klor-Con M) omeprazole 20 mg capsule,delayed 20 mg PO DAILY 01/03/25 01/03/25 History release New Prescriptions to Start Prescriptions: Allergies Allergy/AdvReac Type Severity Reaction Status Date / Time No Known Allergies Allergy Verified 10/14/24 12:26 Exam Data for Last 24 hours Vital signs and Labs for Last 24 Hours: Temp Pulse Resp BP Pulse Ox O2 Del Method 97.8 F 94 H 18 150/102 H 93 L Room Air 01/02/25 21:00 01/02/25 21:40 01/02/25 21:40 01/02/25 21:40 01/02/25 21:40 01/02/25 23:00 Laboratory Results - last 24 hr 01/02/25 16:06: SARS-CoV-2 (PCR) Not detected, Influenza A Untype (PCR) Not detected, Influenza Type B (PCR) Not detected 01/02/25 16:18: WBC 10.5, RBC 4.15 L, Hgb 12.3, Hct 37.1, MCV 89.4, MCH 29.6, MCHC 33.2, RDW 15.2, Plt Count 378, MPV 10.0, Neut % (Auto) 48.8, Lymph % (Auto) 32.5, [place] % (Auto) 8.7, Eos % (Auto) 9.4, Baso % (Auto) 0.3, Neut # (Auto) 5.1, Lymph # (Auto) 3.4, [place] # (Auto) 0.9, Eos # (Auto) 1.0 H, Baso # (Auto) 0.0, Sodium 135 L, Potassium 4.6, Chloride 98, Carbon Dioxide 22, Anion Gap 19.6 H, BUN 21 H, Creatinine 0.90, Estimated Creat Clear 42, Estimated GFR 60, Est GFR ( Amer) 72, Glucose 99, Calcium 9.9, Magnesium 1.7, Total Bilirubin 0.8, AST 34, ALT 20, Alkaline Phosphatase 59, Total Creatine Kinase 29 L, Troponin I < 0.01, Total Protein 8.6 H, Albumin 4.5, Globulin 4.1 H, Albumin/Globulin Ratio 1.1, Lipase 276 01/02/25 18:00: Urine Color Yellow, Urine Appearance Clear, Urine pH 6.0, Ur Specific [place] 1.015, Urine Protein Negative, Urine Glucose (UA) Negative, Urine Ketones Negative, Urine Blood Trace-i, Urine Nitrate Negative, Urine Bilirubin Negative, Urine Urobilinogen 0.2, Ur Leukocyte Esterase Trace, Urine RBC 5-10, Urine WBC 10-20, Ur Squamous Epith Cells 20-50, Urine Bacteria 2+, Urine Mucus 1+ 01/02/25 21:45: Troponin I 0.07 H I & O for Last 24 hours: Intake & Output 12/30/24 12/31/24 01/01/25 01/02/25 23:59 23:59 23:59 23:59 Intake Total 1000 / 1000 Balance 1000 / 1000 Weight 63.503 kg Constitutional Constitutional: no acute distress *Routine HEENT Exam Head: Present normocephalic Eye: Present EOMI and PERRL ENT: Present mucous membranes moist *Routine Neck Exam Neck: Present supple; Absent lymphadenopathy *Routine Respiratory Exam Respiratory: Present CTA bilaterally *Routine Cardiovascular Exam Cardiovascular: Present RRR *Routine Abdominal Exam Abdominal: Present soft and normoactive bowel sounds; Absent tenderness *Routine Rectal Exam Rectal:: deferred *Routine Genitalia Exam Genitalia:: deferred *Routine Extremities Exam Extremities: Absent cyanosis, clubbing or edema *Routine Skin Exam Skin: Present warm; Absent rash *Routine Neurological Exam Neurological: Present alert and oriented X3 Assessment and Plan *Assessment and plan (1) Declining functional status: Status: Acute Category: Medical Code(s): R53.81 - Other malaise (2) Hypertension: Status: Acute Category: Medical Code(s): I10 - Essential (primary) hypertension (3) Generalized weakness: Status: Acute Category: Medical Code(s): R53.1 - Weakness Plan Patient is a 84-year-old female who lives at home with past medical history of hypertension who presents to the hospital due to generalized weakness. According to the patient's family patient has been having difficulty walking, normally patient is able to walk but lately she has not been able to walk and is noted to have generalized weakness. Patient otherwise denied chills chest pain shortness of breath nausea vomiting diarrhea constipation dysuria. Assessment and plan Generalized weakness Debility Consult PT/OT CT head performed in the ED, negative for acute intracranial process COVID-19, rapid fluid-filled testing-negative UA tested-negative for infectious etiology Chronic medical conditions Hypertension Resume home medications when confirmed DVT prophylaxis-subcutaneous heparin
[2025-01-03 04:00] VITALS: BP 123/68; PULSE 94; RESP 12; TEMP 36.9; O2SAT 88; BMI 24.9
--- NOTE | 2025-01-03 04:40 | PC.NURSE ---
Blood pressure readings (see vital sign assessment documentations) have improved this shift since the administration of Irbesartan per JUN (in addition to Bumex administration) at 22:10.
[2025-01-03 07:46] LABS: Hematocrit 38.2 % (37.0-47.0); Hemoglobin 12.4 g/dL (12.2-16.2); Immature Granulocytes % 0.2 %; Mean Corpuscular HGB Conc 32.5 g/dL (31.8-35.4); Mean Corpuscular Hemoglobin 29.0 pg (27.0-31.2); Mean Corpuscular Volume 89.3 fl (81-99); Nucleated Red Blood Cells % 0 %; Platelet Count 357 K/mm3 (142-424); Red Blood Count 4.28 M/mm3 (4.20-5.40); Red Cell Distribution Width-SD 49.4 fL; White Blood Count 8.7 K/mm3 (4.8-10.8)
[2025-01-03 08:00] VITALS: BP 112/84; PULSE 91; RESP 14; TEMP 36.5; O2SAT 98
[2025-01-03 08:33] LABS: Chloride 99 mmol/L (98-107); Sodium 137 mmol/L (136-145)
[2025-01-03 08:34] LABS: Potassium 3.5 mmoL/L (3.5-5.1)
[2025-01-03 08:36] LABS: Blood Urea Nitrogen 18 mg/dl (7-17); Creatinine Clearance Estimated 44 mL/min (50-200); Creatinine,Serum 1.00 mg/dl (0.52-1.04); Estimated Glomerular Filt Rate 53 ml/min (>60); GFR (African American) 64 ML/MIN (>60)
[2025-01-03 08:37] LABS: Anion Gap 16.5 mEq/L (5-15); Calcium 9.6 mg/dl (8.4-10.2); Carbon Dioxide 25 mmol/L (22.0-30.0); Glucose 109 mg/dl (74-100)
[2025-01-03] MEDS: HEPARIN SODIUM 5,000 UNIT/ML VIAL 5000 UNIT SUBCUT (09:03)
--- NOTE | 2025-01-03 09:20 | P.PN_ITS ---
Subjective *Date: 01/03/25 *Time: 16:32 Interval history: Pleasant on exam this morning. Complaining of feet hurting. Very tender on exam. Has significant RA noted with deviation of toes and fingers. Stable on room air. Afebrile. Daughter at bedside later in the day helps supplement history. Medical Exam Vital signs and Labs for Last 24 Hours: Vital Signs Temp Pulse Pulse Resp BP BP BP 01/03/25 08:00 97.7 F 91 H 14 112/84 01/03/25 06:35 01/03/25 05:00 01/03/25 04:00 98.5 F 94 H 12 123/68 01/03/25 03:00 01/03/25 01:00 01/02/25 23:00 01/02/25 22:40 91 H 137/65 01/02/25 22:00 01/02/25 21:40 94 H 18 150/102 H 01/02/25 21:00 01/02/25 21:00 97.8 F 96 H 14 169/102 H 01/02/25 20:05 98 F 93 H 15 145/82 H 01/02/25 19:30 90 148/78 H 01/02/25 19:16 90 158/86 H 01/02/25 18:00 159/76 H 01/02/25 17:30 154/76 H 01/02/25 17:00 174/80 H 01/02/25 16:30 85 170/83 H 01/02/25 16:24 01/02/25 16:00 83 186/89 H 01/02/25 15:31 98 F 88 19 166/100 H Pulse Ox O2 Del Method 01/03/25 08:00 98 Room Air 01/03/25 06:35 Room Air 01/03/25 05:00 Room Air 01/03/25 04:00 88 L Room Air 01/03/25 03:00 Room Air 01/03/25 01:00 Room Air 01/02/25 23:00 Room Air 01/02/25 22:40 01/02/25 22:00 Room Air 01/02/25 21:40 93 L Room Air 01/02/25 21:00 Room Air 01/02/25 21:00 91 L Room Air 01/02/25 20:05 Room Air 01/02/25 19:30 96 01/02/25 19:16 97 01/02/25 18:00 01/02/25 17:30 01/02/25 17:00 01/02/25 16:30 97 01/02/25 16:24 97 Room Air 01/02/25 16:00 96 01/02/25 15:31 98 Room Air Intake and Output 01/02/25 01/03/25 01/03/25 23:59 07:59 15:59 Intake Total 1000 / 1180 180 / 540 360 / 540 Output Total 400 / 600 1350 / 1850 500 / 1850 Balance 600 / 580 -1170 / -1310 -140 / -1310 Intake: Intake, Oral Amount 180 / 540 360 / 540 Intake, Total IV Amount 1000 / 1000 0.9 % Sodium Chloride 1000ML 1, 1000 / 1000 000 ml @ 999 mls/hr IV .Q1H1M ONE Rx#:[id number] Output: Output, Urine Amount 400 / 600 1350 / 1850 500 / 1850 Other: Number of Unmeasured Voids 0 0 Number of Bowel Movements 1 Weight 66.134 kg Patient Weight 01/03/25 23:59 Weight 66.134 kg Laboratory Results - last 24 hr 01/02/25 16:06: SARS-CoV-2 (PCR) Not detected, Influenza A Untype (PCR) Not detected, Influenza Type B (PCR) Not detected 01/02/25 16:18: WBC 10.5, RBC 4.15 L, Hgb 12.3, Hct 37.1, MCV 89.4, MCH 29.6, MCHC 33.2, RDW 15.2, Plt Count 378, MPV 10.0, Neut % (Auto) 48.8, Lymph % (Auto) 32.5, [place] % (Auto) 8.7, Eos % (Auto) 9.4, Baso % (Auto) 0.3, Neut # (Auto) 5.1, Lymph # (Auto) 3.4, [place] # (Auto) 0.9, Eos # (Auto) 1.0 H, Baso # (Auto) 0.0, Sodium 135 L, Potassium 4.6, Chloride 98, Carbon Dioxide 22, Anion Gap 19.6 H, BUN 21 H, Creatinine 0.90, Estimated Creat Clear 42, Estimated GFR 60, Est GFR ( Amer) 72, Glucose 99, Calcium 9.9, Magnesium 1.7, Total Bilirubin 0.8, AST 34, ALT 20, Alkaline Phosphatase 59, Total Creatine Kinase 29 L, Troponin I < 0.01, Total Protein 8.6 H, Albumin 4.5, Globulin 4.1 H, Albumin/Globulin Ratio 1.1, Lipase 276 01/02/25 18:00: Urine Color Yellow, Urine Appearance Clear, Urine pH 6.0, Ur Specific [place] 1.015, Urine Protein Negative, Urine Glucose (UA) Negative, Urine Ketones Negative, Urine Blood Trace-i, Urine Nitrate Negative, Urine Bilirubin Negative, Urine Urobilinogen 0.2, Ur Leukocyte Esterase Trace, Urine RBC 5-10, Urine WBC 10-20, Ur Squamous Epith Cells 20-50, Urine Bacteria 2+, Urine Mucus 1+ 01/02/25 21:45: Troponin I 0.07 H 01/03/25 07:36: WBC 8.7, RBC 4.28, Hgb 12.4, Hct 38.2, MCV 89.3, MCH 29.0, MCHC 32.5, RDW 15.1, Plt Count 357, MPV 9.4, Neut % (Auto) 50.4, Lymph % (Auto) 32.2, [place] % (Auto) 8.3, Eos % (Auto) 8.4, Baso % (Auto) 0.5, Neut # (Auto) 4.4, Lymph # (Auto) 2.8, [place] # (Auto) 0.7, Eos # (Auto) 0.7 H, Baso # (Auto) 0.0, Sodium 137, Potassium 3.5 D, Chloride 99, Carbon Dioxide 25, Anion Gap 16.5 H, BUN 18 H, Creatinine 1.00, Estimated Creat Clear 44, Estimated GFR 53 L, Est GFR ( Amer) 64, Glucose 109 H, Calcium 9.6 I & O for Labs for Last 24 Hours: Intake & Output 12/31/24 01/01/25 01/02/25 01/03/25 23:59 23:59 23:59 23:59 Intake Total 1000 / 1180 540 / 540 Output Total 400 / 600 1850 / 1850 Balance 600 / 580 -1310 / -1310 Weight 63.503 kg 66.134 kg Constitutional: Present no acute distress, average body habitus and chronically ill appearing Head: Present atraumatic Eyes: Present as per HPI ENT: Present normal exam Neck: Present normal inspection and full ROM Respiratory: Present CTA bilaterally, able to speak in complete sentences and symmetric chest movement Cardiac: Present Regular Rate Comment:: Irregular rhythm GI: Present soft and normal bowel sounds; Absent distention or tenderness Extremities: Present tenderness Comment:: Lateral deviation of toes and fingers, consistent with severe rheumatoid arthritis. Feet tender to palpation on the bottom Skin: Present intact, dry and pallor Neuro: Present alert, awake and moves all extremities Comment:: Oriented to self Assessment and Plan *Assessment and plan (1) Declining functional status: Status: Acute Category: Medical Code(s): R53.81 - Other malaise (2) Hypertension: Status: Chronic Qualifiers: Hypertension type: primary hypertension Qualified Code(s): I10 - Essential (primary) hypertension Category: Medical Code(s): I10 - Essential (primary) hypertension (3) Generalized weakness: Status: Acute Category: Medical Code(s): R53.1 - Weakness (4) Sleep disorder: Status: Chronic Category: Medical Code(s): G47.9 - Sleep disorder, unspecified (5) GERD (gastroesophageal reflux disease): Status: Chronic Qualifiers: Esophagitis presence: esophagitis presence not specified Qualified Code(s): K21.9 - Gastro-esophageal reflux disease without esophagitis Category: Medical Code(s): K21.9 - Gastro-esophageal reflux disease without esophagitis (6) Hypokalemia: Status: Acute Category: Medical Code(s): E87.6 - Hypokalemia Plan Patient is a 84-year-old female who lives at home with past medical history of hypertension who presents to the hospital due to generalized weakness. According to the patient's family patient has been having difficulty walking, normally patient is able to walk but lately she has not been able to walk and is noted to have generalized weakness. Patient otherwise denied chills chest pain shortness of breath nausea vomiting diarrhea constipation dysuria. She was just admitted 2 months ago with CHF exacerbation. Discharged to rehab at that time. Did well after few weeks and went home. Goes to adult daycare at [facility]. Had a fall at home within the past week or 2. Co mplaining more of pain in her feet per daughter's report. Therapy evaluating today. Problems addressed as follows: Generalized weakness Debility Rheumatoid arthritis Neuropathy dementia -Having worse pain in her feet. Has deviation in hands and toes. Feet tender to palpation. -Not on anything for neuropathy at this time. Will initiate gabapentin 100 mg 3 times a day and Toradol 15 mg IV every 6 hours as needed. Monitor for improvement. -Therapy evaluated, recommend rehab for further functionality improvement. Will continue to work with patient daily. -CT head performed was negative for acute process. Will obtain x-ray of L-spine due to reported fall and difficulty walking to look for compression fractures or injury. -Labs unremarkable this morning with white count 8.7, hemoglobin 12.4. Kidney function normal with BUN 18, creatinine 1. Potassium low at 3.5, replace per protocol. - Lab holiday ordered for morning. Will repeat labs on Sunday morning 01/05. Ordered at this time. - consider podiatry consult for Sunday given patient's Foot pain, toe deviation, hypertrophic toenails. #Hypertension #GERD #Sleep disorder ?Continue losartan 25 mg daily, metoprolol 25 mg daily, pantoprazole 40 mg daily, Bumex 2 mg daily, quetiapine 50 mg at bedtime DVT prophylaxis-subcutaneous heparin Regular diet Full code
--- NOTE | 2025-01-03 09:46 | HMH.PHAINT1 ---
Pharmacy Intervention Comments: MEDICATION RECONCILIATION COMPLETED ON PATIENT USING EXTERNAL FILL HISTORY FROM PHARMACY. -KRIS DODSON, MANDOD
--- NOTE | 2025-01-03 12:35 | HMH.PTEV ---
Physical Therapy Evaluation Rehab PT IP Evaluation Start: 01/02/25 22:32 Freq: ONCE Status: Active Protocol: Document 01/03/25 12:30 PIERREShanaeLYNN (Rec: 01/03/25 12:34 PHORLYNN [id number]) Subjective/History History History 84-year-old female who lives at home with past medical history of hypertension who presents to the hospital due to generalized weakness. According to the patient' s family patient has been having difficulty walking, normally patient is able to walk but lately she has not been able to walk and is noted to have generalized weakness. Patient otherwise denied chills chest pain shortness of breath nausea vomiting diarrhea constipation dysuria. PT IP wound consult ordered due to low bita scale score. Pt has no open wounds at this time and has no need for PT IP wound care. Subjective Subjective Pt reports she lives with family, 6 steps to enter the home, and she uses a RW for all ambulation. She agrees to sit at EOB, but adamantly refuses further mobility assessment this date. [facility] How much help from another person do you currently need... Turning from your A little back to your side while in a flat bed without using bedrails? Moving from lying on A little back to sitting on the side of a flat bed without using bedrails? Moving to and from a A little bed to a chair ( including a wheelchair)? Standing up from a A little chair using your arms? (e.g., wheelchair, bedside chair) Walking in hospital A lot room? Climbing 3-5 steps A lot with a railing? Mobility Score 16 Mobility Level [facility] 5 Stand (1 or more minutes) Mobility Calculator Rehab PT IP Eval Objective Appearance Patient Behavior Appropriate,Confused Patient Orientation Person Difficulty following mild instructions Speech Pattern Clear Ambulation Patient Able to No Ambulate Balance Ability to Arise Able, uses arms to help Sitting Balance Steady, safe Dynamic Sitting Good Balance Ability Transfers Bed Transfer Ability Minimal x 1 (25% assist) Rehab PT IP prob,goals,plan Problems Date of Evaluation: 01/03/25 PT IP Problems Bed Mobility,Transfers,Gait Rehab Potential Rehab Potential Good Plan PT Intervention Plan Bed Mobility,Transfers,Gait,Therapeutic Exercise PT Plan Frequency Daily Duration LOS Discharge Goals Bed Transfer Ability Contact Guard/Hand Hold Sit to Stand Chair Minimal x 2 (25% assist) Transfer Ability Ambulation Assistive Rolling Walker Device Ambulation Distance 10 (feet) Discharge Plan PT Discharge Plan Pt is currently most appropriate for rehab placement once medically stable for d/c. Skilled therapy is indicated in order to improve general strength, transfers, and ambulation in order to aid pt return to PLOF and improve QOL. Eval Complexity Eval Charge Codes 78205 - High Complexity PHYSICIAN CERTIFICATION: I certify the specified therapy services for Ana Maria Lowery are required, authorized, and reviewed every 30 days.
[2025-01-03 16:00] VITALS: BP 137/69; PULSE 93; RESP 16; TEMP 36.8; O2SAT 99; BMI 24.9
--- NOTE | 2025-01-03 16:15 | XR_ITS ---
PROCEDURE INFORMATION: Exam: XR Lumbosacral Spine Exam date and time: 01/03/2025 4:56 PM Age: 84 years old Clinical indication: Injury or trauma; Fall; Other: Pain; Additional info: Fall, not walking TECHNIQUE: Imaging protocol: Radiologic exam of the lumbosacral spine. Views: 2 or 3 views. COMPARISON: No relevant prior studies available. FINDINGS: Bones/joints: Multilevel degenerative disc disease with multilevel disc height narrowing, endplate sclerosis and vacuum phenomenon. Multilevel facet joint arthropathy. No acute fracture. Normal alignment. Soft tissues: Arthrosclerotic disease. IMPRESSION: Degenerative changes but no acute fracture or malalignment
--- NOTE | 2025-01-03 16:42 | PC.NURSE ---
patient is alert to self, pleasantly confused and remains on room air. patient refused PT this shift. patient has been up the the bathroom x2 assist and tolerated fairly well. she has been confused at times and has tried to get out of the bed, bed alarm in place, attempts made to re orient patient to surroundings. VSS. call light within reach and daughter currently at bedside, bed alarm on.
[2025-01-03 20:00] VITALS: BP 153/74; PULSE 50; RESP 16; TEMP 36.4; O2SAT 98
[2025-01-03] MEDS: PATIENT'S OWN HOME MEDICATION (Quetiapine 50 mg tablet) 50 EACH PO (20:25)
[2025-01-03] MEDS: METOPROLOL SUCCINATE XL 25MG TABLET 25 MG PO (20:26)
[2025-01-03] MEDS: GABAPENTIN 100MG CAPSULE 100 MG PO (20:26)
--- NOTE | 2025-01-04 01:34 | PC.NURSE ---
Pt alert to self. VSS. Still tolerating room air well. Pt currently resting in bed with eyes closed. Respirations even and unlabored. Bed is low, locked, and call light is in reach. Bed alarm on and functioning, pt room near nurse's station.
[2025-01-04 04:00] VITALS: BP 115/66; PULSE 82; RESP 16; TEMP 36.8; O2SAT 97; BMI 23.8
[2025-01-04 08:00] VITALS: BP 122/65; PULSE 79; RESP 12; TEMP 36.2; O2SAT 100
[2025-01-04] MEDS: IRBESARTAN 75MG TABLET 37.5 MG PO (10:39)
[2025-01-04] MEDS: BUMETANIDE 1 MG TABLET 2 MG PO (10:41)
[2025-01-04] MEDS: HEPARIN SODIUM 5,000 UNIT/ML VIAL 5000 UNIT SUBCUT ×3 (10:42→20:16)
[2025-01-04] MEDS: GABAPENTIN 100MG CAPSULE 100 MG PO ×4 (10:42→20:11)
--- NOTE | 2025-01-04 15:32 | EXP.ACUTE.PN ---
Subjective *Date: 01/04/25 *Time: 15:32 Interval history: Feeling better this morning after starting gabapentin. Ambulated with nursing. Extensive discussion with daughter at bedside, would like to have her evaluated by podiatry and see how she does with therapy again before going home. Discussed potential discharge in the morning. Stable on room air. Tolerating p.o. intake Medical Exam Vital signs and Labs for Last 24 Hours: Vital Signs Temp Pulse Resp BP Pulse Ox O2 Del Method 01/04/25 15:00 Room Air 01/04/25 13:00 Room Air 01/04/25 11:00 Room Air 01/04/25 09:00 Room Air 01/04/25 08:00 Room Air 01/04/25 08:00 97.2 F L 79 12 122/65 100 Room Air 01/04/25 06:41 Room Air 01/04/25 05:00 Room Air 01/04/25 04:00 98.2 F 82 16 115/66 97 Room Air 01/04/25 03:00 Room Air 01/04/25 01:00 Room Air 01/03/25 23:00 Room Air 01/03/25 21:00 Room Air 01/03/25 20:00 97.6 F 50 L 16 153/74 H 98 Room Air 01/03/25 20:00 Room Air 01/03/25 18:40 Room Air 01/03/25 17:00 Room Air 01/03/25 16:00 98.3 F 93 H 16 137/69 99 Room Air Intake and Output 01/03/25 01/04/25 01/04/25 23:59 07:59 15:59 Intake Total 210 / 960 690 / 690 Output Total 1999 300 / 850 550 / 850 Balance 210 / -1040 -300 / -160 140 / -160 Intake: Intake, Oral Amount 210 / 960 690 / 690 Output: Output, Urine Amount 1999 300 / 850 550 / 850 Other: Number of Unmeasured Voids 1 0 Weight 66.134 kg 63.191 kg Patient Weight 01/04/25 23:59 Weight 63.191 kg I & O for Labs for Last 24 Hours: Intake & Output 01/01/25 01/02/25 01/03/25 01/04/25 23:59 23:59 23:59 23:59 Intake Total 1000 / 1180 960 / 960 690 / 690 Output Total 400 / 600 1999 / 1999 850 / 850 Balance 600 / 580 -1040 / -1040 -160 / -160 Weight 63.503 kg 66.134 kg 63.191 kg Microbiology Reports for the Last 24 Hours: Microbiology 01/02/25 18:00 Urine,Clean Catch Urine Culture - Preliminary Constitutional: Present no acute distress, average body habitus and chronically ill appearing Head: Present atraumatic Eyes: Present as per HPI ENT: Present normal exam Neck: Present normal inspection and full ROM Respiratory: Present CTA bilaterally, able to speak in complete sentences and symmetric chest movement Cardiac: Present Regular Rate Comment:: Irregular rhythm GI: Present soft and normal bowel sounds; Absent distention or tenderness Extremities: Present tenderness Comment:: Interval improvement in neuropathy in her feet. Lateral deviation of toes and fingers, consistent with severe rheumatoid arthritis. Skin: Present intact, dry and pallor Neuro: Present alert, awake and moves all extremities Comment:: Oriented to self Assessment and Plan *Assessment and plan (1) Declining functional status: Status: Acute Category: Medical Code(s): R53.81 - Other malaise (2) Hypertension: Status: Chronic Qualifiers: Hypertension type: primary hypertension Qualified Code(s): I10 - Essential (primary) hypertension Category: Medical Code(s): I10 - Essential (primary) hypertension (3) Generalized weakness: Status: Acute Category: Medical Code(s): R53.1 - Weakness (4) Sleep disorder: Status: Chronic Category: Medical Code(s): G47.9 - Sleep disorder, unspecified (5) GERD (gastroesophageal reflux disease): Status: Chronic Qualifiers: Esophagitis presence: esophagitis presence not specified Qualified Code(s): K21.9 - Gastro-esophageal reflux disease without esophagitis Category: Medical Code(s): K21.9 - Gastro-esophageal reflux disease without esophagitis (6) Hypokalemia: Status: Acute Category: Medical Code(s): E87.6 - Hypokalemia (7) Neuropathy: Status: Acute Category: Medical Code(s): G62.9 - Polyneuropathy, unspecified Plan Patient is a 84-year-old female who lives at home with past medical history of hypertension who presents to the hospital due to generalized weakness. According to the patient's family patient has been having difficulty walking, normally patient is able to walk but lately she has not been able to walk and is noted to have generalized weakness. Patient otherwise denied chills chest pain shortness of breath nausea vomiting diarrhea constipation dysuria. She was just admitted 2 months ago with CHF exacerbation. Discharged to rehab at that time. Did well after few weeks and went home. Goes to adult daycare at [facility]. Had a fall at home within the past week or 2. Complaining more of pain in her feet per daughter's report. Therapy evaluating today. Problems addressed as follows: Generalized weakness Debility Rheumatoid arthritis Neuropathy dementia -Having worse pain in her feet. Has deviation in hands and toes. Feet tender to palpation. - Improved pain control gabapentin. Increase to 200 mg at bedtime. Continue 100 mg morning and afternoon. Discontinue Toradol. - Therapy to reevaluate in the morning. Ambulated with nursing today. Anticipate discharge home with outpatient therapy - podiatry consulted to evaluate feet and toe deviation - X-ray of L-spine with no fractures. Does have degenerative changes per my review - Lab holiday today, repeat CBC, CMP, magnesium ordered for the morning #Hypertension #GERD #Sleep disorder ?Continue losartan 25 mg daily, metoprolol 25 mg daily, pantoprazole 40 mg daily, Bumex 2 mg daily, quetiapine 50 mg at bedtime DVT prophylaxis-subcutaneous heparin Regular diet Full code
[2025-01-04 16:00] VITALS: BP 128/41; PULSE 97; RESP 14; TEMP 36.7; O2SAT 91
--- NOTE | 2025-01-04 19:31 | XR_ITS ---
PROCEDURE INFORMATION: Exam: XR Left Foot Exam date and time: 01/04/2025 9:16 PM Age: 84 years old Clinical indication: Pain; Foot; Bilateral; Additional info: Ra, foot pain TECHNIQUE: Imaging protocol: Radiologic exam of the left foot. Views: 3 or more views. COMPARISON: No relevant prior studies available. FINDINGS: Bones/joints: Bones are diffusely demineralized. Advanced arthritis of the forefoot with subluxation and erosive changes. Soft tissues: Normal. Vasculature: Heavy peripheral arterial vascular disease. IMPRESSION: 1. No acute findings. 2. Advanced arthritis with subluxation and erosive changes congruent with the patient's history.
--- NOTE | 2025-01-04 19:31 | XR_ITS ---
PROCEDURE INFORMATION: Exam: XR Right Foot Exam date and time: 01/04/2025 9:16 PM Age: 84 years old Clinical indication: Pain; Foot; Bilateral; Additional info: Ra, foot pain TECHNIQUE: Imaging protocol: Radiologic exam of the right foot. Views: 3 or more views. COMPARISON: No relevant prior studies available. FINDINGS: Bones/joints: Bones are diffusely demineralized. Advanced arthritis of the forefoot with subluxation and erosive changes. Soft tissues: Normal. Vasculature: Heavy peripheral arterial vascular disease. IMPRESSION: 1. No acute findings. 2. Advanced arthritis with subluxation and erosive changes congruent with the patient's history.
[2025-01-04 20:00] VITALS: BP 106/52; PULSE 98; RESP 16; TEMP 36.5; O2SAT 95
[2025-01-04] MEDS: QUETIAPINE 100MG TABLET 50 MG PO (20:11)
[2025-01-04] MEDS: METOPROLOL SUCCINATE XL 25MG TABLET 25 MG PO (20:11)
[2025-01-05] VITALS (45 sets, daily range): BP systolic 57–148; BP diastolic 33–73; PULSE 65–92; RESP 8–21; TEMP 36.1–36.7; O2SAT 86–100; BMI 24.1
--- NOTE | 2025-01-05 03:13 | PC.NURSE ---
Pt alert to self and (occasionally) place. No significant changes throughout this shift. VSS. Pt is currently resting in bed with eyes closed. Respirations even and unlabored. Bed is low, locked, and call light is in reach.
--- NOTE | 2025-01-05 04:50 | PC.NURSE ---
Patient arrived to ICU via stretcher from [facility] @04:50
[2025-01-05] MEDS: 0.9 % SODIUM CHLORIDE 1000ML 500 ML 999 ML IV ×2 (05:14→05:55)
--- NOTE | 2025-01-05 05:17 | PC.NURSE ---
Pt transferred to ICU per provider order after consecutive low BP readings at 4am vitals. Manual BP readings in the 60s/30s, while automatic BP readings were 50s/30s. Administered 500mL bolus of normal saline per provider order. Trendelenburg position did not resolve hypotension. Pt arousable throughout this event. Pt was able to wake up and drink some pepsi. Pt was transferred when around half way through the bolus, the BP readings were staying low. Report was given to TONY Hooker in the ICU and patient was transferred safely with help from several staff members.
[2025-01-05] MEDS: HYDROCORTISONE SOD SUCCINATE 100MG VIAL 100 MG IV (05:57)
[2025-01-05 05:58] LABS: Albumin Level 3.9 g/dl (3.5-5.0); Chloride 96 mmol/L (98-107)
[2025-01-05 05:59] LABS: Potassium 3.5 mmoL/L (3.5-5.1); Sodium 133 mmol/L (136-145)
[2025-01-05 06:00] LABS: Hematocrit 36.6 % (37.0-47.0); Hemoglobin 11.8 g/dL (12.2-16.2); Immature Granulocytes % 0.5 %; Mean Corpuscular HGB Conc 32.2 g/dL (31.8-35.4); Mean Corpuscular Hemoglobin 29.3 pg (27.0-31.2); Mean Corpuscular Volume 90.8 fl (81-99); Nucleated Red Blood Cells % 0 %; Platelet Count 345 K/mm3 (142-424); Red Blood Count 4.03 M/mm3 (4.20-5.40); Red Cell Distribution Width-SD 50.4 fL; White Blood Count 9.2 K/mm3 (4.8-10.8)
[2025-01-05 06:01] LABS: Anion Gap 16.5 mEq/L (5-15); Blood Urea Nitrogen 27 mg/dl (7-17); Carbon Dioxide 24 mmol/L (22.0-30.0); Creatinine Clearance Estimated 21 mL/min (50-200); Creatinine,Serum 2.00 mg/dl (0.52-1.04); Estimated Glomerular Filt Rate 24 ml/min (>60); GFR (African American) 29 ML/MIN (>60)
[2025-01-05 06:02] LABS: Alanine Aminotransferase 20 U/L (12-78); Albumin/Globulin Ratio 1.1 (1.1-1.8); Alkaline Phosphatase 75 U/L (38-126); Aspartate Amino Transferase 26 U/L (14-36); Bilirubin,Total 0.6 mg/dl (0.2-1.3); Calcium 9.6 mg/dl (8.4-10.2); Globulin 3.6 g/dL (1.3-3.2); Glucose 116 mg/dl (74-100); Magnesium 1.6 mg/dl (1.6-2.3); Total Protein,Serum 7.5 g/dl (6.3-8.2)
--- NOTE | 2025-01-05 06:08 | PC.NURSE ---
Patient was transferred into the ICU unit with no new orders for anything. Upon assessing patient patient's BP noted to be slightly improved from the Medsurg unit. Once BP rechecked BP noted to decline yet again, called Provider at that time to inform that there was no orders noted, only obtained orders for another 500 ml bolus and Solu Cortef. Another IV line placed as a precaution due to patient's condition.
[2025-01-05 06:14] LABS: Troponin I 0.16 ng/ml (0.00-0.034)
[2025-01-05 06:19] LABS: Procalcitonin 0.115 ng/mL (0.0-2.0)
--- NOTE | 2025-01-05 06:57 | EXP.POD.CONS ---
History of Present Illness *Admission Date: 01/02/25 *History of present illness: Patient is a 84-year-old female who lives at home with past medical history of hypertension who presents to the hospital due to generalized weakness. According to the patient's family patient has been having difficulty walking, normally patient is able to walk but lately she has not been able to walk and is noted to have generalized weakness. Patient otherwise denied chills chest pain shortness of breath nausea vomiting diarrhea constipation dysuria. 01/05/25: Podiatry consulted for 84-year old female patient, new to our services. Patient will be needing to have her toenails assessed and debrided, Routine foot evaluation for her weakness, Lateral deviation of her toes consistent with her Neuropathy and rheumatoid arthritis. It is noted in her chart that she normally goes to adult daycare at [facility] but had a fall at home recently and is now complaining of more pain in her feet. [facility] Disclaimer: The information contained in this section may have been updated after the patient was seen, as this information can be updated by other users. Medical History (Updated 01/05/25 @ 07:49 by Lakshmi Tello APRN) Hypokalemia Leukocytosis Social History (Updated 01/02/25 @ 22:32 by Juana Degroot RN) Smoking Status: Never smoker alcohol intake: never current occupational status: other Travel in the last 8 weeks?: None Have you lived/traveled outside [place] in past 30 days?: No Contact w/someone who lives/traveled outside US past 30 days?: No Exposure to someone with infectious disease in past 14 days?: No Do you have a fever (greater than 100.4 F or 38 C)?: No Have you tested positive for COVID-19?: No Exposed to someone with COVID-19 in past 14 days?: No Do you have a sore throat?: No Do you have a cough?: No Do you have any weakness?: No Do you have any diarrhea?: No Are you experiencing any unusual bleeding?: No Do you have any muscle aches/pain?: No Do you have any abdominal pain?: No Are you experiencing loss of taste or smell?: No Review of Systems Review of Systems Review of systems:: pertinent systems reviewed and negative unless documented below Meds Home Medications and Allergies Home Medications ?Medication ?Instructions ?Recorded ?Confirmed ?Type losartan 25 mg tablet 25 mg PO HS 10/14/24 01/03/25 History metoprolol succinate 25 mg 25 mg PO HS 10/14/24 01/03/25 History tablet,extended release 24 hr quetiapine 50 mg tablet 50 mg PO HS 10/14/24 01/03/25 History bumetanide 2 mg tablet 2 mg PO DAILY #30 tabs 10/16/24 01/03/25 Rx potassium chloride 20 mEq 20 meq PO DAILY #30 tabs 10/16/24 01/03/25 Rx tablet,extended release(part/cryst) (Klor-Con M) omeprazole 20 mg capsule,delayed 20 mg PO DAILY 01/03/25 01/03/25 History release New Prescriptions to Start Prescriptions: Allergies Allergy/AdvReac Type Severity Reaction Status Date / Time No Known Allergies Allergy Verified 10/14/24 12:26 Exam (Inpt) Vital signs and Labs for Last 24 Hours: Temp Pulse Resp BP Pulse Ox O2 Del Method 97.9 F 85 12 81/48 L 94 L Room Air 01/05/25 05:10 01/05/25 06:30 01/05/25 06:30 01/05/25 06:30 01/05/25 06:30 01/05/25 06:30 Laboratory Results - last 24 hr 01/05/25 05:30: WBC 9.2, RBC 4.03 L, Hgb 11.8 L, Hct 36.6 L, MCV 90.8, MCH 29.3, MCHC 32.2, RDW 15.1, Plt Count 345, MPV 9.7, Neut % (Auto) 58.2, Lymph % (Auto) 30.9, [place] % (Auto) 9.0, Eos % (Auto) 1.0, Baso % (Auto) 0.4, Neut # (Auto) 5.4, Lymph # (Auto) 2.8, [place] # (Auto) 0.8, Eos # (Auto) 0.1, Baso # (Auto) 0.0, Sodium 133 L, Potassium 3.5, Chloride 96 L, Carbon Dioxide 24, Anion Gap 16.5 H, BUN 27 H D, Creatinine 2.00 H D, Estimated Creat Clear 21, Estimated GFR 24 L, Est GFR ( Amer) 29 L D, Glucose 116 H, Lactate 2.5 H, Calcium 9.6, Magnesium 1.6, Total Bilirubin 0.6, AST 26, ALT 20, Alkaline Phosphatase 75, Troponin I 0.16 H, Total Protein 7.5, Albumin 3.9, Globulin 3.6 H, Albumin/Globulin Ratio 1.1, Procalcitonin 0.115 I & O for Labs for Last 24 Hours: Intake & Output 01/02/25 01/03/25 01/04/25 01/05/25 23:59 23:59 23:59 23:59 Intake Total 1000 / 1000 960 / 960 1110 / 1110 1240 / 1240 Output Total 400 / 400 2000 / 1999 1450 / 1450 Balance 600 / 600 -1040 / -1040 -340 / -340 1240 / 1240 Weight 140 lb 145 lb 12.8 oz 139 lb 5 oz 141 lb 8.588 oz Microbiology Reports for the Last 24 Hours: Microbiology 01/02/25 18:00 Urine,Clean Catch Urine Culture - Preliminary Constitutional: Present no acute distress and agitated Comment:: Blood pressure is now stable. Head: Present normocephalic Eye: Present as per HPI Neck: Present trachea midline Respiratory: Present normal respiratory effort Comment:: Nasal cannula in use Cardiac: Present posterior tibial pulses present and pedal pulses present Rectal (female): Present deferred (female): Present deferred Extremities: Present normal capillary refill Comment:: Feet warm to touch, she is very sensitive with me touching her feet, she pulls them back and tucks her right foot over the left. Skin: Present dry, warm and lesions Comment:: Callus x 2: Left sub 5th, Right sub 3rd, with no underlying ulcers. Neuro: Present Sensory Function Intact Comment:: Patient would open eyes at times when spoken to, she would mumble words when I spoke to her none understood. Ankle: bilateral: normal inspection Feet/Toes: right: deformity (Right 2nd toe crosses over R 3rd) and bilateral: hammer toe (B/L 2-4 semi-reducible ), bilateral: nail abnormalities (Thick and dystrophic ), bilateral: onychomycosis (B/L Hallux thick nails, suspect nail fungs ), bilateral: tenderness (Feet and nails tender when trimmed) and bilateral: decreased ROM (stiff, and didn't like ROM with her feet and ankles, severe RA noted per x-ray ) Inspection: Present foot deformity deformity: Present hallux valgus, hammer toes (2-4 b/l ) and deformed toes (Right 2nd ), nail disorder and calluses/corns (callus x 2 ) Pulses: L dorsalis pedis pulse: normal, R dorsalis pedis pulse: normal, L posterior tibial pulse: normal and R posterior tibial pulse: normal CFT: normal: CFT Results Labs 01/05/25 05:30 01/05/25 05:30 Labs: Abnormal lab results 01/05/25 Range/Units 05:30 RBC 4.03 L (4.20-5.40) M/mm3 Hgb 11.8 L (12.2-16.2) g/dL Hct 36.6 L (37.0-47.0) % Sodium 133 L (136-145) mmol/L Chloride 96 L (98-107) mmol/L Anion Gap 16.5 H (5-15) mEq/L BUN 27 H D (7-17) mg/dl Creatinine 2.00 H D (0.52-1.04) mg/dl Estimated GFR 24 L (>60) ml/min Est GFR ( Amer) 29 L D (>60) ML/MIN Glucose 116 H (74-100) mg/dl Lactate 2.5 H (0.7-2.1) mmol/L Troponin I 0.16 H (0.00-0.034) ng/ml Globulin 3.6 H (1.3-3.2) g/dL H & H 01/02/25 01/03/25 01/05/25 Range/Units 16:18 07:36 05:30 Hgb 12.3 12.4 11.8 L (12.2-16.2) g/dL Hct 37.1 38.2 36.6 L (37.0-47.0) % All other labs normal. Assessment and Plan *Assessment and plan (1) Neuropathy: Status: Acute Category: Medical Code(s): G62.9 - Polyneuropathy, unspecified (2) Generalized weakness: Status: Acute Category: Medical Code(s): R53.1 - Weakness (3) Declining functional status: Status: Acute Category: Medical Code(s): R53.81 - Other malaise (4) Arthritis of foot, degenerative: Status: Acute Qualifiers: Laterality: bilateral Osteoarthritis type: primary Qualified Code(s): M19.071 - Primary osteoarthritis, right ankle and foot; M19.072 - Primary osteoarthritis, left ankle and foot Category: Medical Code(s): M19.079 - Primary osteoarthritis, unspecified ankle and foot (5) Severe peripheral arterial disease: Status: Acute Category: Medical Code(s): I73.9 - Peripheral vascular disease, unspecified (6) Acquired hallux valgus of both feet: Status: Acute Category: Medical Code(s): M20.11 - Hallux valgus (acquired), right foot; M20.12 - Hallux valgus (acquired), left foot (7) Acquired hammer toe of great toes of both feet: Status: Acute Category: Medical Code(s): M20.41 - Other hammer toe(s) (acquired), right foot; M20.42 - Other hammer toe(s) (acquired), left foot (8) Vascular calcification: Status: Acute Category: Medical Code(s): I99.8 - Other disorder of circulatory system (9) Bone spur: Status: Acute Category: Medical Code(s): M77.9 - Enthesopathy, unspecified (10) Dystrophia unguium: Status: Acute Category: Medical Code(s): L60.3 - Nail dystrophy (11) Pain due to onychomycosis of toenail: Status: Acute Category: Medical Code(s): B35.1 - Tinea unguium; M79.676 - Pain in unspecified toe(s) (12) Discoloration and thickening of nails both feet: Status: Acute Category: Medical Code(s): L60.8 - Other nail disorders (13) Callus of foot: Status: Acute Category: Medical Code(s): L84 - Corns and callosities Plan 01/05/25: Reviewed b/l foot xrays: 01/04/2025, XR foot RT 3 view findings:FINDINGS: Bones/joints: Bones are diffusely demineralized. Advanced arthritis of the forefoot with subluxation and erosive changes. Soft tissues: Normal. Vasculature: Heavy peripheral arterial vascular disease. IMPRESSION: 1. No acute findings. 2. Advanced arthritis with subluxation and erosive changes congruent with the patient's history. 01/04/2025, XR foot LT 3 view findings:FINDINGS:FINDINGS: Bones/joints: Bones are diffusely demineralized. Advanced arthritis of the forefoot with subluxation and erosive changes. Soft tissues: Normal. Vasculature: Heavy peripheral arterial vascular disease. IMPRESSION: 1. No acute findings. 2. Advanced arthritis with subluxation and erosive changes congruent with the patient's history. Onychodystrophy, Onychomycosis,Acquired hallux valgus, Hammer toes: Nails were debrided x?s 10 utilizing manual debridement with a nail nipper. Patient tolerated the procedure well. Recommend the use of nadege board to file nails down and keep thinner. B/L Hallux nails were thick, crumbly when trimmed, suspect nail fungus Hallux valgus worse on the Right, Right 2nd toe crosses over R 3rd toe, non-reducible Hammer toes 2-4b/l semi-reducible Callus of foot, callus care: Calluses x 2 were debrided with a number a sterile curette without incident. Callus to Left sub 5th, Right sub 3rd, with no underlying ulcers. Recommend ``U?? felt offloading pads Family/caregivers can Soak feet daily in antibacterial soap (Gold Dial) in Luke warm water x 15-20 min. daily May Use pumice stone to remove , callus skin Recommend for patient to apply bland moisturization to callused areas daily or as needed. Patient has severe Rheumatoid Arthritis to both feet ankles, very stiff and rigid with her ROM. -See Dr. Mariscal's recommendations. All order per Dr. Mariscal
--- NOTE | 2025-01-05 07:00 | PC.NURSE ---
Spoke with Dr Almeida and informed of hypotension after bolus, when MD asked how much of Norepi patient was on, I informed that there wasnt an order for Norepi and no orders for even for ICU status and I was not able to start a drip and or give a medication without any orders and wasnt even given a verbal order. MD stated that he would be putting in orders, pending orders at this time.
[2025-01-05] MEDS: NOREPINEPHRINE BITARTRATE/D5W 8 MG/250 ML PLAST..BAG 15 MG IV (07:07)
[2025-01-05] MEDS: HEPARIN SODIUM 5,000 UNIT/ML VIAL 5000 UNIT SUBCUT ×3 (08:53→20:13)
[2025-01-05 09:48] LABS: Reflex Lactic Add Lactic Reflex
--- NOTE | 2025-01-05 09:50 | HMH.OTEV ---
OT Evaluation Rehab OT IP Evaluation Start: 01/02/25 22:32 Freq: ONCE Status: Active Protocol: Document 01/05/25 09:18 ALVA (Rec: 01/05/25 09:50 ALVA [id number]) Rehab OT IP Assessment Subjective History Patient is a 84-year-old female who lives at home with past medical history of hypertension who presents to the hospital due to generalized weakness. According to the patient's family patient has been having difficulty walking, normally patient is able to walk but lately she has not been able to walk and is noted to have generalized weakness. Patient otherwise denied chills chest pain shortness of breath nausea vomiting diarrhea constipation dysuria. Patient unable to provide accurate prior level of history. Per nursing, Patient lived with family or family near by. Patient was able to ambulate. Subjective Yeah. Instructed patient on proper hand and foot placement to complete bed mobility from supine->sit @ EOB requiring Max A with max verbal cueing for sequencing. Instructed Patient on STS while at EOB requiring Max A with partial standing. Patient stood <30 secs. Patient requested to lay back in bed after completing task with needs met at end of session. Objective Patient Orientation Person Right Upper WFL Extremity Gross ROM Left Upper Extremity WFL Gross ROM Bed Mobility bed mobility - supine/sit Assist Level Maximum x 1 (75% assist) Transfer Training Sit/Stand Transfer Assist Level Maximum x 1 (75% assist) Rehab OT IP prob,goals,plan Problems Date of Evaluation: 01/05/25 OT IP Problems Bed Mobility,Transfers,Balance,Self care,Safety Rehab Potential Rehab Potential Good Equipment Needs Assistive Devices None / NA Plan OT intervention Plan Bed Mobility,Transfers,Balance,Self care,Safety, Therapeutic Exercise OT Plan Frequency Daily Duration LOS Discharge Goals Bed Mobility Ability Assistance x1 Sit to Stand Chair Moderate x 2 (50% assist) Transfer Ability Chair Transfer Moderate x 2 (50% assist) Ability Discharge Plan OT Discharge Plan Patient to continue skilled OT IP services with focus on to address bed mobility, transfer training, and standing tolerance to improve safety and independence. Recommend placement at this time, Patient is unable to care for herself independently and will need 24/7 care provided. Eval Complexity Eval Charge Codes 65562 - Low Complexity PHYSICIAN CERTIFICATION: I certify the specified therapy services for Ana Maria Lowery are required, authorized, and reviewed every 30 days.
[2025-01-05] MEDS: DOXYCYCLINE HYCLATE 100 MG in 0.9 % SODIUM CHLORIDE 250 ML 166.67 MG IV (10:42)
[2025-01-05 11:14] LABS: Lactic Acid Follow Up (RFLX 1) 1.1 mmol/L (0.7-2.1)
[2025-01-05 11:35] LABS: Troponin I 0.30 ng/ml (0.00-0.034)
--- NOTE | 2025-01-05 11:49 | P.PN_ITS ---
Subjective *Date: 01/05/25 *Time: 22:12 Interval history: Patient had episode overnight of hypotension. She received Bumex yesterday and then her nighttime medications with them at all and irbesartan. Along with 200 mg gabapentin. Hypotension necessitated transfer to ICU and initiation of Levophed. Weaned off Levophed shortly after rounds this morning. Has developed an JOY and NSTEMI with slowly elevating troponin. Cardiology to evaluate today. Patient denies any chest pain. EKGs with no ST elevation. After waking this morning, appears at baseline mentation. Conversation with daughter during rounds about goals and possible heart cath. She is undecided at this time about next apps. Continuing medical management. Patient pleasant on exam and afebrile. Medical Exam Vital signs and Labs for Last 24 Hours: Vital Signs Temp Pulse Pulse Resp BP BP Pulse Ox 01/05/25 11:12 01/05/25 10:20 82 12 125/57 L 86 L 01/05/25 10:10 81 12 124/73 96 01/05/25 10:01 75 15 133/73 98 01/05/25 09:50 73 13 99/56 L 96 01/05/25 09:40 74 13 100/57 L 96 01/05/25 09:30 75 13 102/57 L 95 01/05/25 09:27 71 14 94/58 L 95 01/05/25 09:21 70 13 83/47 L 95 01/05/25 09:10 71 14 93/51 L 94 L 01/05/25 09:06 01/05/25 09:00 77 15 102/52 L 96 01/05/25 08:50 77 13 104/59 L 96 01/05/25 08:40 86 14 119/59 L 94 L 01/05/25 08:33 81 15 148/70 H 93 L 01/05/25 08:26 79 01/05/25 08:20 85 17 88/46 L 99 01/05/25 08:11 96 01/05/25 08:05 91/48 L 01/05/25 08:05 83 14 96 01/05/25 08:00 98.0 F 83 13 95/53 L 95 01/05/25 07:20 01/05/25 07:10 83 14 79/45 L 95 01/05/25 06:30 85 12 81/48 L 94 L 01/05/25 06:28 94 L 01/05/25 06:16 89 12 96/51 L 94 L 01/05/25 06:00 87 17 80/49 L 95 01/05/25 05:45 87 01/05/25 05:10 97.9 F 92 H 18 91/56 L 94 L 01/05/25 05:00 01/05/25 04:00 77 14 57/33 L 96 01/05/25 03:00 01/05/25 01:00 01/04/25 23:00 01/04/25 21:00 01/04/25 20:00 97.7 F 98 H 16 106/52 L 95 01/04/25 20:00 01/04/25 18:10 01/04/25 17:00 01/04/25 16:00 98.1 F 97 H 14 128/41 L 91 L 01/04/25 15:00 01/04/25 13:00 O2 Del Method O2 Flow Rate 01/05/25 11:12 Nasal Cannula 97 01/05/25 10:20 Nasal Cannula 1 01/05/25 10:10 Room Air 01/05/25 10:01 Room Air 01/05/25 09:50 Room Air 01/05/25 09:40 Room Air 01/05/25 09:30 Room Air 01/05/25 09:27 Room Air 01/05/25 09:21 Room Air 01/05/25 09:10 Room Air 01/05/25 09:06 Room Air 01/05/25 09:00 Room Air 01/05/25 08:50 Room Air 01/05/25 08:40 Room Air 01/05/25 08:33 Room Air 01/05/25 08:26 01/05/25 08:20 Room Air 01/05/25 08:11 Room Air 01/05/25 08:05 01/05/25 08:05 01/05/25 08:00 Room Air 01/05/25 07:20 Room Air 01/05/25 07:10 Room Air 01/05/25 06:30 Room Air 01/05/25 06:28 Room Air 01/05/25 06:16 Room Air 01/05/25 06:00 Room Air 01/05/25 05:45 01/05/25 05:10 01/05/25 05:00 Room Air 01/05/25 04:00 Room Air 01/05/25 03:00 Room Air 01/05/25 01:00 Room Air 01/04/25 23:00 Room Air 01/04/25 21:00 Room Air 01/04/25 20:00 Room Air 01/04/25 20:00 Room Air 01/04/25 18:10 Room Air 01/04/25 17:00 Room Air 01/04/25 16:00 Room Air 01/04/25 15:00 Room Air 01/04/25 13:00 Room Air Intake and Output 01/04/25 01/05/25 01/05/25 23:59 07:59 15:59 Intake Total 420 / 1350 1246.125 / 1254.315 8.190 / 1254.315 Output Total 600 / 1450 Balance -180 / -100 1246.125 / 1254.315 8.190 / 1254.315 Intake: Intake, Oral Amount 420 / 1350 240 / 240 Intake, Total IV Amount 1006.125 / 1014.315 8.190 / 1014.315 0.9 % Sodium Chloride 1000ML 500 / 500 500 ml @ 999 mls/hr IV .Q31M ONE Rx#:[id number] 0.9 % Sodium Chloride 1000ML 500 / 500 500 ml @ 999 mls/hr IV .Q31M ONE Rx#:[id number] Norepinephrine Bitartrate/D5w 8 6.125 / 14.315 8.190 / 14.315 mg In 250 ml @ 2 MCG/MIN 3.75 mls/hr IV .Q24H [facility] Rx#: [id number] Output: Output, Urine Amount 600 / 1450 Other: Number of Unmeasured Voids 0 Number of Bowel Movements 1 Weight 64.2 kg Patient Weight 01/05/25 23:59 Weight 64.2 kg Laboratory Results - last 24 hr 01/02/25 18:00: Urine Color Yellow, Urine Appearance Clear, Urine pH 6.0, Ur Specific [place] 1.015, Urine Protein Negative, Urine Glucose (UA) Negative, Urine Ketones Negative, Urine Blood Trace-i, Urine Nitrate Negative, Urine Bilirubin Negative, Urine Urobilinogen 0.2, Ur Leukocyte Esterase Trace, Urine RBC 5-10, Urine WBC 10-20, Ur Squamous Epith Cells 20-50, Urine Bacteria 2+, Urine Mucus 1+ 01/05/25 05:30: WBC 9.2, RBC 4.03 L, Hgb 11.8 L, Hct 36.6 L, MCV 90.8, MCH 29.3, MCHC 32.2, RDW 15.1, Plt Count 345, MPV 9.7, Neut % (Auto) 58.2, Lymph % (Auto) 30.9, [place] % (Auto) 9.0, Eos % (Auto) 1.0, Baso % (Auto) 0.4, Neut # (Auto) 5.4, Lymph # (Auto) 2.8, [place] # (Auto) 0.8, Eos # (Auto) 0.1, Baso # (Auto) 0.0, Sodium 133 L, Potassium 3.5, Chloride 96 L, Carbon Dioxide 24, Anion Gap 16.5 H, BUN 27 H D, Creatinine 2.00 H D, Estimated Creat Clear 21, Estimated GFR 24 L, Est GFR ( Amer) 29 L D, Glucose 116 H, Lactate 2.5 H, Calcium 9.6, Magnesium 1.6, Total Bilirubin 0.6, AST 26, ALT 20, Alkaline Phosphatase 75, Tro ponin I 0.16 H, Total Protein 7.5, Albumin 3.9, Globulin 3.6 H, Albumin/Globulin Ratio 1.1, Procalcitonin 0.115 01/05/25 10:50: Lactate 1.1, Troponin I 0.30 H I & O for Labs for Last 24 Hours: Intake & Output 01/02/25 01/03/25 01/04/25 01/05/25 23:59 23:59 23:59 23:59 Intake Total 1000 / 1180 960 / 960 1110 / 1350 1254.315 / 1254.315 Output Total 400 / 600 1999 / 1999 1450 / 1450 Balance 600 / 580 -1040 / -1040 -340 / -100 1254.315 / 1254.315 Weight 63.503 kg 66.134 kg 63.191 kg 64.2 kg Microbiology Reports for the Last 24 Hours: Microbiology 01/02/25 18:00 Urine,Clean Catch Urine Culture - Preliminary Gram Positive Cocci Constitutional: Present mild distress, average body habitus, chronically ill appearing and cooperative Head: Present atraumatic Eyes: Present as per HPI ENT: Present normal exam Neck: Present normal inspection and full ROM Respiratory: Present CTA bilaterally, able to speak in complete sentences and symmetric chest movement; Absent respiratory distress, rhonchi, stridor, wheezes or crackles Cardiac: Present Reg Rate and Rhythm GI: Present soft and normal bowel sounds; Absent distention or tenderness Extremities: Present tenderness Comment:: Interval improvement in neuropathy in her feet. Lateral deviation of toes and fingers, consistent with severe rheumatoid arthritis. Skin: Present intact, dry and pallor Neuro: Present alert, awake and moves all extremities Comment:: Oriented to self Assessment and Plan *Assessment and plan (1) JOY (acute kidney injury): Status: Acute Category: Medical Code(s): N17.9 - Acute kidney failure, unspecified (2) NSTEMI (non-ST elevated myocardial infarction): Status: Acute Category: Medical Code(s): I21.4 - Non-ST elevation (NSTEMI) myocardial infarction (3) Declining functional status: Status: Acute Category: Medical Code(s): R53.81 - Other malaise (4) History of coronary artery bypass graft: Status: Acute Category: Surgical Code(s): Z95.1 - Presence of aortocoronary bypass graft (5) Hypertension: Status: Chronic Qualifiers: Hypertension type: primary hypertension Qualified Code(s): I10 - Essential (primary) hypertension Category: Medical Code(s): I10 - Essential (primary) hypertension (6) Generalized weakness: Status: Acute Category: Medical Code(s): R53.1 - Weakness (7) Sleep disorder: Status: Chronic Category: Medical Code(s): G47.9 - Sleep disorder, unspecified (8) GERD (gastroesophageal reflux disease): Status: Chronic Qualifiers: Esophagitis presence: esophagitis presence not specified Qualified Code(s): K21.9 - Gastro-esophageal reflux disease without esophagitis Category: Medical Code(s): K21.9 - Gastro-esophageal reflux disease without esophagitis (9) Hypokalemia: Status: Acute Category: Medical Code(s): E87.6 - Hypokalemia (10) Neuropathy: Status: Acute Category: Medical Code(s): G62.9 - Polyneuropathy, unspecified (11) Hypotension: Status: Acute Category: Medical Code(s): I95.9 - Hypotension, unspecified Plan Patient is a 84-year-old female who lives at home with past medical history of hypertension who presents to the hospital due to generalized weakness. According to the patient's family patient has been having difficulty walking, normally patient is able to walk but lately she has not been able to walk and is noted to have generalized weakness. Patient otherwise denied chills chest pain shortness of breath nausea vomiting diarrhea constipation dysuria. She was just admitted 2 months ago with CHF exacerbation. Discharged to rehab at that time. Did well after few weeks and went home. Goes to adult daycare at [facility]. Had a fall at home within the past week or 2. Complaining more of pain in her feet per daughter's report. Therapy working with patient. Recommend placement. Overnight patient had hypotensive event and developed NSTEMI and JOY. Evaluated by cardiology today. Close monitoring of renal function. Weaning Levophed. Continues to require inpatient management. Problems addressed as follows: Hypotension NSTEMI - Developed episode of hypotension last night after receiving nighttime medications. Suspect secondary to her metoprolol, ARB, diuresis for heart failure. - Troponins monitored. Elevated to 0.16 and then to 0.3. EKGs obtained showing no ST elevation per my review. Patient denies chest pain. - Cardiology consulted, discussed case, given patient's history of CABG, elevation in troponin, recommend consideration for heart cath. Family to discuss and decide in the morning Generalized weakness Debility Rheumatoid arthritis Neuropathy dementia -Having worse pain in her feet. Has deviation in hands and toes. Feet tender to palpation. - Improved pain control, will continue gabapentin, decrease back down to 100 mg 3 times a day. Discontinue Toradol in the setting of JOY - Therapy evaluated, recommend placement. Case management working on skilled placement for rehab - podiatry consulted to evaluate feet and toe deviation - X-ray of L-spine with no fractures. Does have degenerative changes per my review JOY: Creatinine bumped to 2, BUN 27. Potassium 3.5, magnesium 1.6. Suspect prerenal secondary to hypotension, overdiuresis, Levophed. Repeat BMP ordered for the afternoon - If kidney function remains abnormal, will give additional IV fluid bolus for rehydration. Repeat CBC, CMP, magnesium ordered for the morning #Hypertension #GERD #Sleep disorder ? Holding blood pressure meds in the setting of alyse hypotension and JOY. Hold irbesartan and metoprolol and Bumex - Continue pantoprazole 40 mg daily - Continue quetiapine 50 mg at bedtime DVT prophylaxis-subcutaneous heparin Regular diet Full code
--- NOTE | 2025-01-05 11:57 | ECG_ITS ---
APPROVED REPORT Exam: Resting ECG HR:78 bpm ECG Measurements Heart Rate 78 AXES OK 237 P 95 QRSd 89 QRS 37 QT 368 T 50 QTc 402 Conclusion SINUS RHYTHM WITH FIRST DEGREE AV BLOCK ST ELEVATION, But unchanged from prior - although ? lead placement issues in III - consider repeat tracings UNCONFIRMED REPORT Electronically signed by : Jesus Ramirez MD 01/05/2025 15:35:13
--- NOTE | 2025-01-05 12:02 | CA_ITS ---
APPROVED REPORT EXAM: Limited 2D Echocardiogram Airport Attendant: Izabela Cary CRT Ht: 5 ft 4 in Wt: 141lbs BSA: 1.69 BP: 100/55 mmHg Indications: LV Function:, Fatigue M-Mode Dimensions RVDd 2.17 cm (0.9-2.6) LA Diam 3.36 cm (1.9-4.0) LVDd 2.84 cm (3.5-5.7) LVDs 1.77 cm (3.5-5.7) IVSd 1.74 cm (0.6-1.1) PWd 1.20 cm (0.6-1.1) EF (Teich) 69.60% FS 37.70% EDV (Teich) 30.60 mL ESV (Teich) 9.30 mL Other Information Study Quality: Fair Conclusion This is a limited TTE to evaluate for LV systolic function. Limited windows are obtained. The left ventricle is normal in size. There is increased LV wall thickness. There is hyperdynamic LV systolic function. No regional wall motion abnormalities are noted. LVEF is 70%. Electronically signed by : Radha Carlson MD 01/05/2025 14:16:28
--- NOTE | 2025-01-05 12:03 | PC.NURSE ---
Addendum entered by Ngoc Mosley RN 01/05/25 12:10: Iris at bedside for consult at 1209. EKG evaluated, deemed not an DE. Dr Payan at bedside at 1211, md also states not an DE Original Note: EKG reads acute DE . ekg taken to provider by SRNA. Anibal Goldsmith APRN was only provider available at that time. [id number]
--- NOTE | 2025-01-05 12:10 | CARE MANAGER ---
Called and spoke with patient's spouse to to discuss discharge planning. He stated that patient would want to come home when discharged, and that he was ok with taking her home. He and daughter is on their way to the hospital and I will plan to meet with them at bedside.
--- NOTE | 2025-01-05 13:29 | EXP.CARD.CON ---
History of Present Illness History of Present Illness Consult date: 01/05/25 Requesting physician: Felipe Payan Chief complaint: elevated trop History of present illness: Ana Maria Lowery is an 84 year old white female with a past medical hx of CAD s/p CABG, HFpEF s/p bioprosthetic AVR, MVR and possible TVR who is currently inpatient for generalized weakness, incontinence, leg pain and functional decline. Patient was evaluated per Dr. Mariscal and is being treated for rheumatoid arthritis and neuropathy. Recently started on gabapentin in hospital. Last night home meds were restarted by primary service and patient became hypotensive requiring Levophed for a brief time. Troponin went from 0.01 up to 0.3. Creatinine on admission was 0.9 and has trended up to 2. Cardiology was asked to evaluate for elevated troponin. This morning patient is resting comfortably in bed and denies any chest pain or shortness of breath. She has been weaned off of the Levophed drip. Echo is pending. [facility] Disclaimer: The information contained in this section may have been updated after the patient was seen, as this information can be updated by other users. Medical History (Updated 01/05/25 @ 13:41 by Iris Mackey APRN) Hypokalemia Leukocytosis Social History (Updated 01/02/25 @ 22:32 by Juana Degroot RN) Smoking Status: Never smoker alcohol intake: never current occupational status: other Travel in the last 8 weeks?: None Have you lived/traveled outside US in past 30 days?: No Contact w/someone who lives/traveled outside US past 30 days?: No Exposure to someone with infectious disease in past 14 days?: No Do you have a fever (greater than 100.4 F or 38 C)?: No Have you tested positive for COVID-19?: No Exposed to someone with COVID-19 in past 14 days?: No Do you have a sore throat?: No Do you have a cough?: No Do you have any weakness?: No Do you have any diarrhea?: No Are you experiencing any unusual bleeding?: No Do you have any muscle aches/pain?: No Do you have any abdominal pain?: No Are you experiencing loss of taste or smell?: No Review of Systems Review of Systems Review of systems:: pertinent systems reviewed and negative unless documented below Exam Data for Last 24 hours Vital signs and Labs for Last 24 Hours: Temp Pulse Resp BP Pulse Ox O2 Del Method O2 Flow Rate 97.0 F L 81 13 106/57 L 96 Nasal Cannula 1 01/05/25 12:00 01/05/25 12:40 01/05/25 12:40 01/05/25 12:40 01/05/25 12:40 01/05/25 12:00 01/05/25 12:00 Laboratory Results - last 24 hr 01/02/25 18:00: Urine Color Yellow, Urine Appearance Clear, Urine pH 6.0, Ur Specific [place] 1.015, Urine Protein Negative, Urine Glucose (UA) Negative, Urine Ketones Negative, Urine Blood Trace-i, Urine Nitrate Negative, Urine Bilirubin Negative, Urine Urobilinogen 0.2, Ur Leukocyte Esterase Trace, Urine RBC 5-10, Urine WBC 10-20, Ur Squamous Epith Cells 20-50, Urine Bacteria 2+, Urine Mucus 1+ 01/05/25 05:30: WBC 9.2, RBC 4.03 L, Hgb 11.8 L, Hct 36.6 L, MCV 90.8, MCH 29.3, MCHC 32.2, RDW 15.1, Plt Count 345, MPV 9.7, Neut % (Auto) 58.2, Lymph % (Auto) 30.9, [place] % (Auto) 9.0, Eos % (Auto) 1.0, Baso % (Auto) 0.4, Neut # (Auto) 5.4, Lymph # (Auto) 2.8, [place] # (Auto) 0.8, Eos # (Auto) 0.1, Baso # (Auto) 0.0, Sodium 133 L, Potassium 3.5, Chloride 96 L, Carbon Dioxide 24, Anion Gap 16.5 H, BUN 27 H D, Creatinine 2.00 H D, Estimated Creat Clear 21, Estimated GFR 24 L, Est GFR ( Amer) 29 L D, Glucose 116 H, Lactate 2.5 H, Calcium 9.6, Magnesium 1.6, Total Bilirubin 0.6, AST 26, ALT 20, Alkaline Phosphatase 75, Troponin I 0.16 H, Total Protein 7.5, Albumin 3.9, Globulin 3.6 H, Albumin/Globulin Ratio 1.1, Procalcitonin 0.115 01/05/25 10:50: Lactate 1.1, Troponin I 0.30 H I & O for Last 24 hours: Intake & Output 01/02/25 01/03/25 01/04/25 01/05/25 23:59 23:59 23:59 23:59 Intake Total 1000 / 1180 960 / 960 1110 / 1350 1740.000 / 1740.000 Output Total 400 / 600 2000 / 2000 1450 / 1450 Balance 600 / 580 -1040 / -1040 -340 / -100 1740.000 / 1740.000 Weight 140 lb 145 lb 12.8 oz 139 lb 5 oz 141 lb 8.588 oz Microbiology Reports for the Last 24 Hours: Microbiology 01/02/25 18:00 Urine,Clean Catch Urine Culture - Preliminary Gram Positive Cocci Constitutional Constitutional: no acute distress *Routine Respiratory Exam Respiratory: Present CTA bilaterally and symmetric chest movement *Routine Cardiovascular Exam Cardiovascular: Present RRR, Normal S1 and Normal S2 *Routine Abdominal Exam Abdominal: Present soft and normoactive bowel sounds; Absent tenderness *Routine Extremities Exam Extremities: Present full ROM and normal capillary refill; Absent edema *Routine Skin Exam Skin: Present intact, dry and warm Detailed Neck Exam: Thyroids Thyroid: Absent bruit Meds Home Medications and Allergies Home Medications ?Medication ?Instructions ?Recorded ?Confirmed ?Type losartan 25 mg tablet 25 mg PO HS 10/14/24 01/03/25 History metoprolol succinate 25 mg 25 mg PO HS 10/14/24 01/03/25 History tablet,extended release 24 hr quetiapine 50 mg tablet 50 mg PO HS 10/14/24 01/03/25 History bumetanide 2 mg tablet 2 mg PO DAILY #30 tabs 10/16/24 01/03/25 Rx potassium chloride 20 mEq 20 meq PO DAILY #30 tabs 10/16/24 01/03/25 Rx tablet,extended release(part/cryst) (Klor-Con M) omeprazole 20 mg capsule,delayed 20 mg PO DAILY 01/03/25 01/03/25 History release New Prescriptions to Start Prescriptions: Allergies Allergy/AdvReac Type Severity Reaction Status Date / Time No Known Allergies Allergy Verified 10/14/24 12:26 Assessment and Plan *Assessment and plan (1) Elevated troponin: Status: Acute Category: Medical Code(s): R79.89 - Other specified abnormal findings of blood chemistry (2) JOY (acute kidney injury): Status: Acute Category: Medical Code(s): N17.9 - Acute kidney failure, unspecified (3) History of coronary artery bypass graft: Status: Acute Category: Surgical Code(s): Z95.1 - Presence of aortocoronary bypass graft (4) Hx of coronary artery disease: Status: Acute Category: Medical Code(s): Z86.79 - Personal history of other diseases of the circulatory system (5) Generalized weakness: Status: Acute Category: Medical Code(s): R53.1 - Weakness Plan History of coronary artery disease Status post CABG Elevated troponin/acute myocardial injury In the setting of JOY and episode of hypotension requiring Levophed for brief time. Levophed currently off. Denies chest pain or shortness of breath Troponin 0.01 trending up to 0.3 EKG remains negative for STEMI Echocardiogram a hyperdynamic LV systolic function with an EF of 70%. No regional wall motion abnormalities are noted. Creatinine noted to be 2 today Given patient is high risk with hx of CAD and CABG would recommend left heart catheterization to further evaluate coronary artery disease in the setting of elevated troponin and history of CABG. Daughter would like to think about this further before proceeding. Creatinine would have to improve prior to cath. Start aspirin and low-dose statin-Will increase statin as patient tolerates due to leg pain Can hold on starting heparin or Lovenox drip at this time per Dr. Garcia History of HFpEF Status post bioprosthetic AVR, MVR and possible TVR Repeat echo shows hyperdynamic LV of 70% No signs of volume overload at this time. Can give a 250 normal saline bolus now and repeat at 5:00 if patient tolerates well. Continue to hold arb and bb due to hypotension, worsening kidney function JOY Creatinine 2 today. Hold ARB and diuretics Gentle fluids 01/05/2025: Repeat echo shows a hyperdynamic EF of 70% with no regional wall motion abnormality noted. Would recommend left heart catheterization given patient's history of coronary artery disease and CABG. Daughter is unsure at this time if she would like for patient to proceed or not. Give 250 normal saline bolus now and can repeat at 5:00 if patient tolerates well. If kidney function improves will consider left heart catheterization tomorrow.
[2025-01-05] MEDS: ASPIRIN EC 81MG TABLET 81 MG PO (15:52)
--- NOTE | 2025-01-05 16:00 | CARE MANAGER ---
Addendum entered by Ella Clark 01/08/25 10:18: I have updated Allyson yeboah [facility] that patient will discharge today. Patient will be SNF at [facility]. Addendum entered by Ella Clark 01/07/25 09:13: Per MD patient will no be medically stable for discharge till tomorrow 01/08. I have updated patient's daughter and Allyson w/ [facility] that patient will have qualifying stay after today. CM will continue to follow up. Addendum entered by Ella Clark 01/06/25 09:37: [facility] has her qualifying stay. I will updated MD. Discharge date is unknown at this time. Original Note: I met with patient and daughter to discuss discharge planning. Daughter states that patient lives with her and that she is POA. PT/OT has recommended SNF at time of discharge. Patient has been to [facility] for short stay in the past and daughter would like for her to return there. Clinical has been faxed. I spoke with Allyson @ , who stated that she would look over referral and did not foresee a problem with her returning. CM will follow up in the morning.
[2025-01-05] MEDS: 0.9 % SODIUM CHLORIDE 250 ML 999 ML IV (16:54)
[2025-01-05] MEDS: 0.9 % SODIUM CHLORIDE 250 ML IV (17:30)
[2025-01-05 19:48] LABS: Chloride 98 mmol/L (98-107); Potassium 3.9 mmoL/L (3.5-5.1); Sodium 133 mmol/L (136-145)
[2025-01-05 19:51] LABS: Anion Gap 15.9 mEq/L (5-15); Blood Urea Nitrogen 30 mg/dl (7-17); Calcium 9.4 mg/dl (8.4-10.2); Carbon Dioxide 23 mmol/L (22.0-30.0); Creatinine Clearance Estimated 28 mL/min (50-200); Creatinine,Serum 1.50 mg/dl (0.52-1.04); Estimated Glomerular Filt Rate 33 ml/min (>60); GFR (African American) 40 ML/MIN (>60); Glucose 114 mg/dl (74-100)
[2025-01-05] MEDS: QUETIAPINE 100MG TABLET 50 MG PO (20:13)
[2025-01-05] MEDS: GABAPENTIN 100MG CAPSULE 100 MG PO (20:13)
[2025-01-05] MEDS: ATORVASTATIN 20MG TABLET 20 MG PO (20:13)
[2025-01-06] VITALS (17 sets, daily range): BP systolic 126–200; BP diastolic 60–96; PULSE 78–106; RESP 12–22; TEMP 36.6–36.8; O2SAT 94–98; BMI 24.0
[2025-01-06] MEDS: DOXYCYCLINE HYCLATE 100 MG in 0.9 % SODIUM CHLORIDE 250 ML 166.67 MG IV (00:02)
--- NOTE | 2025-01-06 00:45 | EXP.EVENT.NO ---
I was asked to bedside to evaluate this patient for ultrasound-guided IV. Unfortunately after multiple failed nursing attempts no successful IV access had been obtained and patient needed access for continued labs and treatment. Procedure details are as follows: Ultrasound-guided IV Performed by: Elaine Kuo MD Indication: Need for peripheral IV access, multiple failed nursing attempts Consent: Emergent procedure Procedure details: Bilateral upper extremities were examined with linear probe to identify an appropriate vessel. Appropriate vessel in the right AC was identified. Area cleaned with alcohol which was allowed to dry prior to procedure. 20-gauge catheter was placed in the vessel under real-time ultrasound guidance and I directly visualized it entering the vessel. IV draws and flushes. Secured with Tegaderm. Post procedure details: Neurovascularly intact, patient tolerated procedure well, no complications Elaine Kuo MD
--- NOTE | 2025-01-06 05:24 | PC.NURSE ---
Pt bladder scanned at 0430 due to not voiding all night. Bladder scan showed 450mL. Pt was asked if she felt like she needed to void pt stated no. pt encouraged to try and was even assisted to the bedside commode. Pt could not void. Provider called, provider stated to in and out cath. In and out cath was done w/ assistance from Raimundo QUILES and Thelma JIMENEZ. 550mL was drained. Urine appeared to be supriya colored w/ a strong ammonia odor. UA was obtained and sent to lab at this time.
[2025-01-06 05:40] LABS: Hematocrit 34.7 % (37.0-47.0); Hemoglobin 11.5 g/dL (12.2-16.2); Immature Granulocytes % 0.2 %; Mean Corpuscular HGB Conc 33.1 g/dL (31.8-35.4); Mean Corpuscular Hemoglobin 29.4 pg (27.0-31.2); Mean Corpuscular Volume 88.7 fl (81-99); Nucleated Red Blood Cells % 0 %; Platelet Count 335 K/mm3 (142-424); Red Blood Count 3.91 M/mm3 (4.20-5.40); Red Cell Distribution Width-SD 47.7 fL; White Blood Count 9.3 K/mm3 (4.8-10.8)
[2025-01-06 05:44] LABS: Microscopic, Urine URINE MICROSCOPIC (MICROSCOPIC)
[2025-01-06 05:47] LABS: Bilirubin,Urine Negative (Negative); Glucose,Urine (UA) Negative (Negative); Ketones,Urine Negative (Negative); Leukocyte Esterase,Urine Negative (Negative); PH,Urine 5.5 (5.0-8.5); Protein,Urine TRACE (Negative); Specific Gravity, Urine 1.020 (1.005-1.030); Urobilinogen,Urine 0.2 EU/dl (0.2)
[2025-01-06 05:49] LABS: Albumin Level 3.9 g/dl (3.5-5.0); Chloride 101 mmol/L (98-107); Sodium 136 mmol/L (136-145)
[2025-01-06 05:50] LABS: Potassium 3.3 mmoL/L (3.5-5.1)
[2025-01-06 05:52] LABS: Alanine Aminotransferase 16 U/L (12-78); Alkaline Phosphatase 72 U/L (38-126); Anion Gap 15.3 mEq/L (5-15); Aspartate Amino Transferase 25 U/L (14-36); Bilirubin,Total 0.5 mg/dl (0.2-1.3); Blood Urea Nitrogen 28 mg/dl (7-17); Carbon Dioxide 23 mmol/L (22.0-30.0); Creatinine Clearance Estimated 30 mL/min (50-200); Creatinine,Serum 1.40 mg/dl (0.52-1.04); Estimated Glomerular Filt Rate 36 ml/min (>60); GFR (African American) 43 ML/MIN (>60)
[2025-01-06 05:53] LABS: Albumin/Globulin Ratio 1.2 (1.1-1.8); Calcium 9.5 mg/dl (8.4-10.2); Globulin 3.3 g/dL (1.3-3.2); Glucose 97 mg/dl (74-100); Total Protein,Serum 7.2 g/dl (6.3-8.2)
[2025-01-06 05:58] LABS: Color,Urine Dark Yellow (Yellow)
[2025-01-06 06:01] LABS: Bacteria,Urine 2+ /lpf; Squamous Epithelial Cell,Urine Occasional #/hpf (0-5); WBC,Urine Occasional #/hpf (0-3)
[2025-01-06] MEDS: GABAPENTIN 100MG CAPSULE 100 MG PO (08:22)
[2025-01-06] MEDS: POTASSIUM CHLORIDE 20MEQ TAB 40 MEQ PO ×2 (08:22→12:22)
[2025-01-06] MEDS: ASPIRIN EC 81MG TABLET 81 MG PO (08:22)
--- NOTE | 2025-01-06 09:04 | PC.NURSE ---
Patient refused medication from Erlinda Bergeron Rn and Student nurse Marlena. Hattie Rowland manager behavior was able to get patient to take her gabapentin, aspirin and 1.5 pills of her potassium that she had ordered. Patient refused subcut heparin
--- NOTE | 2025-01-06 09:31 | PC.NURSE ---
patient is agitated this morning. refusing everything. Daughter is bedside and states she is usually pleasantly confused not agitated like she is Patient wants to go home.
[2025-01-06] MEDS: OLANZapine 5 MG ODT TABLET SL (09:50)
[2025-01-06] MEDS: CEFTRIAXONE 1 GM 1 GM in 0.9 % SODIUM CHLORIDE 50 ML IV (09:59)
[2025-01-06 10:05] LABS: Thyroid Stimulating Hormone 1.52 uIU/mL (0.465-4.68)
[2025-01-06 10:24] LABS: Vitamin B12 512 pg/mL (239-931)
--- NOTE | 2025-01-06 11:24 | EXP.CARD.PN ---
Subjective Subjective Date: 01/06/25 Time: 08:00 Principal diagnosis: failure to thrive Interval history: Hypotension improved with fluids. Creatinine improved to 1.4. Continues to deny chest pain or soa. Nurses report patient was agitated throughout the evening and pulled her IV out. Exam Data for Last 24 hours Vital signs and Labs for Last 24 Hours: Temp Pulse Resp BP Pulse Ox O2 Del Method O2 Flow Rate 98.1 F 82 17 151/77 H 96 Room Air 2 01/06/25 08:00 01/06/25 08:00 01/06/25 08:00 01/06/25 08:00 01/06/25 08:00 01/06/25 11:00 01/06/25 07:00 Laboratory Results - last 24 hr 01/05/25 10:50: Troponin I 0.30 H 01/05/25 19:04: Sodium 133 L, Potassium 3.9, Chloride 98, Carbon Dioxide 23, Anion Gap 15.9 H, BUN 30 H, Creatinine 1.50 H D, Estimated Creat Clear 28, Estimated GFR 33 L, Est GFR ( Amer) 40 L D, Glucose 114 H, Calcium 9.4 01/06/25 05:10: Urine Color Dark yellow, Urine Appearance Clear, Urine pH 5.5, Ur Specific [place] 1.020, Urine Protein Trace, Urine Glucose (UA) Negative, Urine Ketones Negative, Urine Blood Negative, Urine Nitrate Negative, Urine Bilirubin Negative, Urine Urobilinogen 0.2, Ur Leukocyte Esterase Negative, Urine WBC Occasional, Ur Squamous Epith Cells Occasional, Urine Bacteria 2+ 01/06/25 05:16: WBC 9.3, RBC 3.91 L, Hgb 11.5 L, Hct 34.7 L, MCV 88.7, MCH 29.4, MCHC 33.1, RDW 14.7, Plt Count 335, MPV 9.5, Neut % (Auto) 38.0, Lymph % (Auto) 51.7 H, [place] % (Auto) 8.5, Eos % (Auto) 0.8, Baso % (Auto) 0.8, Neut # (Auto) 3.5, Lymph # (Auto) 4.8 H, [place] # (Auto) 0.8, Eos # (Auto) 0.1, Baso # (Auto) 0.1, Sodium 136, Potassium 3.3 L, Chloride 101, Carbon Dioxide 23, Anion Gap 15.3 H, BUN 28 H, Creatinine 1.40 H, Estimated Creat Clear 30, Estimated GFR 36 L, Est GFR ( Amer) 43 L, Glucose 97, Calcium 9.5, Total Bilirubin 0.5, AST 25, ALT 16, Alkaline Phosphatase 72, Total Protein 7.2, Albumin 3.9, Globulin 3.3 H, Albumin/Globulin Ratio 1.2, Vitamin B12 512, TSH 1.52 I & O for Last 24 hours: Intake & Output 01/03/25 01/04/25 01/05/25 01/06/25 23:59 23:59 23:59 23:59 Intake Total 960 / 960 1110 / 1350 2405.000 / 2405.000 360 / 360 Output Total 1999 / 1999 1450 / 1450 550 / 550 Balance -1040 / -1040 -340 / -100 2405.000 / 2405.000 -190 / -190 Weight 145 lb 12.8 oz 139 lb 5 oz 141 lb 8.588 oz 140 lb 14.006 oz Microbiology Reports for the Last 24 Hours: Microbiology 01/02/25 18:00 Urine,Clean Catch Urine Culture - Preliminary Gram Positive Cocci 01/05/25 05:22 Blood Blood Culture - Preliminary NO GROWTH AFTER 24 HOURS 01/05/25 05:30 Blood Blood Culture - Preliminary NO GROWTH AFTER 24 HOURS Constitutional Constitutional: no acute distress *Routine Respiratory Exam Respiratory: Present CTA bilaterally and symmetric chest movement *Routine Cardiovascular Exam Cardiovascular: Present RRR, Normal S1 and Normal S2 *Routine Abdominal Exam Abdominal: Present soft and normoactive bowel sounds; Absent tenderness *Routine Extremities Exam Extremities: Present full ROM and normal capillary refill; Absent edema *Routine Skin Exam Skin: Present intact, dry and warm Detailed Neck Exam: Thyroids Thyroid: Absent bruit Progress Note: A&P Assessment and plan (1) JOY (acute kidney injury): Status: Acute (2) NSTEMI (non-ST elevated myocardial infarction): Status: Acute (3) Declining functional status: Status: Acute (4) History of coronary artery bypass graft: Status: Acute (5) Hypertension: Status: Chronic (6) Generalized weakness: Status: Acute (7) Sleep disorder: Status: Chronic (8) GERD (gastroesophageal reflux disease): Status: Chronic (9) Hypokalemia: Status: Acute (10) Neuropathy: Status: Acute (11) Hypotension: Status: Acute Assessment and Plan Assessment and Plan for All Diagnoses:: History of coronary artery disease Status post CABG Elevated troponin/acute myocardial injury In the setting of JOY and episode of hypotension requiring Levophed for brief time. Levophed currently off. Denies chest pain or shortness of breath Troponin 0.01 trending up to 0.3 EKG remains negative for STEMI Echocardiogram a hyperdynamic LV systolic function with an EF of 70%. No regional wall motion abnormalities are noted. Proceeding with left heart catheterization was discussed with patient and her daughter who is the POA. At this time the POA would like to be evaluated on an outpatient basis for ischemic disease. 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 No signs of volume overload at this time. Blood pressure and heart rate improved with fluids Will restart metoprolol at 12.5 mg p.o. daily for hypertension. Will hold on SATHISH or ARB at this time due to recent JOY. No signs of volume overload for diuretics at this time. JOY Creatinine 2 yesterday improved to 1.4 today 01/06/2025: Discussed proceeding with a left heart catheterization with daughter (POA) this morning, she states at this time they would like to hold off on left heart catheterization and pursue outpatient testing and management. Patient responded well to fluids and blood pressure has improved. Will restart metoprolol at a lower dose 12.5 mg p.o. daily for hypertension. Can resume SATHISH ARB as JOY continues to improve. Cardiology will sign off. Please have patient follow-up in cardiology clinic in 1 week for reevaluation.
[2025-01-06] MEDS: HEPARIN SODIUM 5,000 UNIT/ML VIAL 5000 UNIT SUBCUT (12:55)
[2025-01-06 12:57] LABS: Folate 4.75 ng/mL
[2025-01-06] MEDS: METOPROLOL SUCCINATE XL 25MG TABLET 12.5 MG PO (14:02)
--- NOTE | 2025-01-06 15:47 | PC.NURSE ---
Patient has had minimal output only a dribble or two in the brief. Patient was bladder scanned at this time and it shows patient has 583 ml of urine in her bladder. Patient keeps saying she has to pee and is reminded she has a purwick in and has also sat on the bedside commode 2 times with no luck.
[2025-01-06 16:53] LABS: Chloride 101 mmol/L (98-107); Potassium 4.0 mmoL/L (3.5-5.1); Sodium 135 mmol/L (136-145)
[2025-01-06 16:56] LABS: Anion Gap 17.0 mEq/L (5-15); Blood Urea Nitrogen 23 mg/dl (7-17); Calcium 9.3 mg/dl (8.4-10.2); Carbon Dioxide 21 mmol/L (22.0-30.0); Creatinine Clearance Estimated 42 mL/min (50-200); Creatinine,Serum 1.00 mg/dl (0.52-1.04); Estimated Glomerular Filt Rate 53 ml/min (>60); GFR (African American) 64 ML/MIN (>60); Glucose 103 mg/dl (74-100)
--- NOTE | 2025-01-06 17:04 | PC.NURSE ---
patient still saying she needs to use the bathroom, finally talked patient into putting her shoes on and using one of the hospital walkers and with assistance she was helped with walking over to the patient bathroom in the unit. Patient had output of 200. After voiding, patients was scanned post void and she had 413 still in bladder. patient no longer feels like she needs to use the bathroom
--- NOTE | 2025-01-06 17:37 | EXP.PN ---
Subjective *Date: 01/06/25 *Time: 17:37 Interval history: Patient was restless, agitated this morning. Daughter elected to not pursue [facility] at this time. Pending urine culture speciation, sensitivities. Pending placement. Exam Data for Last 24 hours Vital signs and Labs for Last 24 Hours: Temp Pulse Resp BP Pulse Ox O2 Del Method O2 Flow Rate 97.9 F 84 18 174/75 H 98 Room Air 2 01/06/25 15:50 01/06/25 16:00 01/06/25 15:50 01/06/25 15:50 01/06/25 15:50 01/06/25 16:53 01/06/25 07:00 Laboratory Results - last 24 hr 01/05/25 19:04: Sodium 133 L, Potassium 3.9, Chloride 98, Carbon Dioxide 23, Anion Gap 15.9 H, BUN 30 H, Creatinine 1.50 H D, Estimated Creat Clear 28, Estimated GFR 33 L, Est GFR ( Amer) 40 L D, Glucose 114 H, Calcium 9.4 01/06/25 05:10: Urine Color Dark yellow, Urine Appearance Clear, Urine pH 5.5, Ur Specific [place] 1.020, Urine Protein Trace, Urine Glucose (UA) Negative, Urine Ketones Negative, Urine Blood Negative, Urine Nitrate Negative, Urine Bilirubin Negative, Urine Urobilinogen 0.2, Ur Leukocyte Esterase Negative, Urine WBC Occasional, Ur Squamous Epith Cells Occasional, Urine Bacteria 2+ 01/06/25 05:16: WBC 9.3, RBC 3.91 L, Hgb 11.5 L, Hct 34.7 L, MCV 88.7, MCH 29.4, MCHC 33.1, RDW 14.7, Plt Count 335, MPV 9.5, Neut % (Auto) 38.0, Lymph % (Auto) 51.7 H, [place] % (Auto) 8.5, Eos % (Auto) 0.8, Baso % (Auto) 0.8, Neut # (Auto) 3.5, Lymph # (Auto) 4.8 H, [place] # (Auto) 0.8, Eos # (Auto) 0.1, Baso # (Auto) 0.1, Sodium 136, Potassium 3.3 L, Chloride 101, Carbon Dioxide 23, Anion Gap 15.3 H, BUN 28 H, Creatinine 1.40 H, Estimated Creat Clear 30, Estimated GFR 36 L, Est GFR ( Amer) 43 L, Glucose 97, Calcium 9.5, Total Bilirubin 0.5, AST 25, ALT 16, Alkaline Phosphatase 72, Total Protein 7.2, Albumin 3.9, Globulin 3.3 H, Albumin/Globulin Ratio 1.2, Vitamin B12 512, Folate 4.75, TSH 1.52 01/06/25 16:15: Sodium 135 L, Potassium 4.0 D, Chloride 101, Carbon Dioxide 21 L, Anion Gap 17.0 H, BUN 23 H, Creatinine 1.00 D, Estimated Creat Clear 42, Estimated GFR 53 L, Est GFR ( Amer) 64 D, Glucose 103 H, Calcium 9.3 I & O for Last 24 hours: Intake & Output 01/03/25 01/04/25 01/05/25 01/06/25 23:59 23:59 23:59 23:59 Intake Total 960 / 960 1110 / 1350 2405.000 / 2405.000 1040 / 1040 Output Total 1999 / 1999 1450 / 1450 750 / 750 Balance -1040 / -1040 -340 / -100 2405.000 / 2405.000 290 / 290 Weight 66.134 kg 63.191 kg 64.2 kg 63.9 kg Microbiology Reports for the Last 24 Hours: Microbiology 01/02/25 18:00 Urine,Clean Catch Urine Culture - Preliminary Gram Positive Cocci 01/05/25 05:22 Blood Blood Culture - Preliminary NO GROWTH AFTER 24 HOURS 01/05/25 05:30 Blood Blood Culture - Preliminary NO GROWTH AFTER 24 HOURS Constitutional Constitutional: no acute distress Comments: Restless, agitated this morning. *Routine HEENT Exam Head: Present normocephalic Eye: Present EOMI and PERRL ENT: Present mucous membranes moist *Routine Neck Exam Neck: Present supple; Absent lymphadenopathy *Routine Respiratory Exam Respiratory: Present CTA bilaterally *Routine Cardiovascular Exam Cardiovascular: Present RRR *Routine Abdominal Exam Abdominal: Present soft and normoactive bowel sounds; Absent tenderness *Routine Extremities Exam Extremities: Absent cyanosis, clubbing or edema *Routine Skin Exam Skin: Present warm; Absent rash *Routine Neurological Exam Neurological: Present alert Assessment and Plan *Assessment and plan (1) JOY (acute kidney injury): Status: Acute Category: Medical Code(s): N17.9 - Acute kidney failure, unspecified (2) NSTEMI (non-ST elevated myocardial infarction): Status: Acute Category: Medical Code(s): I21.4 - Non-ST elevation (NSTEMI) myocardial infarction (3) Declining functional status: Status: Acute Category: Medical Code(s): R53.81 - Other malaise (4) History of coronary artery bypass graft: Status: Acute Category: Surgical Code(s): Z95.1 - Presence of aortocoronary bypass graft (5) Hypertension: Status: Chronic Qualifiers: Hypertension type: primary hypertension Qualified Code(s): I10 - Essential (primary) hypertension Category: Medical Code(s): I10 - Essential (primary) hypertension (6) Generalized weakness: Status: Acute Category: Medical Code(s): R53.1 - Weakness (7) Sleep disorder: Status: Chronic Category: Medical Code(s): G47.9 - Sleep disorder, unspecified (8) GERD (gastroesophageal reflux disease): Status: Chronic Qualifiers: Esophagitis presence: esophagitis presence not specified Qualified Code(s): K21.9 - Gastro-esophageal reflux disease without esophagitis Category: Medical Code(s): K21.9 - Gastro-esophageal reflux disease without esophagitis (9) Hypokalemia: Status: Acute Category: Medical Code(s): E87.6 - Hypokalemia (10) Neuropathy: Status: Acute Category: Medical Code(s): G62.9 - Polyneuropathy, unspecified (11) Hypotension: Status: Acute Category: Medical Code(s): I95.9 - Hypotension, unspecified Plan Patient is a 84-year-old female who lives at home with past medical history of hypertension who presents to the hospital due to generalized weakness. According to the patient's family patient has been having difficulty walking, normally patient is able to walk but lately she has not been able to walk and is noted to have generalized weakness. Patient otherwise denied chills chest pain shortness of breath nausea vomiting diarrhea constipation dysuria. She was just admitted 2 months ago with CHF exacerbation. Discharged to rehab at that time. Did well after few weeks and went home. Goes to adult daycare at [facility]. Had a fall at home within the past week or 2. Complaining more of pain in her feet per daughter's report. Therapy working with patient. Recommend placement. Overnight patient had hypotensive event and developed NSTEMI and JOY. Evaluated by cardiology today. Close monitoring of renal function. Weaning Levophed. Continues to require inpatient management. Problems addressed as follows: #Generalized weakness #UTI #Debility #Rheumatoid arthritis #Neuropathy #Dementia ? Presented with generalized weakness, UA grossly abnormal. Urine culture pending. ? Continue IV ceftriaxone pending urine culture. Growing gram-positive rods. ? Gabapentin reduced to 100 mg nightly to do worsen delirium today. ? PT/OT recommended SNF placement, case management assisting with placement. - podiatry consulted to evaluate feet and toe deviation - X-ray of L-spine with no fractures. Does have degenerative changes per my review. #Hospital-acquired delirium ? Seems to have worsened with starting gabapentin versus natural course of hospital-acquired delirium, decrease dose to 100 mg nightly. ? Will try to maximize on sleep tonight, started melatonin 5 mg nightly. Continue home quetiapine 50 mg nightly. ? Zyprexa 5 mg as needed for agitation. #Hypotension, resolved #NSTEMI #JOY on CKD stage IIIa - Developed episode of hypotension during admission after receiving nighttime blood pressure medications. Suspect secondary to her metoprolol, ARB, diuresis for heart failure. - Troponins monitored. Elevated to 0.16 and then to 0.3. EKGs obtained showing no ST elevation per my review. Patient denies chest pain. - Cardiology consulted, discussed case, given patient's history of CABG, elevation in troponin, initially recommended [facility] but daughter wanted to hold off for now. Will consider on outpatient basis. ? Creatinine improved to 1.0 this afternoon, from 2.0 yesterday. #Hypertension #GERD #Sleep disorder ? Holding blood pressure meds in the setting of alyse hypotension and JOY. Hold irbesartan and metoprolol and Bumex - Continue pantoprazole 40 mg daily - Continue quetiapine 50 mg at bedtime DVT prophylaxis-Lovenox Regular diet Full code
--- NOTE | 2025-01-06 18:50 | PC.NURSE ---
Patient started the day agitated thinking the nurses had shot someone, and also stole her money, saying the police needed to be called. patient initally refused her morning meds but finally took them for Hattie Rowland manager servicing. The only med she didn't get was her heparin due to refusing the shot. Patient still agitated so hospitalist was called he ordered some zyprexa to help with agitation and delirium. Patient finally was no longer agitated. She ate majority of her lunch, she sat on the side of the bed with therapy after lunch. Patient walked with walker to the bathroom this evening. Patient keeps asking to go home. Patient is in the bed at this time.
[2025-01-06] MEDS: ATORVASTATIN 20MG TABLET 20 MG PO (20:45)
[2025-01-06] MEDS: QUETIAPINE 100MG TABLET 50 MG PO (20:45)
[2025-01-06] MEDS: MELATONIN 5MG TABLET 5 MG PO (20:55)
[2025-01-07] VITALS (17 sets, daily range): BP systolic 141–192; BP diastolic 84–116; PULSE 80–103; RESP 16–29; TEMP 36.4–37.3; O2SAT 94–100; BMI 24.3
[2025-01-07 05:50] LABS: Hematocrit 37.7 % (37.0-47.0); Hemoglobin 12.6 g/dL (12.2-16.2); Immature Granulocytes % 0.2 %; Mean Corpuscular HGB Conc 33.4 g/dL (31.8-35.4); Mean Corpuscular Hemoglobin 29.6 pg (27.0-31.2); Mean Corpuscular Volume 88.7 fl (81-99); Nucleated Red Blood Cells % 0 %; Platelet Count 352 K/mm3 (142-424); Red Blood Count 4.25 M/mm3 (4.20-5.40); Red Cell Distribution Width-SD 47.0 fL; White Blood Count 11.6 K/mm3 (4.8-10.8)
[2025-01-07 06:05] LABS: Alanine Aminotransferase 15 U/L (12-78); Albumin Level 3.9 g/dl (3.5-5.0); Albumin/Globulin Ratio 1.0 (1.1-1.8); Alkaline Phosphatase 79 U/L (38-126); Anion Gap 12.9 mEq/L (5-15); Aspartate Amino Transferase 28 U/L (14-36); Bilirubin,Total 0.7 mg/dl (0.2-1.3); Blood Urea Nitrogen 18 mg/dl (7-17); Calcium 9.5 mg/dl (8.4-10.2); Carbon Dioxide 22 mmol/L (22.0-30.0); Chloride 103 mmol/L (98-107); Creatinine Clearance Estimated 43 mL/min (50-200); Creatinine,Serum 0.90 mg/dl (0.52-1.04); Estimated Glomerular Filt Rate 60 ml/min (>60); GFR (African American) 72 ML/MIN (>60); Globulin 3.8 g/dL (1.3-3.2); Glucose 99 mg/dl (74-100); Potassium 3.9 mmoL/L (3.5-5.1); Sodium 134 mmol/L (136-145); Total Protein,Serum 7.7 g/dl (6.3-8.2)
--- NOTE | 2025-01-07 08:37 | PC.NURSE ---
made aware of CRE result. SPoke with lab at this time about urine culture and when to expect results on species and drug panel. lab stated they are rerunning the plate and hopefully should get a result tomorrow.
[2025-01-07] MEDS: ASPIRIN EC 81MG TABLET 81 MG PO (09:06)
[2025-01-07] MEDS: METOPROLOL SUCCINATE XL 25MG TABLET 12.5 MG PO (09:06)
[2025-01-07] MEDS: CEFTRIAXONE 1 GM 1 GM in 0.9 % SODIUM CHLORIDE 50 ML IV (09:06)
--- NOTE | 2025-01-07 09:07 | EXP.PHA.CONS ---
Pharmacy Consult Date: 01/07/25 Time: 09:07 Referring provider: DR. BOLAÑOS Reason for Consult:: VANCOMYCIN DOSING Allergies Allergy/AdvReac Type Severity Reaction Status Date / Time No Known Allergies Allergy Verified 10/14/24 12:26 Home Medications ?Medication ?Instructions ?Recorded ?Confirmed ?Type losartan 25 mg tablet 25 mg PO HS 10/14/24 01/03/25 History metoprolol succinate 25 mg 25 mg PO HS 10/14/24 01/03/25 History tablet,extended release 24 hr quetiapine 50 mg tablet 50 mg PO HS 10/14/24 01/03/25 History bumetanide 2 mg tablet 2 mg PO DAILY #30 tabs 10/16/24 01/03/25 Rx potassium chloride 20 mEq 20 meq PO DAILY #30 tabs 10/16/24 01/03/25 Rx tablet,extended release(part/cryst) (Klor-Con M) omeprazole 20 mg capsule,delayed 20 mg PO DAILY 01/03/25 01/03/25 History release New Prescriptions to Start Prescriptions: Height: 1.63 m Weight: 64.6 kg Laboratory Results:: Laboratory Results - last 24 hr 01/06/25 05:10: Urine Color Dark yellow, Urine Appearance Clear, Urine pH 5.5, Ur Specific [place] 1.020, Urine Protein Trace, Urine Glucose (UA) Negative, Urine Ketones Negative, Urine Blood Negative, Urine Nitrate Negative, Urine Bilirubin Negative, Urine Urobilinogen 0.2, Ur Leukocyte Esterase Negative, Urine WBC Occasional, Ur Squamous Epith Cells Occasional, Urine Bacteria 2+ 01/06/25 05:16: Vitamin B12 512, Folate 4.75, TSH 1.52 01/06/25 16:15: Sodium 135 L, Potassium 4.0 D, Chloride 101, Carbon Dioxide 21 L, Anion Gap 17.0 H, BUN 23 H, Creatinine 1.00 D, Estimated Creat Clear 42, Estimated GFR 53 L, Est GFR ( Amer) 64 D, Glucose 103 H, Calcium 9.3 01/07/25 04:58: WBC 11.6 H, RBC 4.25, Hgb 12.6, Hct 37.7, MCV 88.7, MCH 29.6, MCHC 33.4, RDW 14.6, Plt Count 352, MPV 10.2, Neut % (Auto) 64.2, Lymph % (Auto) 26.6, [place] % (Auto) 7.7, Eos % (Auto) 0.4, Baso % (Auto) 0.9, Neut # (Auto) 7.4, Lymph # (Auto) 3.1, [place] # (Auto) 0.9, Eos # (Auto) 0.1, Baso # (Auto) 0.1, Sodium 134 L, Potassium 3.9, Chloride 103, Carbon Dioxide 22, Anion Gap 12.9, BUN 18 H, Creatinine 0.90, Estimated Creat Clear 43, Estimated GFR 60, Est GFR ( Amer) 72, Glucose 99, Calcium 9.5, Total Bilirubin 0.7, AST 28, ALT 15, Alkaline Phosphatase 79, Total Protein 7.7, Albumin 3.9, Globulin 3.8 H, Albumin/Globulin Ratio 1.0 L Medical History: Medical History (Updated 01/05/25 @ 18:01 by Felipe Payan MD) Hypokalemia Leukocytosis Assessment and Plan Assessment and plan all Dx Assessment and Plan for all problems:: Pharmacokinetic dosing service Objective: Patient: Floor: Age: 84 yo Serum creatinine: 0.90 mg/dL Height: 64.2 Inches Weight (kg): 64.6 Assessment: IBW (kg): 55.16 Dosing wt(kg): 64.6 Estimated Creatinine clearance (ml/min): 40.5 CRCL method: Cockcroft and Gault using ibw(default). Drug selected: Vancomycin Loading dose (mg): Vd (liters): 51.7 (factor used: 0.8 L/kg) Addi (hr-1): 0.038 Half life (hrs): 18.24 CLvanco=?? 1.965 L/hr Recommended dose: 1000 mg Interval: 24 hrs Infusion time (hrs): 2.0 Predicted peak (mcg/mL): 31.1 Predicted trough (mcg/mL): 13.48 Total body weight is being used for vancomycin dosing. Recommendations: Give Vancomycin 1000 mg q 24 hrs with an expected Cpeak of 31.1 mcg/ml and an expected Ctrough of 13.48 mcg/ml AUC 0-24 /KIM Data: KIM 0.5 mcg/mL:?? AUC/KIM:? 1017.8 KIM 1.0 mcg/mL:?? AUC/KIM:? 508.9 --------- KIM 1.5 mcg/mL:?? AUC/KIM:? 339.3 KIM 2.0 mcg/mL:?? AUC/KIM:? 254.5 Thank you for the consult, will continue to follow. -KRIS DODSON, MANDOD
[2025-01-07] MEDS: VANCOMYCIN HCL 1,000 MG in 0.9 % SODIUM CHLORIDE 250 ML 125 MG IV (09:39)
--- NOTE | 2025-01-07 10:35 | PC.NURSE ---
woke patient up at 915am. patient cooperative at that time agreed to take meds, and started eating on her yogurt. worked with pt, and full bed bath to include hair washing done. new mepilex plaxed to sacrum. elbow and heel protectors placed. bed linens changed. incontinent of urine. states she is just tired today. was aware it had been raining and asked about weather. daughter at bedside after bath updated on medication changes and plan of care.
[2025-01-07] MEDS: ACETAMINOPHEN 325MG TAB 650 MG PO ×2 (12:55→23:29)
--- NOTE | 2025-01-07 17:46 | PC.NURSE ---
patient has done well this shift. has been noted to sleep through out the shift off and on. ate dinner well to include a full chicken salad sandwich apple sauce pudding and soup. some complaints of shoulder pain to left front side. md aware. noted pain better after tylenol. daughter had some concerns of bp, educated on med changes. md made aware of elevated bps. on room air. alert to self. has been on weaker side today, but mood has been good.
--- NOTE | 2025-01-07 18:32 | P.PN_ITS ---
Subjective *Date: 01/08/25 *Time: 17:05 Interval history: Patient continues to be somewhat restless, switch to vancomycin due to gram- positive cocci. Follow-up speciation and sensitivities. Exam Data for Last 24 hours Vital signs and Labs for Last 24 Hours: Temp Pulse Resp BP Pulse Ox O2 Del Method O2 Flow Rate 99.1 F 100 H 21 171/97 H 99 Room Air 2 01/07/25 17:03 01/07/25 17:03 01/07/25 17:03 01/07/25 17:03 01/07/25 17:03 01/07/25 17:00 01/06/25 07:00 Laboratory Results - last 24 hr 01/06/25 05:10: Urine Color Dark yellow, Urine Appearance Clear, Urine pH 5.5, Ur Specific [place] 1.020, Urine Protein Trace, Urine Glucose (UA) Negative, Urine Ketones Negative, Urine Blood Negative, Urine Nitrate Negative, Urine Bilirubin Negative, Urine Urobilinogen 0.2, Ur Leukocyte Esterase Negative, Urine WBC Occasional, Ur Squamous Epith Cells Occasional, Urine Bacteria 2+ 01/07/25 04:58: WBC 11.6 H, RBC 4.25, Hgb 12.6, Hct 37.7, MCV 88.7, MCH 29.6, MCHC 33.4, RDW 14.6, Plt Count 352, MPV 10.2, Neut % (Auto) 64.2, Lymph % (Auto) 26.6, [place] % (Auto) 7.7, Eos % (Auto) 0.4, Baso % (Auto) 0.9, Neut # (Auto) 7.4, Lymph # (Auto) 3.1, [place] # (Auto) 0.9, Eos # (Auto) 0.1, Baso # (Auto) 0.1, Sodium 134 L, Potassium 3.9, Chloride 103, Carbon Dioxide 22, Anion Gap 12.9, BUN 18 H, Creatinine 0.90, Estimated Creat Clear 43, Estimated GFR 60, Est GFR ( Amer) 72, Glucose 99, Calcium 9.5, Total Bilirubin 0.7, AST 28, ALT 15, Alkaline Phosphatase 79, Total Protein 7.7, Albumin 3.9, Globulin 3.8 H, Albumin/Globulin Ratio 1.0 L I & O for Last 24 hours: Intake & Output 01/04/25 01/05/25 01/06/25 01/07/25 23:59 23:59 23:59 23:59 Intake Total 1110 / 1350 2405.000 / 2405.000 1040 / 1040 1127 / 1127 Output Total 1450 / 1450 1400 / 1400 0 / 0 Balance -340 / -100 2405.000 / 2405.000 -360 / -360 1127 / 1127 Weight 63.191 kg 64.2 kg 63.9 kg 64.6 kg Microbiology Reports for the Last 24 Hours: Microbiology 01/05/25 05:00 Anus CRE Surveillance Culture - Final 01/02/25 18:00 Urine,Clean Catch Urine Culture - Preliminary Gram Positive Cocci 01/06/25 05:10 Urine,Clean Catch Urine Culture - Preliminary Gram Positive Cocci 01/05/25 05:30 Blood Blood Culture - Preliminary NO GROWTH AFTER 48 HOURS 01/05/25 05:22 Blood Blood Culture - Preliminary NO GROWTH AFTER 48 HOURS Constitutional Constitutional: no acute distress Comments: Pleasantly demented. *Routine HEENT Exam Head: Present normocephalic Eye: Present EOMI and PERRL ENT: Present mucous membranes moist *Routine Neck Exam Neck: Present supple; Absent lymphadenopathy *Routine Respiratory Exam Respiratory: Present CTA bilaterally *Routine Cardiovascular Exam Cardiovascular: Present RRR *Routine Abdominal Exam Abdominal: Present soft and normoactive bowel sounds; Absent tenderness *Routine Extremities Exam Extremities: Absent cyanosis, clubbing or edema *Routine Skin Exam Skin: Present warm; Absent rash *Routine Neurological Exam Neurological: Present alert Assessment and Plan *Assessment and plan (1) JOY (acute kidney injury): Status: Acute Category: Medical Code(s): N17.9 - Acute kidney failure, unspecified (2) NSTEMI (non-ST elevated myocardial infarction): Status: Acute Category: Medical Code(s): I21.4 - Non-ST elevation (NSTEMI) myocardial infarction (3) Declining functional status: Status: Acute Category: Medical Code(s): R53.81 - Other malaise (4) History of coronary artery bypass graft: Status: Acute Category: Surgical Code(s): Z95.1 - Presence of aortocoronary bypass graft (5) Hypertension: Status: Chronic Qualifiers: Hypertension type: primary hypertension Qualified Code(s): I10 - Essential (primary) hypertension Category: Medical Code(s): I10 - Essential (primary) hypertension (6) Generalized weakness: Status: Acute Category: Medical Code(s): R53.1 - Weakness (7) Sleep disorder: Status: Chronic Category: Medical Code(s): G47.9 - Sleep disorder, unspecified (8) GERD (gastroesophageal reflux disease): Status: Chronic Qualifiers: Esophagitis presence: esophagitis presence not specified Qualified Code(s): K21.9 - Gastro-esophageal reflux disease without esophagitis Category: Medical Code(s): K21.9 - Gastro-esophageal reflux disease without esophagitis (9) Hypokalemia: Status: Acute Category: Medical Code(s): E87.6 - Hypokalemia (10) Neuropathy: Status: Acute Category: Medical Code(s): G62.9 - Polyneuropathy, unspecified (11) Hypotension: Status: Acute Category: Medical Code(s): I95.9 - Hypotension, unspecified Plan Patient is a 84-year-old female who lives at home with past medical history of hypertension who presents to the hospital due to generalized weakness. According to the patient's family patient has been having difficulty walking, normally patient is able to walk but lately she has not been able to walk and is noted to have generalized weakness. Patient otherwise denied chills chest pain shortness of breath nausea vomiting diarrhea constipation dysuria. She was just admitted 2 months ago with CHF exacerbation. Discharged to rehab at that time. Did well after few weeks and went home. Goes to adult daycare at [facility]. Had a fall at home within the past week or 2. Complaining more of pain in her feet per daughter's report. Therapy working with patient. Recommend placement. #Acute metabolic encephalopathy #Generalized weakness #UTI #Debility #Rheumatoid arthritis #Neuropathy #Dementia ? Presented with generalized weakness, UA grossly abnormal, urine culture growing gram-positive cocci with CFU greater than 100,000. ? Patient continues to be encephalopathic, and given worsening CFU 200,000 today on urine culture with gram positive rods so started vancomycin. ? Started vancomycin, continue IV ceftriaxone 1 g daily pending urine culture speciation and sensitivities. ? Gabapentin reduced to 100 mg nightly to do worsen delirium. ? PT/OT recommended SNF placement, case management assisting with placement. Preliminarily accepted at [facility]. - Podiatry consulted to evaluate feet and toe deviation. S/p nail debridement, callus debridement. Recommended deep inlay shoes for lower extremity contractures. - X-ray of L-spine with no fractures. Does have degenerative changes per my review. #Hospital-acquired delirium ? Seems to have worsened with starting gabapentin versus natural course of hospital-acquired delirium, decrease dose to 100 mg nightly. ? Will try to maximize on sleep tonight, started melatonin 5 mg nightly. Continue home quetiapine 50 mg nightly. ? Zyprexa 5 mg as needed for agitation. #Hypotension, resolved #NSTEMI #JOY on CKD stage IIIa - Developed episode of hypotension during admission after receiving nighttime blood pressure medications. Suspect secondary to her metoprolol, ARB, diuresis for heart failure. - Troponins monitored. Elevated to 0.16 and then to 0.3. EKGs obtained showing no ST elevation per my review. Patient denies chest pain. - Cardiology consulted, discussed case, given patient's history of CABG, elevation in troponin, initially recommended [facility] but daughter wanted to hold off for now. Will consider on outpatient basis. ? Creatinine improved to 0.90. Peaked at 2.0. #Hypertension #GERD #Sleep disorder ? Holding blood pressure meds in the setting of alyse hypotension and JOY. Hold irbesartan and metoprolol and Bumex - Continue pantoprazole 40 mg daily - Continue quetiapine 50 mg at bedtime ? Started melatonin 5 mg nightly. DVT prophylaxis-Lovenox Regular diet Full code
--- NOTE | 2025-01-07 18:54 | PC.NURSE ---
md rounded on patient relayed about bps continuing to be high. aware of not being on losartan and decrease of metorpolol. stated to dc the metoprolol and start coreg 12.5 bid with the first dose tonight. faxed order to pharmacy
[2025-01-07] MEDS: GABAPENTIN 100MG CAPSULE 100 MG PO (21:21)
[2025-01-07] MEDS: MELATONIN 5MG TABLET 5 MG PO (21:22)
[2025-01-07] MEDS: ATORVASTATIN 20MG TABLET 20 MG PO (21:22)
[2025-01-07] MEDS: QUETIAPINE 100MG TABLET 50 MG PO (21:23)
[2025-01-07] MEDS: CARVEDILOL 12.5MG TABLET 12.5 MG PO (21:24)
[2025-01-08] VITALS (11 sets, daily range): BP systolic 98–164; BP diastolic 55–82; PULSE 78–95; RESP 15–22; TEMP 36.4–37.3; O2SAT 92–97; BMI 21.9
[2025-01-08 06:09] LABS: Hematocrit 34.4 % (37.0-47.0); Hemoglobin 11.5 g/dL (12.2-16.2); Immature Granulocytes % 0.3 %; Mean Corpuscular HGB Conc 33.4 g/dL (31.8-35.4); Mean Corpuscular Hemoglobin 29.9 pg (27.0-31.2); Mean Corpuscular Volume 89.6 fl (81-99); Nucleated Red Blood Cells % 0 %; Platelet Count 347 K/mm3 (142-424); Red Blood Count 3.84 M/mm3 (4.20-5.40); Red Cell Distribution Width-SD 47.8 fL; White Blood Count 10.3 K/mm3 (4.8-10.8)
[2025-01-08 06:23] LABS: Alanine Aminotransferase 14 U/L (12-78); Albumin Level 3.2 g/dl (3.5-5.0); Albumin/Globulin Ratio 1.0 (1.1-1.8); Alkaline Phosphatase 74 U/L (38-126); Anion Gap 7.8 mEq/L (5-15); Aspartate Amino Transferase 26 U/L (14-36); Bilirubin,Total 0.4 mg/dl (0.2-1.3); Blood Urea Nitrogen 17 mg/dl (7-17); Calcium 8.8 mg/dl (8.4-10.2); Carbon Dioxide 24 mmol/L (22.0-30.0); Chloride 101 mmol/L (98-107); Creatinine Clearance Estimated 43 mL/min (50-200); Creatinine,Serum 0.90 mg/dl (0.52-1.04); Estimated Glomerular Filt Rate 60 ml/min (>60); GFR (African American) 72 ML/MIN (>60); Globulin 3.1 g/dL (1.3-3.2); Glucose 115 mg/dl (74-100); Potassium 3.8 mmoL/L (3.5-5.1); Sodium 129 mmol/L (136-145); Total Protein,Serum 6.3 g/dl (6.3-8.2)
[2025-01-08] MEDS: CEFTRIAXONE 1 GM 1 GM in 0.9 % SODIUM CHLORIDE 50 ML IV (08:26)
[2025-01-08] MEDS: ASPIRIN EC 81MG TABLET 81 MG PO (08:27)
[2025-01-08] MEDS: VANCOMYCIN HCL 1,000 MG in 0.9 % SODIUM CHLORIDE 250 ML 125 MG IV (09:08)
--- NOTE | 2025-01-08 10:24 | EXP.DC.SUM ---
General Admission date:: 01/05/25 HPI HPI HPI: Patient is a 84-year-old female who lives at home with past medical history of hypertension who presents to the hospital due to generalized weakness. According to the patient's family patient has been having difficulty walking, normally patient is able to walk but lately she has not been able to walk and is noted to have generalized weakness. Patient otherwise denied chills chest pain shortness of breath nausea vomiting diarrhea constipation dysuria. 01/05/25: Podiatry consulted for 84-year old female patient, new to our services. Patient will be needing to have her toenails assessed and debrided, Routine foot evaluation for her weakness, Lateral deviation of her toes consistent with her Neuropathy and rheumatoid arthritis. It is noted in her chart that she normally goes to adult daycare at [facility] but had a fall at home recently and is now complaining of more pain in her feet. Hospital Course Hospital Course Hospital Course: Patient is a 84-year-old female who lives at home with past medical history of hypertension who presents to the hospital due to generalized weakness. According to the patient's family patient has been having difficulty walking, normally patient is able to walk but lately she has not been able to walk and is noted to have generalized weakness. Patient otherwise denied chills chest pain shortness of breath nausea vomiting diarrhea constipation dysuria. She was just admitted 2 months ago with CHF exacerbation. Discharged to rehab at that time. Did well after few weeks and went home. Goes to adult daycare at [facility]. Had a fall at home within the past week or 2. Complaining more of pain in her feet per daughter's report. Therapy working with patient. Recommend placement. Overnight patient had hypotensive event and developed NSTEMI and JOY. Evaluated by cardiology today. Close monitoring of renal function. Weaning Levophed. Continues to require inpatient management. Problems addressed as follows: #Generalized weakness #UTI #Debility ? Presented with generalized weakness, UA grossly abnormal. Urine culture growing gram-positive cocci, speciation and sensitivies pending at this time. ? Clinically improved with IV antibiotics, especially vancomycin. ? Will transition from vancomycin to Bactrim for MRSA coverage. In the event urine culture results as multidrug-resistant UTI, we will reach out to nursing facility for antibiotic recommendations. ? PT/OT recommended SNF placement, case management assisting with placement. ? Discharged with Bactrim DS twice daily for 5 more days. #Rheumatoid arthritis #Neuropathy ? No significant pain from rheumatoid arthritis. ? Started gabapentin 100 mg nightly with improvement in neuropathy. Higher doses seem to have correlated with delirium. - Podiatry consulted to evaluate feet and toe deviation. S/p nail debridement, callus debridement. Recommended deep inlay shoes for lower extremity contractures. #Hospital-acquired delirium #Insomnia #Dementia ? Seems to have worsened with starting gabapentin versus natural course of hospital-acquired delirium, decreased gabapentin dose to 100 mg nightly with improvement in symptoms. ? Maximized on sleep hygiene as well, melatonin 2.5 mg nightly seems to have worked well. Needs as needed. ? Continue home quetiapine 50 mg nightly. #Hypertension #HFpEF ? Discontinued losartan due to hypotension. ? Switched metoprolol to carvedilol 6.25 mg twice daily, decrease Bumex from 2 mg to 0.5 mg daily. ? Going to follow-up with cardiology within 1 week for further evaluation and management. #Hypotension, resolved #NSTEMI #JOY on CKD stage IIIa - Developed episode of hypotension during admission after receiving nighttime blood pressure medications. Suspect secondary to her metoprolol, ARB, diuresis for heart failure. - Troponins monitored. Elevated to 0.16 and then to 0.3. EKGs obtained showing no ST elevation per my review. Patient denies chest pain. - Cardiology consulted, discussed case, given patient's history of CABG, elevation in troponin, initially recommended [facility] but daughter wanted to hold off for now. Will consider on outpatient basis. ? Creatinine back to baseline at 0.90 today. ? Follow-up with cardiology within 1 week. #GERD - Continue pantoprazole 40 mg daily Total time spent on discharge: 32 minutes on chart review, counseling, documentation, and direct care with patient. Exam Data for Last 24 hours Vital signs and Labs for Last 24 Hours: Temp Pulse Resp BP Pulse Ox O2 Del Method O2 Flow Rate 99.1 F 84 15 111/64 95 Room Air 97 01/08/25 08:00 01/08/25 08:00 01/08/25 08:00 01/08/25 08:00 01/08/25 08:00 01/08/25 09:19 01/08/25 09:19 Laboratory Results - last 24 hr 01/08/25 05:18: WBC 10.3, RBC 3.84 L, Hgb 11.5 L, Hct 34.4 L, MCV 89.6, MCH 29.9, MCHC 33.4, RDW 14.8, Plt Count 347, MPV 10.0, Neut % (Auto) 64.4, Lymph % (Auto) 24.5, [place] % (Auto) 9.1, Eos % (Auto) 0.8, Baso % (Auto) 0.9, Neut # (Auto) 6.7, Lymph # (Auto) 2.5, [place] # (Auto) 0.9, Eos # (Auto) 0.1, Baso # (Auto) 0.1, Sodium 129 L, Potassium 3.8, Chloride 101, Carbon Dioxide 24, Anion Gap 7.8, BUN 17, Creatinine 0.90, Estimated Creat Clear 43, Estimated GFR 60, Est GFR ( Amer) 72, Glucose 115 H, Calcium 8.8, Total Bilirubin 0.4, AST 26, ALT 14, Alkaline Phosphatase 74, Total Protein 6.3, Albumin 3.2 L D, Globulin 3.1, Albumin/Globulin Ratio 1.0 L I & O for Last 24 hours: Intake & Output 01/05/25 01/06/25 01/07/25 01/08/25 23:59 23:59 23:59 23:59 Intake Total 2405.000 / 2405.000 1040 / 1040 1127 / 1482 525 / 525 Output Total 1400 / 1400 0 / 0 0 / 0 Balance 2405.000 / 2405.000 -360 / -360 1127 / 1482 525 / 525 Weight 64.2 kg 63.9 kg 64.6 kg 65.6 kg Microbiology Reports for the Last 24 Hours: Microbiology 01/05/25 05:00 Anus CRE Surveillance Culture - Final 01/02/25 18:00 Urine,Clean Catch Urine Culture - Preliminary Gram Positive Cocci 01/06/25 05:10 Urine,Clean Catch Urine Culture - Preliminary Gram Positive Cocci Constitutional Constitutional: no acute distress Comments: Pleasantly demented. *Routine HEENT Exam Head: Present normocephalic Eye: Present EOMI and PERRL ENT: Present mucous membranes moist *Routine Neck Exam Neck: Present supple; Absent lymphadenopathy *Routine Respiratory Exam Respiratory: Present CTA bilaterally *Routine Cardiovascular Exam Cardiovascular: Present RRR *Routine Abdominal Exam Abdominal: Present soft and normoactive bowel sounds; Absent tenderness *Routine Extremities Exam Extremities: Absent cyanosis, clubbing or edema *Routine Skin Exam Skin: Present warm; Absent rash *Routine Neurological Exam Neurological: Present alert Results Data Completed and Pending Labs on day of discharge: Labs from last 24 hours 01/08/25 05:18 WBC 10.3 RBC 3.84 L Hgb 11.5 L Hct 34.4 L MCV 89.6 MCH 29.9 MCHC 33.4 RDW 14.8 Plt Count 347 MPV 10.0 Neut % (Auto) 64.4 Lymph % (Auto) 24.5 [place] % (Auto) 9.1 Eos % (Auto) 0.8 Baso % (Auto) 0.9 Neut # (Auto) 6.7 Lymph # (Auto) 2.5 [place] # (Auto) 0.9 Eos # (Auto) 0.1 Baso # (Auto) 0.1 Sodium 129 L Potassium 3.8 Chloride 101 Carbon Dioxide 24 Anion Gap 7.8 BUN 17 Creatinine 0.90 Estimated Creat Clear 43 Estimated GFR 60 Est GFR ( Amer) 72 Glucose 115 H Calcium 8.8 Total Bilirubin 0.4 AST 26 ALT 14 Alkaline Phosphatase 74 Total Protein 6.3 Albumin 3.2 L D Globulin 3.1 Albumin/Globulin Ratio 1.0 L Preliminary micro results at discharge 01/02/25 18:00 Urine Culture - Preliminary Urine,Clean Catch Gram Positive Cocci 01/06/25 05:10 Urine Culture - Preliminary Urine,Clean Catch Gram Positive Cocci 01/05/25 05:30 Blood Culture - Preliminary Blood NO GROWTH AFTER 48 HOURS 01/05/25 05:22 Blood Culture - Preliminary Blood NO GROWTH AFTER 48 HOURS DS: Diagnosis Discharge Diagnosis (1) JOY (acute kidney injury): Status: Acute Code(s): N17.9 - Acute kidney failure, unspecified (2) NSTEMI (non-ST elevated myocardial infarction): Status: Acute Code(s): I21.4 - Non-ST elevation (NSTEMI) myocardial infarction (3) Declining functional status: Status: Acute Code(s): R53.81 - Other malaise (4) History of coronary artery bypass graft: Status: Acute Code(s): Z95.1 - Presence of aortocoronary bypass graft (5) Hypertension: Status: Chronic Code(s): I10 - Essential (primary) hypertension Qualifiers: Hypertension type: primary hypertension Qualified Code(s): I10 - Essential (primary) hypertension (6) Generalized weakness: Status: Acute Code(s): R53.1 - Weakness (7) Sleep disorder: Status: Chronic Code(s): G47.9 - Sleep disorder, unspecified (8) GERD (gastroesophageal reflux disease): Status: Chronic Code(s): K21.9 - Gastro-esophageal reflux disease without esophagitis Qualifiers: Esophagitis presence: esophagitis presence not specified Qualified Code(s): K21.9 - Gastro-esophageal reflux disease without esophagitis (9) Hypokalemia: Status: Acute Code(s): E87.6 - Hypokalemia (10) Neuropathy: Status: Acute Code(s): G62.9 - Polyneuropathy, unspecified (11) Hypotension: Status: Acute Code(s): I95.9 - Hypotension, unspecified Meds Home Medications and Allergies Home Medications ?Medication ?Instructions ?Recorded ?Confirmed ?Type quetiapine 50 mg tablet 50 mg PO HS 10/14/24 01/03/25 History omeprazole 20 mg capsule,delayed 20 mg PO DAILY 01/03/25 01/03/25 History release aspirin 81 mg tablet,delayed 81 mg PO DAILY 30 days #30 tabs 01/08/25 Rx release atorvastatin 20 mg tablet 20 mg PO HS 30 days #30 tabs 01/08/25 Rx bumetanide 0.5 mg tablet 0.5 mg PO DAILY 30 days #30 tabs 01/08/25 Rx carvedilol 6.25 mg tablet 6.25 mg PO BID 30 days #60 tabs 01/08/25 Rx gabapentin 100 mg capsule 100 mg PO HS 30 days #30 caps 01/08/25 Rx melatonin 5 mg tablet 2.5 mg (1/2 x 5 mg) PO HS 30 days 01/08/25 Rx #15 tabs sulfamethoxazole 800 1 tab PO BID 5 days #10 tabs 01/08/25 Rx mg-trimethoprim 160 mg tablet (Bactrim DS) New Prescriptions to Start Prescriptions: aspirin [place]idge atorvastatin [place]idge bumetanide [place],Ridge carvedilol [place]idge gabapentin [place] sulfamethoxazole-trimethoprim [Bactrim DS] Ridge Qureshi Allergies Allergy/AdvReac Type Severity Reaction Status Date / Time No Known Allergies Allergy Verified 10/14/24 12:26 Discharge Plan Disposition Patient Disposition: Xfer [facility] Condition: Fair Discharge Order Discharge Orders: Discharge Order (Routine); Ordered 01/08/25 Ordered By: Ridge Qureshi Follow up Plan Follow up with: Iris Mackey APRN [Nurse Practitioner, Cardiology] - 1 week Prescriptions/Medication Reconciliation: New carvedilol 6.25 mg Tablet 6.25 mg PO BID 30 Days Qty: 60 0RF aspirin 81 mg Tablet,Delayed Release (Dr/Ec) 81 mg PO DAILY 30 Days Qty: 30 0RF atorvastatin 20 mg Tablet 20 mg PO HS 30 Days Qty: 30 0RF gabapentin 100 mg Capsule 100 mg PO HS 30 Days Qty: 30 0RF bumetanide 0.5 mg tablet 0.5 mg PO DAILY 30 Days Qty: 30 0RF sulfamethoxazole-trimethoprim [Bactrim DS] 800-160 mg tablet 1 tab PO BID 5 Days Qty: 10 0RF melatonin 5 mg Tablet 2.5 mg PO HS 30 Days Qty: 15 0RF Continued omeprazole 20 mg capsule,delayed release(DR/EC) 20 mg PO DAILY Patient Comments: TAKE 1 CAPSULE BY MOUTH ONCE DAILY quetiapine 50 mg tablet 50 mg PO HS Patient Comments: TAKE 1 TABLET BY MOUTH ONCE DAILY AT NIGHT Discontinued losartan 25 mg tablet 25 mg PO HS Patient Comments: TAKE 1 TABLET BY MOUTH ONCE DAILY metoprolol succinate 25 mg tablet extended release 24 hr 25 mg PO HS Patient Comments: TAKE 1 TABLET BY MOUTH ONCE DAILY bumetanide 2 mg tablet 2 mg PO DAILY Qty: 30 0RF potassium chloride [Klor-Con M20] 20 mEq tablet,ER particles/crystals 20 meq PO DAILY Qty: 30 0RF Problem Reconciliation Problems Reviewed?: Yes Patient Discharge Instructions Patient Instructions: DI for Heart Failure, DI for Fatigue Print Language: [place] Providers Primary Care Provider: Hermes Clark Provider: Felipe Payan Attending Provider: Felipe Payan
[2025-01-08] MEDS: BUMETANIDE 1MG/4ML VIAL 0.5 MG IV (10:52)
--- NOTE | 2025-01-08 11:58 | PC.NURSE ---
Report called to Lesley at [facility] at 1147. daughter called at 1150 by Mandy FERREIRA. notified family that pt was ready for discharge to [facility]. daughter states that she will be here about 1ish
== END 2025-01-08 13:18 | DRG 280 ==
LOC: ER 19:56 → 2ND 20:00 → ICU 01-05 04:47
PROVIDERS: Internal Medicine; Nurse Practitioner; Student in an Organized Health Care Education/Training Program; Admitting Provider Internal Medicine Adolescent Medicine; Emergency Provider Student in an Organized Health Care Education/Training Program; PCP Internal Medicine; Visit Provider Internal Medicine Adolescent Medicine
DX: I95.2 Hypotension due to drugs (principal); G93.41 Metabolic encephalopathy; I21.4 Non-ST elevation (NSTEMI) myocardial infarction; N39.0 Urinary tract infection, site not specified; F05 Delirium due to known physiological condition; I50.32 Chronic diastolic (congestive) heart failure; N17.9 Acute kidney failure, unspecified; I13.0 Hypertensive heart and chronic kidney disease with heart failure and stage 1 through stage 4 chronic kidney disease, or unspecified chronic kidney disease; F03.911 Unspecified dementia, unspecified severity, with agitation; M06.9 Rheumatoid arthritis, unspecified; N18.31 Chronic kidney disease, stage 3a; I73.9 Peripheral vascular disease, unspecified; M19.072 Primary osteoarthritis, left ankle and foot; G47.00 Insomnia, unspecified; K21.9 Gastro-esophageal reflux disease without esophagitis; E87.6 Hypokalemia; G62.9 Polyneuropathy, unspecified; M19.071 Primary osteoarthritis, right ankle and foot; M20.12 Hallux valgus (acquired), left foot; M20.11 Hallux valgus (acquired), right foot; M20.42 Other hammer toe(s) (acquired), left foot; M20.41 Other hammer toe(s) (acquired), right foot; I99.8 Other disorder of circulatory system; M77.9 Enthesopathy, unspecified; L60.3 Nail dystrophy; B35.1 Tinea unguium; L60.8 Other nail disorders; L84 Corns and callosities; E86.1 Hypovolemia; T44.7X5A Adverse effect of beta-adrenoreceptor antagonists, initial encounter; T46.4X5A Adverse effect of angiotensin-converting-enzyme inhibitors, initial encounter; T50.1X5A Adverse effect of loop [high-ceiling] diuretics, initial encounter; R53.81 Other malaise; R62.7 Adult failure to thrive; Z95.1 Presence of aortocoronary bypass graft; Z95.2 Presence of prosthetic heart valve; Z79.899 Other long term (current) drug therapy
CPT/HCPCS: 36415; 51798; 70450; 71045; 72100; 73630; 80048; 80053; 81001; 82550; 82607; 82746; 83605; 83690; 83735; 84145; 84443; 84484; 85025; 87040; 87077; 87081; 87086; 87088; 87636; 93005; 93308; 97163; 97165; 97530; 99285; G0378; J0696; J1644; J1720; J1939; J3373; J7030; J7050